=== PATIENT | female | born 1995 | race Caucasian/White ===

== ENCOUNTER 2022-10-28 13:43 | Emergency (ER) | payer BC, SELFPAY ==
[2022-10-28 14:01] VITALS: BP 122/81; PULSE 94; RESP 16; TEMP 37; O2SAT 98; BMI 20.1
--- NOTE | 2022-10-28 14:14 | ED.GENADUL1 ---
HPI - General Adult General Chief complaint: Skin/Abscess/Foreign Body Stated complaint: ALLERGIC REACTION Time Seen by Provider: 10/28/22 14:04 Source: patient Mode of arrival: walk-in Limitations: no limitations History of Present Illness HPI narrative: The patient presented to us with a few days history of rash that started after she was in [facility] patient denies having her hand touched anything but she did had the rash on the dorsum of her both hands as well as her feet and at her back as well The rash was itchy initially but not as much right now there was no other complaint and no history of any insect bites or any exposure to any new medication or new foods Related Data Previous Rx's Medication Instructions Recorded prednisone 20 mg tablet 40 mg PO DAILY 5 days #10 tabs 10/28/22 Allergies Allergy/AdvReac Type Severity Reaction Status Date / Time No Known Drug Allergies Allergy Verified 10/28/22 14:01 Review of Systems ROS Status of ROS 10 or more systems reviewed and unremarkable except as noted in history and below PFSH PFS Social History Smoking status: Never smoker Exam Narrative Exam Narrative: Nurses notes and vital signs reviewed and patient is not hypoxic. General: Well-appearing and in no apparent distress. Skin: Warm, dry, no pallor noted. No rash. Head: Normocephalic, atraumatic. Neck: Supple, non-tender. Eye: Pupils are equal, round and EOMI. No scleral icterus. Ears, Nose, Mouth, and Throat: TM are clear, no nasal mucosal hypertrophy. Oral mucosa is moist, no posterior oropharynx erythema, uvula is mid-line Cardiovascular: Regular Rate and Rhythm without murmur, gallop or rub. Respiratory: No accessory muscle use or respiratory distress. Lungs are clear to auscultation, no wheezing, rales or rhonchi Chest Wall: no tenderness Back: No midline thoracic or lumbar vertebral tenderness. No CVA tenderness Musculoskeletal: normal ROM, no calf or popliteal tenderness, no lower extremity edema/swelling GI: Abdomen is soft, non-distended. Normal bowel sounds. No masses appreciated. No tenderness to palpation. No rebound, guarding, or rigidity noted. Neurological: A&O x4. No cranial nerve dysfunction observed. No truncal ataxia. Moves all extremities. Sensation intact. Psychiatric: Cooperative and interactive. Normal mood and affect. Skin examination shows a scattered maculopapular rash on the dorsum of both hands, the patient also had a papular rash on her feet as well as the right side of her thigh there is 2-3 spots of papular rash Constitutional Vital Signs, click to edit/add: Last Vital Signs Temp 98.6 F 10/28/22 14:01 Pulse 94 H 10/28/22 14:01 Resp 16 10/28/22 14:01 BP 122/81 H 10/28/22 14:01 Pulse Ox 98 10/28/22 14:01 O2 Del Method Room Air 10/28/22 14:01 Course Vital Signs Vital signs: Vital Signs Temperature 98.6 F 10/28/22 14:01 Pulse Rate 94 H 10/28/22 14:01 Respiratory Rate 16 10/28/22 14:01 Blood Pressure 122/81 H 10/28/22 14:01 Pulse Oximetry 98 10/28/22 14:01 Oxygen Delivery Method Room Air 10/28/22 14:01 Temperature 98.6 F 10/28/22 14:01 Pulse Rate 94 H 10/28/22 14:01 Respiratory Rate 16 10/28/22 14:01 Blood Pressure 122/81 H 10/28/22 14:01 Pulse Oximetry 98 10/28/22 14:01 Oxygen Delivery Method Room Air 10/28/22 14:[address] [facility] Narrative Medical decision making narrative: The patient rash will be treated with prednisone right now at the possibility of poison joelle or allergy but the patient was instructed about the importance of monitoring in case of the rash increasing or fever she is to come back to the ER The patient is to follow up with primary care physician in next 2-3 days or to return to the emergency department should any of the signs or symptoms worsen or new symptoms develop. The patient agrees with the following Diagnosis and Treatment plan and the patient will be discharged home. Discharge Plan Discharge Chief Complaint: Skin/Abscess/Foreign Body Clinical Impression: Contact dermatitis Patient Disposition: Home, Self-Care Time of Disposition Decision: 14:16 Condition: Good Mode of Transportation: Private Vehicle Prescriptions / Home Meds: New prednisone 20 mg tablet 40 mg PO DAILY 5 Days Qty: 10 0RF Instructions: Acute Rash (ED) Stand Alone Forms: Portal Instructions Referrals: Physician,Non-Staff, MD [Primary Care Provider] - 1 week Discharge Date/Time: 10/28/22 14:40
[2022-10-28] MEDS: PREDNISONE 20 MG TABLET 40 MG PO (14:31)
--- NOTE | 2022-10-28 14:36 | PC.NURSE ---
Pt has rash on bilateral hands, arms and groin area. She was recently hiking and thinks she has poison joelle.
== END 2022-10-28 14:40 | disposition home or self-care (01) ==
PROVIDERS: Emergency Provider Emergency Medicine
DX: L25.9 Unspecified contact dermatitis, unspecified cause (principal)
CPT/HCPCS: 99283

== ENCOUNTER 2023-12-17 17:27 | Emergency (ER) | payer BC, SELFPAY ==
[2023-12-17 17:32] VITALS: BP 118/80; PULSE 115; TEMP 36.8; O2SAT 97
--- NOTE | 2023-12-17 17:49 | US_ITS ---
The [address] [address] Patient Name: SEJAL NOWAK MRN: [id number] date: 1995 Sex: F Assigned Patient Location: ER Current Patient Location: ED.MAIN Accession/Order Number: [id number] Exam Date: 12/17/2023 18:00 Report Date: 12/17/2023 18:58 At the request of: REINA POPE Procedure: US OB transvaginal EXAM: Transvaginal OB pelvic ultrasound was performed CLINICAL INDICATION: intermittent abdominal pain. COMPARISON: None FINDINGS: Uterus: Uterus measures cm. Intrauterine with gestational sac, yolk sac and fetus present. cardiac activity is present at 136-137 bpm. [place]-rump length measures 0.3 cm with an estimated gestational age of 6 weeks 5 days. No subchorionic hematoma evident. Right ovary: Measures 3.1 x 1.9 x 2.0 cm. Normal color flow and Doppler arterial and venous waveforms. No ovarian masses. Left ovary: Measures 4.0 x 2.1 x 2.5 cm. Normal color flow and Doppler arterial and venous waveforms. No ovarian masses. Probable left ovarian corpus luteum. No free fluid in the pelvis. US/US OB transvaginal IMPRESSION: 1. No acute sonographic abnormalities in the pelvis. 2. Single intrauterine with cardiac activity present. Electronically authenticated by: VIOLETA HOPKINS Date: 12/17/2023 18:58
[2023-12-17 17:57] LABS: Basophils Absolute Auto 0.1 10^3/uL (0.0-0.1); Basophils Percent Auto 0.4 % (0.2-2.0); Eosinophils Absolute Auto 0.1 10^3/uL (0.0-0.7); Eosinophils Percent Auto 0.4 % (0.9-7.0); Hematocrit 41.8 % (36.0-48.0); Hemoglobin 14.4 g/dL (12.0-16.0); Immature Granulocytes Abs Auto 0.05 10^3/uL (0.00-0.03); Immature Granulocytes Pct Auto 0.4 % (0.0-0.5); Lymphocytes Absolute Auto 1.8 10^3/uL (1.2-3.8); Lymphocytes Percent Auto 15.1 % (20.5-60.0); Mean Corpuscular HGB Conc 34.4 g/dL (29.9-35.2); Mean Corpuscular Hemoglobin 29.4 pg (26.7-34.0); Mean Corpuscular Volume 85.3 fL (81.0-99.0); Monocytes Absolute Auto 1.1 10^3/uL (0.3-0.8); Monocytes Percent Auto 9.2 % (1.7-12.0); Neutrophils Absolute Auto 8.9 10^3/uL (1.4-6.5); Neutrophils Percent Auto 74.5 % (43.0-75.0); Platelet Count 300 10^3/uL (150-450); Red Cell Distribution Width 11.9 % (11.0-15.0)
--- NOTE | 2023-12-17 18:00 | ED.GENADUL1 ---
HPI HPI - General Adult General Chief complaint: Nausea/Vomiting/Diarrhea Stated complaint: nausea Time Seen by Provider: 12/17/23 17:43 Source: patient Mode of arrival: walk-in Limitations: no limitations History of Present Illness HPI narrative: 28-year-old female G1, P0 who presents to the ER with concerns of nausea and vomiting for the past 3 days. Last menstrual cycle 10/26, patient is 7 weeks and 2 days gestation with confirmed in her PCPs office a few weeks ago. Patient has not yet followed up with [facility]. She denies any vaginal bleeding but has had some intermittent cramping. Patient concerned as she had a call off work and feels that she is getting dehydrated. She denies any chest pain or shortness of breath. She denies any dysuria. Onset (ago): day(s) (3) Treatments prior to arrival: Reports none Related Data Previous Rx's ?Medication ?Instructions ?Recorded ondansetron 4 mg disintegrating 4 mg PO TID PRN nausea and 12/17/23 tablet vomiting 4 days #12 tabs Allergies Allergy/AdvReac Type Severity Reaction Status Date / Time No Known Drug Allergies Allergy Verified 12/17/23 17:32 Opioid HPI Opioid Management Most Recent Opioid Data: No Data to Display Review of Systems ROS Constitutional Denies: fever or chills Ears, nose, mouth, and throat Denies: throat pain or neck pain Cardiovascular Denies: chest pain or palpitations Respiratory Denies: shortness of breath or cough Gastrointestinal Reports: nausea; Denies: abdominal pain or vomiting Genitourinary Reports: pelvic pain (intermittent cramping); Denies: painful urination or urinary frequency Musculoskeletal Denies: back pain or neck pain Integumentary/Breast Denies: rash, itching or redness Neurological Denies: headache Psychiatric Denies: anxiety Endocrine Denies: excessive urination PFSH PFSH Social History Smoking status: Never smoker Little interest or pleasure in doing things: not at all Feeling down, depressed, or hopeless: not at all Exam Narrative Exam Narrative: Nurses notes and vital signs reviewed and patient is not hypoxic. General: The patient appears well and in no apparent distress. Patient is resting comfortably on cart. Skin: Warm, dry, no pallor noted. Head: Normocephalic, atraumatic Neck: Supple, trachea mid-line, no tenderness, no lymphadenopathy Eye: Pupils are equal, round and reactive to light, EOMI Ears, Nose, Mouth, and Throat: TM are clear, normal light reflex, oral mucosa is moist, no posterior oropharynx erythema or hypertrophy, uvula is mid-line Cardiovascular: Regular Rate and Rhythm Respiratory: Patient is in no distress, no accessory muscle use, lungs are clear to auscultation, no wheezing, rales or rhonchi. Chest Wall: no tenderness Back: non-tender, no CVA tenderness Musculoskeletal: normal ROM, no tenderness, no swelling GI: Normal bowel sounds, no tenderness to palpation, no masses appreciated. No rebound, guarding, or rigidity noted. Abdomen and suprapubic region appear nonsurgical. Neurological: A&O x4 Psychiatric: Cooperative Constitutional Vital Signs, click to edit/add: Last Vital Signs Temp 98.2 F 12/17/23 17:32 Pulse 115 H 12/17/23 17:32 Resp 22 H 12/17/23 17:32 BP 118/80 12/17/23 17:32 Pulse Ox 97 12/17/23 17:32 O2 Del Method Room Air 12/17/23 17:32 Course Vital Signs Vital signs: Vital Signs Temperature 98.2 F 12/17/23 17:32 Pulse Rate 115 H 12/17/23 17:32 Respiratory Rate 22 H 12/17/23 17:32 Blood Pressure 118/80 12/17/23 17:32 Pulse Oximetry 97 12/17/23 17:32 Oxygen Delivery Method Room Air 12/17/23 17:32 Temperature 98.2 F 12/17/23 17:32 Pulse Rate 115 H 12/17/23 17:32 Respiratory Rate 22 H 12/17/23 17:32 Blood Pressure 118/80 12/17/23 17:32 Pulse Oximetry 97 12/17/23 17:32 Oxygen Delivery Method Room Air 12/17/23 17:32 Medical Decision Making MDM Narrative Medical decision making narrative: Discussed first trimester nausea. Patient agreeable to IV Zofran with risks and benefits discussed, should be given IV fluids with labs pending. Given her intermittent pelvic cramping and recent and ultrasound will be obtained to hopefully confirm intrauterine . Patient reevaluated, notes nausea improved, no vomiting. Patient feels well enough for discharge home. She will be given a short prescription of Zofran pending further follow-up to her [facility] to discuss ongoing medication. She is aware that I will be contacting him to discuss her presence in the ER and her follow-up needs for first trimester nausea and vomiting. Patient may work as tolerated. We discussed potassium rich foods, p.o. fluids. The patient is to followup with OBGYN in next 2-3 days or to return to the emergency department should any of the signs or symptoms worsen or new symptoms develop. Patient had questions answered. The patient agrees with the following Diagnosis and Treatment plan and the patient will be discharged home. Lab Data Lab results reviewed: Yes I reviewed the patient's lab results Labs: Lab Results 12/17/23 Range/Units 17:35 WBC 12.0 H (4.0-11.0) 10^3/uL RBC 4.90 (4.20-5.40) 10^6/uL Hgb 14.4 (12.0-16.0) g/dL Hct 41.8 (36.0-48.0) % MCV 85.3 (81.0-99.0) fL MCH 29.4 (26.7-34.0) pg MCHC 34.4 (29.9-35.2) g/dL RDW 11.9 (11.0-15.0) % Plt Count 300 (150-450) 10^3/uL MPV 10.0 (9.5-13.5) fL Neut % (Auto) 74.5 (43.0-75.0) % Lymph % (Auto) 15.1 L (20.5-60.0) % [place] % (Auto) 9.2 (1.7-12.0) % Eos % (Auto) 0.4 L (0.9-7.0) % Baso % (Auto) 0.4 (0.2-2.0) % Neut # (Auto) 8.9 H (1.4-6.5) 10^3/uL Lymph # (Auto) 1.8 (1.2-3.8) 10^3/uL Gentry # (Auto) 1.1 H (0.3-0.8) 10^3/uL Eos # (Auto) 0.1 (0.0-0.7) 10^3/uL Baso # (Auto) 0.1 (0.0-0.1) 10^3/uL Abs Immat Gran (auto) 0.05 H (0.00-0.03) 10^3/uL Imm/Tot Granulo (auto) 0.4 (0.0-0.5) % Sodium 138 (136-145) mmol/L Potassium 3.5 (3.5-5.1) mmol/L Chloride 101 (98-107) mmol/L Carbon Dioxide 27.7 (21.0-32.0) mmol/L Anion Gap 12.8 BUN 17.0 (7.0-18.0) mg/dL Creatinine 0.73 (0.55-1.02) mg/dL Est GFR ( Amer) >60 (>=60) Est GFR (Non-Af Amer) >60 (>=60) BUN/Creatinine Ratio 23.3 Glucose 86 (74-106) mg/dL Calcium 9.2 (8.5-10.1) mg/dL HCG, Quant [id number] mIU/mL Imaging Data US - abdomen: Radiologist's impression: ITS Impressions Transvaginal US 12/17/23 17:49 IMPRESSION: 1. No acute sonographic abnormalities in the pelvis. 2. Single intrauterine with cardiac activity present. Electronically authenticated by: VIOLETA HOPKINS Date: 12/17/2023 18:58 Discharge Plan Discharge Chief Complaint: Nausea/Vomiting/Diarrhea Clinical Impression: Nausea and vomiting in Patient Disposition: Home, Self-Care Time of Disposition Decision: 19:12 Condition: Good Prescriptions / Home Meds: New ondansetron 4 mg tablet,disintegrating 4 mg PO TID PRN (Reason: nausea and vomiting) 4 Days Qty: 12 0RF Print Language: Korean Instructions: Nausea and Vomiting in (ED) Referrals: Corby Costello DO [Physician] - As soon as possible MUNIRA VACA [Primary Care Provider] - 1 week
[2023-12-17] MEDS: 0.9 % SODIUM CHLORIDE 1,000 ML 999 ML IV (18:33)
[2023-12-17] MEDS: ONDANSETRON PF 4 MG/2 ML VIAL IV (18:34)
[2023-12-17 18:37] LABS: Anion Gap 12.8; BUN Creatinine Ratio 23.3; Calcium 9.2 mg/dL (8.5-10.1); Carbon Dioxide 27.7 mmol/L (21.0-32.0); Chloride 101 mmol/L (98-107); Estimated GFR (African America >60 (>=60); Estimated GFR (Non-African Ame >60 (>=60); Glucose 86 mg/dL (74-106); Potassium 3.5 mmol/L (3.5-5.1); Sodium 138 mmol/L (136-145)
[2023-12-17 18:38] LABS: HCG Quantitative 130338 mIU/mL
[2023-12-17 19:15] VITALS: BP 111/69; PULSE 78; O2SAT 100
== END 2023-12-17 19:23 | disposition home or self-care (01) ==
PROVIDERS: Personal Emergency Response Attendant; Emergency Provider Emergency Medicine; PCP Nurse Practitioner Family
DX: O26.891 Other specified pregnancy related conditions, first trimester (principal); R11.2 Nausea with vomiting, unspecified; Z3A.01 Less than 8 weeks gestation of pregnancy
CPT/HCPCS: 36415; 76817; 80048; 84702; 85025; 96361; 96374; 99285; J2405

== ENCOUNTER 2024-01-14 09:01 | Outpatient (OUT) | payer BC, SELFPAY ==
--- OUTSIDE RECORDS SUMMARY | 2024-01-14 09:06 | XMS_ITS | CCD ---
Author Organization [facility] [employer] [facility] Vital Signs Date Time Vital Sign Value Performing Clinician Faci lity 12-02-2023 08:47-0400 Body height 157.48 cm [facility] 12-02-2023 08:47-0400 Body mass index (BMI) [Ratio] 19.5 kg/m2 [facility] 12-02-2023 08:47-0400 Body weight 48.53 kg [facility] 12-02-2023 08:47-0400 Diastolic blood pressure 80 mm[Hg] [facility] 12-02-2023 08:47-0400 Systolic blood pressure 122 mm[Hg] [facility] Encounters Encounter Date Encounter Type Care Provider Facility Start: 12-31-2023 End: 12-31-2023 ambulatory Not Available Start: 12-02-2023 Patient encounter status [facility] Start: 12-02-2023 End: 12-02-2023 ambulatory [facility] Work Phone: Start: 12-02-2023 End: 12-02-2023 Encounter for general adult medical examination without abnormal findings [facility] Start: 12-02-2023 End: 12-02-2023 Patient encounter procedure [facility] Work Phone: Payers Date Payer Category Payer Unknown [id number] 1995 Unknown [id number] Social History Date Type Detail Facility Tobacco smoking stat [facility] Unknown if ever smoked [facility] Work Phone: Start: 1995 Sex Assigned At Female F [facility] Evaluation note Note Date & Type Note Facility Evaluation note Diagnosis Onset Date Wellness examination [facility] Work Phone: Chief Complaint and Reason for Visit Chief Complaint Wellness/Est Patient Reason for Visit Wellness examination Advance Directives No Advanced Directives Records Found Advance Directive Response Recorded Date/ Time Advance Directives No November 29, 2023 3:55pm Summary Purpose Family History No Family History Records Found Additional Source Comments Care Teams (unrecognized sec tion and content) Team Status: Active Member Role Status Dates Tran Rice APRN BEADING INSTALLER-C Primary Care Provider Active Team Status: Inactive Member Role Status Dates Tran Rice APRN BEADING INSTALLER-C Primary Care Provider, Attending Provider Active Start: December 02, 2023 End: December 02, 2023 Goals (unrecognized section and content) Goals may be documented in a n alternate section INFORMATION SOURCE (unrecogn ized section and content) DATE CREATED AUTHOR 01/01/2024 [facility] EPIC FOR RECORDS PERTAINING TO PATIENTS WHO ARE OR HAVE BEEN ENROLLED IN A CHEMICAL DEPENDENCY/SUBSTANCEABUSE PROGRAM, SOME INFORMATION MAY BE OMITTED. This clinical summary was aggregated from multiple sources. Caution should be exercised in using it in the provision of clinical care. This summary normalizes information from multiple sources, and as a consequence, information in this document may materially change the coding, format and clinical context of patient data. In addition, data may be omitted in some cases. CLINICAL DECISIONS SHOULD BE BASED ON THE PRIMARY CLINICAL RECORDS. [facility] [employer] provides no warranty or guarantee of the accuracy or completeness of information in this document.
[2024-01-14 09:46] LABS: Basophils Percent Auto 0.4 % (0.2-2.0); Eosinophils Absolute Auto 0.2 10^3/uL (0.0-0.7); Eosinophils Percent Auto 2.2 % (0.9-7.0); Hematocrit 38.7 % (36.0-48.0); Hemoglobin 13.4 g/dL (12.0-16.0); Immature Granulocytes Abs Auto 0.04 10^3/uL (0.00-0.03); Immature Granulocytes Pct Auto 0.4 % (0.0-0.5); Lymphocytes Absolute Auto 1.3 10^3/uL (1.2-3.8); Lymphocytes Percent Auto 13.3 % (20.5-60.0); Mean Corpuscular HGB Conc 34.6 g/dL (29.9-35.2); Mean Corpuscular Hemoglobin 29.6 pg (26.7-34.0); Mean Corpuscular Volume 85.4 fL (81.0-99.0); Mean Platelet Volume 9.6 fL (9.5-13.5); Monocytes Absolute Auto 0.5 10^3/uL (0.3-0.8); Monocytes Percent Auto 5.2 % (1.7-12.0); Neutrophils Absolute Auto 7.5 10^3/uL (1.4-6.5); Neutrophils Percent Auto 78.5 % (43.0-75.0); Platelet Count 277 10^3/uL (150-450); Red Blood Count 4.53 10^6/uL (4.20-5.40); Red Cell Distribution Width 12.6 % (11.0-15.0); White Blood Count 9.5 10^3/uL (4.0-11.0)
[2024-01-14 09:48] LABS: Estimated Average Glucose 91 mg/dL; Glycohemoglobin A1C 4.8 % (4.5-6.2)
[2024-01-14 09:50] LABS: Amphetamine Screen Urine NEGATIVE (NEGATIVE); Barbiturates Screen Urine NEGATIVE (NEGATIVE); Benzodiazepines Screen Urine NEGATIVE (NEGATIVE); Buprenorphine Screen Urine NEGATIVE (NEGATIVE); Cannabinoid Screen Urine NEGATIVE (NEGATIVE); Cocaine Screen Urine NEGATIVE (NEGATIVE); Methadone Screen Urine NEGATIVE (NEGATIVE); Methamphetamines Screen Urine NEGATIVE (NEGATIVE); Opiate Screen Urine NEGATIVE (NEGATIVE); Oxycodone Screen Urine NEGATIVE (NEGATIVE); Phencyclidine Screen Urine NEGATIVE (NEGATIVE); Tricyclic Antidepressant Urine NEGATIVE (NEGATIVE)
[2024-01-14 13:33] LABS: BOX Test Reference Lab UNITY; BOX Test Sent Out Y
[2024-01-15 06:13] LABS: HBsAg Screen Negative (Negative); HCV Ab Non Reactive (Non Reactive); HIV Ab/p24 Ag Screen Non Reactive (Non Reactive)
[2024-01-15 08:19] LABS: Rubella Antibodies, IgG <0.90 index (Immune >0.99)
[2024-01-15 10:15] LABS: Rapid Plasma Reagin, Quant Non Reactive titer (NonRea<1:1)
== END 2024-01-14 09:02 | disposition home or self-care (01) ==
LOC: LAB 09:02
PROVIDERS: PCP Nurse Practitioner Family; Visit Provider Obstetrics & Gynecology
DX: Z34.01 Encounter for supervision of normal first pregnancy, first trimester (principal); Z36.0 Encounter for antenatal screening for chromosomal anomalies; N92.6 Irregular menstruation, unspecified
CPT/HCPCS: 36415; 80307; 83036; 85025; 86592; 86762; 86803; 86850; 86900; 86901; 87086; 87340; 87389

== ENCOUNTER 2024-02-23 20:04 | Outpatient (REF) | payer BC, SELFPAY ==
--- OUTSIDE RECORDS SUMMARY | 2024-02-23 20:08 | XMS_ITS | CCD ---
Author Organization [facility] Care Team Providers Care Spanish Moss Picker Name Role Phone Tran Rice NP Primary Care Provider SANDY COSTELLO Attending Unavailable Allergies Allergy Classification Reported Allergen(s) Allergy Type Date of Onset Reaction(s) Facility (4 sources) Other Propensity to adverse reactions [facility] Work Phone: Medications Current Medications Medication Drug Class(es) Dates Sig (Normalized) Sig (Original) magnesium oxide 400 mg oral tablet (2 sources) Start: 01-25-2024 End: 02-24-2024 take 1 tablet by mouth once daily magnesium oxide (Mag-Ox) 400 MG tablet Indications: Nonintractable headache, unspecified chronicity pattern, unspecified headache type Take 1 tablet (400 mg) by mouth Daily 30 tablet 6 01/25/2024 02/24/2024 Active ondansetron 4 mg oral tablet (4 sources) Serotonin-3 Receptor Antagonist Start: 12-31-2023 End: 03-30-2024 take 1 tablet by mouth every six hours for nausea ondansetron (Zofran) 4 MG tablet Indications: Nausea and vomiting in Take 1 tablet (4 mg) by mouth every 6 (six) hours if needed for nausea or vomiting 30 tablet 2 12/31/2023 03/30/2024 Active MV & Min w/FA-DHA ( Gummies) 0.18-25 MG chewable tablet (4 sources) Start: 12-31-2023 End: 12-30-2024 MV & Min w/FA-DHA ( Gummies) 0.18-25 MG chewable tablet Indications: 9 weeks gestation of Chew 0.18 mg Daily 30 tablet 11 12/31/2023 12/30/2024 Active Problems Problem Classification Problem Date Documented Da te Episodic/Chronic Headache; including migraine (2 sources) Headache; Translations: [Nonintractable headache, unspecified chronicity pattern, unspecified headache type] 01-25-2024 Episodic Other and delivery including normal (2 sources) First trimester ; Translations: [Encounter for supervision of normal , unspecified, first trimester] 01-25-2024 Episodic Residual codes; unclassified (2 sources) Gestation period, 12 weeks; Translations: [12 weeks gestation of ] 01-25-2024 Episodic Results Test Name Value Interpretation Reference Range Facility Urinalysis macro (dipstick) panel (U)on 01-25-2024 Bilirubin, UA Positive Negative - 4(70) +++ mg/dL [facility] Comment on above: small Blood, UA Negative Negative - 50 Kvng/mcL [facility] Clarity, UA Clear [facility] re Color, UA Yellow [facility] e Glucose, UA Negative Negative - 1999(110) ++++ mg/dL [facility] Interpretation and review of laboratory results Abnormal [facility] Ketones, UA Positive Negative - 160(16) ++++ mg/dL [facility] Comment on above: moderate Leukocytes, UA Negative Negative - 500+++ Sandra/mcL [facility] Nitrite, UA Negative Negative - Positive [facility] pH, UA 6.5 5 - 9 [facility] Protein, UA Trace Negative - 1999(20) ++++ mg/dL [facility] Spec Grav, UA 1.025 1 - 1.03 [facility] Urobilinogen, UA 0.2 0.2 - 12 mg/dL [facility] e MLR HEMOGLOBIN A1Con 024 Glucose [Mass/Vol] 91 mg/dL [facility] HbA1c (Bld) [Mass fraction] 4.8 % 4.5 - 6.2 % [facility] Comment on above: ADA RECOMMENDED LIMI T 4.0 - 6.0 ADA THERAPEUTIC TARGET < 7.0 ACTION SUGGESTED > 7.0 [facility] e [facility] DRUG SCREEN RAPID (URINE )on 01-14-2024 AMPHETAMINE SCREEN URINE Negative NEGATIVE [facility] BARBITURATES SCREEN URINE Negative NEGATIVE [facility] BENZODIAZEPINES SCREEN URINE Negative NEGATIVE [facility] BUPRENORPHINE SCREEN URINE Negative NEGATIVE [facility] Comment on above: DRUG CLASS TEST SYST EM CUT-OFF CONCENTRATIONS ARE FOLLOWS: AMP (Amphetamine): 500 ng/mL BAR (Barbiturates): 200 ng/mL BZO (Benzodiazepines): 150 ng/mL BUP (Buprenorphine): 10 ng/mL ABDOULAYE (Cocaine): 150 ng/mL mAMP (Methamphetamine): 500 ng/mL MTD (Methadone): 200 ng/mL OPI (Opiates): 100 ng/mL OXY (Oxycodone): 100 ng/mL PCP (Phencyclidine): 25 ng/mL THC (Cannabinoids): 50 ng/mL TCA (Trycyclic Antidepressants): 300 ng/mL CANNABINOID SCREEN URINE Negative NEGATIVE [facility] COCAINE SCREEN URINE Negative NEGATIVE [facility] METHADONE SCREEN URINE Negative NEGATIVE [facility] METHAMPHETAMINES SCREEN URINE Negative NEGATIVE [facility] OPIATE SCREEN URINE Negative NEGATIVE [facility] OXYCODONE SCREEN URINE Negative NEGATIVE [facility] PHENCYCLIDINE SCREEN URINE Negative NEGATIVE [facility] TRICYCLIC ANTIDEPRESSANT URINE Negative NEGATIVE [facility] Vital Signs Date Time Vital Sign Value Performing Clinician Faci lity 01-25-2024 10:45-0400 Body weight 47.68 kg Fresvii DO Work Phone: [facility] 01-25-2024 10:45-0400 Diastolic blood pressure 64 mm[Hg] Sandy Pravin DO Work Phone: [facility] 01-25-2024 10:45-0400 Systolic blood pressure 100 mm[Hg] Sandy Pravin DO Work Phone: [facility] 12-02-2023 08:47-0400 Body height 157.48 cm [facility] 12-02-2023 08:47-0400 Body mass index (BMI) [Ratio] 19.5 kg/m2 [facility] 12-02-2023 08:47-0400 Body weight 48.53 kg [facility] 12-02-2023 08:47-0400 Diastolic blood pressure 80 mm[Hg] [facility] 12-02-2023 08:47-0400 Systolic blood pressure 122 mm[Hg] [facility] Encounters Encounter Date Encounter Type Care Provider Facility Start: 01-25-2024 End: 01-25-2024 Bamboo flowsheet Sandy Pravin DO Work Phone: [facility] Start: 01-25-2024 End: 01-25-2024 Bamboo flowsheet Sandy Pravin DO Work Phone: [facility] Start: 01-25-2024 End: 01-25-2024 flow sheet Sandy Pravin DO Work Phone: [facility] Comment on above: 12 weeks gestation o f ; First trimester ; Nonintractable headache, unspecified chronicity pattern, unspecified headache type Start: 01-25-2024 End: 01-25-2024 ambulatory SANDY PRAVIN Not Available Start: 01-14-2024 End: 01-14-2024 [facility] Result Encounter Sandy Pravin DO Work Phone: [facility] Unsolicited Start: 01-14-2024 End: 01-14-2024 [facility] Result Encounter Sandy Pravin DO Work Phone: [facility] Unsolic[facility] Start: 12-31-2023 End: 12-31-2023 ambulatory SANDY PRAVIN Not Available Start: 12-02-2023 Patient encounter status [facility] Start: 12-02-2023 End: 12-02-2023 ambulatory [facility] Work Phone: Start: 12-02-2023 End: 12-02-2023 Encounter for general adult medical examination without abnormal findings [facility] Start: 12-02-2023 End: 12-02-2023 Patient encounter procedure [facility] Work Phone: Procedures Date Procedure Procedure Detail Performing Clinician Start: 01-25-2024 Urnls dip stick/tabl et rgnt non-auto w/o micrscp Sandy Pravin DO Work Phone: Start: 01-14-2024 MLR HEMOGLOBIN A1C Core y Pravin DO Work Phone: Start: 01-14-2024 [facility] DRUG SCREEN RAPI D (URINE) Sandy Pravin DO Work Phone: Plan of Treatment Date Care Activity Detail Author Start: 02-23-2024 End: 02-23-2024 Patient encounter procedure 02/23/2024 10:30 AM EST Routine [facility] [address] [place] [id number] Alma Wild PA [address] [place] [address] [facility] Start: 01-25-2024 End: 01-25-2024 Patient encounter procedure [facility] Comment on above: Arrived Payers Date Payer Category Payer [employer] BCBS [id number] 2022 Unknown BCBS BCBS [id number] 2022-Present [phone] [address] [place] [address] [id number] 2022 Unknown [id number] 1995 Unknown [id number] 1995 Unknown [id number] Social History Date Type Detail Facility Tobacco smoking status MEIS Unknown if ever smoked [facility] Work Phone: Start: 1995 Sex Assigned At Female F [facility] Tobacco smoking status NHIS Tobacco smoking consumption unknown [facility] Start: 11-10-2023 [facility] Start: 1995 Sex assigned at Not on file [facility] Gender identity Not on file [facility] History of Present illness Narrative 01-25-2024 Anita VazquezALEXIS villasenor - 01/25/2024 10:40 AM EDT Note Date & Type Note Facility 01-25-2024 History of Presen t illness Narrative Reason for Appointment: Patient ID: Yesy Livingston is a 28 y.o. female who presents for Routine Visit Patient presents today for Return OB appointment. MEDICATIONS Current Outpatient Medications Medication Instructions magnesium oxide (MAG-OX) 400 mg, Oral, Daily ondansetron (ZOFRAN) 4 mg, Oral, Every 6 hours PRN MV & Min w/FA-DHA ( Gummies) 0.18-25 MG chewable tablet 0.18 mg, Oral, Daily ALLERGIES Allergies Allergen Reactions Other CATS PROBLEMS Active Ambulatory Problems Diagnosis Date Noted No Active Ambulatory Problems Resolved Ambulatory Problems Diagnosis Date Noted No Resolved Ambulatory Problems No Additional Past Medical History HISTORY PAST MEDICAL HISTORY SOCIAL HISTORY History reviewed. No pertinent past medical history. Social History Tobacco Use Smoking status: Not on file Smokeless tobacco: Not on file Substance Use Topics Alcohol use: Not on file Drug use: Not on file FAMILY HISTORY No family history on file. SURGICAL HISTORY History reviewed. No pertinent surgical history. REVIEW OF SYSTEMS Review of Systems: Review of Systems Constitutional: Negative. HENT: Negative. Eyes: Negative. Respiratory: Negative. Cardiovascular: Negative. Gastrointestinal: Negative. Genitourinary: Negative. Musculoskeletal: Negative. Skin: Negative. Neurological: Negative. All other systems reviewed and are negative. Hematological: Negative. Endocrine: Negative. Allergic/Immunologic: Negative. OBJECTIVE Objective: Physical Exam Constitutional: Appearance: Normal appearance. She is well-developed. Cardiovascular: Rate and Rhythm: Normal rate and regular rhythm. Pulmonary: Effort: Pulmonary effort is normal. Breath sounds: Normal breath sounds. Abdominal: General: Bowel sounds are normal. There is no distension. Palpations: Abdomen is soft. Tenderness: There is no abdominal tenderness. There is no guarding or rebound. Musculoskeletal: General: No swelling. Normal range of motion. Right lower leg: No edema. Left lower leg: No edema. Neurological: Mental Status: She is alert and oriented to person, place, and time. Skin: General: Skin is warm and dry. Psychiatric: Mood and Affect: Mood normal. Behavior: Behavior normal. Vitals and nursing note reviewed. Exam conducted with a picture frame maker present. Vitals: There is no height or weight on file to calculate BMI. BP: 100/64 Patient's last menstrual period was 10/27/2023. ASSESSMENT & PLAN ICD-10-CM 1. 12 weeks gestation of Z3A.12 POCT urinalysis dipstick manually resulted 2. First trimester Z34.91 POCT urinalysis dipstick manually resulted 3. Nonintractable headache, unspecified chronicity pattern, unspecified headache type R51.9 magnesium oxide (Mag-Ox) 400 MG tablet New OB: Patient presents today for 1st time obstetrics appointment with provider. Patient is currently 12w6d . Patients history has been reviewed in great detail including any potential risks. Patient stated she currently has no complaints. Expectations throughout regarding labs, ultrasounds, and appointments have been discussed with the patient in detail. It was reiterated that the patient is to drink 6-8 glasses of water a day, eat 6 small meals a day, do not consume raw or undercooked meat, and stay away from [facility]. Patient has been consulted regarding any further do's and don'ts of . Patient voiced understanding and all questions and concerns were answered. Orders Placed This Encounter Procedures POCT urinalysis dipstick manually resulted Follow Up: Patient is to return in 4 weeks for routine OB appointment. Documented by Anita Oswald LPN on behalf of: Sandy Costello DO documented in this encounter [facility] Evaluation note Note Date & Type Note Facility Evaluation note Diagnosis Onset Date Wellness examination [facility] Work Phone: Evaluation note Note Date & Type Note Facility Evaluation note Diagnosis 12 weeks gestation of First trimester state, incidental Nonintractable headache, unspecified chronicity pattern, unspecified headache type documented in this encounter [facility] Chief Complaint and Reason for Visit Chief [...] Member Role Status Dates Tran Rice APRN [employer] Primary Care Provider Active Team Status: Inactive Member Role Status Dates Tran Rice APRN [employer] Primary Care Provider, Attending Provider Active Start: December 02, 2023 End: December 02, 2023 Spanish [employer] Picker Relationship Specialty Start Date End Date Tran Rice NP [address] [place] [id number] PCP - General Family Medicine 12/31/23 Spanish [employer] Picker Relationship Specialty Start Date End Date Tran Rice NP [address] [place] [id number] PCP - General Family Medicine 12/31/23 Spanish [employer] Picker Relationship Specialty Start Date End Date Tran Rice NP [address] [place] [address] [id number] PCP - General Family Medicine 12/31/23 Goals (unrecognized section and content) Goals may be documented in a n alternate section Reason for Visit (unrecogniz ed section and content) Reason Comments Routine Visit INFORMATION SOURCE (unrecogn ized section and content) DATE CREATED AUTHOR 01/27/2024 [facility] EPIC FOR RECORDS PERTAINING TO [...] BE BASED ON THE PRIMARY CLINICAL RECORDS. [facility]. provides no warranty or guarantee of the accuracy or completeness of information in this document.
== END 2024-02-23 20:05 | disposition home or self-care (01) ==
LOC: LAB 20:04
PROVIDERS: PCP Nurse Practitioner Family; Visit Provider Physician Assistant
DX: Z01.419 Encounter for gynecological examination (general) (routine) without abnormal findings (principal)
CPT/HCPCS: 88175

== ENCOUNTER 2024-03-23 10:29 | Outpatient (OUT) | payer BC, SELFPAY ==
--- NOTE | 2024-03-23 10:38 | US_ITS ---
[address] [address] Patient Name: SEJAL NOWAK MRN: [id number] date: 1995 Sex: F Assigned Patient Location: [facility] Current Patient Location: [facility] Accession/Order Number: [id number] Exam Date: 03/23/2024 10:39 Report Date: 03/23/2024 13:16 At the request of: RAFY VARGAS Procedure: US OB anatomy EXAMINATION: US OB anatomy, US OB cervical length HISTORY: ANATOMY COMPARISON: No relevant comparison available. TECHNIQUE: Transabdominal sonographic examination was performed for obstetrical and evaluation. FINDINGS: Number: 1 Heart Rate: 135 bpm H.B. /min Amniotic Fluid Volume: Subjectively normal Placental Location: ANTERIOR, the placental edge is 4.5 cm from the internal os Cervix Length: 4.48 cm , closed Normal anatomy: Ventricles, Cerebellum, posterior fossa, nose, lips, orbits, four-chamber heart, RVOT, LVOT, diaphragm, stomach, kidneys, abdominal cord insertion, bladder, umbilical arteries, three-vessel cord, spine, extremities BIOMETRY: BPD: 4.89 cm; 20 weeks 6 days; 34.20 % HC: 18.23 cm; 20 weeks 4 days; 19.40 % AC: 15.61 cm; 20 weeks 5 days; 30.90 % FL: 3.36 cm; 20 weeks 4 days; 21.40 % EFW:381.44 g; 21.70 %, 13 ounces FL/AC: 21.52 FL/BPD: 68.71 HC/AC: 1.17 GESTATIONAL AGE: Age by EDC: 21 weeks 1 day SHIRA by EDC: 2024-08-02 Age by current US: 20 weeks 5 days SHIRA by current US: 2024-08-05 US/US OB anatomy IMPRESSION: Normal anatomy scan Closed cervix measuring 4.5 cm in length *Reference: [employer] Practice Guideline for the performance of Obstetric Ultrasound Examinations, January 03, 2007. Electronically authenticated by: ARTHUR BARDALES Date: 03/23/2024 13:16
--- NOTE | 2024-03-23 10:38 | US_ITS ---
[address] [address] Patient Name: SEJAL NOWAK MRN: [id number] date: 1995 Sex: F Assigned Patient Location: [facility] Current Patient Location: [facility] Accession/Order Number: [id number] Exam Date: 03/23/2024 10:39 Report Date: 03/23/2024 13:16 At the request of: RAFY VARGAS Procedure: US OB cervical length EXAMINATION: US OB anatomy, US OB cervical length HISTORY: ANATOMY COMPARISON: No relevant comparison available. TECHNIQUE: Transabdominal sonographic examination was performed for obstetrical and evaluation. FINDINGS: Number: 1 Heart Rate: 135 bpm H.B. /min Amniotic Fluid Volume: Subjectively normal Placental Location: ANTERIOR, the placental edge is 4.5 cm from the internal os Cervix Length: 4.48 cm , closed Normal anatomy: Ventricles, Cerebellum, posterior fossa, nose, lips, orbits, four-chamber heart, RVOT, LVOT, diaphragm, stomach, kidneys, abdominal cord insertion, bladder, umbilical arteries, three-vessel cord, spine, extremities BIOMETRY: BPD: 4.89 cm; 20 weeks 6 days; 34.20 % HC: 18.23 cm; 20 weeks 4 days; 19.40 % AC: 15.61 cm; 20 weeks 5 days; 30.90 % FL: 3.36 cm; 20 weeks 4 days; 21.40 % EFW:381.44 g; 21.70 %, 13 ounces FL/AC: 21.52 FL/BPD: 68.71 HC/AC: 1.17 GESTATIONAL AGE: Age by EDC: 21 weeks 1 day SHIRA by EDC: 2024-08-02 Age by current US: 20 weeks 5 days SHIRA by current US: 2024-08-05 US/US OB cervical length IMPRESSION: Normal anatomy scan Closed cervix measuring 4.5 cm in length *Reference: [employer] Practice Guideline for the performance of Obstetric Ultrasound Examinations, January 03, 2007. Electronically authenticated by: ATRHUR BARDALES Date: 03/23/2024 13:16
--- OUTSIDE RECORDS SUMMARY | 2024-03-23 10:39 | XMS_ITS | CCD ---
Author Organization [facility] Care Team Providers Care Clothing 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 Name Role Phone Dwayne WRAPPER STEMMER HAND, Tran Carbone Primary Care Provider SANDY COSTELLO Attending Unavailable ALMA VARGAS Attending Unavailable Loreta OSORIO, Trent Thompson Primary Care Provider [phone] Allergies Allergy Classification Reported Allergen(s) Allergy Type Date of Onset Reaction(s) Facility (9 sources) Other Propensity to adverse reactions 4 [facility] Work Phone: (1 source) Cat Dander Propensity to adverse reactions to drug 4 [facility] Medications Current Medications Medication Drug Class(es) Dates Sig (Normalized) Sig (Original) loratadine 10 mg oral tablet (1 source) Start: 01-05-2017 take 1 tablet by mouth once daily as needed loratadine (CLARITIN) 10 mg tablet TAKE ONE TABLET BY MOUTH ONCE DAILY NEEDED 30 tablet 5 01/05/2017 Active magnesium oxide 400 mg oral tablet (6 sources) Start: 01-25-2024 End: 02-24-2024 take 1 tablet by mouth once daily magnesium oxide (Mag-Ox) 400 MG tablet Indications: Nonintractable headache, unspecified chronicity pattern, unspecified headache type Take 1 tablet (400 mg) by mouth Daily 30 tablet 6 01/25/2024 02/24/2024 Active ondansetron 4 mg oral tablet (10 sources) Serotonin-3 Receptor Antagonist Start: 12-31-2023 End: 03-30-2024 take 1 tablet by mouth every six hours for nausea ondansetron (Zofran) 4 MG tablet Indications: Nausea and vomiting in Take 1 tablet (4 mg) by mouth every 6 (six) hours if needed for nausea or vomiting 30 tablet 2 12/31/2023 03/30/2024 Active Start: 10-05-2016 take 1 tablet by zina th every eight hours as needed for nausea ondansetron ODT (ZOFRAN-ODT) 4 mg disintegrating tablet Dissolve 1 tablet (4 mg total) on tongue every 8 (eight) hours as needed for nausea for up to 10 doses. 10 tablet 0 10/05/2016 Active PNV 19/iron ps,heme/folic/dha ( MV & MIN ORAL) (1 source) take 1 tablet by mouth once daily PNV 19/iron ps,heme/folic/dha ( MV & MIN ORAL) Take 1 tablet by mouth once daily. Active MV & Min w/FA-DHA ( Gummies) 0.18-25 MG chewable tablet (9 sources) Start: 12-31-2023 End: 12-30-2024 MV & Min w/FA-DHA ( Gummies) 0.18-25 MG chewable tablet Indications: 9 weeks gestation of Chew 0.18 mg Daily 30 tablet 11 12/31/2023 12/30/2024 Active Problems Active Problems Problem Classification Problem Date Documented Da te Episodic/Chronic Headache; including migraine (2 sources) Headache; Translations: [Nonintractable headache, unspecified chronicity pattern, unspecified headache type] 01-25-2024 Episodic Immunizations and screening for infectious disease (4 sources) Patient encounter status; Translations: [Encounter for screening for infections with a predominantly sexual mode of transmission] 02-23-2024 Episodic Other and delivery including normal (4 sources) First trimester ; Translations: [Encounter for supervision of normal , unspecified, first trimester] 01-25-2024 Episodic Other screening for suspected conditions (not mental disorders or infectious disease) (2 sources) Alpha-fetoprotein blood test status; Translations: [Encounter for screening for raised alphafetoprotein level] 02-23-2024 Episodic Residual codes; unclassified (2 sources) Gestation period, 12 weeks; Translations: [12 weeks gestation of ] 01-25-2024 Episodic Residual codes; unclassified (2 sources) Gestation period, 17 weeks; Translations: [17 weeks gestation of ] 02-23-2024 Episodic Past or Other Problems Problem Classification Problem Date Documented Da te Episodic/Chronic Other connective tissue disease (1 source) Rotator cuff impingement syndrome; Translations: [Impingement syndrome of unspecified shoulder] Onset: 05-08-2016 05-08-2016 Episodic Sprains and strains (1 source) Rupture of tendon of biceps; Translations: [Strain of muscle, fascia and tendon of other parts of biceps, unspecified arm, initial encounter] Onset: 06-03-2016 06-03-2016 Episodic Results Test Name Value Interpretation Reference Range Facility IGP,APTIMA HPV,AGE GDLNon AGE GDLN ACOG TESTING Note . [facility] Comment on above: TESTS RESULT FLAG UN ITS REF RANGE LAB Clinician Provided Cytology Information Source.............Cervix Other.............. No. of containers..01 ThinPrep Vial Age Algo ACOG Letha... - 01 FLAG LEGEND: L-Low Normal,H-High Normal,LL-Alert Low,HH-Alert High <-Panic Low,>-Panic High,A-Abnormal,AA-Critical Abnormal Performed at: 01 =G [facility] [address] [place] [address] Autumn Mckoy MD, IGP, RFX APTIMA HPV ASCU Note . [facility] Comment on above: TESTS RESULT FLAG U NITS REF RANGE LAB DIAGNOSIS: 02 NEGATIVE FOR INTRAEPITHELIAL LESION OR MALIGNANCY. Specimen adequacy: 02 Satisfactory for evaluation. No endocervical component is identified. Performed by: 02 Alma Curry, Case Investigator ([facility]) . 02 Note: Note 03 The Pap smear is a screening test designed to aid in the detection of premalignant and malignant conditions of the uterine cervix. It is not a diagnostic procedure and should not be used as the sole means of detecting cervical cancer. Both false-positive and false-negative reports do occur. Test Methodology: Note 03 This liquid based ThinPrep(R) pap test was screened with the use of an image guided system. . 02 The HPV DNA reflex criteria were not met with this specimen result therefore, no HPV testing was performed. FLAG LEGEND: L-Low Normal,H-High Normal,LL-Alert Low,HH-Alert High <-Panic Low,>-Panic High,A-Abnormal,AA-Critical Abnormal Performed at: 02 [facility] [address] [place] [address] Hao Blackman MD, 03 WB [facility] [address] [address] Autumn Mckoy MD, Performed at: =G - [facility] [address] [id number] Restaurant Crew: Autumn Mckoy MD, Phone: [phone] Performed at: [facility] - [facility] [address] [place], [place] [id number] Restaurant Crew: Hao Blackman MD, Phone: [phone] SPATULA-ALONE CERVIX [facility] RECURRENT VAGINITIS (HTRX)on 02-24-2024 ATOPOBIUM VAGINAE 0 [facility] ATOPOBIUM VAGINAE Not detected [facility] BVAB 2,3 (BACTERIAL VAGINOSIS ASSOCIATED BACTERIA 2, 3); MOBILUNCUS SPP 0 [facility] BVAB 2,3 (BACTERIAL VAGINOSIS ASSOCIATED BACTERIA 2, 3); MOBILUNCUS SPP Not detected [facility] NICKY ALBICANS, PARAPSILOSIS, TROPICALIS 0 [facility] NICKY ALBICANS, PARAPSILOSIS, TROPICALIS Not detected [facility] NICKY GLABRATA 0 [facility] NICKY GLABRATA Not detected [facility] NICKY KRUSEI 0 [facility] NICKY KRUSEI Not detected [facility] CHLAMYDIA TRACHOMATIS 0 [facility] CHLAMYDIA TRACHOMATIS Not detected N [facility] GARDNERELLA VAGINALIS 0 [facility] GARDNERELLA VAGINALIS Not detected N [facility] MEGASPHAERA (TYPES 1, 2) 0 [facility] MEGASPHAERA (TYPES 1, 2) Not detected [facility] MYCOPLASMA GENITALIUM 0 [facility] MYCOPLASMA GENITALIUM Not detected N [facility] NEISSERIA GONORRHOEAE 0 [facility] NEISSERIA GONORRHOEAE Not detected N [facility] TRICHOMONAS VAGINALIS 0 [facility] TRICHOMONAS VAGINALIS Not detected N [facility] Urinalysis macro (dipstick) panel (U)on 02-23-2024 Bilirubin, UA Negative Negative - 4(70) +++ mg/dL [facility] Blood, UA Negative Negative - 50 Kvng/mcL [facility] Clarity, UA Clear [facility] Color, UA Yellow [facility] Glucose, UA Negative Negative - 1999(110) ++++ mg/dL [facility] Interpretation and review of laboratory results Normal [facility] Ketones, UA Negative Negative - 160(16) ++++ mg/dL [facility] Leukocytes, UA Negative Negative - 500+++ Sandra/mcL [facility] Nitrite, UA Negative Negative - Positive [facility] pH, UA 7 5 - 9 [facility] Protein, UA Negative Negative - 1999(20) ++++ mg/dL [facility] Spec Grav, UA 1.025 1 - 1.03 [facility] Urobilinogen, UA 0.2 0.2 - 12 mg/dL [facility] Urinalysis macro (dipstick) panel (U)on 01-25-2024 Bilirubin, UA Positive Negative - 4(70) +++ mg/dL [facility] Comment on above: small Blood, UA Negative Negative - 50 Kvng/mcL [facility] Clarity, UA Clear [facility] Color, UA Yellow [facility] Glucose, UA Negative Negative - 1999(110) ++++ mg/dL [facility] Interpretation and review of laboratory results Abnormal [facility] Ketones, UA Positive Negative - 160(16) ++++ mg/dL [facility] Comment on above: moderate Leukocytes, UA Negative Negative - 500+++ Sandra/mcL [facility] Nitrite, UA Negative Negative - Positive [facility] pH, UA 6.5 5 - 9 [facility] Protein, UA Trace Negative - 2000(20) ++++ mg/dL [facility] Spec Grav, UA 1.025 1 - 1.03 [facility] Urobilinogen, UA 0.2 0.2 - 12 mg/dL [facility] MLR HEMOGLOBIN A1Con 024 Glucose [Mass/Vol] 91 mg/dL [facility] HbA1c (Bld) [Mass fraction] 4.8 % 4.5 - 6.2 % [facility] Comment on above: ADA RECOMMENDED LIMI T 4.0 - 6.0 ADA THERAPEUTIC TARGET < 7.0 ACTION SUGGESTED > 7.0 [facility] DRUG SCREEN RAPID (URINE )on 01-14-2024 AMPHETAMINE SCREEN URINE Negative NEGATIVE [facility] BARBITURATES SCREEN URINE Negative NEGATIVE [facility] BENZODIAZEPINES SCREEN URINE Negative NEGATIVE [facility] BUPRENORPHINE SCREEN URINE Negative NEGATIVE [facility] Comment on above: DRUG CLASS TEST SYST [...] 300 ng/mL CANNABINOID SCREEN URINE Negative NEGATIVE [facility] COCAINE SCREEN URINE Negative NEGATIVE [facility] METHADONE SCREEN URINE Negative NEGATIVE [facility] METHAMPHETAMINES SCREEN URINE Negative NEGATIVE [facility] OPIATE SCREEN URINE Negative NEGATIVE [facility] OXYCODONE SCREEN URINE Negative NEGATIVE [facility] PHENCYCLIDINE SCREEN URINE Negative NEGATIVE [facility] TRICYCLIC ANTIDEPRESSANT URINE Negative NEGATIVE [facility] Vital Signs Date Time Vital Sign Value Performing Clinician Faci lity 02-23-2024 10:48-0500 Body weight 49.9 kg Alma BRANHAM Work Phone: [facility] 02-23-2024 10:48-0500 Diastolic blood pressure 64 mm[Hg] Alma BRANHAM Work Phone: [facility] 02-23-2024 10:48-0500 Systolic blood pressure 102 mm[Hg] Alma BRANHAM Work Phone: [facility] 01-25-2024 10:45-0400 Body weight 47.68 kg Sandy Pravin DO Work Phone: [facility] 01-25-2024 10:45-0400 Diastolic blood pressure 64 mm[Hg] Sandy Pravin DO Work Phone: [facility] 01-25-2024 10:45-0400 Systolic blood pressure 100 mm[Hg] Sandy Pravin DO Work Phone: [facility] 12-02-2023 08:47-0400 Body height 157.48 cm [facility] 12-02-2023 08:47-0400 Body mass index (BMI) [Ratio] 19.5 kg/m2 [facility] 12-02-2023 08:47-0400 Body weight 48.53 kg [facility] 12-02-2023 08:47-0400 Diastolic blood pressure 80 mm[Hg] [facility] 12-02-2023 08:47-0400 Systolic blood pressure 122 mm[Hg] [facility] Encounters Encounter Date Encounter Type Care Provider Facility Start: 03-07-2024 End: 03-07-2024 Chart abstracting Omayra GALICIA Work Phone: [facility] Start: 02-23-2024 End: 02-23-2024 Bamboo flowsheet Alma BRANHAM Work Phone: [facility] Start: 02-23-2024 End: 03-06-2024 Bamboo flowsheet Alma BRANHAM Work Phone: [facility] Start: 02-23-2024 End: 03-06-2024 [facility] Result Encounter Alma BRANHAM Work Phone: [facility] External Department Unsolicited Start: 02-23-2024 End: 02-24-2024 External Result Encounter Alma BRANHAM Work Phone: [facility] Unsolicited Start: 02-23-2024 End: 02-23-2024 Patient encounter procedure Alma BRANHAM Work Phone: [facility] Start: 02-23-2024 End: 02-23-2024 flow sheet Alma BRANHAM Work Phone: [facility] Comment on above: Well woman exam with routine gynecological exam; Second trimester ; 17 weeks gestation of ; Need for maternal serum alpha-protein (MSAFP) screening; Screening, , for anatomic survey; Screen for STD (sexually transmitted disease) Start: 02-23-2024 End: 02-23-2024 ambulatory ALMA VARGAS Not Available Start: 01-25-2024 End: 01-25-2024 Bamboo flowsheet Sandy [...] 01-14-2024 End: 01-14-2024 [facility] Result Encounter Sandy Costello DO Work Phone: [facility] Unsolicited Start: 01-14-2024 End: 01-14-2024 [facility] Result Encounter Sandy Zaldivaro DO Work Phone: [facility] Unsolicited Start: 12-31-2023 End: 12-31-2023 ambulatory SANDY COSTELLO Not Available Start: 12-02-2023 Patient encounter status [facility] Start: 12-02-2023 End: 12-02-2023 ambulatory [facility] Work Phone: Start: 12-02-2023 End: 12-02-2023 Encounter for general adult medical examination without abnormal findings [facility] Start: 12-02-2023 End: 12-02-2023 [facility] encounter [facility] Work Phone: Procedures Date Procedure Procedure Detail Performing Clinician Start: 02-23-2024 RECURRENT VAGINITIS (HTRX) Alma BRANHAM Work Phone: Start: 02-23-2024 Urnls dip stick/tabl et rgnt non-auto w/o micrscp Alma BRANHAM Work Phone: Start: 02-23-2024 IGP,APTIMA HPV,AGE GDLN Alma BRANHAM Work Phone: Start: 01-25-2024 Urnls dip stick/tabl et rgnt non-auto w/o micrscp Sandy Pravin DO Work Phone: Start: 01-14-2024 MLR HEMOGLOBIN A1C Malvin y Pravin DO Work Phone: Start: 01-14-2024 [facility] DRUG SCREEN RAPI D (URINE) Sandy Pravin DO Work Phone: Plan of Treatment Date Care Activity Detail Author Start: 03-24-2024 End: 03-24-2024 Alpha fetoprotein, maternal Alpha fetoprotein, maternal Lab Routine Need for maternal serum alpha-protein (MSAFP) screening Expected: 03/24/2024 (Approximate), Expires: 03/24/2024 [facility] Comment on above: Expected: 03/24/2024 (Approximate), Expires: 03/24/2024 Start: 03-23-2024 End: 03-23-2024 Patient encounter procedure 03/23/2024 11:40 AM EST Routine [facility] [address] [place] [id number] Sandy Costello, [address] [place] [address] [facility] Start: 03-23-2024 End: 03-23-2024 Professional / ancillary services management 03/23/2024 10:30 AM EST Ancillary Procedure [facility] [address] [place] [id number] [facility] Start: 03-21-2024 End: 03-21-2024 Telemedicine consultation with patient 03/21/2024 9:00 AM EST Telemedicine [facility] [address] [place] [id number] Omayra Boyce, [facility] [address] [place] [facility] [place] [address] [facility] Start: 02-23-2024 End: 02-22-2025 US for US OB ANATOMY SINGLE W US OB CERVICAL LENGTH Imaging Routine Screening, , for anatomic survey Expected: 02/23/2024 (Approximate), Expires: 02/22/2025 [facility] Comment on above: Expected: 02/23/2024 (Approximate), Expires: 02/22/2025 Start: 02-23-2024 End: 02-23-2024 Patient encounter procedure [facility] Comment on above: Arrived Start: 01-25-2024 End: 01-25-2024 Patient encounter procedure [facility] Comment on above: Arrived Start: 12-05-2023 Influenza vaccination Influenza Vacc ine [facility] Start: 11-06-2019 DTaP,Tdap and Td Vaccines (7 - Td or Tdap) DTaP,Tdap and Td Vaccines (7 - Td or Tdap) [facility] Start: 2018 Screening for malign ant neoplasm of cervix Pap Smear [facility] Start: 09-29-2015 Adult BMI Screening Adult BMI Screen ing [facility] Start: 2009 Depression Screening Depression Scre ening [facility] Start: 2009 Tobacco Screening Tobacco Screening [facility] CHLAMYDIA TRACHOMATI S (GENITO/STI) CHLAMYDIA TRACHOMATIS (GENITO/STI) Lab Routine Screen for STD (sexually transmitted disease) Ordered: 02/23/2024 [facility] Comment on above: Ordered: 02/23/2024 Cytology Cervical or vaginal smear or scraping study Pap Smear Pathology and Cytology Routine Well woman exam with routine gynecological exam Ordered: 02/23/2024 [facility] Comment on above: Ordered: 02/23/2024 Neisseria gonorrhoea e DNA [Presence] in Unspecified specimen by RUBEN with probe detection Neisseria gonorrhea DNA probe, direct Lab Routine Screen for STD (sexually transmitted disease) Ordered: 02/23/2024 [facility] Comment on above: Ordered: 02/23/2024 SURESWAB(R) ADVANCED VAGINITIS PLUS, TMA SURESWAB(R) ADVANCED VAGINITIS PLUS, TMA Pathology and Cytology Routine Screen for STD (sexually transmitted disease) Ordered: 02/23/2024 [facility] Work Phone: Comment on above: Ordered: 02/23/2024 Immunizations Immunization Date Immunization Notes Care Provider Kedar chahal 11-13-2015 hepatitis A vaccine, pediatric/adolescent dosage, 2 dose schedule Omayra Boyce [facility] Work Phone: [facility] 11-13-2015 meningococcal polysaccharide (groups A, C, Y and W-135) diphtheria toxoid conjugate vaccine (MCV4P) Omayra Boyce [facility] Work Phone: [facility] 04-24-2015 influenza, injectabl e, quadrivalent, [facility]ative [facility] 04-24-2015 influenza virus vaccine, unspecified formulation Omayra Boyce [facility] Work Phone: [facility] 11-05-2009 tetanus toxoid, redu dilip diphtheria toxoid, and acellular pertussis vaccine, adsorbed Omayra Austen [facility] Work Phone: [facility] 11-05-2009 varicella virus vaccine Made larry Boyce [facility] Work Phone: [facility] 03-14-2009 influenza, seasonal, injectable, preservative free Omayra Austen [facility] Work Phone: [facility] 01-24-2003 hepatitis B vaccine, adult dosage Omayra Austen [facility] Work Phone: [facility] 11-28-2002 diphtheria, tetanus toxoids and acellular pertussis vaccine, 5 pertussis antigens Omayra Austen [facility] Work Phone: [facility] 11-28-2002 measles, mumps and rubella virus vaccine Omayra Austen [facility] Work Phone: [facility] 11-28-2002 [facility], [facility] 07-18-2001 varicella virus vaccine Made larry Boyce [facility] Work Phone: [facility] 04-09-1999 diphtheria, tetanus toxoids and acellular pertussis vaccine, 5 pertussis antigens Omayra Austen [facility] Work Phone: [facility] 04-09-1999 measles, mumps and rubella virus vaccine [facility] Work Phone: [facility] 03-25-1998 diphtheria, tetanus toxoids and acellular pertussis vaccine, [address] [facility] Work Phone: [facility] 03-25-1998 hepatitis B vaccine, adult dosage Omayra Austen [facility] Work Phone: [facility] 03-25-1998 poliovirus vaccine, inactivated [facility] Work Phone: [facility] 02-13-1998 diphtheria, tetanus toxoids and acellular pertussis vaccine, [address] [facility] Work Phone: [facility] 02-13-1998 poliovirus vaccine, inactivated [facility] Work Phone: [facility] 1997 diphtheria, tetanus toxoids and acellular pertussis vaccine, [address] [facility] Work Phone: [facility] 1997 haemophilus influenz ae type b vaccine, PRP-OMP conjugate [facility] Work Phone: [facility] [address], [address] [facility] Work Phone: [facility] 1997 hepatitis B vaccine, adult dosage [facility] Work Phone: [facility] 1997 hepatitis B vaccine, adult dosage [facility] Work Phone: [facility] NEGATED: Highlighted row has not occurred!11-13-2015 human papilloma virus vaccine, quadrivalent [facility] Work Phone: [facility] Comment on above: Deferred: Other - parent declined Payers Date Payer Category Payer [facility] er [id number] 2022 [facility] Managed Care - Other ANTHEM Member Subscriber Plan / Payer (Effective 2022-Present) Name: Yesy Livingston Relation to Subscriber: Self Name: Yesy Livingston Payer ID: [id number] (NAIC) Type: Not on file Address: [address] [place] [id number] 2022 Unknown BCBS BCBS xxxxxx [id number] 2022-Present [phone] [id number] [id number] 2022 Unknown [id number] 2020 [employer] Managed Care - O ANTHEM Member Subscriber Plan / Payer (Effective 2020-Present) Name: Yesy Livingston Relation to Subscriber: Self Name: Yesy Livingston Payer ID: [id number] (NAIC) Type: Not on file Address: [address] [place] [id number] 1997 Unknown [id number] 1997 Unknown [id number] 1997 Unknown [id number] Social History Date Type Detail Facility Tobacco smoking stat [facility] Unknown if ever smoked [facility] Work Phone: Start: 1997 Sex Assigned At Female F [facility] Start: 11-10-2023 [facility] Start: 1995 Sex assigned at Not on file [facility] Start: 05-16-2020 End: 03-07-2024 Gender identity Not on file [facility] Start: 02-13-2021 Tobacco smoking stat [facility] Never smoked tobacco [facility] Start: 02-13-2021 Tobacco use and exposure Smokeless tobacco non-user [facility] Start: 03-07-2024 Alcoholic beverage intake Current non-drinker of alcohol (finding) [facility] Start: 05-16-2020 End: 03-07-2024 Alcoholic beverage intake [facility] Childcare Unknown [facility] Start: 11-06-2014 Sex Female (finding) [facility] History of Present illness Narrative 02-23-2024 CARROL Harmon - 02/23/2024 10:30 AM EST Note Date & Type Note Facility 02-23-2024 History of Presen t illness Narrative Reason [...] History HISTORY PAST MEDICAL HISTORY SOCIAL HISTORY No past medical history on file. Social History Tobacco Use Smoking status: Not on file Smokeless tobacco: Not on file Substance Use Topics Alcohol use: Not on file Drug use: Not on file FAMILY HISTORY No family history on file. SURGICAL HISTORY No past surgical history on file. REVIEW OF SYSTEMS Review of Systems: Review of Systems Constitutional: Negative. HENT: Negative. Eyes: Negative. Respiratory: Negative. Cardiovascular: Negative. Gastrointestinal: Negative. Genitourinary: Negative. Musculoskeletal: Negative. Skin: Negative. Neurological: Negative. All other systems reviewed and are negative. Hematological: Negative. Endocrine: Negative. Allergic/Immunologic: Negative. OBJECTIVE Objective: Physical Exam Constitutional: Appearance: Normal appearance. She is normal weight. HENT: Head: Normocephalic. Cardiovascular: Rate and Rhythm: Normal rate. Pulses: Normal pulses. Pulmonary: Effort: Pulmonary effort is normal. Breath sounds: Normal breath sounds. Abdominal: Palpations: Abdomen is soft. Musculoskeletal: General: Normal range of motion. Neurological: General: No focal deficit present. Mental Status: She is alert and oriented to person, place, and time. Psychiatric: Mood and Affect: Mood normal. Behavior: Behavior normal. Thought Content: Thought content normal. Judgment: Judgment normal. Vitals and nursing note reviewed. Vitals: There is no height or weight on file to calculate BMI. BP: 102/64 Patient's last menstrual period was 10/27/2023. ASSESSMENT & PLAN ICD-10-CM 1. Well woman exam with routine gynecological exam Z01.419 Pap Smear 2. Second trimester Z34.92 POCT urinalysis dipstick manually resulted 3. 17 weeks gestation of Z3A.17 4. Need for maternal serum alpha-protein (MSAFP) screening Z36.1 Alpha fetoprotein, maternal Alpha fetoprotein, maternal 5. Screening, , for anatomic survey Z36.89 US OB ANATOMY SINGLE W US OB CERVICAL LENGTH 6. Screen for STD (sexually transmitted disease) Z11.3 SURESWAB(R) ADVANCED VAGINITIS PLUS, TMA CHLAMYDIA TRACHOMATIS (GENITO/STI) Neisseria gonorrhea DNA probe, direct Return OB: Patient presents today for a routine obstetrics appointment. Patient is currently 17w0d . Patient states she is doing well but has complaints of being tired due to current . Patient has verbalizes frequent movement. Orders Placed This Encounter Procedures US OB ANATOMY SINGLE W US OB CERVICAL LENGTH CHLAMYDIA TRACHOMATIS (GENITO/STI) Neisseria gonorrhea DNA probe, direct Alpha fetoprotein, maternal POCT urinalysis dipstick manually resulted Follow Up: Patient is to return to office in 4week for routine OB appointment. Documented by CARROL Harmon on behalf of: CARROL Harmon documented in this encounter [facility] History of Present illness Narrative 01-25-2024 Anita Oswald, [employer] - 01/25/2024 10:40 AM EDT Note Date [...] nursing note reviewed. Exam conducted with a grain origination specialist present. Vitals: There is no height or [...] or undercooked meat, and stay away from [facility]. Patient has been consulted regarding any [...] Evaluation note Diagnosis Onset Date Wellness examination [facility] Work Phone: Evaluation note Note Date & Type Note Facility Evaluation note Diagnosis 12 weeks gestation of First trimester state, incidental Nonintractable headache, unspecified chronicity pattern, unspecified headache type documented in this encounter [facility] Evaluation note Note Date & Type Note Facility Evaluation note Diagnosis Well woman exam with routine gynecological exam Routine gynecological examination Second trimester state, incidental 17 weeks gestation of Need for maternal serum alpha-protein (MSAFP) screening Screening, , for anatomic survey Encounter for anatomic survey Screen for STD (sexually transmitted disease) Screening examination for venereal disease documented in this encounter [facility] Healthcare Instructions Note Date & Type Note Facility Instructions Not on filedocumented in this en counter [facility] Chief Complaint and Reason for Visit Chief Complaint Wellness/Est Patient Reason for Visit Wellness examination Advance Directives Advance Directive Response Recorded Date/ Time Advance Directives No November 29, 2023 3:55pm Summary Purpose Family History No Family History Records Found Additional Source Comments Care Teams (unrecognized sec tion and content) Team Status: Active Member Role Status Dates Tran Rice APRN [employer] Primary Care Provider Active Team Status: Inactive Member Role Status Dates Tran Rice APRN [employer] Primary Care Provider, Attending Provider Active Start: December 02, 2023 End: December 02, 2023 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 Relationship Specialty Start Date End Date Tran Rice NP [address] [place] [address] PCP - General Family Medicine 12/31/23 Clothing 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 Relationship Specialty Start Date End Date Tran Rice NP [address] [place] [address] PCP - General Family Medicine 12/31/23 Clothing 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 Relationship Specialty Start Date End Date Tran Rice NP [address] [place] [address] PCP - General Family Medicine 12/31/23 Clothing 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 Relationship Specialty Start Date End Date Tran Rice NP [address] [place] [address] [place] [address] PCP - General Family Medicine 12/31/23 Clothing 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 Relationship Specialty Start Date End Date Tran Rice NP [address] [place] [address] [place] [address] PCP - General Family Medicine 12/31/23 Clothing 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 Relationship Specialty Start Date End Date Tran Rice NP [address] [place] [address] PCP - General Family Medicine 12/31/23 Clothing 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 Relationship Specialty Start Date End Date Tran Rice NP [address] [place] [address] PCP - General Family Medicine 12/31/23 Clothing 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 Relationship Specialty Start Date End Date Trent Kan MD PCP - General 08/09/14 Goals (unrecognized section and content) Goals may be documented in a n alternate sectionNot on filedocumented as of this encounter Reason for Visit (unrecogniz ed section and content) Reason Comments Routine Visit INFORMATION SOURCE (unrecogn ized section and content) DATE CREATED AUTHOR 02/26/2024 [facility] Special[facility] FOR RECORDS PERTAINING TO PATIENTS WHO ARE [...] BE BASED ON THE PRIMARY CLINICAL RECORDS. [email or web address] provides no warranty or guarantee of the accuracy or completeness of information in this document.
== END 2024-03-23 10:30 | disposition home or self-care (01) ==
LOC: NOMS 10:29
PROVIDERS: PCP Nurse Practitioner Family; Visit Provider Physician Assistant
DX: Z36.89 Encounter for other specified antenatal screening (principal); Z34.92 Encounter for supervision of normal pregnancy, unspecified, second trimester; Z3A.20 20 weeks gestation of pregnancy
CPT/HCPCS: 76805; 76817

== ENCOUNTER 2024-05-05 09:11 | Outpatient (OUT) | payer BC, SELFPAY ==
--- OUTSIDE RECORDS SUMMARY | 2024-05-05 09:18 | XMS_ITS | CCD ---
Author Organization [facility] Care Team Providers Care Wall Taper Helper Name Role Phone Dwayne ACTIVITY THERAPY TEACHER, Tran Carbone Primary Care Provider Arthur Parker MD Primary Care Provider SANDY COSTELLO Referring Unavailable ARTHUR PARKER Primary Care Unavailable SANDY COSTELLO Attending Unavailable ALMA VARGAS Attending Unavailable SANDY COSTELLO Attending Unavailable SANDY COSTELLO Attending Unavailable Allergies Allergy Classification Reported Allergen(s) Allergy Type Date of Onset Reaction(s) Facility (16 sources) Other Propensity to adverse reactions 4 [facility] Work Phone: (5 sources) Cat Dander; Translations: [CAT DANDER] Propensity to adverse reactions to drug 4 [facility] (2 sources) Cat Hair Extract Propensity to adverse reactions 4 [facility] Medications Current Medications Medication Drug Class(es) Dates [...] 02/24/2024 Active ondansetron 4 mg oral tablet (15 sources) Serotonin-3 Receptor Antagonist Start: 12-31-2023 End: 03-30-2024 take 1 tablet by mouth every six hours for nausea ondansetron (Zofran) 4 MG tablet Indications: Nausea and vomiting in Take 1 tablet (4 mg) by mouth every 6 (six) hours if needed for nausea or vomiting 30 tablet 2 12/31/2023 03/30/2024 Active Start: 12-17-2023 End: 12-31-2023 take 1 tablet by mouth every six hours as needed ondansetron ODT (Zofran-ODT) 4 MG disintegrating tablet Take 4 mg by mouth every 6 (six) hours if needed 12/17/2023 12/31/2023 Discontinued (Reorder) Start: 10-05-2016 take 1 tablet by zina [...] w/FA-DHA ( Gummies) 0.18-25 MG chewable tablet (16 sources) Start: 12-31-2023 End: 12-30-2024 MV & Min w/FA-DHA ( Gummies) 0.18-25 MG chewable tablet Indications: 9 weeks gestation of Chew 0.18 mg Daily 30 tablet 11 12/31/2023 12/30/2024 Active Problems Active Problems Problem Classification Problem Date Documented Date Episodic/Chronic Headache; including migraine (2 sources) Headache; Translations: [Nonintractable headache, unspecified chronicity pattern, unspecified headache type] 01-25-2024 Episodic Immunizations and screening for infectious disease (6 sources) Patient encounter status; Translations: [Encounter for screening for infections with a predominantly sexual mode of transmission] 02-23-2024 Episodic Menstrual disorders (1 source) Missed period; Translations: [Irregular menstruation, unspecified] 12-31-2023 Chronic Other complications of (1 source) Abnormal chromosomal and genetic finding on screening of mother; Translations: [Abnormal chromosomal and genetic finding on screening of mother] Onset: 03-21-2024 Episodic Other complications of (1 source) Vomiting of , unspecified; Translations: [Unspecified vomiting of , unspecified as to episode of care or not applicable] 12-31-2023 Episodic Other and delivery including normal (10 sources) First trimester ; Translations: [Encounter for [...] [17 weeks gestation of ] 02-23-2024 Episodic Residual codes; unclassified (1 source) Gestation period, 9 weeks; Translations: [9 weeks gestation of ] 12-31-2023 Episodic Residual codes; unclassified (2 sources) Gestation period, 21 weeks; Translations: [21 weeks gestation of ] 03-23-2024 Episodic Residual codes; unclassified (2 sources) Gestation period, 25 weeks; Translations: [25 weeks gestation of ] 04-20-2024 Episodic Past or Other Problems Problem Classification [...] Range Facility Urinalysis macro (dipstick) panel (U)on 05-03-2024 Bilirubin, UA Negative Negative - 4(70) +++ mg/dL [facility] Blood, UA Negative Negative - 50 Kvng/mcL [facility] Clarity, UA Clear [facility] Color, UA Yellow [facility] Glucose, UA Negative Negative - 2000(110) ++++ mg/dL [facility] Interpretation and review of laboratory results Normal [facility] Ketones, UA Negative Negative - 160(16) ++++ mg/dL [facility] Leukocytes, UA Negative Negative - 500+++ Sandra/mcL [facility] Nitrite, UA Negative Negative - Positive [facility] pH, UA 6.5 5 - 9 [facility] Protein, UA Negative Negative - 1999(20) ++++ mg/dL [facility] Spec Grav, UA 1.025 1 - 1.03 [facility] Urobilinogen, UA 1.0 0.2 - 12 mg/dL [facility], [facility] Urinalysis macro (dipstick) panel (U)on 03-23-2024 Bilirubin, UA Negative Negative - 4(70) +++ mg/dL [facility] Blood, UA Negative Negative - 50 Kvng/mcL [facility] Clarity, UA Clear [facility] Color, UA Yellow [facility] Glucose, UA Negative Negative - 1999(110) ++++ mg/dL [facility] Interpretation and review of laboratory results Normal [facility] Ketones, UA Negative Negative - 160(16) ++++ mg/dL [facility] Leukocytes, UA Negative Negative - 500+++ Sandra/mcL [facility] Nitrite, UA Negative Negative - Positive [facility] pH, UA 6.5 5 - 9 [facility] Protein, UA Negative Negative - 1999(20) ++++ mg/dL [facility] Spec Grav, UA 1.025 1 - 1.03 [facility] Urobilinogen, UA 0.2 0.2 - 12 mg/dL [facility], [facility] IGP,APTIMA HPV,AGE GDLNon AGE GDLN ACOG TESTING Note . [facility] Comment on above: TESTS RESULT FLAG UN ITS REF RANGE LAB Clinician Provided Cytology Information Source.............Cervix Other.............. No. of containers..01 ThinPrep Vial Age Algo ACOG Letha... FLAG LEGEND: L-Low Normal,H-High Normal,LL-Alert Low,HH-Alert High <-Panic Low,>-Panic High,A-Abnormal,AA-Critical Abnormal Performed at: 01 =G [address] [address] Autumn Mckoy MD, IGP, RFX APTIMA HPV ASCU Note . [facility] Comment on above: TESTS RESULT FLAG UN ITS REF RANGE LAB DIAGNOSIS: 02 NEGATIVE FOR INTRAEPITHELIAL LESION OR MALIGNANCY. Specimen adequacy: 02 Satisfactory for evaluation. No endocervical component is identified. Performed by: 02 Alma Curry, Setter Helper ([facility]) . 02 Note: Note 03 The Pap [...] <-Panic Low,>-Panic High,A-Abnormal,AA-Critical Abnormal Performed at: 02 [facility] [address] [address] [place] [address] Hao Blackman MD, [address] [address] Autumn Mckoy MD, Performed at: = - [facility] [id number] Religious Education Teacher: Autumn Mckoy MD, Phone: [phone] Performed at: [facility] - [facility] [address] [place], [place] [id number] Religious Education Teacher: Hao Blackman MD, Phone: [phone] SP[facility]-ALONE CERVIX [facility] RECURRENT VAGINITIS (HTRX)on 02-24-2024 ATOPOBIUM VAGINAE 0 [facility] ATOPOBIUM VAGINAE Not detected [facility] BVAB 2,3 (BACTERIAL VAGINOSIS ASSOCIATED BACTERIA 2, 3); MOBILUNCUS SPP 0 [facility] BVAB 2,3 (BACTERIAL VAGINOSIS ASSOCIATED BACTERIA 2, 3); MOBILUNCUS SPP Not detected [facility] NICKY ALBICANS, PARAPSILOSIS, TROPICALIS 0 [facility] NICKY ALBICANS, PARAPSILOSIS, TROPICALIS Not detected [facility] NICKY GLABRATA 0 [facility] NICKY GLABRATA Not detected [facility] NICKY KRUSEI 0 [facility] NICKY KRUSEI Not detected [facility] CHLAMYDIA TRACHOMATIS 0 [facility] CHLAMYDIA TRACHOMATIS Not detected [facility] GARDNERELLA VAGINALIS 0 [facility] GARDNERELLA VAGINALIS Not detected [facility] MEGASPHAERA (TYPES 1, 2) 0 [facility] MEGASPHAERA (TYPES 1, 2) Not detected [facility] MYCOPLASMA GENITALIUM 0 [facility] MYCOPLASMA GENITALIUM Not detected N [facility] NEISSERIA GONORRHOEAE 0 [facility] NEISSERIA GONORRHOEAE Not detected N [facility] TRICHOMONAS VAGINALIS 0 [facility] TRICHOMONAS VAGINALIS Not detected N [facility] Urinalysis macro (dipstick) panel (U)on 02-23-2024 Bilirubin, UA Negative Negative - 4(70) +++ mg/dL [facility] Blood, UA Negative Negative - 50 Kvng/mcL [facility] Clarity, UA Clear [facility] Color, UA Yellow [facility] Glucose, UA Negative Negative - 1999(110) ++++ mg/dL [facility] Interpretation and review of laboratory results Normal [facility] Ketones, UA Negative Negative - 160(16) ++++ mg/dL [facility] Leukocytes, UA Negative Negative - 500+++ Sandra/mcL [facility] Nitrite, UA Negative Negative - Positive [facility] pH, UA 7 5 - 9 [facility] Protein, UA Negative Negative - 1999(20) ++++ mg/dL [facility] Spec Grav, UA 1.025 1 - 1.03 [facility] Urobilinogen, UA 0.2 0.2 - 12 mg/dL [facility], [facility] Urinalysis macro (dipstick) panel (U)on 01-25-2024 Bilirubin, UA Positive Negative - 4(70) +++ mg/dL [facility] Comment on above: small Blood, UA Negative Negative - 50 Kvng/mcL [facility] Clarity, UA Clear [facility] Color, UA Yellow [facility] Glucose, UA Negative Negative - 1999(110) ++++ mg/dL [facility] Interpretation and review of laboratory results Abnormal [facility] Ketones, UA Positive Negative - 160(16) ++++ mg/dL [facility] Comment on above: moderate Leukocytes, UA Negative Negative - 500+++ Sandra/mcL [facility] Nitrite, UA Negative Negative - Positive [facility] pH, UA 6.5 5 - 9 [facility] Protein, UA Trace Negative - 1999(20) ++++ mg/dL [facility] Spec Grav, UA 1.025 1 - 1.03 [facility] Urobilinogen, UA 0.2 0.2 - 12 mg/dL [facility], [facility] MLR HEMOGLOBIN A1Con 024 Glucose [Mass/Vol] 91 mg/dL [facility] HbA1c (Bld) [Mass fraction] 4.8 % 4.5 - 6.2 % [facility] Comment on above: ADA RECOMMENDED LIMI T 4.0 - 6.0 ADA THERAPEUTIC TARGET < 7.0 ACTION SUGGESTED > [facility] S[facility]APID (URINE )on 01-14-2024 AMPHETAMINE SCREEN URINE Negative NEGATIVE [facility] BARBITURATES SCREEN URINE Negative NEGATIVE [facility] BENZODIAZEPINES SCREEN URINE Negative NEGATIVE [facility] BUPRENORPHINE SCREEN URINE Negative NEGATIVE [facility] Comment on above: DRUG CLASS TEST SYST [...] 300 ng/mL CANNABINOID SCREEN URINE Negative NEGATIVE [facility] COCAINE SCREEN URINE Negative NEGATIVE [facility] METHADONE SCREEN URINE Negative NEGATIVE [facility] METHAMPHETAMINES SCREEN URINE Negative NEGATIVE [facility] OPIATE SCREEN URINE Negative NEGATIVE [facility] OXYCODONE SCREEN URINE Negative NEGATIVE [facility] PHENCYCLIDINE SCREEN URINE Negative NEGATIVE [facility] TRICYCLIC ANTIDEPRESSANT URINE Negative NEGATIVE [facility] HCG ( test) Ql (U)o n 12-31-2023 Interpretation and review of laboratory results Abnormal [facility] Preg Test, Ur Positive [facility], [facility] Urinalysis macro (dipstick) panel (U)on 12-31-2023 Bilirubin, UA Negative Negative - 4(70) +++ mg/dL [facility] Blood, UA Negative Negative - 50 Kvng/mcL [facility] Clarity, UA Clear [facility] Color, UA Yellow [facility] Glucose, UA Negative Negative - 2000(110) ++++ mg/dL [facility] Interpretation and review of laboratory results Normal [facility] Ketones, UA Negative Negative - 160(16) ++++ mg/dL [facility] Leukocytes, UA Negative Negative - 500+++ Sandra/mcL [facility] Nitrite, UA Negative Negative - Positive [facility] pH, UA 7.0 5 - 9 [facility] Protein, UA Positive Negative - 1999(20) ++++ mg/dL [facility] Spec Grav, UA 1.020 1 - 1.03 [facility] Urobilinogen, UA 1.0 0.2 - 12 mg/dL [facility], [facility] Vital Signs Date Time Vital Sign Value Performing Clinician Faci lity 04-20-2024 10:01-0500 Body weight 53.25 kg Sandy Pravin DO Work Phone: [facility] 04-20-2024 10:01-0500 Diastolic blood pressure 60 mm[Hg] Sandy Pravin DO Work Phone: [facility] 04-20-2024 10:01-0500 Systolic blood pressure 100 mm[Hg] Sandy Pravin DO Work Phone: [facility] 03-23-2024 12:42-0500 Body weight 51.26 kg Sandy Pravin DO Work Phone: [facility] 03-23-2024 12:42-0500 Diastolic blood pressure 62 mm[Hg] Sandy Pravin DO Work Phone: [facility] 03-23-2024 12:42-0500 Systolic blood pressure 102 mm[Hg] Sandy Pravin DO Work Phone: [facility] 02-23-2024 10:48-0500 Body weight 49.9 kg Alma BRANHAM Work Phone: [facility] 02-23-2024 10:48-0500 Diastolic blood pressure 64 mm[Hg] Alma BRANHAM Work Phone: [facility] 02-23-2024 10:48-0500 Systolic blood pressure 102 mm[Hg] Alma BRANHAM Work Phone: [facility] 01-25-2024 10:45-0400 Body weight 47.68 kg Sandy Pravin DO Work Phone: [facility] 01-25-2024 10:45-0400 Diastolic blood pressure 64 mm[Hg] Sandy Pravin DO Work Phone: [facility] 01-25-2024 10:45-0400 Systolic blood pressure 100 mm[Hg] Sandy Pravin DO Work Phone: [facility] 12-02-2023 08:47-0400 Body height 157.48 cm [facility] 12-02-2023 08:47-0400 Body mass index (BMI) [Ratio] 19.5 kg/m2 [facility] 12-02-2023 08:47-0400 Body weight 48.53 kg [facility] 12-02-2023 08:47-0400 Diastolic blood pressure 80 mm[Hg] [facility] 12-02-2023 08:47-0400 Systolic blood pressure 122 mm[Hg] [facility] Encounters Encounter Date Encounter Type Care Provider Facility Start: 04-20-2024 End: 04-20-2024 Bamboo flowsheet Sandy Pravin DO Work Phone: [facility] Start: 04-20-2024 End: 04-20-2024 Bamboo flowsheet Sandy Pravin DO Work Phone: [facility] Start: 04-20-2024 End: 04-20-2024 flow sheet Sandy Pravin DO Work Phone: [facility] Comment on above: Second trimester pre gnancy; 25 weeks gestation of ; Diabetes mellitus screening Start: 04-20-2024 End: 04-20-2024 ambulatory SANDY PRAVIN Not Available Start: 03-23-2024 End: 03-23-2024 Bamboo flowsheet Sandy Pravin DO Work Phone: [facility] Start: 03-23-2024 End: 03-23-2024 Bamboo flowsheet Sandy Pravin DO Work Phone: [facility] Start: 03-23-2024 End: 03-23-2024 ambulatory SANDY PRAVIN Not Available Start: 03-23-2024 End: 03-23-2024 flow sheet Sandy Zaldivaro DO Work Phone: [facility] Comment on above: Second trimester pre gnancy; 21 weeks gestation of Start: 03-21-2024 End: 03-21-2024 ambulatory [facility] Start: 03-07-2024 End: 03-07-2024 Chart abstracting Omayra Boyce [facility] Work Phone: [facility] Start: 02-23-2024 End: 02-23-2024 Bamboo flowsheet Alma BRANHAM Work Phone: [facility] Start: 02-23-2024 End: 03-06-2024 Bamboo flowsheet Alma BRANHAM Work Phone: [facility] Start: 02-23-2024 End: 03-06-2024 [facility] Result Encounter Alma BRANHAM Work Phone: [facility] External Department Unsolicited Start: 02-23-2024 End: 02-24-2024 External Result Encounter Alma BRANHAM Work Phone: [facility] External Department Unsolicited Start: 02-23-2024 End: 02-23-2024 Patient encounter procedure Alma BRANHAM Work Phone: [facility] Start: 02-23-2024 End: 02-23-2024 flow sheet Alma BRANHAM Work Phone: [facility] Comment on above: Well woman exam with routine gynecological exam; Second trimester ; 17 weeks gestation of ; Need for maternal serum alpha-protein (MSAFP) screening; Screening, , for anatomic survey; Screen for STD (sexually transmitted disease) Start: 02-23-2024 End: 02-23-2024 ambulatory ALMA VARGAS Not Available Start: 01-25-2024 End: 01-25-2024 Bamboo flowsheet Sandy Zaldivaro DO Work Phone: [facility] Start: [...] External Department Unsolicited Start: 12-31-2023 End: 12-31-2023 Office outpatient visit 5 minutes [facility] Pravin Nurse [facility] Comment on above: GA: 9w2d Start: 12-31-2023 End: 12-31-2023 ambulatory SANDY PRAVIN Not Available Start: 12-02-2023 Patient encounter status [facility] Start: 12-02-2023 End: 12-02-2023 ambulatory [facility] Work Phone: Start: 12-02-2023 End: 12-02-2023 Encounter for general adult medical examination without abnormal findings [facility] Start: 12-02-2023 End: 12-02-2023 Patient encounter procedure [facility] Work Phone: Procedures Date Procedure Procedure Detail Performing Clinician Start: 05-03-2024 Urnls dip stick/tabl et rgnt non-auto w/o micrscp Sandy Pravin DO Work Phone: Start: 03-23-2024 Urnls dip stick/tabl et rgnt non-auto w/o micrscp Sandy Pravin DO Work Phone: Start: 02-23-2024 RECURRENT VAGINITIS (HTRX) Alma Bethel PA Work Phone: Start: 02-23-2024 Urnls dip stick/tabl [...] D (URINE) Sandy Pravin DO Work Phone: Start: 12-31-2023 End: 12-31-2023 Urnls dip stick/tablet rgnt non-auto w/o micrscp Sandy Pravin DO Work Phone: Plan of Treatment Date Care Activity Detail Author Start: 05-10-2024 End: 05-10-2024 Patient encounter procedure 05/10/2024 9:40 AM EST Routine [facility] [address] [place] [address] Alma Vargas PA [address] [place] [address] [facility] Start: 04-20-2024 End: 04-20-2025 CBC panel - Blood by Automated count CBC Lab Routine Diabetes mellitus screening Expected: 04/20/2024 (Approximate), Expires: 04/20/2025 [facility] Work Phone: Comment on above: Expected: 04/20/2024 (Approximate), Expires: 04/20/2025 Start: 04-20-2024 End: 04-20-2025 Measurement of glucose 1 hour after glucose challenge for glucose tolerance test Glucose tolerance, 1 hour Lab Routine Diabetes mellitus screening Expected: 04/20/2024 (Approximate), Expires: 04/20/2025 [facility] Comment on above: Expected: 04/20/2024 (Approximate), Expires: 04/20/2025 Start: 04-20-2024 End: 04-20-2024 Patient encounter procedure [facility] Comment on above: Arrived Start: 03-24-2024 End: 03-24-2024 Alpha fetoprotein, maternal Alpha fetoprotein, maternal Lab Routine Need for maternal serum alpha-protein (MSAFP) screening Expected: 03/24/2024 (Approximate), Expires: 03/24/2024 [facility] Comment on above: Expected: 03/24/2024 (Approximate), Expires: 03/24/2024 Start: 03-23-2024 End: 03-23-2024 Patient encounter procedure 03/23/2024 11:40 AM EST Routine [facility] [address] [place] [id number] Sandy Costello, [address] [place] [address] [facility] Start: 03-23-2024 End: 03-23-2024 Professional / ancillary services management 03/23/2024 10:30 AM EST Ancillary Procedure [facility] [address] [place] [id number] [facility] Start: 03-21-2024 End: 03-21-2024 Telemedicine consultation with patient 03/21/2024 9:00 AM EST Telemedicine [facility] [address] [place] [address] Omayra Boyce, [facility] [address] [place] [address] [facility] Start: 02-23-2024 End: 02-22-2025 US for US OB ANATOMY SINGLE W US OB CERVICAL LENGTH Imaging Routine Screening, , for anatomic survey Expected: 02/23/2024 (Approximate), Expires: 02/22/2025 [facility] Comment on above: Expected: 02/23/2024 (Approximate), Expires: 02/22/2025 Start: 02-23-2024 End: 02-23-2024 Patient encounter procedure [facility] Comment on above: Arrived Start: 01-25-2024 End: 01-25-2024 Patient encounter procedure [facility] Comment on above: Arrived Start: 12-31-2023 End: 12-30-2024 ABO/Rh ABO/Rh Lab Routine Missed menses , unspecified gestational age Expected: 12/31/2023 (Approximate), Expires: 12/30/2024 [facility] Comment on above: Expected: 12/31/2023 (Approximate), Expires: 12/30/2024 Start: 12-31-2023 End: 12-30-2024 Blood type and Indirect antibody screen panel - Blood Type and screen Lab Routine Missed menses , unspecified gestational age Expected: 12/31/2023 (Approximate), Expires: 12/30/2024 [facility] Work Phone: Comment on above: Expected: 12/31/2023 (Approximate), Expires: 12/30/2024 Start: 12-31-2023 End: 12-30-2024 Drugs of abuse panel - Urine by Screen method Rapid drug screen, urine Lab Routine , unspecified gestational age Encounter for supervision of normal first in first trimester Expected: 12/31/2023 (Approximate), Expires: 12/30/2024 [facility] Comment on above: Expected: 12/31/2023 (Approximate), Expires: 12/30/2024 Start: 12-31-2023 End: 12-30-2024 US Pelvis transvaginal US OB transvaginal Imaging Routine Missed menses Expected: 12/31/2023 (Approximate), Expires: 12/30/2024 [facility] Comment on above: Expected: 12/31/2023 (Approximate), Expires: 12/30/2024 Start: 12-05-2023 Influenza vaccination Influenza Vacc ine [facility] Start: 11-06-2019 DTaP,Tdap and Td Vaccines (7 - Td or Tdap) DTaP,Tdap and Td Vaccines (7 - Td or Tdap) [facility] Start: 2018 Screening for malign ant neoplasm of cervix Pap Smear [facility] Start: 09-29-2015 Adult BMI Screening Adult BMI Screen ing [facility] Start: 2009 Depression Screening Depression Scre ening [facility] Start: 2009 Tobacco Screening Tobacco Screening [facility] Bacteria identified in Urine by Culture Urine culture Microbiology Routine Missed menses Ordered: 12/31/2023 [facility] Comment on above: Ordered: 12/31/2023 CBC W Auto Different ial panel - Blood CBC and differential Lab Routine Missed menses , unspecified gestational age Ordered: 12/31/2023 [facility] Comment on above: Ordered: 12/31/2023 CHLAMYDIA TRACHOMATI S (GENITO/STI) CHLAMYDIA TRACHOMATIS (GENITO/STI) Lab Routine Screen for STD (sexually transmitted disease) Ordered: 02/23/2024 [facility] Comment on above: Ordered: 02/23/2024 Cytology Cervical or vaginal smear or scraping study Pap Smear Pathology and Cytology Routine Well woman exam with routine gynecological exam Ordered: 02/23/2024 [facility] Comment on above: Ordered: 02/23/2024 Hemoglobin A1c/Hemoglobin.total in Blood Hemoglobin A1c Lab Routine Missed menses , unspecified gestational age Ordered: 12/31/2023 [facility] Comment on above: Ordered: 12/31/2023 Hepatitis B virus surface Ag [Presence] in Serum or Plasma by Immunoassay Hepatitis B surface antigen Lab Routine Missed menses , unspecified gestational age Ordered: 12/31/2023 [facility] Comment on above: Ordered: 12/31/2023 Hepatitis C virus Ab [Presence] in Serum or Plasma by Immunoassay Hepatitis C antibody Lab Routine Missed menses , unspecified gestational age Ordered: 12/31/2023 [facility] Comment on above: Ordered: 12/31/2023 HIV-1/HIV-2 antigen/antibody combination immunoassay HIV-1 and HIV-2 antibodies Lab Routine Missed menses , unspecified gestational age Ordered: 12/31/2023 [facility] Comment on above: Ordered: 12/31/2023 Neisseria gonorrhoea e DNA [Presence] in Unspecified specimen by RUBEN with probe detection Neisseria gonorrhea DNA probe, direct Lab Routine Screen for STD (sexually transmitted disease) Ordered: 02/23/2024 [facility] Comment on above: Ordered: 02/23/2024 Reagin Ab [Presence] in Serum by RPR RPR Lab Routine Missed menses , unspecified gestational age Ordered: 12/31/2023 [facility] Comment on above: Ordered: 12/31/2023 Rubella antibody, IgG Rubella an tibody, IgG Lab Routine Missed menses , unspecified gestational age Ordered: 12/31/2023 [facility] Comment on above: Ordered: 12/31/2023 SURESWAB(R) ADVANCED VAGINITIS PLUS, TMA SURESWAB(R) ADVANCED VAGINITIS PLUS, TMA Pathology and Cytology Routine Screen for STD (sexually transmitted disease) Ordered: 02/23/2024 [facility] Work Phone: Comment on above: Ordered: 02/23/2024 Immunizations Immunization Date Immunization Notes Care Provider [facility] 11-13-2015 hepatitis A vaccine, pediatric/adolescent dosage, 2 dose schedule Omayra [employer] Work Phone: [facility] 11-13-2015 meningococcal polysaccharide (groups A, C, Y and W-135) diphtheria toxoid conjugate vaccine (MCV4P) Omayra [employer] Work Phone: [facility] 04-24-2015 influenza, injectabl e, quadrivalent, preservative free Omayra [employer] Work Phone: [facility] 04-24-2015 influenza virus vaccine, unspecified formulation Omayra [employer] Work Phone: [facility] 11-05-2009 tetanus toxoid, redu dilip diphtheria toxoid, and acellular pertussis vaccine, adsorbed Omayra [employer] Work Phone: [facility] 11-05-2009 varicella virus vaccine [employer] [facility] [employer] Work Phone: [facility] 03-14-2009 influenza, seasonal, injectable, preservative free [employer]mayra [employer] Work Phone: [facility] 01-24-2003 hepatitis B vaccine, adult dosage Omayra [employer] Work Phone: [facility] 11-28-2002 diphtheria, tetanus toxoids and acellular pertussis vaccine, 5 pertussis antigens Omayra Austen [facility] Work Phone: [facility] 11-28-2002 measles, mumps and rubella virus vaccine Omayra Austen [facility] Work Phone: [facility] 11-28-2002 [facility]iovirus [facility], [facility] 07-18-2001 varicella virus vaccine Made [facility] Work Phone: [facility] 04-09-1999 diphtheria, tetanus toxoids and acellular pertussis vaccine, 5 pertussis antigens [facility] Work Phone: [facility] 04-09-1999 measles, mumps and rubella virus vaccine [facility] Work Phone: [facility] 03-25-1998 diphtheria, tetanus toxoids and acellular pertussis vaccine, 5 pertussis antigens [facility] Work Phone: [facility] 03-25-1998 hepatitis B vaccine, adult dosage [facility] Work Phone: [facility] 03-25-1998 poliovirus vaccine, inactivated [facility] Work Phone: [facility] 02-13-1998 diphtheria, tetanus toxoids and acellular pertussis vaccine, 5 pertussis antigens [facility] Work Phone: [facility] 02-13-1998 poliovirus vaccine, inactivated [facility] Work Phone: [facility] 1997 diphtheria, tetanus toxoids and acellular pertussis vaccine, 5 pertussis antigens [facility] Work Phone: [facility] 1997 haemophilus influenz ae type b vaccine, PRP-OMP conjugate [facility] Work Phone: [facility] 1997 poliovirus vaccine, inactivated [facility] Work Phone: [facility] 1997 hepatitis B vaccine, adult dosage Omayra Boyce [facility] Work Phone: [employer] 1997 hepatitis B vaccine, adult dosage Omayra Boyce [facility] Work Phone: [employer] NEGATED: Highlighted row has not occurred!11-13-2015 human papilloma virus vaccine, quadrivalent Omayra Boyce [facility] Work Phone: [employer] Comment on above: Deferred: Other - parent declined Payers Date Payer Category Payer Blue Cross Blue Shield [id number] 2022 [employer] Managed Care - Other ANTHEM Member Subscriber Plan / Payer (Effective 2022-Present) Name: Yesy Livingston Relation to Subscriber: Self Name: Yesy Livingston Payer ID: [id number] (NAIC) Type: Not on file Address: [place] [id number] 2022 Unknown BCBS BCBS [id number] 2022-Present [phone] [place], [place] [id number] [id number] 2022 Unknown [id number] 2020 Blue Cross Blue Shie ld Managed Care - PPO ANTHEM [id number] 1997 Unknown [id number] 1997 Unknown [id number] [id number] 1997 Unknown [id number] [id number] 1997 Unknown [id number] 1997 Unknown [id number] [id number] 1997 Unknown [id number] [id number] Social History Date Type Detail Facility Tobacco smoking stat [facility] Unknown if ever smoked [facility] Work Phone: Start: 1995 Sex Assigned At Female F [facility] Tobacco smoking stat [facility] Tobacco smoking consumption unknown [facility] Start: 11-10-2023 [facility] Start: 1995 Sex assigned at Not on file [facility] Start: 05-16-2020 End: 03-07-2024 Gender identity Not on file [facility] Start: 02-13-2021 Tobacco smoking stat [facility] Never smoked tobacco [facility] Start: 02-13-2021 Tobacco use and exposure Smokeless tobacco non-user [facility] Start: 03-07-2024 Alcoholic beverage intake Current non-drinker of alcohol (finding) [facility] Start: 05-16-2020 End: 03-07-2024 Alcoholic beverage intake [facility] Childcare Unknown [facility] Start: 11-06-2014 Sex Female (finding) [facility] Clinical Notes 12-31-2023 to 04-20-2024 Vanna Shetty, ALEXIS - 04/20/2024 9:40 AM CARROL Gonzalez - 03/23/2024 11:40 AM CARROL Gonzalez - 02/23/2024 10:30 AM Michelle Oswald, ALEXIS - 01/25/2024 10:40 AM EDT Note Date & Type Note Facility 04-20-2024 History of Presen t illness Narrative Reason for Appointment: Patient ID: Yesy Livingston is a 28 y.o. female who presents for Routine Visit Patient presents today for Return OB appointment. MEDICATIONS Current Outpatient Medications Medication Instructions MV & Min w/FA-DHA ( Gummies) 0.18-25 MG chewable tablet 0.18 mg, Oral, Daily ALLERGIES Allergies Allergen Reactions Cat Dander Other CATS PROBLEMS Active Ambulatory Problems Diagnosis [...] SYSTEMS Review of Systems: Review of Systems All other systems reviewed and are negative. OBJECTIVE Objective: Physical Exam Constitutional: Appearance: Normal [...] nursing note reviewed. Exam conducted with a resolution specialist present. Vitals: There is no height or weight on file to calculate BMI. BP: 100/60 Patient's last menstrual period was 10/27/2023. ASSESSMENT & PLAN ICD-10-CM 1. Second trimester Z34.92 POCT urinalysis dipstick manually resulted 2. 25 weeks gestation of Z3A.25 POCT urinalysis dipstick manually resulted 3. Diabetes mellitus screening Z13.1 CBC Glucose tolerance, 1 hour CBC Glucose tolerance, 1 hour Patient presents today for a routine obstetrics appointment. Patient is currently 25w1d with a Estimated Date of Delivery: 08/02/24. Patient given order for 1hr gtt and CBC to have drawn prior to next appointment. Patient to RTC in 4 weeks. Documented by Vanna Shetty LPN on behalf of: Sandy Costello DO documented in this encounter [facility] 03-23-2024 History of Presen t illness Narrative Reason for Appointment: Patient ID: Yesy Livingston is a 28 y.o. female who presents for Routine Visit Patient presents today for Return OB appointment. MEDICATIONS Current Outpatient Medications Medication Instructions ondansetron (ZOFRAN) 4 mg, Oral, Every 6 hours PRN MV & Min w/FA-DHA ( Gummies) 0.18-25 MG chewable tablet 0.18 mg, Oral, Daily ALLERGIES Allergies Allergen Reactions Cat Hair Extract Other CATS PROBLEMS Active Ambulatory Problems Diagnosis [...] weight on file to calculate BMI. BP: Patient's last menstrual period was 10/27/2023. ASSESSMENT & PLAN ICD-10-CM 1. Second trimester Z34.92 POCT urinalysis dipstick manually resulted 2. 21 weeks gestation of Z3A.21 Return OB: Patient presents today for a routine obstetrics appointment. Patient is currently 21w1d . Patient states she is doing well but has complaints of being tired due to current . Patient has verbalizes frequent movement. labor precautions was discussed/given Orders Placed This Encounter Procedures POCT urinalysis dipstick manually resulted .crf Follow Up: Patient is to return to office in 4 week for routine OB appointment. Documented by CARROL Harmon on behalf of: Sandy Costello DO documented in this encounter [facility] 02-23-2024 History of Presen t illness Narrative [...] of: CARROL Harmon documented in this encounter [facility] 01-25-2024 History of Presen t illness Narrative [...] nursing note reviewed. Exam conducted with a resolution specialist present. Vitals: There is no height [...] or undercooked meat, and stay away from [facility]. Patient has been consulted regarding any further do's and don'ts of . Patient voiced understanding and all questions and concerns were answered. Orders Placed This Encounter Procedures POCT urinalysis dipstick manually resulted Follow Up: Patient is to return in 4 weeks for routine OB appointment. Documented by Anita Oswald LPN on behalf of: Sandy Costello DO documented in this encounter [facility] 12-31-2023 History of Presen t illness Narrative Reason for Appointment: Patient ID: Yesy Livingston is a 28 y.o. female who presents for Amenorrhea Patient presents today for a Nurse OB Intake appointment. Patient is 9w2d with a Estimated Date of Delivery: 08/02/24 OB History Para Term AB Living 1 SAB IAB Ectopic Multiple Live Births # Outcome Date GA Lbr Yvan/2nd Weight Sex Type Anes PTL Lv 1 Current Current Medications: has a current medication list which includes the following prescription(s): ondansetron and gummies. Medical History: Active Ambulatory Problems Diagnosis Date Noted No Active Ambulatory Problems Resolved Ambulatory Problems Diagnosis Date Noted No Resolved Ambulatory Problems No Additional Past Medical History No family history on file. Social History Tobacco Use Smoking status: Not on file Smokeless tobacco: Not on file Substance Use Topics Alcohol use: Not on file Drug use: Not on file No past surgical history on file. Allergies Allergen Reactions Other CATS Vitals: There is no height or weight on file to calculate BMI. BP: Patient's last menstrual period was 10/27/2023. Assessment/Plan Diagnoses and all orders for this visit: Missed menses - Type and screen; Future - ABO/Rh; Future - CBC and differential - Hemoglobin A1c - RPR - Rubella antibody, IgG - Hepatitis B surface antigen - Hepatitis C antibody - HIV-1 and HIV-2 antibodies - Urine culture - US OB transvaginal; Future - POCT , urine manually resulted - POCT urinalysis dipstick manually resulted 9 weeks gestation of - MV & Min w/FA-DHA ( Gummies) 0.18-25 MG chewable tablet; Chew 0.18 mg Daily , unspecified gestational age - Type and screen; Future - ABO/Rh; Future - CBC and differential - Hemoglobin A1c - RPR - Rubella antibody, IgG - Hepatitis B surface antigen - Hepatitis C antibody - HIV-1 and HIV-2 antibodies - Rapid drug screen, urine; Future Encounter for supervision of normal first in first trimester - Rapid drug screen, urine; Future Nausea and vomiting in - ondansetron (Zofran) 4 MG tablet; Take 1 tablet (4 mg) by mouth every 6 (six) hours if needed for nausea or vomiting Nurse Note: OB Intake: Patient presents today for first OB visit. Patients history has been reviewed in great detail including any potential risks. Patient signed consent forms and patient desires testing in both trimesters. Patient currently has no complaints and has been advised to drink 6-8 glasses of water a day, eat no raw or undercooked meat, and stay away from [facility]. Patient has also been advised to not change litter boxes and eat 6 small meals a day. Patient has been consulted regarding the do's and don'ts of . Patient was given labs and all questions and concerns were answered. Follow Up: Patient is to return in 4 weeks for routine OB appointment. Follow Up: Patient is to have labs drawn at directed and return to office for initial OB appointment with provider. Patient may call office as needed with any concerns or questions. Nurse Visit Completed by: Regina Birch LPN documented in this encounter [facility] Evaluation note Diagnosis Onset Date Wellness examination [facility] Work Phone: Evaluation note* Diagnosis 12 weeks gestation of First trimester state, incidental Nonintractable headache, unspecified chronicity pattern, unspecified headache type [facility] Diagnosis Well woman exam with routine gynecological exam Routine gynecological examination Second trimester state, incidental 17 weeks gestation of Need for maternal serum alpha-protein (MSAFP) screening Screening, , for anatomic survey Encounter for anatomic survey Screen for STD (sexually transmitted disease) Screening examination for venereal disease [facility] Diagnosis Missed menses 9 weeks gestation of , unspecified gestational age Encounter for supervision of normal first in first trimester Nausea and vomiting in Unspecified vomiting of , unspecified as to episode of care [facility]* Diagnosis Second trimester state, incidental 21 weeks gestation of [facility]* Diagnosis Second trimester state, incidental 25 weeks gestation of Diabetes mellitus screening Screening for diabetes mellitus documented in this encounter [facility] HealthcareInstructionsNot on [facility]ocumented [facility] Chief Complaint and Reason for Visit Chief Complaint Wellness/Est Patient Reason for Visit Wellness examination Advance Directives Advance Directive Response Recorded Date/ Time Advance Directives No November 29, 2023 3:55pm Summary Purpose Family History No Family History Records FoundNo Family History Records Found Additional Source Comments Care Teams (unrecognized sec tion and content) Team Status: Active Member Role Status Dates Tran Rice APRN ACTIVITY THERAPY TEACHER-C Primary Care Provider Active Team Status: Inactive Member Role Status Dates Tran Rice APRN ACTIVITY THERAPY TEACHER-C Primary Care Provider, Attending Provider Active Start: December 02, 2023 End: December 02, 2023 Wall Taper Helper Relationship Specialty Start Date End Date Tran Rice NP [address] [facility] [place] [address] PCP - General Family Medicine 12/31/23 Wall Taper Helper Relationship Specialty Start Date End Date Tran Rice NP [address] [facility] [place] [address] PCP - General Family Medicine 12/31/23 Wall Taper Helper Relationship Specialty Start Date End Date Tran Rice NP [address] [facility] [place] [address] PCP - General Family Medicine 12/31/23 Wall Taper Helper Relationship Specialty Start Date End Date Tran Rice NP [address] [facility] [place] [address] PCP - General Family Medicine 12/31/23 Wall Taper Helper Relationship Specialty Start Date End Date Tran Rice NP [address] [facility] [place] [address] PCP - General Family Medicine 12/31/23 Wall Taper Helper Relationship Specialty Start Date End Date Tran Rice NP [address] [facility] [place] [address] PCP - General Family Medicine 12/31/23 Wall Taper Helper Relationship Specialty Start Date End Date Tran Rice NP [address] [facility] [place] [address] PCP - General Family Medicine 12/31/23 Wall Taper Helper Relationship Specialty Start Date End Date Arthur Parker MD PCP - General 08/09/14 Wall Taper Helper Relationship Specialty Start Date End Date Tran Rice NP [address] [place] [address] PCP - General Family Medicine 12/31/23 Wall Taper Helper Relationship Specialty Start Date End Date Tran Rice NP [address] [place] [address] PCP - General Family Medicine 12/31/23 Wall Taper Helper Relationship Specialty Start Date End Date Tran Rice NP [address] [place] [address] PCP - General Family Medicine 12/31/23 Goals (unrecognized section and content) Goals may be documented in a n alternate sectionNot on filedocumented as of this encounter Reason for Visit (unrecogniz ed section and content) Reason Comments Routine Visit Reason Comments Amenorrhea INFORMATION SOURCE (unrecogn ized section and content) DATE CREATED AUTHOR 03/23/2024 [facility] DATE CREATED AUTHOR AUTHOR'S ORGANIZ ATION 04/23/2024 [facility] FOR RECORDS PERTAINING TO PATIENTS WHO ARE [...] BE BASED ON THE PRIMARY CLINICAL RECORDS. [employer] [facility]. provides no warranty or guarantee of the accuracy or completeness of information in this document.
[2024-05-05 10:27] LABS: Basophils Percent Auto 0.4 % (0.2-2.0); Eosinophils Absolute Auto 0.1 10^3/uL (0.0-0.7); Eosinophils Percent Auto 1.1 % (0.9-7.0); Hematocrit 34.4 % (36.0-48.0); Hemoglobin 11.7 g/dL (12.0-16.0); Immature Granulocytes Abs Auto 0.04 10^3/uL (0.00-0.03); Immature Granulocytes Pct Auto 0.4 % (0.0-0.5); Lymphocytes Absolute Auto 1.2 10^3/uL (1.2-3.8); Lymphocytes Percent Auto 11.3 % (20.5-60.0); Mean Corpuscular Hemoglobin 30.5 pg (26.7-34.0); Mean Corpuscular Volume 89.6 fL (81.0-99.0); Mean Platelet Volume 9.7 fL (9.5-13.5); Monocytes Absolute Auto 0.7 10^3/uL (0.3-0.8); Monocytes Percent Auto 6.4 % (1.7-12.0); Neutrophils Absolute Auto 8.3 10^3/uL (1.4-6.5); Neutrophils Percent Auto 80.4 % (43.0-75.0); Platelet Count 243 10^3/uL (150-450); Red Blood Count 3.84 10^6/uL (4.20-5.40); Red Cell Distribution Width 13.1 % (11.0-15.0); White Blood Count 10.3 10^3/uL (4.0-11.0)
[2024-05-05 10:39] LABS: Glucose 1 Hour 83 mg/dL (<130)
== END 2024-05-05 09:12 | disposition home or self-care (01) ==
LOC: LAB 09:13
PROVIDERS: PCP Nurse Practitioner Family; Visit Provider Obstetrics & Gynecology
DX: Z13.1 Encounter for screening for diabetes mellitus (principal)
CPT/HCPCS: 36415; 82950; 85025

== ENCOUNTER 2024-06-01 10:08 | Observation (INO) | payer BC, SELFPAY ==
[2024-06-01 10:25] VITALS: BP 132/71; PULSE 89
[2024-06-01] MEDS: 0.9 % SODIUM CHLORIDE 500 ML 1000 ML IV (10:35)
--- NOTE | 2024-06-01 10:37 | US_ITS ---
[address] [address] Patient Name: SEJAL NOWAK MRN: [id number] date: 1995 Sex: F Assigned Patient Location: [facility] Current Patient Location: [facility] Accession/Order Number: [id number] Exam Date: 06/01/2024 11:20 Report Date: 06/01/2024 11:22 At the request of: SANDY PRATT DO Procedure: US OB BPP w non-stress BIOPHYSICAL PROFILE: CLINICAL INFORMATION: iugr, low monique COMPARISON: 03/23/2024 anatomy survey There is a single live intrauterine gestation in cephalic presentation. The reported gestational age is 31 weeks 1 day. The heart rate [id number] beats per minute. FINDINGS: TONE: 1 or more episodes of activity extension and flexion of extremity or opening and closing of the hand [Y] 2/2 GROSS BODY MOVEMENTS: 3 or more discrete body or limb movements [Y] 2/2 BREATHING MOVEMENTS: 1 or more episodes of breathing lasting at least 30 seconds [Y] 2/2 MONIQUE: A single deepest vertical pocket of amniotic fluid greater than 2 cm [Y] 2/2 MONIQUE: 8.7 cm . The 5th percentile is 7.9 cm Total score: 8/8 US/US OB BPP w non-stress IMPRESSION: NORMAL BIOPHYSICAL PROFILE. BORDERLINE OLIGOHYDRAMNIOS . Impression dictated by: Anita Jaimes M.D.06/01/2024 11:22 AM Dictation Location[facility] Electronically authenticated by: [id number] Y Date: 06/01/2024 11:22
[2024-06-01] MEDS: 0.9 % SODIUM CHLORIDE 1,000 ML 125 ML IV (11:37)
--- NOTE | 2024-06-01 12:54 | PC.NURSE ---
dr zhong calls for consult with [facility]
== END 2024-06-01 13:15 | disposition home or self-care (01) ==
PROVIDERS: Admitting Provider Obstetrics & Gynecology; PCP Nurse Practitioner Family; Visit Provider Obstetrics & Gynecology
DX: O41.03X0 Oligohydramnios, third trimester, not applicable or unspecified (principal); Z3A.31 31 weeks gestation of pregnancy
CPT/HCPCS: 76818; G0378; G0379

== ENCOUNTER 2024-06-08 01:52 | Outpatient (OUT) | payer BC, SELFPAY ==
--- NOTE | 2024-06-08 | US_ITS ---
[address] [address] Patient Name: SEJAL NOWAK MRN: [id number] date: 1995 Sex: F Assigned Patient Location: [facility] Current Patient Location: Accession/Order Number: [id number] Exam Date: 06/08/2024 17:02 Report Date: 06/08/2024 17:04 At the request of: SANDY PRATT DO Procedure: US OB BPP w non-stress Biophysical profile. Reason for exam: Intrauterine growth restriction and oligohydramnios. COMPARISON: BPP 06/01/2024. TECHNIQUE: Transabdominal imaging of the gravid uterus was obtained. FINDINGS: Unit Assembler reports a BPP of 6 out of 8 with 0 out of 2 for breathing. MONIQUE 6.1 cm. heart rate 151 bpm. US/US OB BPP w non-stress IMPRESSION: BPP 6 out of 8. Unit Assembler reports 0 out of 2 for breathing. Correlation with NST is recommended. Low MONIQUE 6.1 cm. Impression dictated by: Eric Andersen Jr., D.O.06/08/2024 5:04 PM Dictation Location: [place] [address] Electronically authenticated by: [id number] Y Date: 06/08/2024 17:04
--- OUTSIDE RECORDS SUMMARY | 2024-06-08 01:55 | XMS_ITS | CCD ---
Author Organization [facility] Care Team Providers Care Farm Management Agent Name Role Phone Dwayne HUNTLEY, Tran Carbone Primary Care Provider SANDY COSTELLO Referring Unavailable ARTHUR PARKER Primary Care Unavailable Arthur Parker MD Primary Care Provider [phone] ALMA VARGAS Referring Unavailable SANDY COSTELLO Attending Unavailable ALMA VARGAS Attending Unavailable SANDY COSTELLO Attending Unavailable SANDY COSTELLO Attending Unavailable ALMA VARGAS Attending Unavailable SANDY COSTELLO Attending Unavailable Allergies Allergy Classification Reported Allergen(s) Allergy Type Date of Onset Reaction(s) Facility (20 sources) Other Propensity to adverse reactions 4 [facility] Work Phone: (19 sources) CAT DANDER; Translations: [CAT DANDER] Propensity to adverse reactions to drug (disorder) 4 [facility] (2 sources) Cat Hair Extract Propensity to adverse reactions 4 [facility] Medications Current Medications Medication Drug Class(es) Dates Sig (Normalized) Sig (Original) loratadine 10 mg oral tablet (7 sources) Start: 01-05-2017 take 1 tablet by mouth once daily as needed loratadine (CLARITIN) 10 mg tablet TAKE ONE TABLET BY MOUTH ONCE DAILY NEEDED 30 tablet 5 01/05/2017 Active magnesium oxide 400 mg oral tablet (18 sources) Start: 05-10-2024 End: 06-09-2024 take 1 tablet by mouth once daily magnesium oxide (Mag-Ox) 400 MG tablet Indications: Nonintractable headache, unspecified chronicity pattern, unspecified headache type Take 1 tablet (400 mg) by mouth Daily 30 tablet 6 05/10/2024 06/09/2024 Active Start: 01-25-2024 End: 02-24-2024 take 1 tablet by mouth once daily magnesium oxide (Mag-Ox) 400 MG tablet Indications: Nonintractable headache, unspecified chronicity pattern, unspecified headache type Take 1 tablet (400 mg) by mouth Daily 30 tablet 6 01/25/2024 02/24/2024 Active ondansetron 4 mg oral tablet (19 sources) Serotonin-3 Receptor Antagonist Start: 12-31-2023 End: [...] 19/iron ps,heme/folic/dha ( MV & MIN ORAL) (7 sources) take 1 tablet by mouth once daily PNV 19/iron ps,heme/folic/dha ( MV & MIN ORAL) Take 1 tablet by mouth once daily. Active MV & Min w/FA-DHA ( Gummies) 0.18-25 MG chewable tablet (20 sources) Start: 12-31-2023 End: 12-30-2024 MV & Min w/FA-DHA ( Gummies) 0.18-25 MG chewable tablet Indications: 9 weeks gestation of Chew 0.18 mg Daily 30 tablet 11 12/31/2023 12/30/2024 Active Problems Active Problems Problem Classification Problem Date Documented Date Episodic/Chronic Headache; including migraine (4 sources) Headache; Translations: [Nonintractable headache, unspecified chronicity [...] care or not applicable] 12-31-2023 Episodic Other complications of (2 sources) size does not accord with dates; Translations: [Uterine size-date discrepancy, unspecified trimester] 05-10-2024 Episodic Other complications of (9 sources) growth restriction; Translations: [Maternal care for other known or suspected poor growth, unspecified trimester, not applicable or unspecified] 06-07-2024 Episodic Other complications of (4 sources) High risk ; Translations: [Supervision of other high risk pregnancies, second trimester] 06-07-2024 Episodic Other and delivery including normal (14 sources) First trimester ; Translations: [Encounter for [...] [25 weeks gestation of ] 04-20-2024 Episodic Residual codes; unclassified (2 sources) Gestation period, 28 weeks; Translations: [28 weeks gestation of ] 05-10-2024 Episodic Residual codes; unclassified (2 sources) Gestation period, 30 weeks; Translations: [30 weeks gestation of ] 05-25-2024 Episodic Residual codes; unclassified (1 source) Gestation period, 32 weeks; Translations: [32 weeks gestation of ] 06-07-2024 Episodic Past or Other Problems Problem Classification Problem Date Documented Da te Episodic/Chronic Other connective tissue disease (7 sources) Rotator cuff impingement syndrome; Translations: [Impingement syndrome of unspecified shoulder] Onset: 05-08-2016 05-08-2016 Episodic Sprains and strains (7 sources) Rupture of tendon of biceps; Translations: [Strain of muscle, fascia and tendon of other parts of biceps, unspecified arm, initial encounter] Onset: 06-03-2016 06-03-2016 Episodic Results Test Name Value Interpretation Reference Range Facility nonstress test - [facility] Medicine[facility] 06-07-2024 Patient Name: Sejal Livingston Patient : 1995 NST Objective Findings: Variability: Moderate Decelerations: Variable Accelerations: Yes Acoustic Stimulator: No Baseline: 120 BPM Uterine Irritability: Yes Contractions: Irregular Comments: Variables and contractions/irritabi lity noted on EFM. Tracing reviewed with Dr Day.[facility] instructions given, labor precautions reviewed. To JAGDISH for extended monitoring and evaluation. NST Interpretation: Nonstress Test Interpretation: Reactive (Tori Day MD) Comments: Recurrent variable decelerations. Pt reporting abdominal tightening correlating with tocometer contractions. To OB ED for prolonged evaluation, at least 2 hours. Sign-out given to OB ED team. (Tori Day MD) NST performed by: Thania Noyola RN 06/07/2024 12:11 PM RYAN [facility] Ultrasound - OfficeOrdered B y: Aida Sauceda on 06-05-2024 Radiology Study observation (narrative) [facility] Ultrasound - Officeon 2024 Radiology Study observation (narrative) [facility] Radiology Study observation (narrative) [facility] US OB BPP W NON-STRESS on 06-01-2024 [place] [address] Ultrasound Report Signed Patient: SEJAL LIVINGSTON MR#: [id number] : 1995 Acct:[id number] Age/Sex: 28 / F ADM Date: Loc: [facility] 252-[address]: Sanyd Costello D.O. Ordering Physician: Sandy Costello D.O. Date of Service: 06/01/24 Procedure(s): US OB BPP w non-stress Accession Number(s): [id number] cc: Sandy Costello D.O.; TRAN RICE [place] [address] Patient Name: SEJAL LIVINGSTON MRN: [id number] date: 1995 Sex: F Assigned Patient Location: [facility] Current Patient Location: [facility] Accession/Order Number: [id number] Exam Date: 06/01/2024 11:20 Report Date: 06/01/2024 11:22 At the request of: SANDY COSTELLO DO Procedure: US OB BPP w non-stress BIOPHYSICAL PROFILE: CLINICAL INFORMATION: iugr, low monique COMPARISON: 03/23/2024 anatomy survey There is a single live intrauterine gestation in cephalic presentation. The reported gestational age is 31 weeks 1 day. The heart rate [id number] beats per minute. FINDINGS: TONE: 1 or more episodes of activity extension and flexion of extremity or opening and closing of the hand [Y] 2/2 GROSS BODY MOVEMENTS: 3 or more discrete body or limb movements [Y] 2/2 BREATHING MOVEMENTS: 1 or more episodes of breathing lasting at least 30 seconds [Y] 2/2 MONIQUE: A single deepest vertical pocket of amniotic fluid greater than 2 cm [Y] 2/2 MONIQUE: 8.7 cm . The 5th percentile is 7.9 cm Total score: 8/8 US/US OB BPP w non-stress IMPRESSION: NORMAL BIOPHYSICAL PROFILE. BORDERLINE OLIGOHYDRAMNIOS . Impression dictated by: Anita Jaimes M.D.06/01/2024 11:22 AM Dictation Location: [place] [address] Electronically authenticated by: [id number] Y Date: 06/01/2024 11:22 Dictated By: Anita Jaimes M.D. Signed By: 06/01/24 1125 DD/ 1122 TD/TT: Electrical Wirer: [facility] Radiology, Radiologist, - 06/01/2024 [place] [address] Ultrasound Report Signed Patient: SEJAL LIVINGSTON MR#: [id number] : 1995 Acct:[id number] Age/Sex: 28 / F ADM Date: Loc: [facility] [address]: Sandy Costello D.O. Ordering Physician: Sandy Costello D.O. Date of Service: 06/01/24 Procedure(s): US OB BPP w non-stress Accession Number(s): [id number] cc: Sandy Costello D.O.; TRAN RICE [place] [address] Patient Name: SEJAL LIVINGSOTN MRN: [facility]:[id number] date: 1995 Sex: F Assigned Patient Location: [facility] Current Patient Location: [facility] Accession/Order Number: [id number] Exam Date: 06/01/2024 11:20 Report Date: 06/01/2024 11:22 At the request of: SANDY COSTELLO DO Procedure: US OB BPP w non-stress BIOPHYSICAL PROFILE: CLINICAL INFORMATION: iugr, low monique COMPARISON: 03/23/2024 anatomy survey There is a single live intrauterine gestation in cephalic presentation. The reported gestational age is 31 weeks 1 day. The heart rate [id number] beats per minute. FINDINGS: TONE: 1 or more episodes of activity extension and flexion of extremity or opening and closing of the hand [Y] 2/2 GROSS BODY MOVEMENTS: 3 or more discrete body or limb movements [Y] 2/2 BREATHING MOVEMENTS: 1 or more episodes of breathing lasting at least 30 seconds [Y] 2/2 MONIQUE: A single deepest vertical pocket of amniotic fluid greater than 2 cm [Y] 2 MONIQUE: 8.7 cm . The 5th percentile is 7.9 cm Total score: 8/8 US/US OB BPP w non-stress IMPRESSION: NORMAL BIOPHYSICAL PROFILE. BORDERLINE OLIGOHYDRAMNIOS . Impression dictated by: Anita Jaimes M.D.06/01/2024 11:22 AM Dictation [facility] Electronically authenticated by: [id number] Y Date: 06/01/2024 11:22 Dictated By: Anita Jaimes M.D. Signed By: 06/01/24 1125 DD/ 112 TD/TT: Electrical Wirer: [facility] Radiology Study observation (narrative) [facility] OB BPP W NON-STRESS Ordered By: Radiologist Radiology on 06-01-2024 [facility] Work Phone: OB FOLLOW UP TRANSABDOMIN AL APPROACHon 06-01-2024 US OB FOLLOW UP TRANSABDOMINAL APPROACH TITLE OF EXAM: OB Ultrasound: REASON FOR EXAM: : Inconsistent size. COMPARISON: 12/17/2023 TECHNIQUE: Grayscale and M-mode Doppler imaging is performed. FINDINGS: heart rate: 139 bpm MONIQUE: 5.8 cm (8.8-23.9) BPD: 7.3 cm HC: 27.1 cm AC: 24.6 cm FL: 5.6 cm GA for sonogram: 29.0 wk (27.2-30.8) SHIRA: 08/02/2024 Weight Estimate: Weight: 1344 gm / 2 lbs, 15 oz (0073-8492 gm) [place] Normal: 1780 gm (4014-0839 gm) [place] Wt%: <3% for 31.1 wks FINDINGS: There is a single living intrauterine gestation. Cephalic presentation. MONIQUE 5.9 cm. Largest pocket 2.5 cm. cardiac activity 139 bpm. Somatic motion present. Growth: Less than 3rd percentile. Dr. Costello/Alma Vargas PA-C notified at the time of the scan of abnormal results per worksheet. IMPRESSION: 1. Single living intrauterine gestation. 2. Symmetric IUGR based on measurements. 3. Oligohydramnios. *This report is generated using voice recognition reporting (PiPsportse). On occasion MedPass[employer] erroneously drops words from the report or replaces the spoken word with similar sounding words. Please call with any questions/concerns regarding this report.* Dictated and transcribed 06/01/24/dpd This report has been electronically signed and approved by the interpreting radiologist. Normal Not Available Comment on above: Order Comment: US OB SCAN FOR GROWTH Estimated Date of Delivery: 08/02/24 Gestational Age as of 05/10/2024: 28w0d Ultrasound - Officeon 2024 [facility] Urinalysis macro (dipstick) panel (U)on 05-25-2024 Bilirubin, UA Negative Negative - 4(70) +++ mg/dL [facility] Blood, UA Negative Negative - 50 Kvng/mcL [facility] Healthcare Clarity, UA Clear [facility] Color, UA Yellow [facility] Glucose, UA Negative Negative - 2000(110) ++++ mg/dL [facility] Interpretation and review of laboratory results Normal [facility] Ketones, UA Negative Negative - 160(16) ++++ mg/dL [facility] Leukocytes, UA Negative Negative - 500+++ Sandra/mcL [facility] Nitrite, UA Negative Negative - Positive [facility] pH, UA 7 5 - 9 [facility] Protein, UA Negative Negative - 2000(20) ++++ mg/dL [facility] Spec Grav, UA 1.02 1 - 1.03 [facility] Urobilinogen, UA 0.2 0.2 - 12 mg/dL [facility] Healthcare [facility] Urinalysis macro (dipstick) panel (U)on 05-10-2024 Bilirubin, UA Negative Negative - 4(70) +++ mg/dL [facility] Blood, UA Negative Negative - 50 Kvng/mcL [facility] Clarity, UA Clear [facility] Color, UA Yellow [facility] Healthcare Glucose, UA Negative Negative - 2000(110) ++++ mg/dL [facility] Interpretation and review of laboratory results Normal [facility] Healthcare Ketones, UA Negative Negative - 160(16) ++++ mg/dL [facility] Leukocytes, UA Negative Negative - 500+++ Sandra/mcL [facility] Nitrite, UA Negative Negative - Positive [facility] pH, UA 7 5 - 9 [facility] Protein, UA Negative Negative - 1999(20) ++++ mg/dL [facility] Spec Grav, UA 1.02 1 - 1.03 [facility] Urobilinogen, UA 0.2 0.2 - 12 mg/dL [facility] ALL CBC WITH AUTO DIFFon BASOPHILS ABSOLUTE AUTO 0 [facility] Basophils/100 WBC (Bld) 0.4 % 0.2 - 2.0 % [facility] Eosinophils/100 WBC (Bld) 1.1 % 0.9 - 7.0 % [facility] Erythrocyte distribution width (RBC) [Ratio] 13.1 % 11.0 - 15.0 % [facility] Hematocrit (Bld) [Volume fraction] 34.4 % Low 36.0 - 48.0 % [facility] Hemoglobin (Bld) [Mass/Vol] 11.7 g/dL Low 12.0 - 16.0 g/dL [facility] IMMATURE GRANULOCYTES ABS AUTO 0.04 High [facility] Immature granulocytes/100 WBC (Bld) 0.4 % 0.0 - 0.5 % [facility] Interpretation and review of laboratory results Abnormal [facility] LYMPHOCYTES ABSOLUTE AUTO 1.2 [facility] Lymphocytes/100 WBC (Bld) 11.3 % Low 20.5 - 60.0 % [facility] MCH (RBC) [Entitic mass] 30.5 pg 26.7 - 34.0 pg [facility] MCHC (RBC) [Mass/Vol] 34 g/dL 29.9 - 35.2 g/dL [facility] MCV (RBC) [Entitic vol] 89.6 fL 81.0 - 99.0 fL [facility] MONOCYTES ABSOLUTE AUTO 0.7 [facility] Monocytes/100 WBC (Bld) 6.4 % 1.7 - 12.0 % [facility] NEUTROPHILS ABSOLUTE AUTO 8.3 High [facility] Neutrophils/100 WBC (Bld) 80.4 % High 43.0 - 75.0 % [facility] Platelet mean volume (Bld) [Entitic vol] 9.7 fL 9.5 - 13.5 fL [facility] TBH EO # 0.1 [facility] TB PLT 243 [facility] TB RBC 3.84 Low [facility] TB WBC 10.3 [facility] Urinalysis macro (dipstick) panel (U)on 05-03-2024 Bilirubin, UA Negative Negative - 4(70) +++ mg/dL [facility] Blood, UA Negative Negative - 50 Kvng/mcL [facility] Clarity, UA Clear [facility] Color, UA Yellow [facility] Glucose, UA Negative Negative - 1999(110) ++++ mg/dL [facility] Interpretation and review of laboratory results Normal [facility] Ketones, UA Negative Negative - 160(16) ++++ mg/dL [facility] Leukocytes, UA Negative Negative - 500+++ Sandra/mcL [facility] Nitrite, UA Negative Negative - Positive [facility] pH, UA 6.5 5 - 9 [facility] Protein, UA Negative Negative - 1999(20) ++++ mg/dL [facility] Spec Grav, UA 1.025 1 - 1.03 [facility] Urobilinogen, UA 1.0 0.2 - 12 mg/dL [facility] Ultrasound - Officeon 2023 [facility] Ultrasound - OfficeOrdered B y: Aida Sauceda on 03-23-2024 [facility] Urinalysis macro (dipstick) panel (U)on 03-23-2024 Bilirubin, UA Negative Negative - 4(70) +++ mg/dL [facility] Blood, UA Negative Negative - 50 Kvng/mcL [facility] Clarity, UA Clear [facility] Color, UA Yellow [facility] Glucose, UA Negative Negative - 1999(110) ++++ mg/dL [facility] Interpretation and review of laboratory results Normal [facility] Ketones, UA Negative Negative - 160(16) ++++ mg/dL [facility] Leukocytes, UA Negative Negative - 500+++ Sandra/mcL [facility] Nitrite, UA Negative Negative - Positive [facility] pH, UA 6.5 5 - 9 [facility] Protein, UA Negative Negative - 1999(20) ++++ mg/dL [facility] Spec Grav, UA 1.025 1 - 1.03 [facility] Urobilinogen, UA 0.2 0.2 - 12 mg/dL [facility] IGP,APTIMA HPV,AGE GDLNon AGE GDLN ACOG TESTING Note . [facility] Comment on above: TESTS RESULT FLAG UN ITS REF RANGE LAB Clinician Provided Cytology Information Source.............Cervix Other.............. No. of containers..01 ThinPrep Vial Age Prakasho ACOG Letha... FLAG LEGEND: L-Low Normal,H-High Normal,LL-Alert Low,HH-Alert High <-Panic Low,>-Panic High,A-Abnormal,AA-Critical Abnormal Performed at: 01 =G [address] [address] Autumn Mckoy MD, IGP, RFX APTIMA HPV ASCU Note . [facility] Comment on above: TESTS RESULT FLAG ITS REF RANGE LAB DIAGNOSIS: 02 NEGATIVE FOR INTRAEPITHELIAL LESION OR MALIGNANCY. Specimen adequacy: 02 Satisfactory for evaluation. No endocervical component is identified. Performed by: Meaghan Curry, Liquefaction Supervisor ([facility]) . 02 Note: Note 03 [...] <-Panic Low,>-Panic High,A-Abnormal,AA-Critical Abnormal Performed at: 02 [facility] [address] [place] [address] Hao Blackman MD, 03 WB [facility] [address] [address] Autumn Mckoy MD, Performed at: =G - [facility] [address] [id number] Data Miner: Autumn Mckoy MD, Phone: [phone] Performed at: [facility] - [facility] [address] [address] [place], [place] [id number] Data Miner: Hao Blackman MD, Phone: [phone] SPATULA-ALONE CERVIX [facility] RECURRENT VAGINITIS (HTRX)on 02-24-2024 ATOPOBIUM VAGINAE 0 [facility] ATOPOBIUM VAGINAE Not detected [facility] BVAB 2,3 (BACTERIAL VAGINOSIS ASSOCIATED BACTERIA 2, 3); MOBILUNCUS SPP 0 [facility] BVAB 2,3 (BACTERIAL VAGINOSIS ASSOCIATED BACTERIA 2, 3); MOBILUNCUS SPP Not detected [facility] NICKY ALBICANS, PARAPSILOSIS, TROPICALIS 0 [facility] NICKY ALBICANS, PARAPSILOSIS, TROPICALIS Not detected [facility] NICKY GLABRATA 0 [facility] NICKY GLABRATA Not detected [facility] NICKY KRUSEI 0 [facility] NICKY KRUSEI Not detected [facility] CHLAMYDIA TRACHOMATIS 0 [facility] CHLAMYDIA TRACHOMATIS Not detected N [facility] GARDNERELLA VAGINALIS 0 [facility] GARDNERELLA VAGINALIS Not detected N [facility] MEGASPHAERA (TYPES 1, 2) 0 [facility] MEGASPHAERA (TYPES 1, 2) Not detected [facility] MYCOPLASMA GENITALIUM 0 [facility] MYCOPLASMA GENITALIUM Not detected N [facility] NEISSERIA GONORRHOEAE 0 [facility] NEISSERIA GONORRHOEAE Not detected N [facility] TRICHOMONAS VAGINALIS 0 [facility] TRICHOMONAS VAGINALIS Not detected N [facility] Urinalysis macro (dipstick) panel (U)on 02-23-2024 Bilirubin, UA Negative Negative - 4(70) +++ mg/dL [facility] Blood, UA Negative Negative - 50 Kvng/mcL [facility] Clarity, UA Clear [facility] Color, UA Yellow [facility] Glucose, UA Negative Negative - 1999(110) ++++ mg/dL [facility] Interpretation and review of laboratory results Normal [facility] Ketones, UA Negative Negative - 160(16) ++++ mg/dL [facility] Leukocytes, UA Negative Negative - 500+++ Sandra/mcL [facility] Nitrite, UA Negative Negative - Positive [facility] pH, UA 7 5 - 9 [facility] Protein, UA Negative Negative - 2000(20) ++++ mg/dL [facility] Spec Grav, UA 1.025 1 - 1.03 [facility] Urobilinogen, UA 0.2 0.2 - 12 mg/dL [facility] Urinalysis macro (dipstick) panel (U)on 01-25-2024 Bilirubin, UA Positive Negative - 4(70) +++ mg/dL [facility] Comment on above: small Blood, UA Negative Negative - 50 Kvng/mcL [facility] Clarity, UA Clear [facility] Color, UA Yellow [facility] Glucose, UA Negative Negative - 2000(110) ++++ mg/dL [facility] Interpretation and review of laboratory results Abnormal [facility] Ketones, UA Positive Negative - 160(16) ++++ mg/dL [facility] Comment on above: moderate Leukocytes, UA Negative Negative - 500+++ Sandra/mcL [facility] Nitrite, UA Negative Negative - Positive [facility] pH, UA 6.5 5 - 9 [facility] Protein, UA Trace Negative - 2000(20) ++++ mg/dL [facility] Spec Grav, UA 1.025 1 - 1.03 [facility] Urobilinogen, UA 0.2 0.2 - 12 mg/dL [facility] MLR HEMOGLOBIN A1Con 024 Glucose [Mass/Vol] 91 mg/dL [facility] HbA1c (Bld) [Mass fraction] 4.8 % 4.5 - 6.2 % [facility] Comment on above: ADA RECOMMENDED LIMI T 4.0 - 6.0 ADA THERAPEUTIC TARGET < 7.0 ACTION SUGGESTED > 7.0 [facility] No Panel Informationon 01-13 [facility] Rubella IGG immune statuson 01-14-2024 Rubella immune IgG immune [facility] Syphilis Total(Unknown Syphi lis Status)Ordered By: Aida Sauceda on 01-14-2024 Syphilis Non-Reactive [facility] DRUG SCREEN RAPID (URINE )on 01-14-2024 AMPHETAMINE SCREEN URINE Negative NEGATIVE [facility] BARBITURATES SCREEN URINE Negative NEGATIVE [facility] BENZODIAZEPINES SCREEN URINE Negative NEGATIVE [facility] BUPRENORPHINE SCREEN URINE Negative NEGATIVE [facility] Comment on above: DRUG CLASS TEST [...] 300 ng/mL CANNABINOID SCREEN URINE Negative NEGATIVE [facility] COCAINE SCREEN URINE Negative NEGATIVE [facility] METHADONE SCREEN URINE Negative NEGATIVE [facility] METHAMPHETAMINES SCREEN URINE Negative NEGATIVE [facility] OPIATE SCREEN URINE Negative NEGATIVE [facility] OXYCODONE SCREEN URINE Negative NEGATIVE [facility] PHENCYCLIDINE SCREEN URINE Negative NEGATIVE [facility] TRICYCLIC ANTIDEPRESSANT URINE Negative NEGATIVE [facility] HCG ( test) Ql (U)o n 12-31-2023 Interpretation and review of laboratory results Abnormal [facility] Preg Test, Ur Positive [facility] Urinalysis macro (dipstick) panel (U)on 12-31-2023 Bilirubin, UA Negative Negative - 4(70) +++ mg/dL [facility] Blood, UA Negative Negative - 50 Kvng/mcL [facility] Clarity, UA Clear [facility] Color, UA Yellow [facility] Glucose, UA Negative Negative - 1999(110) ++++ mg/dL [facility] Interpretation and review of laboratory results Normal [facility] Ketones, UA Negative Negative - 160(16) ++++ mg/dL [facility] Leukocytes, UA Negative Negative - 500+++ Sandra/mcL [facility] Nitrite, UA Negative Negative - Positive [facility] pH, UA 7.0 5 - 9 [facility] Protein, UA Positive Negative - 1999(20) ++++ mg/dL [facility] Spec Grav, UA 1.020 1 - 1.03 [facility] Urobilinogen, UA 1.0 0.2 - 12 mg/dL [facility] Vital Signs Date Time Vital Sign Value Performing Clinician Jc ware 06-07-2024 11:32-0500 Diastolic blood pressure 71 mm[Hg] [address] 06-07-2024 11:32-0500 Heart rate 81 /min [address] 06-07-2024 11:32-0500 Systolic blood pressure 115 mm[Hg] [address] 06-07-2024 09:32-0500 Body height 157.5 cm Tori Day MD Work Phone: [facility] 05-25-2024 11:54-0500 Body weight 56.43 kg Sandy Costello DO Work Phone: [facility] 05-25-2024 11:54-0500 Diastolic blood pressure 72 mm[Hg] Sandy Costello DO Work Phone: [facility] 05-25-2024 11:54-0500 Systolic blood pressure 116 mm[Hg] Sandy Pravin DO Work Phone: [facility] 05-10-2024 09:39-0500 Body weight 54.8 kg Alma BRANHAM Work Phone: [facility] 05-10-2024 09:39-0500 Diastolic blood pressure 70 mm[Hg] Alma Vargas PA Work Phone: [facility] 05-10-2024 09:39-0500 Systolic blood pressure 100 mm[Hg] Alma Vargas PA Work Phone: [facility] 04-20-2024 10:01-0500 Body weight 53.25 kg Sandy Pravin DO Work Phone: [facility] 04-20-2024 10:01-0500 Diastolic blood pressure 60 mm[Hg] Sandy Pravin DO Work Phone: [facility] 04-20-2024 10:01-0500 Systolic blood pressure 100 mm[Hg] Sandy Pravin DO Work Phone: [facility] 03-23-2024 12:42-0500 Body weight 51.26 kg Sandy Pravin DO Work Phone: [facility] 03-23-2024 12:42-0500 Diastolic blood pressure 62 mm[Hg] Sandy Pravin DO Work Phone: [facility] 03-23-2024 12:42-0500 Systolic blood pressure 102 mm[Hg] Sandy Pravin DO Work Phone: [facility] 02-23-2024 10:48-0500 Body weight 49.9 kg Alma BRANHAM Work Phone: [facility] 02-23-2024 10:48-0500 Diastolic blood pressure 64 mm[Hg] Alma BRANHAM Work Phone: [facility] 02-23-2024 10:48-0500 Systolic blood pressure 102 mm[Hg] Alma BRANHAM Work Phone: [facility] 01-25-2024 10:45-0400 Body weight 47.68 kg Sandy Pravin DO Work Phone: [facility] 01-25-2024 10:45-0400 Diastolic blood pressure 64 mm[Hg] Sandy Costello DO Work Phone: [facility] 01-25-2024 10:45-0400 Systolic blood pressure 100 mm[Hg] Sandy Costello DO Work Phone: [facility] 12-02-2023 08:47-0400 Body height 157.48 cm [facility] 12-02-2023 08:47-0400 Body mass index (BMI) [Ratio] 19.5 kg/m2 [facility] 12-02-2023 08:47-0400 Body weight 48.53 kg [facility] 12-02-2023 08:47-0400 Diastolic blood pressure 80 mm[Hg] [facility] 12-02-2023 08:47-0400 Systolic blood pressure 122 mm[Hg] [facility] Encounters Encounter Date Encounter Type Care Provider Facility Start: 06-07-2024 End: 06-07-2024 ambulatory Tth Mfm Nst1 [facility]- [facility] at [facility] Comment on above: growth restric tion antepartum (Primary Dx) growth restric tion antepartum (Primary Dx); 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, antepartum Start: 06-07-2024 End: 06-07-2024 Office consultation new/estab patient 60 min Tori Day MD Work Phone: [facility]- Medicine at [facility] Comment on above: growth restric tion antepartum (Primary Dx); 32 weeks gestation of Start: 06-05-2024 End: 06-05-2024 Orders Only Not In System Ref Prov [facility]- [facility] at [facility] Start: 06-01-2024 End: 06-01-2024 Clinisync Result Encounter Sandy Costello DO Work Phone: [facility] Unsolicited Start: 06-01-2024 End: 06-01-2024 Clinisync Result Encounter Sandy Costello Elecar Work Phone: [facility] Unsolicited Start: 06-01-2024 End: 06-01-2024 ambulatory ALMA VARGAS Not Available Start: 05-25-2024 End: 05-25-2024 Bamboo flowsheet Sandy Pravin DO Work Phone: [facility] Start: 05-25-2024 End: 05-25-2024 Bamboo flowsheet Sandy Pravin DO Work Phone: [facility] Start: 05-25-2024 End: 05-25-2024 flow sheet Sandy Pravin DO Work Phone: [facility] Comment on above: 30 weeks gestation o f ; Third trimester Start: 05-25-2024 End: 05-25-2024 ambulatory SANDY PRAVIN Not Available Start: 05-10-2024 End: 05-10-2024 Bamboo flowsheet Alma BRANHAM Work Phone: [facility] Start: 05-10-2024 End: 05-10-2024 Bamboo flowsheet Alma BRANHAM Work Phone: [facility] Start: 05-10-2024 End: 05-10-2024 flow sheet Alma BRANHAM Work Phone: [facility] Comment on above: Third trimester preg danielle; 28 weeks gestation of ; size inconsistent with dates; Nonintractable headache, unspecified chronicity pattern, unspecified headache type Start: 05-10-2024 End: 05-10-2024 ambulatory ALMA VARGAS Not Available Start: 05-05-2024 End: 05-05-2024 Clinisync Result Encounter Sandy Pravin DO Work Phone: [facility] Unsolicited Start: 05-05-2024 End: 05-05-2024 Clinisync Result Encounter Sandy Pravin DO Work Phone: [facility] Unsolicited Start: 04-20-2024 End: 04-20-2024 Bamboo flowsheet Sandy Pravin DO Work Phone: [facility] Start: 04-20-2024 End: 04-20-2024 Bamboo flowsheet Sandy Pravin DO Work Phone: [facility] Start: 04-20-2024 End: 04-20-2024 flow sheet Sandy Pravin DO Work Phone: [facility] Comment on above: Second trimester pre gnancy; 25 weeks gestation of ; Diabetes mellitus screening Start: 04-20-2024 End: 04-20-2024 ambulatory SANDY PRAVIN Not Available Start: 03-23-2024 End: 03-23-2024 Bamboo flowsheet Sandy Pravin DO Work Phone: [facility] Start: 03-23-2024 End: 03-23-2024 Bamboo flowsheet Sandy Pravin DO Work Phone: [facility] Start: 03-23-2024 End: 03-23-2024 ambulatory SANDY PRAVIN Not Available Start: 03-23-2024 End: 03-23-2024 flow sheet Sandy Pravin DO Work Phone: [facility] Comment on above: Second trimester pre gnancy; 21 weeks gestation of Start: 03-21-2024 End: 03-21-2024 ambulatory SANDY R PRAVIN [facility] Start: 03-07-2024 End: 03-07-2024 Chart abstracting Omayra Boyce [facility] Work Phone: [facility]- Medicine at [facility] Start: 02-23-2024 End: 02-23-2024 Bamboo flowsheet Alma BRANHAM Work Phone: [facility] Start: 02-23-2024 End: 03-06-2024 Bamboo flowsheet Alma BRANHAM Work Phone: [facility] Start: 02-23-2024 End: 03-06-2024 Clinisync Result Encounter Alma BRANHAM Work Phone: [facility] External Department Unsolicited Start: 02-23-2024 End: 02-24-2024 External Result Encounter Alma BRANHAM Work Phone: [facility] Unsolicited Start: 02-23-2024 End: 02-23-2024 Patient encounter procedure Alma BRANHAM Work Phone: [facility] Start: 02-23-2024 End: 02-23-2024 flow sheet [...] GA: 9w2d Start: 12-31-2023 End: 12-31-2023 ambulatory AMLA VARGAS Not Available Start: 12-02-2023 [address] encounter [address] [facility] Start: 12-02-2023 End: 12-02-2023 ambulatory [facility] Work Phone: Start: 12-02-2023 End: 12-02-2023 Encounter for general adult medical examination without abnormal findings [facility] Start: 12-02-2023 End: 12-02-2023 Patient encounter procedure On License Of [facility] Physician [facility] Work Phone: Procedures Date Procedure Procedure Detail Performing Clinician Start: 06-07-2024 nonstress test Rakel Day MD Work Phone: Start: 06-01-2024 US OB BPP W NON-STRESS Sandy Pravin DO Work Phone: Start: 06-01-2024 ULTRASOUND OFFICE Not I n System Ref Prov Start: 05-25-2024 Urnls dip stick/tabl et rgnt non-auto w/o micrscp Sandy Pravin DO Work Phone: Start: 05-10-2024 Urnls dip stick/tabl et rgnt non-auto w/o micrscp Alma BRANHAM Work Phone: Start: 05-05-2024 ALL CBC WITH AUTO DIFF Sandy Pravin DO Work Phone: Start: 05-03-2024 Urnls dip stick/tabl et rgnt non-auto w/o micrscp Sandy Pravin DO Work Phone: Start: 03-23-2024 Urnls dip stick/tabl et rgnt non-auto w/o micrscp Sandy Pravin DO Work Phone: Start: 03-23-2024 End: 03-23-2024 ULTRASOUND OFFICE Not In System Ref Pr ov Start: 02-23-2024 RECURRENT VAGINITIS (HTRX) Alma BRANHAM Work Phone: Start: 02-23-2024 Urnls dip stick/tabl et rgnt non-auto w/o micrscp Alma BRANHAM Work Phone: Start: 02-23-2024 IGP,APTIMA HPV,AGE GDLN Alma BRANHAM Work Phone: Start: 02-23-2024 Microscopic observat ion [Identifier] in Cervix by Cyto stain Tori Day MD Work Phone: Start: 01-25-2024 Urnls dip stick/tabl et rgnt non-auto w/o micrscp Sandy Pravin DO Work Phone: Start: 01-14-2024 Syphilis test non-treponemal antibody qual Not In System Ref Prov Start: 01-14-2024 MLR HEMOGLOBIN A1C Core y Pravin DO Work Phone: Start: 01-14-2024 [facility] DRUG SCREEN RAPI D (URINE) Sandy Pravin DO Work Phone: Start: 12-31-2023 End: 12-31-2023 Urnls dip stick/tablet rgnt non-auto w/o micrscp Sandy Pravin DO Work Phone: Plan of Treatment Date Care Activity Detail Author Start: 02-22-2027 Screening for malign ant neoplasm of cervix Pap Smear [facility] Start: 06-07-2025 Adult BMI Screening Adult BMI Screen ing [facility] Start: 06-07-2025 Tobacco Screening Tobacco Screening [facility] Start: 06-07-2025 End: 06-07-2025 US MFM with or without consult US MFM with or without consult Imaging Routine growth restriction antepartum 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, antepartum Expected: 06/07/2025 (Approximate), Expires: 06/07/2025 [facility] Work Phone: Comment on above: Expected: 06/07/2025 (Approximate), Expires: 06/07/2025 Start: 06-28-2024 End: 06-28-2024 Patient encounter procedure 06/28/2024 8:45 AM EDT Appointment [facility] [address] [place] [address] [facility] Imaging Start: 06-21-2024 End: 06-21-2024 Patient encounter procedure 06/21/2024 9:00 AM EDT Appointment [facility] [address] [place] [address] [facility] Start: 06-14-2024 End: 06-14-2024 Patient encounter procedure 06/14/2024 8:00 AM EDT Appointment [facility] Imaging [address] [place] [address] [facility] Start: 06-08-2024 End: 06-08-2024 Patient encounter procedure 06/08/2024 11:30 AM EST Routine [facility] [address] [place] [address] Alma Vargas PA [address] [facility] [place] [address] [facility] Start: 06-07-2024 End: 06-07-2025 nonstress test - Maternal Medicine nonstress test - Maternal Medicine OB Routine growth restriction antepartum Expected: 06/07/2024 (Approximate), Expires: 06/07/2025 [facility] Work Phone: Comment on above: Expected: 06/07/2024 (Approximate), Expires: 06/07/2025 Start: 06-07-2024 End: 06-07-2024 Patient encounter procedure [facility] Start: 06-01-2024 End: 06-01-2024 Professional / ancillary services management 06/01/2024 9:30 AM EST Ancillary Procedure [facility] [address] [place] [id number] [facility] Start: 05-25-2024 End: 05-25-2024 Patient encounter procedure [facility] Comment on above: Arrived Start: 05-10-2024 End: 05-10-2025 US for US OB follow up transabdominal approach Imaging Routine Third trimester 28 weeks gestation of size inconsistent with dates Expected: 05/10/2024, Expires: 05/10/2025 [facility] Work Phone: Comment on above: Expected: 05/10/2024 , Expires: 05/10/2025 Start: 05-10-2024 End: 05-10-2024 Patient encounter procedure [facility] Comment on above: Arrived Start: 04-20-2024 End: 04-20-2025 CBC panel - Blood by Automated count CBC Lab Routine Diabetes mellitus screening Expected: 04/20/2024 (Approximate), Expires: 04/20/2025 [facility] Work Phone: Comment on above: Expected: 04/20/2024 (Approximate), Expires: 04/20/2025 Start: 04-20-2024 End: 04-20-2025 Measurement of glucose 1 hour after glucose challenge for glucose tolerance test Glucose tolerance, 1 hour Lab Routine Diabetes mellitus screening Expected: 04/20/2024 (Approximate), Expires: 04/20/2025 [facility] Comment on above: Expected: 04/20/2024 (Approximate), Expires: 04/20/2025 Start: 04-20-2024 End: 04-20-2024 Patient encounter procedure [facility] Comment on above: Arrived Start: 03-24-2024 End: 03-24-2024 Alpha fetoprotein, maternal Alpha fetoprotein, maternal Lab Routine Need for maternal serum alpha-protein (MSAFP) screening Expected: 03/24/2024 (Approximate), Expires: 03/24/2024 [facility] Comment on above: Expected: 03/24/2024 (Approximate), Expires: 03/24/2024 Start: 03-23-2024 End: 03-23-2024 Patient encounter procedure 03/23/2024 11:40 AM EST Routine [facility] [address] [place] [id number] Sandy Costello DO [address] [place] [address] [facility] Start: 03-23-2024 End: 03-23-2024 Professional / ancillary services management 03/23/2024 10:30 AM EST Ancillary Procedure [facility] [address] [place] [address] [facility] Start: 03-21-2024 End: 03-21-2024 Telemedicine consultation with patient 03/21/2024 9:00 AM EST Telemedicine Maternal- Medicine at [facility] [address] [place] [phone] Omayra Boyce, [facility] [address] [facility] [place] [address] [facility]- Medicine at [facility] Start: 02-23-2024 End: 02-22-2025 US for US [...] gestational age Expected: 12/31/2023 (Approximate), Expires: 12/30/2024 [facility] Comment on above: Expected: 12/31/2023 (Approximate), Expires: 12/30/2024 Start: 12-31-2023 End: 12-30-2024 Blood type and Indirect antibody screen panel - Blood Type and screen Lab Routine Missed menses , unspecified gestational age Expected: 12/31/2023 (Approximate), Expires: 12/30/2024 [facility] Work Phone: Comment on above: Expected: 12/31/2023 (Approximate), Expires: 12/30/2024 Start: 12-31-2023 End: 12-30-2024 Drugs of abuse panel - Urine by Screen method Rapid drug screen, urine Lab Routine , unspecified gestational age Encounter for supervision of normal first in first trimester Expected: 12/31/2023 (Approximate), Expires: 12/30/2024 [facility] Comment on above: Expected: 12/31/2023 (Approximate), Expires: 12/30/2024 Start: 12-31-2023 End: 12-30-2024 US Pelvis transvaginal US OB transvaginal Imaging Routine Missed menses Expected: 12/31/2023 (Approximate), Expires: 12/30/2024 [facility] Comment on above: Expected: 12/31/2023 (Approximate), Expires: 12/30/2024 Start: 12-05-2023 Influenza vaccination Influenza Vacc ine [facility] Start: 11-06-2019 DTaP,Tdap and Td Vaccines (7 - Td or Tdap) DTaP,Tdap and Td Vaccines (7 - Td or Tdap) [facility] Start: 2018 Screening for malign ant neoplasm of cervix Pap Smear [facility] Start: 09-29-2015 Adult BMI Screening Adult BMI Screen ing [facility] Start: 2009 Depression Screening Depression Scre ening [facility] Start: 2009 Tobacco Screening Tobacco Screening [facility] Bacteria identified in Urine by Culture Urine culture Microbiology Routine Missed menses Ordered: 12/31/2023 [facility] Comment on above: Ordered: 12/31/2023 CBC W Auto Different ial panel - Blood CBC and differential Lab Routine Missed menses , unspecified gestational age Ordered: 12/31/2023 [facility] Comment on above: Ordered: 12/31/2023 CHLAMYDIA TRACHOMATI S (GENITO/STI) CHLAMYDIA TRACHOMATIS (GENITO/STI) Lab Routine Screen for STD (sexually transmitted disease) Ordered: 02/23/2024 [facility] Comment on above: Ordered: 02/23/2024 Cytology Cervical or vaginal smear or scraping study Pap Smear Pathology and Cytology Routine Well woman exam with routine gynecological exam Ordered: 02/23/2024 [facility] Comment on above: Ordered: 02/23/2024 Hemoglobin A1c/Hemoglobin.total in Blood Hemoglobin A1c Lab Routine Missed menses , unspecified gestational age Ordered: 12/31/2023 [facility] Comment on above: Ordered: 12/31/2023 Hepatitis B virus surface Ag [Presence] in Serum or Plasma by Immunoassay Hepatitis B surface antigen Lab Routine Missed menses , unspecified gestational age Ordered: 12/31/2023 [facility] Comment on above: Ordered: 12/31/2023 Hepatitis C virus Ab [Presence] in Serum or Plasma by Immunoassay Hepatitis C antibody Lab Routine Missed menses , unspecified gestational age Ordered: 12/31/2023 [facility] Comment on above: Ordered: 12/31/2023 HIV-1/HIV-2 antigen/antibody combination immunoassay HIV-1 and HIV-2 antibodies Lab Routine Missed menses , unspecified gestational age Ordered: 12/31/2023 [facility] Comment on above: Ordered: 12/31/2023 Neisseria gonorrhoea e DNA [Presence] in Unspecified specimen by RUBEN with probe detection Neisseria gonorrhea DNA probe, direct Lab Routine Screen for STD (sexually transmitted disease) Ordered: 02/23/2024 [facility] Comment on above: Ordered: 02/23/2024 Reagin Ab [Presence] in Serum by RPR RPR Lab Routine Missed menses , unspecified gestational age Ordered: 12/31/2023 [facility] Comment on above: Ordered: 12/31/2023 Rubella antibody, IgG Rubella an tibody, IgG Lab Routine Missed menses , unspecified gestational age Ordered: 12/31/2023 [facility] Comment on above: Ordered: 12/31/2023 SURESWAB(R) ADVANCED VAGINITIS PLUS, TMA SURESWAB(R) ADVANCED VAGINITIS PLUS, TMA Pathology and Cytology Routine Screen for STD (sexually transmitted disease) Ordered: 02/23/2024 [facility] Work Phone: Comment on above: Ordered: 02/23/2024 Immunizations Immunization Date Immunization Notes Care Provider Kedar chahal 11-13-2015 hepatitis A vaccine, pediatric/adolescent dosage, 2 dose schedule Omayra Boyce [facility] Work Phone: [facility] 11-13-2015 meningococcal polysaccharide (groups A, C, Y and W-135) diphtheria toxoid conjugate vaccine (MCV4P) [facility] Work Phone: [facility] 04-24-2015 influenza, injectabl e, quadrivalent, preservative free [facility] Work Phone: [facility] 04-24-2015 influenza virus vaccine, unspecified formulation [facility] Work Phone: [facility] 11-05-2009 tetanus toxoid, redu dilip diphtheria toxoid, and acellular pertussis vaccine, adsorbed [facility] Work Phone: [facility] 11-05-2009 varicella virus vaccine Made [facility] Work Phone: [facility] 03-14-2009 influenza, seasonal, injectable, preservative free [facility] Work Phone: [facility] 01-24-2003 hepatitis B vaccine, adult dosage [facility] Work Phone: [facility] 11-28-2002 diphtheria, tetanus toxoids and acellular pertussis vaccine, 5 pertussis antigens [facility] Work Phone: [facility] 11-28-2002 measles, mumps and rubella virus vaccine [facility] Work Phone: [facility] 11-28-2002 poliovirus vaccine, inactivated [facility] Work Phone: [facility] 07-18-2001 varicella virus vaccine Made [facility] Work Phone: [facility] 04-09-1999 diphtheria, tetanus toxoids and acellular pertussis vaccine, 5 pertussis antigens [facility] Work Phone: [facility] 04-09-1999 measles, mumps and rubella virus vaccine [facility] Work Phone: [facility] 03-25-1998 diphtheria, tetanus toxoids and acellular pertussis vaccine, 5 pertussis antigens Omayra Boyce [facility] Work Phone: [facility] 03-25-1998 hepatitis B vaccine, adult dosage Omayra Austen LC Work Phone: [facility] 03-25-1998 poliovirus vaccine, inactivated Omayra Austen [facility] Work Phone: [facility] 02-13-1998 diphtheria, tetanus toxoids and acellular pertussis vaccine, 5 pertussis antigens Omayra Austen [facility] Work Phone: [facility] 02-13-1998 poliovirus vaccine, inactivated Omayra Austen [facility] Work Phone: [facility] 1997 diphtheria, tetanus toxoids and acellular pertussis vaccine, 5 pertussis antigens Omayra Austen [facility] Work Phone: [facility] 1997 haemophilus influenz ae type b vaccine, PRP-OMP conjugate Omayra Austen [facility] Work Phone: [facility] 1997 poliovirus vaccine, inactivated Omayra Austen [facility] Work Phone: [facility] 1997 hepatitis B vaccine, adult dosage Omayra Austen [facility] Work Phone: [facility] 1997 hepatitis B vaccine, adult dosage Omayra Austen [facility] Work Phone: [facility] NEGATED: Highlighted row has not occurred!11-13-2015 human papilloma virus vaccine, quadrivalent Omayra Austen [facility] Work Phone: [facility] Comment on above: Deferred: Other - parent declined Payers Date Payer Category Payer Blue Cross Blue Shield [id number] 2022 Blue Cross Blue Shie ld Managed Care - Other [id number] 2022 Unknown BCBS BCBS xxxxxx [id number] 2022-Present [phone] [address] [place] [address] [id number] 2022 Unknown [id number] 2020 Blue Cross Blue Shie ld Managed Care - O ANTHEM Member Subscriber Plan / Payer (Effective 2020-Present) Name: Sejal Livingston Relation to Subscriber: Self Name: Sejal Livingston Payer ID: [id number] (NAIC) Type: Not on file Address: [address] [place] [id number] 1997 Unknown [id number] 1997 Unknown [id number] [id number] 1997 Unknown [id number] [id number] 1997 Unknown [id number] [id number] 1997 Unknown [id number] [id number] 1997 Unknown [id number] [id number] 1997 Unknown [id number] [id number] 1997 Unknown [id number] [id number] 1997 Unknown [id number] [id number] Social History Date Type Detail Facility [facility] Work Phone: Start: 1995 Sex Assigned At Female F [facility] Tobacco smoking stat [facility] Tobacco smoking consumption unknown [facility] Start: 11-10-2023 [facility] Start: 1997 Sex assigned at Not on file [facility] Start: 05-16-2020 End: 03-07-2024 Gender identity Not on file [facility] Start: 02-13-2021 End: 06-07-2024 Tobacco smoking status [facility] Never smoked tobacco [facility] Start: 02-13-2021 End: 06-07-2024 Tobacco use and exposure Smokeless tobacco non-user [facility] Start: 03-07-2024 Alcoholic beverage intake Current non-drinker of alcohol (finding) [facility] Start: 05-16-2020 End: 03-07-2024 Alcoholic beverage intake [facility] Unknown [facility] Start: 11-06-2014 Sex Female (finding) [facility] Start: 06-05-2024 End: 06-07-2024 Alcoholic beverage intake Ex-drinker (finding) [facility] Clinical Notes 12-31-2023 to 06-07-2024 Thania Noyola RN - 06/07/2024 11:15 AM Johann Day MD - 06/07/2024 11:00 AM Jackson Sauceda CMA - 06/07/2024 11:00 AM Valentino Shetty LPN - 05/25/2024 11:40 AM EST Note Date & Type Note Facility 06-07-2024 History of Present illness Narrative Denies current cramping or contractions. Denies LOF, abnormal vaginal discharge or vaginal bleeding. +FM per patient. Denies headache, epigastric pain, visual disturbance or swelling. Variables, contractions/irritability noted on EFM. Reports as a tightening feeling. Denies abnormal vaginal discharge, recent intercourse or urinary urgency/frequency. Tracing reviewed with Dr Day. To JAGDISH for extended monitoring and evaluation. Instructed to notify physician if experiencing any of the following: intermittent low back pain abdominal or menstrual like cramping that is comes and goes or is constant vaginal pressure uterine contractions that are regular and timeable water breaks or feels a gush of fluid any vaginal bleeding that is heavier than a menstrual period decrease or absence of baby movement Advised to drink plenty of fluids, take all prescribed medications, and to keep all scheduled appointments documented in this encounter [facility] [employer] 06-07-2024 History of Present illness Narrative REASON FOR CONSULTATION: FGR HISTORY OF PRESENT ILLNESS: Sejal Livingston is a pleasant 28 y.o. at 32w0d due on Estimated Date of Delivery: 08/02/24. 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 FOB not tested. Today, the patient is doing well. She denies headaches, vision changes, nausea, vomiting, right upper quadrant or epigastric pain, SOB or chest pain. She denies contractions, vaginal bleeding, leaking of fluid. She reports good movement. Aneuploidy screening: Low risk cell free DNA Carrier screening: Baby Boy: Dwight I have reviewed the pertinent available patient records including but not limited to notes, labs and images. PAST OBSTETRICAL HISTORY: OB History Para Term AB Living 1 SAB IAB Ectopic Multiple Live Births # Outcome Date GA Lbr Yvan/2nd Weight Sex Type Anes PTL Lv 1 Current MEDICAL HISTORY: No past medical history on file. SURGICAL HISTORY: No past surgical history on file. FAMILY/GENETIC HISTORY: No family history on file. SOCIAL HISTORY: Social History Tobacco Use Smoking status: Never Smokeless tobacco: Never Substance Use Topics Alcohol use: Not Currently Drug use: No ALLERGIES: Allergies Allergen Reactions Cat Dander CURRENT MEDICATIONS: Current Outpatient Medications: loratadine (CLARITIN) 10 mg tablet, TAKE ONE TABLET BY MOUTH ONCE DAILY NEEDED (Patient not taking: Reported on 02/13/2021), Disp: 30 tablet, Rfl: 5 magnesium oxide (MAGOX) 400 mg tablet, Take 1 tablet (400 mg total) by mouth in the morning., Disp: , Rfl: ondansetron ODT (ZOFRAN-ODT) 4 mg disintegrating tablet, Dissolve 1 tablet (4 mg total) on tongue every 8 (eight) hours as needed for nausea for up to 10 doses. (Patient not taking: Reported on 02/13/2021 ), Disp: 10 tablet, Rfl: 0 PNV 19/iron ps,heme/folic/dha ( MV & MIN ORAL), Take 1 tablet by mouth once daily., Disp: , Rfl: RECENT HOSPITALIZATION: none HABITS: Patient activity no restrictions, diet no restrictions REVIEW OF SYSTEMS: Head and Neck: Negative for any dizziness and headaches. Cardiovascular and Respiratory System: Denies any chest pain, shortness of breath, and coughing. Abdominal and System: Denies any abdominal pain, nausea, vomiting, vaginal bleeding, and vaginal discharge REVIEW OF TESTS AND ULTRASOUND REPORTS: Referral records and epic chart were reviewed Pertinent Ultrasound findings are see formal ultrasound report. PHYSICAL EXAMINATION: Ht 157.5 cm (5' 2 ) LMP 10/27/2023 BMI 18.47 kg/m Well-appearing in no distress. Respirations not labored, speaking comfortably in full sentences Gravid abdomen OVERALL ASSESSMENT -Sejal Livingston is a pleasant 28 y.o. at 32w0d - growth restriction, severe COUNSELING growth restriction The overall EFW is at the 1th percentile and the AC is at the 1th percentile which is consistent with the diagnosis of growth restriction (FGR). The DVP is 2.6 cm, and the UA Doppler is normal. This is reassuring. Today I discussed the possible etiologies of FGR including aneuploidy, infectious, uteroplacental insufficiency, and constitutional small fetus. The patient has had prior aneuploidy screening (cell free DNA) that was low risk. diagnostic testing is recommended when unexplained isolated FGR is diagnosed at <32 weeks of gestation. If diagnotic testing is performed than CMV testing should also be performed. If diagnostic testing is not desired, serologic testing for CMV in the third trimester is not warranted in the absence of risk factors or ultrasound markers of infection. Limitations of serologies were reviewed. The patient is not a smoker which is a known powerful known cause of FGR. Going forward I recommend close surveillance for wellbeing as their is an increased risk for still in the setting of FGR. I also briefly reviewed increased risk for preeclampsia in this setting. Timing of delivery: Based on ultrasound findings today recommend delivery [facility] recommendations summary FGR is defined as EFW <10% and/or AC <10%ile. - Uncomplicated, no concurrent findings, EFW 3-10%ile or AC <10%: 38w0d - 39w0d - Uncomplicated, no concurrent findings, EFW <3%ile: 37w0d or at time of diagnosis if diagnosed later - elevated S/D ratio, or resistance index >95th %ile with present end-diastolic flow in umbilical artery: 37w0d or at time of diagnosis if diagnosed later - absent end-diastolic flow umbilical artery: [id number] or at time of diagnosis if diagnosed later. - reversed end-diastolic flow umbilical artery: [id number] or at time of diagnosis if diagnosed later - concurrent conditions (oligohydramnios, maternal comorbidity such as preeclampsia, chronic hypertension) : 34w0d- 37w6d - concurrent conditions (ie, abnormal umbilical artery doppler): 34w0d - 37w6d. Consider delivery at 32w0d with reversed end diastolic flow Summary of Recommendations: Aneuploidy screening low risk No indication for TORCH serologies in the absence other findings Repeat weekly umbilical artery at Maternal- Medicine. Repeat growth ultrasound in 3 weeks, then every 4 weeks at Maternal- Medicine. Courtesy add on NST performed Recommend twice weekly ANFS (twice weekly NST/ weekly MONIQUE) through primary OB. As patient will be getting weekly umbilical artery Dopplers through [facility] along with fluid assessment, twice weekly NSTs can be performed through primary OB. Recommend delivery at 37 weeks gestation. If absent or reversed end-diastolic flow, re-engage MFM prior to 34 weeks gestation. Delivery method preferred vaginal. Kimberly C/S for usual obstetrical indications Recommend steroids if delivery before 34 weeks. Consider steroids if delivery after 34 weeks and before 37 weeks. DISPOSITION: At this point the patient is in complete care of her infrastructure security architect. Patient does have ultrasound scheduled with us. Thank you for allowing me to participate in the care of Sejal Livingston. If there any questions please do not hesitate to contact us. Tori Day MD Maternal- Medicine [facility] [address] [place] [address] [facility], the CDC, and other organizations representing maternal and public health professionals recommend that , , and lactating people and those considering receive the COVID-19 vaccination. Vaccination is the best method to reduce maternal and complications of SARS-CoV-2 infection. This document was created with [employer] technology. Though I make every effort to review the dictation as it is transcribed, on occasion the spoken word can be misinterpreted by the technology leading to inappropriate words, phrases, or sentences. This note is addressed to the requesting provider as a consultation for clinical guidance. Specific medical abbreviations are occasionally used and those are generally approved by the [place]?Board of?Obstetrics and?Gynecology?as well as?Jocelyn villasenor abbreviations. The above plan of care was based solely on the diagnoses for which a consultation was requested. ?More frequent testing may be indicated based on her other medical/obstetrical conditions. The management of other or medical conditions is beyond the scope of requested consultation and will continue to be followed by the primary infrastructure security architect or primary care provider. Note to patient: The Century Cures Act makes medical notes like these available to patients in the interest of transparency. However, be advised this is a medical document. It is intended as peer to peer communication. It is written in medical language and may contain abbreviations or verbiage that are unfamiliar. It may appear blunt or direct. Medical documents are intended to carry relevant information, facts as evident, and the clinical opinion of the practitioner. Headache/epigastric pain/blurry vision/swelling? Cramping/contractions? Abnormal vaginal discharge? Spotting/vaginal bleeding? Loss or gush of fluid like your water may have broken? Do you have cats at home? Do you change the litter box (reason: risk of toxoplasmosis)? Genetic testing done this here or other office? Have you been seen here at [facility] in a previous ? Recent ER visits or hospitalizations? Bring blood sugar log or meter with you today? (Please bring them with you for every visit at [facility]) Flu vaccine (Feb-June)? Any concerns that you would like me to mention to the provider today? documented in this encounter [facility] 05-25-2024 History of Present illness Narrative Reason for Appointment: Patient ID: Sejal Livingston is a 28 y.o. female who presents for No chief complaint on file. Patient presents today for Return OB appointment. MEDICATIONS Current Outpatient Medications Medication Instructions magnesium oxide (MAG-OX) 400 mg, Oral, Daily MV & Min w/FA-DHA ( Gummies) 0.18-25 [...] nursing note reviewed. Exam conducted with a preschool program director present. Vitals: There is no height or weight on file to calculate BMI. BP: 116/72 Patient's last menstrual period was 10/27/2023. ASSESSMENT & PLAN ICD-10-CM 1. 30 weeks gestation of Z3A.30 POCT urinalysis dipstick manually resulted 2. Third trimester Z34.93 POCT urinalysis dipstick manually resulted Patient presents today for a routine obstetrics appointment. Patient is currently 30w1d with a Estimated Date of Delivery: 08/02/24. Patient charles has complaints of stomach getting tighter, but nothing bothersome. Patient to return to clinic in 2 weeks for routine OB appointment. Documented by Vanna Shetty LPN on behalf of: Sandy Costello DO documented in this encounter [facility] 05-10-2024 History of Present illness Narrative Reason for Appointment: Patient ID: Sejal Livingston is a 28 y.o. female who presents for Routine Visit Patient presents today for Return OB appointment. MEDICATIONS Current Outpatient Medications Medication Instructions magnesium oxide (MAG-OX) 400 mg, Oral, Daily MV & Min w/FA-DHA ( Gummies) 0.18-25 [...] weight on file to calculate BMI. BP: 100/70 Patient's last menstrual period was 10/27/2023. ASSESSMENT & PLAN ICD-10-CM 1. Third trimester Z34.93 POCT urinalysis dipstick manually resulted US OB follow up transabdominal approach 2. 28 weeks gestation of Z3A.28 US OB follow up transabdominal approach 3. size inconsistent with dates O26.849 US OB follow up transabdominal approach 4. Nonintractable headache, unspecified chronicity pattern, unspecified headache type R51.9 magnesium oxide (Mag-Ox) 400 MG tablet Return OB: Patient presents today for a routine obstetrics appointment. Patient is currently 28w0d . Patient states she is doing well but has complaints of being tired due to current . Patient has verbalizes frequent movement. labor precautions was discussed/given and patient was instructed to perform kick counts three times a day. Patient tearful and states has not been sleeping. Celexa offered but pt denies at this time, we will send in magnesium and also suggested trying unisom for sleep Orders Placed This Encounter Procedures US OB follow up transabdominal approach POCT urinalysis dipstick manually resulted Follow Up: Patient is to return to office in 2 week for routine OB appointment. Documented by CARROL Harmon on behalf of: CARROL Harmon documented in this encounter [facility] 04-20-2024 History of Present illness Narrative Reason for Appointment: Patient ID: Sejal Livingston is a 28 y.o. female who [...] nursing note reviewed. Exam conducted with a preschool program director present. Vitals: There is no height or [...] Sandy Costello DO documented in this encounter [facility] 03-23-2024 History of Present illness Narrative Reason for Appointment: Patient ID: Sejal Livingston is a 28 y.o. female who [...] Sandy Costello DO documented in this encounter [facility] 02-23-2024 History of Present illness Narrative Reason for Appointment: Patient ID: Sejal Livingston is a 28 y.o. female who [...] of: CARROL Harmon documented in this encounter [facility] 01-25-2024 History of Present illness Narrative Reason for Appointment: Patient ID: Sejal Livingston is a 28 y.o. female who [...] nursing note reviewed. Exam conducted with a preschool program director present. Vitals: There is no height or [...] or undercooked meat, and stay away from [facility]. Patient has been consulted regarding any further do's and don'ts of . Patient voiced understanding and all questions and concerns were answered. Orders Placed This Encounter Procedures POCT urinalysis dipstick manually resulted Follow Up: Patient is to return in 4 weeks for routine OB appointment. Documented by Anita Oswald LPN on behalf of: Sandy Costello DO documented in this encounter [facility] 12-31-2023 History of Present illness Narrative Reason for Appointment: Patient ID: Sejal Livingston is a 28 y.o. female who [...] or undercooked meat, and stay away from [facility]. Patient has also been advised to not [...] Regina Birch LPN documented in this encounter [facility] Healthcare Evaluation note Diagnosis Onset Date Wellness examination [facility] Work Phone: Evaluation note* Diagnosis 12 weeks [...] for diabetes mellitus [facility] Diagnosis Third trimester state, incidental 28 weeks gestation of size inconsistent with dates Nonintractable headache, unspecified chronicity pattern, unspecified headache type [facility]* Diagnosis 30 weeks gestation of Third trimester state, incidental [facility]* Diagnosis growth restriction antepartum- Primary 32 weeks gestation of [facility] Diagnosis growth restriction antepartum- Primary [facility] Diagnosis growth restriction antepartum- Primary 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, antepartum [facility] Diagnosis growth restriction antepartum- Primary [facility] filedocumented in this encounter [facility] filedocumented in this encounter [facility] on filedocumented in this encounter [facility] on filedocumented [facility] Chief Complaint and Reason for Visit [...] Member Role Status Dates Tran Rice APRN NP-C Primary Care Provider Active Team Status: Inactive Member Role Status Dates Tran Rohrbacher , FILM REPRODUCER [employer] ASSEMBLER-C Primary Care Provider, Attending Provider Active Start: December 02, 2023 End: December 02, 2023 Farm Management Agent Relationship Specialty [place] [address] [place] [address] [place] [address] PCP - General Family Medicine 12/31/23 Farm Management Agent Relationship Specialty Start Date End Date Tran Rice NP [address] [place] [address] [place] [address] PCP - General Family Medicine 12/31/23 Farm Management Agent Relationship Specialty Start Date End Date Tran Rice NP [address] [place] [address] [place] [address] PCP - General Family Medicine 12/31/23 Farm Management Agent Relationship Specialty Start Date End Date Tran Rice NP [address] [place] [address] [place] [address] PCP - General Family Medicine 12/31/23 Farm Management Agent Relationship Specialty Start Date End Date Tran Rice NP [address] [place] [address] [place] [address] PCP - General Family Medicine 12/31/23 Farm Management Agent Relationship Specialty [place] [address] [place] [address] [place] [address] PCP - General Family Medicine 12/31/23 Farm Management Agent Relationship Specialty [place] [address] [place] [address] [place] [address] PCP - General Family Medicine 12/31/23 Farm Management Agent Relationship Specialty Start Date End Date Tran Rice NP [address] [place] [id number] PCP - General Family Medicine 12/31/23 Farm Management Agent Relationship Specialty Start Date End Date Tran Rice NP [address] [place], [place] [address] [address] PCP - General Family Medicine 12/31/23 Farm Management Agent Relationship Specialty Start Date End Date Tran Rice NP [address] [place] [id number] PCP - General Family Medicine 12/31/23 Farm Management Agent Relationship Specialty Start Date End Date Tran Rice NP [address] [place] [id number] PCP - General Family Medicine 12/31/23 Farm Management Agent Relationship Specialty Start Date End Date Arthur Parker MD PCP - General 08/09/14 Farm Management Agent Relationship Specialty Start Date End Date Tran Rice NP [address] [place] [id number] PCP - General Family Medicine 12/31/23 Farm Management Agent Relationship Specialty Start Date End Date Arthur Parker MD PCP - General 08/09/14 Farm Management Agent Relationship Specialty Start Date End Date Arthur Parker MD PCP - General 08/09/14 Farm Management Agent Relationship Specialty Start Date End Date Arthur Parker MD PCP - General 08/09/14 Farm Management Agent Relationship Specialty Start Date End Date Arthur Parker MD PCP - General 08/09/14 Farm Management Agent Relationship Specialty Start Date End Date Arthur Parker MD PCP - General 08/09/14 Farm Management Agent Relationship Specialty Start Date End Date Arthur Parker MD PCP General 08/09/14 Goals (unrecognized section and content) Goals may be documented in a n alternate sectionNot on filedocumented as of this encounterNot on filedocumented as of this encounterNot on filedocumented as of this encounterNot on filedocumented as of this encounterNot on filedocumented as of this encounterNot on filedocumented as of this encounterNot on filedocumented as of this encounter Reason for Visit (unrecogniz ed section and content) Reason Comments Routine Visit Reason Comments Amenorrhea Reason Comments borderline FGR CF carrier Reason Comments add on NST for FGR INFORMATION SOURCE (unrecogn ized section and content) DATE CREATED AUTHOR 03/23/2024 [facility] DATE CREATED AUTHOR AUTHOR'S ORGANIZ ATION 06/03/2024 [facility] FOR RECORDS PERTAINING TO [...] BE BASED ON THE PRIMARY CLINICAL RECORDS. [employer] provides no warranty or guarantee of the accuracy or completeness of information in this document.
[2024-06-08 09:47] VITALS: BP 117/70; PULSE 92
== END 2024-06-08 10:50 | disposition home or self-care (01) ==
LOC: US 01:52 → FBC 09:01
PROVIDERS: PCP Nurse Practitioner Family; Visit Provider Obstetrics & Gynecology
DX: O41.00X0 Oligohydramnios, unspecified trimester, not applicable or unspecified (principal)
CPT/HCPCS: 76818

== ENCOUNTER 2024-06-09 01:47 | Outpatient (OUT) | payer BC, SELFPAY ==
--- OUTSIDE RECORDS SUMMARY | 2024-06-09 01:50 | XMS_ITS | CCD ---
Author Organization [facility] Care Team Providers Care Scruff Worker Name Role Phone Dwayne TENNIS PROFESSIONAL, Tran Carbone Primary Care Provider SANDY COSTELLO Referring Unavailable ARTHUR PARKER Primary Care Unavailable Arthur Parker MD Primary Care Provider [phone] ALMA VARGAS Referring Unavailable SANDY COSTELLO Attending Unavailable ALMA VARGAS Attending Unavailable SANDY COSTELLO Attending Unavailable SANDY COSTELLO Attending Unavailable ALMA VARGAS Attending Unavailable SANDY COSTELLO Attending Unavailable Allergies Allergy Classification Reported Allergen(s) Allergy Type Date of Onset Reaction(s) Facility (20 sources) Other Propensity to adverse reactions 4 [facility] Healthcare Work Phone: (20 sources) CAT DANDER; Translations: [CAT DANDER] Propensity to adverse reactions to drug (disorder) 4 [facility] (2 sources) Cat Hair Extract Propensity to adverse reactions 4 [facility] Medications Current Medications Medication Drug Class(es) Dates Sig (Normalized) Sig (Original) loratadine 10 mg oral tablet (7 sources) Start: 01-05-2017 take 1 tablet by mouth once daily as needed loratadine (CLARITIN) 10 mg tablet TAKE ONE TABLET BY MOUTH ONCE DAILY NEEDED 30 tablet 5 01/05/2017 Active magnesium oxide 400 mg oral tablet (20 sources) Start: 05-10-2024 End: 06-09-2024 take 1 [...] 06-07-2024 Episodic Other and delivery including normal (15 sources) First trimester ; Translations: [Encounter for [...] of ] 05-25-2024 Episodic Residual codes; unclassified (2 sources) Gestation period, 32 weeks; Translations: [32 weeks [...] Range Facility Urinalysis macro (dipstick) panel (U)on 06-08-2024 Bilirubin, UA Negative Negative - 4(70) +++ mg/dL [facility] Blood, UA Positive Negative - 50 Kvng/mcL [facility] Comment on above: trace-intact Clarity, UA Clear [facility] Color, UA Yellow [facility] Glucose, UA Negative Negative - 2000(110) ++++ mg/dL [facility] Interpretation and review of laboratory results Abnormal [facility] Ketones, UA Negative Negative - 160(16) ++++ mg/dL [facility] Leukocytes, UA Positive Negative - 500+++ Sandra/mcL [facility] Comment on above: small Nitrite, UA Negative Negative - Positive [facility] pH, UA 7 5 - 9 [facility] Protein, UA Negative Negative - 2000(20) ++++ mg/dL [facility] Spec Grav, UA 1.01 1 - 1.03 [facility] Urobilinogen, UA 0.2 0.2 - 12 mg/dL [facility] nonstress test - Mater nal Medicineon 06-07-2024 Patient Name: Sejal Nowak Patient : 1995 NST Objective Findings: Variability: Moderate Decelerations: Variable Accelerations: Yes Acoustic Stimulator: No Baseline: 120 BPM Uterine Irritability: Yes Contractions: Irregular Comments: Variables and contractions/irritabi lity noted on EFM. Tracing reviewed with Dr Day.[facility] instructions given, labor precautions reviewed. To JAGDISH for extended monitoring and evaluation. NST Interpretation: Nonstress Test Interpretation: Reactive (Tori Day MD) Comments: Recurrent variable decelerations. Pt reporting abdominal tightening correlating with tocometer contractions. To OB ED for prolonged evaluation, at least 2 hours. Sign-out given to OB ED team. (Tori Day MD) NST performed by: Thania Noyola RN 06/07/2024 12:11 PM ASOBGYN [facility] Ultrasound - OfficeOrdered B y: Aida Komal on 06-05-2024 Radiology Study observation (narrative) [facility] Ultrasound - Officeon 2024 Radiology Study observation (narrative) [facility] Radiology Study observation (narrative) [facility] US OB BPP W NON-STRESS on 06-01-2024 [place] [address] Ultrasound Report Signed Patient: SEJAL NOWAK MR#: [id number] : 1995 Acct:[id number] Age/Sex: 28 / F ADM Date: Loc: [facility] 252-[address]: Sandy Costello D.O. Ordering Physician: Sandy Costello D.O. Date of Service: 06/01/24 Procedure(s): US OB BPP w non-stress Accession Number(s): [id number] cc: Sandy Costello D.O.; TRAN RICE [place] [address] Patient Name: SEJAL NOWAK MRN: [id number] date: 1995 Sex: F Assigned Patient Location: [facility] Current Patient Location: [facility] Accession/Order Number: [id number] Exam Date: 06/01/2024 11:20 Report Date: 06/01/2024 11:22 At the request of: SANDY COSTELLO DO Procedure: US OB BPP w non-stress BIOPHYSICAL PROFILE: CLINICAL INFORMATION: iugr, low monique COMPARISON: 03/23/2024 anatomy survey There is a single live intrauterine gestation in cephalic presentation. The reported gestational age is 31 weeks 1 day. The heart rate fitanvwe548 beats per minute. FINDINGS: TONE: 1 or [...] Anita Jaimes M.D.06/01/2024 11:22 AM Dictation Location: [place] [address] Electronically authenticated by: [id number] Y Date: 06/01/2024 11:22 Dictated By: Anita Jaimes M.D. Signed By: 06/01/24 1125 DD/ 1122 TD/TT: Property Custodian: [facility] Radiology, Radiologist, - 06/01/2024 [place] [address] Ultrasound Report Signed Patient: SEJAL NOWAK MR#: [id number] : 1995 Acct:[id number] Age/Sex: 28 / F ADM Date: Loc: [facility] [address]: Sandy Costello D.O. Ordering Physician: Sandy Costello D.O. Date of Service: 06/01/24 Procedure(s): US OB BPP w non-stress Accession Number(s): [id number] cc: Sandy Costello D.O.; TRAN RICE [place] [id number] Patient Name: SEJAL NOWAK MRN: [id number] date: 1995 Sex: F Assigned Patient Location: [facility] Current Patient Location: [facility] Accession/Order Number: [id number] Exam Date: 06/01/2024 11:20 Report Date: 06/01/2024 11:22 At the request of: SANDY COSTELLO DO Procedure: US OB BPP w non-stress BIOPHYSICAL PROFILE: CLINICAL INFORMATION: iugr, low monique COMPARISON: 03/23/2024 anatomy survey There is a single live intrauterine gestation in cephalic presentation. The reported gestational age is 31 weeks 1 day. The heart rate qucepjst902 beats per minute. FINDINGS: TONE: 1 or [...] Anita Jaimes M.D.06/01/2024 11:22 AM Dictation Location: [place] [address] Electronically authenticated by: [id number] Y Date: 06/01/2024 11:22 Dictated By: Anita Jaimes M.D. Signed By: 06/01/24 1125 DD/ 1122 TD/TT: Property Custodian: [facility] [employer] Radiology Study observation (narrative) [facility] US OB BPP W NON-STRESS Ordered By: Radiologist Radiology on 06-01-2024 [facility] [employer] Work Phone: US OB FOLLOW UP TRANSABDOMIN AL APPROACHon 06-01-2024 [...] 1344 gm / 2 lbs, 15 oz (1691-3719 gm) [place] Normal: 1780 gm (2222-3845 gm) [place] Wt%: <3% for 31.1 wks [...] report is generated using voice recognition reporting (Aligo). On occasion [employer] Product[employer] erroneously drops words from the report or [...] of 05/10/2024: 28w0d Ultrasound - Officeon 2024 [facility] Urinalysis macro (dipstick) panel (U)on 05-25-2024 Bilirubin, UA Negative Negative - 4(70) +++ mg/dL [facility] Blood, UA Negative Negative - 50 Kvng/mcL [facility] Clarity, UA Clear [facility] Color, UA Yellow [facility] Glucose, UA Negative Negative - 2000(110) ++++ mg/dL [facility] Interpretation and review of laboratory results Normal [facility] Ketones, UA Negative Negative - 160(16) ++++ mg/dL [facility] Leukocytes, UA Negative Negative - 500+++ Sandra/mcL [facility] Nitrite, UA Negative Negative - Positive [facility] pH, UA 7 5 - 9 [facility] Protein, UA Negative Negative - 1999(20) ++++ mg/dL [facility] Spec Grav, UA 1.02 1 - 1.03 [facility] Urobilinogen, UA 0.2 0.2 - 12 mg/dL [facility] Urinalysis macro (dipstick) panel (U)on 05-10-2024 Bilirubin, UA Negative Negative - 4(70) +++ mg/dL [facility] Blood, UA Negative Negative - 50 Kvng/mcL [facility] Clarity, UA Clear [facility] Color, UA Yellow [facility] Glucose, UA Negative Negative - 1999(110) ++++ mg/dL [facility] Interpretation and review of laboratory results Normal [facility] Ketones, UA Negative Negative - 160(16) ++++ mg/dL [facility] Leukocytes, UA Negative Negative - 500+++ Sandra/mcL [facility] Nitrite, UA Negative Negative - Positive [facility] pH, UA 7 5 - 9 [facility] Protein, UA Negative Negative - 1999(20) ++++ mg/dL [facility] Spec Grav, UA 1.02 1 - 1.03 [facility] Urobilinogen, UA 0.2 0.2 - 12 mg/dL [facility] ALL CBC WITH AUTO DIFFon BASOPHILS ABSOLUTE AUTO 0 [facility] Basophils/100 WBC (Bld) 0.4 % 0.2 - 2.0 % [facility] Eosinophils/100 WBC (Bld) 1.1 % 0.9 - 7.0 % [facility] Erythrocyte distribution width (RBC) [Ratio] 13.1 % 11.0 - 15.0 % [facility] Hematocrit (Bld) [Volume fraction] 34.4 % Low 36.0 - 48.0 % [facility] Hemoglobin (Bld) [Mass/Vol] 11.7 g/dL Low 12.0 - 16.0 g/dL [facility] IMMATURE GRANULOCYTES ABS AUTO 0.04 High [facility] Immature granulocytes/100 WBC (Bld) 0.4 % 0.0 - 0.5 % [facility] Interpretation and review of laboratory results Abnormal [facility] LYMPHOCYTES ABSOLUTE AUTO 1.2 [facility] Lymphocytes/100 WBC (Bld) 11.3 % Low 20.5 - 60.0 % [facility] MCH (RBC) [Entitic mass] 30.5 pg 26.7 - 34.0 pg [facility] MCHC (RBC) [Mass/Vol] 34 g/dL 29.9 - 35.2 g/dL [facility] MCV (RBC) [Entitic vol] 89.6 fL 81.0 - 99.0 fL [facility] MONOCYTES ABSOLUTE AUTO 0.7 [facility] Monocytes/100 WBC (Bld) 6.4 % 1.7 - 12.0 % [facility] NEUTROPHILS ABSOLUTE AUTO 8.3 High [facility] Neutrophils/100 WBC (Bld) 80.4 % High 43.0 - 75.0 % [facility] Platelet mean volume (Bld) [Entitic vol] 9.7 fL 9.5 - 13.5 fL [facility]H EO # 0.1 [facility] PLT 243 [facility] TB RBC 3.84 Low [facility] WBC 10.3 [facility] Urinalysis macro (dipstick) panel (U)on 05-03-2024 Bilirubin, UA Negative Negative - 4(70) +++ mg/dL [facility] Blood, UA Negative Negative - 50 Kvng/mcL [facility] Clarity, UA Clear [facility] Color, UA Yellow [facility] Glucose, UA Negative Negative - 1999(110) ++++ mg/dL [facility] Interpretation and review of laboratory results Normal [facility] Ketones, UA Negative Negative - 160(16) ++++ mg/dL [facility] Leukocytes, UA Negative Negative - 500+++ Sandra/mcL [facility] Nitrite, UA Negative Negative - Positive [facility] pH, UA 6.5 5 - 9 [facility] Protein, UA Negative Negative - 2000(20) ++++ mg/dL [facility] Spec Grav, UA 1.025 1 - 1.03 [facility] Urobilinogen, UA 1.0 0.2 - 12 mg/dL [facility] Ultrasound - Officeon 2023 [facility] Ultrasound - OfficeOrdered B y: Aida Sauceda on 03-23-2024 [facility] Urinalysis macro (dipstick) panel (U)on 03-23-2024 Bilirubin, UA Negative Negative - 4(70) +++ mg/dL [facility] Blood, UA Negative Negative - 50 Kvng/mcL [facility] Clarity, UA Clear [facility] Color, UA Yellow [facility] Glucose, UA Negative Negative - 1999(110) ++++ mg/dL [facility] Interpretation and review of laboratory results Normal [facility] Ketones, UA Negative Negative - 160(16) ++++ mg/dL [facility] Leukocytes, UA Negative Negative - 500+++ Sandra/mcL [facility] Nitrite, UA Negative Negative - Positive [facility] pH, UA 6.5 5 - 9 [facility] Protein, UA Negative Negative - 1999(20) ++++ mg/dL [facility] Spec Grav, UA 1.025 1 - 1.03 [facility] Urobilinogen, UA 0.2 0.2 - 12 mg/dL [facility] IGP,APTIMA HPV,AGE GDLNon AGE GDLN ACOG TESTING Note . [facility] Comment on above: TESTS RESULT FLAG UN ITS REF RANGE LAB Clinician Provided Cytology Information Source.............Cervix Other.............. No. of containers..01 ThinPrep Vial Age Algo ACOG Letha... FLAG LEGEND: L-Low Normal,H-High Normal,LL-Alert Low,HH-Alert High <-Panic Low,>-Panic High,A-Abnormal,AA-Critical Abnormal Performed at: 01 =G [facility] [address] [place] [address] Autumn Mckoy MD, IGP, RFX APTIMA HPV ASCU Note . [facility] Comment on above: TESTS RESULT FLAG UN ITS REF RANGE LAB DIAGNOSIS: 02 NEGATIVE FOR INTRAEPITHELIAL LESION OR MALIGNANCY. Specimen adequacy: 02 Satisfactory for evaluation. No endocervical component is identified. Performed by: 02 Alma Curry, Bartender Manager ([facility]) . 02 Note: Note 03 The Pap [...] Low,>-Panic High,A-Abnormal,AA-Critical Abnormal Performed at: 02 KWCYT [facility] [address] [place] [id number] Hao Blackman MD, [address] [facility] [address] Autumn Mckoy MD, Performed at: =G - [facility] [id number] Foundry Patternmaker: Autumn Mckoy MD, Phone: [phone] Performed at: [facility] [address] [place], [place] [id number] Foundry Patternmaker: Hao Blackman MD, Phone: [phone] SPATULA-ALONE CERVIX [facility] RECURRENT VAGINITIS (HTRX)on 02-24-2024 ATOPOBIUM VAGINAE 0 [facility] ATOPOBIUM VAGINAE Not detected [facility] BVAB 2,3 (BACTERIAL VAGINOSIS ASSOCIATED BACTERIA 2, 3); MOBILUNCUS SPP 0 [facility] BVAB 2,3 (BACTERIAL VAGINOSIS ASSOCIATED BACTERIA 2, 3); MOBILUNCUS SPP Not detected [facility] NICKY ALBICANS, PARAPSILOSIS, TROPICALIS 0 [facility] NICKY ALBICANS, PARAPSILOSIS, TROPICALIS Not detected [facility] NICKY GLABRATA 0 [facility] NICKY GLABRATA Not detected [facility] KRUSEI 0 [facility] NICKY KRUSEI Not [facility] CHLAMYDIA TRACHOMATIS 0 [facility] CHLAMYDIA TRACHOMATIS Not detected N S [facility] GARDNERELLA VAGINALIS 0 [facility] GARDNERELLA VAGINALIS Not detected N [facility] MEGASPHAERA (TYPES 1, 2) 0 [facility] MEGASPHAERA (TYPES 1, 2) Not detected [facility] MYCOPLASMA GENITALIUM 0 [facility] MYCOPLASMA GENITALIUM Not detected N S [facility] NEISSERIA GONORRHOEAE 0 [facility] NEISSERIA GONORRHOEAE Not detected N [facility] TRICHOMONAS VAGINALIS 0 [facility] TRICHOMONAS VAGINALIS Not detected [facility] Urinalysis macro (dipstick) panel (U)on 02-23-2024 Bilirubin, UA Negative Negative - 4(70) +++ mg/dL [facility] Blood, UA Negative Negative - 50 Kvng/mcL [facility] Clarity, UA Clear [facility] Color, UA Yellow [facility] Glucose, UA Negative Negative - 2000(110) ++++ mg/dL [facility] Interpretation and review of laboratory results Normal [facility] Ketones, UA Negative Negative - 160(16) ++++ mg/dL [facility] Leukocytes, UA Negative Negative - 500+++ Sandra/mcL [facility] Nitrite, UA Negative Negative - Positive [facility] pH, UA 7 5 - 9 [facility] Protein, UA Negative Negative - 1999(20) ++++ mg/dL [facility] Spec Grav, UA 1.025 1 - 1.03 [facility] Urobilinogen, UA 0.2 0.2 - 12 mg/dL [facility] Urinalysis macro (dipstick) panel (U)on 01-25-2024 Bilirubin, UA Positive Negative - 4(70) +++ mg/dL [facility] Comment on above: small Blood, UA Negative Negative - 50 Kvng/mcL [facility] Clarity, UA Clear [facility] Color, UA Yellow [facility] Glucose, UA Negative Negative - 1999(110) ++++ mg/dL [facility] Interpretation and review of laboratory results Abnormal [facility] Ketones, UA Positive Negative - 160(16) ++++ mg/dL [facility] Comment on above: moderate Leukocytes, UA Negative Negative - 500+++ Sandra/mcL [facility] Nitrite, UA Negative Negative - Positive [facility] pH, UA 6.5 5 - 9 [facility] Protein, UA Trace Negative - 1999(20) ++++ mg/dL [facility] Spec Grav, UA 1.025 1 - 1.03 [facility] Urobilinogen, UA 0.2 0.2 - 12 mg/dL [facility] MLR HEMOGLOBIN A1Con 024 Glucose [Mass/Vol] 91 mg/dL [facility] HbA1c (Bld) [Mass fraction] 4.8 % 4.5 - 6.2 % [facility] Comment on above: ADA RECOMMENDED LIMI T 4.0 - 6.0 ADA THERAPEUTIC TARGET < 7.0 ACTION SUGGESTED > 7.0 [facility] No Panel Informationon 01-13 [facility] Rubella IGG immune statuson 01-14-2024 Rubella immune IgG immune [facility] Syphilis Total(Unknown Syphi lis Status)Ordered By: Aida Sauceda on 01-14-2024 Syphilis Non-Reactive [facility] DRUG SCREEN RAPID (URINE )on 01-14-2024 AMPHETAMINE SCREEN URINE Negative NEGATIVE [facility] BARBITURATES SCREEN URINE Negative NEGATIVE [facility] BENZODIAZEPINES SCREEN URINE Negative NEGATIVE [facility] BUPRENORPHINE SCREEN URINE Negative NEGATIVE [facility] Comment on above: DRUG CLASS TEST [...] 300 ng/mL CANNABINOID SCREEN URINE Negative NEGATIVE [facility] COCAINE SCREEN URINE Negative NEGATIVE [facility] METHADONE SCREEN URINE Negative NEGATIVE [facility] METHAMPHETAMINES SCREEN URINE Negative NEGATIVE [facility] OPIATE SCREEN URINE Negative NEGATIVE [facility] OXYCODONE SCREEN URINE Negative NEGATIVE [facility] PHENCYCLIDINE SCREEN URINE Negative NEGATIVE [facility] TRICYCLIC ANTIDEPRESSANT URINE Negative NEGATIVE [facility] HCG ( test) Ql (U)o n 12-31-2023 Interpretation and review of laboratory results Abnormal [facility] Preg Test, Ur Positive [facility] Urinalysis macro (dipstick) panel (U)on 12-31-2023 Bilirubin, UA Negative Negative - 4(70) +++ mg/dL [facility] Blood, UA Negative Negative - 50 Kvng/mcL [facility] Clarity, UA Clear [facility] Color, UA Yellow [facility] Glucose, UA Negative Negative - 1999(110) ++++ mg/dL [facility] Interpretation and review of laboratory results Normal [facility] Ketones, UA Negative Negative - 160(16) ++++ mg/dL [facility] Leukocytes, UA Negative Negative - 500+++ Sandra/mcL [facility] Nitrite, UA Negative Negative - Positive [facility] pH, UA 7.0 5 - 9 [facility] Protein, UA Positive Negative - 1999(20) ++++ mg/dL [facility] Spec Grav, UA 1.020 1 - 1.03 [facility] Urobilinogen, UA 1.0 0.2 - 12 mg/dL [facility] Vital Signs Date Time Vital Sign Value Performing Clinician Jc quiroz 06-08-2024 11:44-0500 Body weight 58.06 kg Alma BRANHAM Work Phone: [facility] 06-08-2024 11:44-0500 Diastolic blood pressure 82 mm[Hg] Alma BRANHAM Work Phone: [facility] 06-08-2024 11:44-0500 Systolic blood pressure 128 mm[Hg] Alma BRANHAM Work Phone: [facility] 06-07-2024 11:32-0500 Diastolic blood pressure 71 mm[Hg] [address] 06-07-2024 11:32-0500 Heart rate 81 /min [address] 06-07-2024 11:32-0500 Systolic blood pressure 115 mm[Hg] [address] 06-07-2024 09:32-0500 Body height 157.5 cm Tori Day MD Work Phone: [facility] 05-25-2024 11:54-0500 Body weight 56.43 kg Sandy Pravin DO Work Phone: [facility] 05-25-2024 11:54-0500 Diastolic blood pressure 72 mm[Hg] Sandy Pravin DO Work Phone: [facility] 05-25-2024 11:54-0500 Systolic blood pressure 116 mm[Hg] Sandy Pravin DO Work Phone: [facility] 05-10-2024 09:39-0500 Body weight 54.8 kg Alma BRANHAM Work Phone: [facility] 05-10-2024 09:39-0500 Diastolic blood pressure 70 mm[Hg] Alma BRANHAM Work Phone: [facility] 05-10-2024 09:39-0500 Systolic blood pressure 100 mm[Hg] lAma BRANHAM Work Phone: [facility] 04-20-2024 10:01-0500 Body weight 53.25 kg Sandy Pravin DO Work Phone: [facility] 04-20-2024 10:01-0500 Diastolic blood pressure 60 mm[Hg] Sandy Pravin DO Work Phone: [facility] 04-20-2024 10:01-0500 Systolic blood pressure 100 mm[Hg] Sandy Pravin DO Work Phone: [facility] 03-23-2024 12:42-0500 Body weight 51.26 kg Sandy Pravin DO Work Phone: [facility] 03-23-2024 12:42-0500 Diastolic blood pressure 62 mm[Hg] Sandy Pravin DO Work Phone: [facility] 03-23-2024 12:42-0500 Systolic blood pressure 102 mm[Hg] Sandy Pravin DO Work Phone: [facility] 02-23-2024 10:48-0500 Body weight 49.9 kg Alma BRANHAM Work Phone: [facility] 02-23-2024 10:48-0500 Diastolic blood pressure 64 mm[Hg] Alma BRANHAM Work Phone: [facility] 02-23-2024 10:48-0500 Systolic blood pressure 102 mm[Hg] Alma BRANHAM Work Phone: [facility] 01-25-2024 10:45-0400 Body weight 47.68 kg Sandy Pravin DO Work Phone: [facility] 01-25-2024 10:45-0400 Diastolic blood pressure 64 mm[Hg] Sandy Pravin DO Work Phone: [facility] 01-25-2024 10:45-0400 Systolic blood pressure 100 mm[Hg] Sandy Pravin DO Work Phone: [facility] 12-02-2023 08:47-0400 Body height 157.48 cm [facility] 12-02-2023 08:47-0400 Body mass index (BMI) [Ratio] 19.5 kg/m2 [facility] 12-02-2023 08:47-0400 Body weight 48.53 kg [facility] 12-02-2023 08:47-0400 Diastolic blood pressure 80 mm[Hg] [facility] 12-02-2023 08:47-0400 Systolic blood pressure 122 mm[Hg] [facility] Encounters Encounter Date Encounter Type Care Provider Facility Start: 06-08-2024 End: 06-08-2024 Bamboo flowsheet Alma BRANHAM Work Phone: [facility] Start: 06-08-2024 End: 06-08-2024 Bamboo flowsheet Alma BRANHAM Work Phone: [facility] Start: 06-08-2024 End: 06-08-2024 flow sheet Alma BRANHAM Work Phone: [facility] Comment on above: Third trimester preg danielle; 32 weeks gestation of Start: 06-07-2024 End: 06-07-2024 ambulatory Tt Mfm Nst1 [facility] Comment on above: growth restric tion antepartum (Primary Dx) growth restric tion antepartum (Primary Dx); 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, antepartum Start: 06-07-2024 End: 06-07-2024 Office consultation new/estab patient 60 min Tori Day MD Work Phone: [facility] Comment on above: growth restric tion antepartum (Primary Dx); 32 weeks gestation of Start: 06-05-2024 End: 06-05-2024 Orders Only Not In System Ref Prov [facility] Start: 06-01-2024 End: 06-01-2024 Clinisync Result Encounter Sandy Pravin DO Work Phone: [facility] External Department Unsolicited Start: 06-01-2024 End: 06-01-2024 Clinisync Result Encounter Sandy Pravin DO Work [...] Start: 03-21-2024 End: 03-21-2024 ambulatory SANDY R [facility] Start: 03-07-2024 End: 03-07-2024 Chart abstracting Omayra Boyce [facility] Work Phone: [facility] Start: 02-23-2024 End: 02-23-2024 Bamboo flowsheet Alma BRANHAM Work Phone: [facility] Start: 02-23-2024 End: 03-06-2024 Bamboo flowsheet Alma BRANHAM Work Phone: [facility] Start: 02-23-2024 End: 03-06-2024 Clinisync Result Encounter Alma BRANHAM Work Phone: [facility] External Department Unsolicited Start: 02-23-2024 End: 02-24-2024 External Result Encounter Alma BRANHAM Work Phone: [facility] External Department Unsolicited Start: 02-23-2024 End: 02-23-2024 Patient encounter procedure Alma BRANHAM Work Phone: [facility] Start: 02-23-2024 End: 02-23-2024 flow sheet Alma BRANHAM Work Phone: [facility] Comment on above: Well woman exam with routine gynecological exam; Second trimester ; 17 weeks gestation of ; Need for maternal serum alpha-protein (MSAFP) screening; Screening, , for anatomic survey; Screen for STD (sexually transmitted disease) Start: 02-23-2024 End: 02-23-2024 ambulatory ALMA VARGAS Not Available Start: 01-25-2024 End: 01-25-2024 Bamboo flowsheet Sandy Pravin DO Work Phone: [facility] Start: 01-25-2024 End: 01-25-2024 Bamboo flowsheet Sandy Pravin DO Work Phone: [facility] Start: 01-25-2024 End: 01-25-2024 flow sheet Sandy Pravin DO Work Phone: [facility] Comment on above: 12 weeks gestation o f ; First trimester ; Nonintractable headache, unspecified chronicity pattern, unspecified headache type Start: 01-25-2024 End: 01-25-2024 ambulatory SANDY PRAVIN Not Available Start: 01-14-2024 End: 01-14-2024 Clinisync Result Encounter Sandy Pravin DO Work Phone: [facility] External Department Unsolicited Start: 01-14-2024 End: 01-14-2024 Clinisync Result Encounter Sandy Pravin DO Work Phone: [facility] External Department Unsolicited Start: 12-31-2023 End: 12-31-2023 Office outpatient visit 5 minutes [facility] Pravin Nurse [facility] Comment on above: GA: 9w2d Start: 12-31-2023 End: 12-31-2023 ambulatory ALMA VARGAS Not Available Start: 12-02-2023 Patient encounter status [facility] Start: 12-02-2023 End: 12-02-[address] [facility] Work Phone: Start: 12-02-2023 End: 12-02-2023 Encounter for general adult medical examination without abnormal findings [facility] Start: 12-02-2023 End: 12-02-2023 Patient encounter procedure [facility] Physician [facility] Work Phone: Procedures Date Procedure Procedure Detail Performing Clinician Start: 06-08-2024 Urnls dip stick/tabl et rgnt non-auto w/o micrscp Alma BRANHAM Work Phone: Start: 06-07-2024 nonstress test Rakel Day MD [...] Start: 01-14-2024 MLR HEMOGLOBIN A1C Core y Prvain DO Work Phone: Start: 01-14-2024 [facility] DRUG SCREEN RAPI D (URINE) Sandy Pravin DO Work Phone: Start: 12-31-2023 End: 12-31-2023 Urnls dip stick/tablet rgnt non-auto w/o micrscp Sandy Pravin DO Work Phone: Plan of Treatment Date Care Activity Detail Author Start: 02-22-2027 Screening for malign ant neoplasm of cervix Pap Smear [facility] Start: 06-07-2025 Adult BMI Screening Adult BMI Screen ing [facility] Start: 06-07-2025 Tobacco Screening Tobacco Screening [facility] Start: 06-07-2025 End: 06-07-2025 US MFM with or without consult US MFM with or without consult Imaging Routine growth restriction antepartum 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, antepartum Expected: 06/07/2025 (Approximate), Expires: 06/07/2025 [facility] Work Phone: Comment on above: Expected: 06/07/2025 (Approximate), Expires: 06/07/2025 Start: 06-28-2024 End: 06-28-2024 Patient encounter procedure 06/28/2024 8:45 AM EDT Appointment [facility] [address] [place] [address] [facility] Start: 06-22-2024 End: 06-22-2024 Patient encounter procedure 06/22/2024 9:10 AM EDT Routine [facility] [address] [place] [id number] Sandy Costello DO [address] [place] [address] [facility] Start: 06-21-2024 End: 06-21-2024 Patient encounter procedure 06/21/2024 9:00 AM EDT Appointment [facility] [address] [place] [address] [facility] Start: 06-14-2024 End: 06-14-2024 Patient encounter procedure 06/14/2024 8:00 AM EDT Appointment [facility] [address] [place] [address] [facility] Start: 06-08-2024 End: 06-08-2024 Patient encounter procedure [facility] Comment on above: Arrived Start: 06-07-2024 End: 06-07-2025 nonstress test - Maternal Medicine nonstress test - Maternal Medicine OB Routine growth restriction antepartum Expected: 06/07/2024 (Approximate), Expires: 06/07/2025 [facility] Work Phone: Comment on above: Expected: 06/07/2024 (Approximate), Expires: 06/07/2025 Start: 06-07-2024 End: 06-07-2024 Patient encounter procedure [facility] Start: 06-01-2024 End: 06-01-2024 Professional / ancillary services management 06/01/2024 9:30 AM EST Ancillary Procedure [facility] [address] [place] [id number] [facility] Start: 05-25-2024 End: 05-25-2024 [...] mellitus screening Expected: 04/20/2024 (Approximate), Expires: 04/20/2025 [facility] Work Phone: Comment on above: Expected: 04/20/2024 (Approximate), Expires: 04/20/2025 Start: 04-20-2024 End: 04-20-2025 Measurement of glucose 1 hour after glucose challenge for glucose tolerance test Glucose tolerance, 1 hour Lab Routine Diabetes mellitus screening Expected: 04/20/2024 (Approximate), Expires: 04/20/2025 [facility] Comment on above: Expected: 04/20/2024 (Approximate), Expires: 04/20/2025 Start: 04-20-2024 End: 04-20-2024 Patient encounter procedure [facility] Comment on above: Arrived Start: 03-24-2024 End: 03-24-2024 Alpha fetoprotein, maternal Alpha fetoprotein, maternal Lab Routine Need for maternal serum alpha-protein (MSAFP) screening Expected: 03/24/2024 (Approximate), Expires: 03/24/2024 [facility] Comment on above: Expected: 03/24/2024 (Approximate), Expires: 03/24/2024 Start: 03-23-2024 End: 03-23-2024 Patient encounter procedure 03/23/2024 11:40 AM EST Routine [facility] [address] [place] [id number] Sandy Costello DO [address] [place] [address] [facility] Start: 03-23-2024 End: 03-23-2024 Professional / ancillary services management 03/23/2024 10:30 AM EST Ancillary Procedure [facility] [address] [place] [id number] [facility] Start: 03-21-2024 End: 03-21-2024 Telemedicine consultation with patient 03/21/2024 9:00 AM EST Telemedicine [facility] [address] [place] [address] [facility] [address] [place] [address] [facility] Start: 02-23-2024 End: 02-22-2025 US for [...] first trimester Expected: 12/31/2023 (Approximate), Expires: 12/30/2024 [facility] Comment on above: Expected: 12/31/2023 (Approximate), Expires: 12/30/2024 Start: 12-31-2023 End: 12-30-2024 US Pelvis transvaginal US OB transvaginal Imaging Routine Missed menses Expected: 12/31/2023 (Approximate), Expires: 12/30/2024 [facility] Comment on above: Expected: 12/31/2023 (Approximate), Expires: 12/30/2024 Start: 12-05-2023 Influenza vaccination Influenza Vacc ine [facility] Start: 11-06-2019 DTaP,Tdap and Td Vaccines (7 - Td or Tdap) DTaP,Tdap and Td Vaccines (7 - Td or Tdap) [facility] Start: 2018 Screening for malign ant neoplasm of cervix Pap Smear [facility] Start: 09-29-2015 Adult BMI Screening Adult BMI Screen ing [facility] Start: 2009 Depression Screening Depression Scre ening [facility] Start: 2009 Tobacco Screening Tobacco Screening [facility] Bacteria identified in Urine by Culture Urine culture Microbiology Routine Missed menses Ordered: 12/31/2023 [facility] Comment on above: Ordered: 12/31/2023 CBC W Auto Different ial panel - Blood CBC and differential Lab Routine Missed menses , unspecified gestational age Ordered: 12/31/2023 [facility] Comment on above: Ordered: 12/31/2023 CHLAMYDIA TRACHOMATI S (GENITO/STI) CHLAMYDIA TRACHOMATIS (GENITO/STI) Lab Routine Screen for STD (sexually transmitted disease) Ordered: 02/23/2024 [facility] Comment on above: Ordered: 02/23/2024 Cytology Cervical or vaginal smear or scraping study Pap Smear Pathology and Cytology Routine Well woman exam with routine gynecological exam Ordered: 02/23/2024 [facility] Comment on above: Ordered: 02/23/2024 Hemoglobin A1c/Hemoglobin.total in Blood Hemoglobin A1c Lab Routine Missed menses , unspecified gestational age Ordered: 12/31/2023 [facility] Comment on above: Ordered: 12/31/2023 Hepatitis B virus surface Ag [Presence] in Serum or Plasma by Immunoassay Hepatitis B surface antigen Lab Routine Missed menses , unspecified gestational age Ordered: 12/31/2023 [facility] Comment on above: Ordered: 12/31/2023 Hepatitis C virus Ab [Presence] in Serum or Plasma by Immunoassay Hepatitis C antibody Lab Routine Missed menses , unspecified gestational age Ordered: 12/31/2023 [facility] Comment on above: Ordered: 12/31/2023 HIV-1/HIV-2 antigen/antibody combination immunoassay HIV-1 and HIV-2 antibodies Lab Routine Missed menses , unspecified gestational age Ordered: 12/31/2023 [facility] Comment on above: Ordered: 12/31/2023 Neisseria gonorrhoea e DNA [Presence] in Unspecified specimen by RUBEN with probe detection Neisseria gonorrhea DNA probe, direct Lab Routine Screen for STD (sexually transmitted disease) Ordered: 02/23/2024 [facility] Comment on above: Ordered: 02/23/2024 Reagin Ab [Presence] in Serum by RPR RPR Lab Routine Missed menses , unspecified gestational age Ordered: 12/31/2023 [facility] Comment on above: Ordered: 12/31/2023 Rubella antibody, IgG Rubella an tibody, IgG Lab Routine Missed menses , unspecified gestational age Ordered: 12/31/2023 [facility] Comment on above: Ordered: 12/31/2023 SURESWAB(R) ADVANCED VAGINITIS PLUS, TMA SURESWAB(R) ADVANCED VAGINITIS PLUS, TMA Pathology and Cytology Routine Screen for STD (sexually transmitted disease) Ordered: 02/23/2024 [facility] Work Phone: Comment on above: Ordered: 02/23/2024 Immunizations Immunization Date Immunization Notes Care Provider Kedar chahal 11-13-2015 hepatitis A vaccine, pediatric/adolescent dosage, 2 dose schedule [employer] Work Phone: [facility] 11-13-2015 meningococcal polysaccharide (groups A, C, Y and W-135) diphtheria toxoid conjugate vaccine (MCV4P) [employer] Work Phone: [facility] 04-24-2015 influenza, injectabl e, quadrivalent, preservative free [employer] Work Phone: [facility] 04-24-2015 influenza virus vaccine, unspecified formulation [employer] Work Phone: [facility] 11-05-2009 tetanus toxoid, redu dilip diphtheria toxoid, and acellular pertussis vaccine, adsorbed [employer] Work Phone: [facility] 11-05-2009 varicella virus vaccine Made [employer] Work Phone: [facility] 03-14-2009 influenza, seasonal, injectable, preservative free [employer] Work Phone: [facility] 01-24-2003 hepatitis B vaccine, adult dosage [employer] Work Phone: [facility] 11-28-2002 diphtheria, tetanus toxoids and acellular pertussis vaccine, 5 pertussis antigens [employer] Work Phone: [facility] 11-28-2002 measles, mumps and rubella virus vaccine [employer] Work Phone: [facility] 11-28-2002 poliovirus vaccine, inactivated [employer] Work Phone: [facility] 07-18-2001 varicella virus vaccine Made [employer] Work Phone: [facility] 04-09-1999 diphtheria, tetanus toxoids and acellular pertussis vaccine, 5 pertussis antigens [employer] Work Phone: [facility] 04-09-1999 measles, mumps and rubella virus vaccine Omayra Boyce [facility] Work Phone: [facility] 03-25-1998 diphtheria, tetanus toxoids and acellular pertussis vaccine, 5 pertussis antigens Omayra Boyce [facility] Work Phone: [facility] 03-25-1998 hepatitis B vaccine, adult dosage Omayra Boyce [facility] Work Phone: [facility] 03-25-1998 poliovirus vaccine, inactivated Omayra Austen [facility] Work Phone: [facility] 02-13-1998 diphtheria, tetanus toxoids and acellular pertussis vaccine, 5 pertussis antigens Omayra Austen [facility] Work Phone: [facility] 02-13-1998 poliovirus vaccine, inactivated Omayra Boyce [facility] Work Phone: [facility] 1997 diphtheria, tetanus toxoids and acellular pertussis vaccine, 5 pertussis antigens Moayra Austen [facility] Work Phone: [facility] 1997 haemophilus influenz ae type b vaccine, PRP-OMP conjugate Omayra Austen [facility] Work Phone: [facility] 1997 poliovirus vaccine, inactivated Omayra Austen [facility] Work Phone: [facility] 1997 hepatitis B vaccine, adult dosage Omayra Austen [facility] Work Phone: [facility] 1997 hepatitis B vaccine, adult dosage Omayra Austen [facility] Work Phone: [facility] NEGATED: Highlighted row has not occurred!11-13-2015 human papilloma virus vaccine, quadrivalent Omayra Austen [facility] Work Phone: [facility] Comment on above: Deferred: Other - parent declined Payers Date Payer Category Payer [facility] [id number] 2022 [employer] - Other [id number] 2022 Unknown BCBS BCBS xxxxxx [id number] 2022-Present [phone] [address] [place] [address] [id number] 2022 Unknown [id number] 2020 [employer] - PPO ANTHEM [id number] 1997 Unknown [id number] 1997 Unknown [id number] [id number] 1997 Unknown [id number] [id number] 1997 Unknown [id number] [id number] 1997 Unknown [id number] [id number] 1997 Unknown [id number] [id number] 1997 Unknown [id number] [id number] 1997 Unknown [id number] [id number] 1997 Unknown [id number] [id number] Social History Date Type Detail Facility Tobacco smoking stat [facility] Unknown if ever smoked [facility] Work Phone: Start: 1997 Sex Assigned At Female F [facility] Tobacco smoking stat [facility] Tobacco smoking consumption unknown [facility] Start: 11-10-2023 [facility] Start: 1997 Sex assigned at Not on file [facility] Start: 05-16-2020 End: 03-07-2024 Gender identity Not on file [facility] Start: 02-13-2021 End: 06-07-2024 Tobacco smoking status NHIS Never smoked tobacco [facility] Start: 02-13-2021 End: 06-07-2024 Tobacco use and exposure Smokeless tobacco non-user [facility] Start: 03-07-2024 Alcoholic beverage intake Current non-drinker of alcohol (finding) [facility] Start: 05-16-2020 End: 03-07-2024 Alcoholic beverage intake [facility] Childcare Unknown [facility] Start: 11-06-2014 Sex Female (finding) [facility] Start: 06-05-2024 End: 06-07-2024 Alcoholic beverage intake Ex-drinker (finding) [facility] Clinical Notes 12-31-2023 to 06-08-2024 CARROL Harmon - 06/08/2024 11:30 AM Ayaka Noyola RN - 06/07/2024 11:15 AM Johann Day MD - 06/07/2024 11:00 AM Jackson Sauceda CMA - 06/07/2024 11:00 AM EST Note Date & Type Note Facility 06-08-2024 History of Present illness Narrative Reason for Appointment: Patient ID: Sejal Nowak is a 28 y.o. female who presents [...] weight on file to calculate BMI. BP: 128/82 Patient's last menstrual period was 10/27/2023. ASSESSMENT & PLAN ICD-10-CM 1. Third trimester Z34.93 POCT urinalysis dipstick manually resulted 2. 32 weeks gestation of Z3A.32 Return OB: Patient presents today for a routine obstetrics appointment. Patient is currently 32w1d . Patient states she is doing well but has complaints of being tired due to current . Patient has verbalizes frequent movement. labor precautions was discussed/given and patient was instructed to perform kick counts three times a day. Orders Placed This Encounter Procedures POCT urinalysis dipstick manually resulted Follow Up: Patient is to return to office in 2 week for routine OB appointment. Documented by CARROL Harmon on behalf of: CARROL Harmon documented in this encounter [facility] 06-07-2024 History of Present illness Narrative Denies [...] all scheduled appointments documented in this encounter [facility] 06-07-2024 History of Present illness Narrative REASON FOR CONSULTATION: FGR HISTORY OF PRESENT ILLNESS: Sejal Nowak is a pleasant 28 y.o. at 32w0d [...] free DNA Carrier screening: Baby Boy: Dwight Lundberg have reviewed the pertinent available patient records [...] full sentences Gravid abdomen OVERALL ASSESSMENT -Sejal Nowak is a pleasant 28 y.o. at 32w0d [...] Based on ultrasound findings today recommend delivery [facility] recommendations summary FGR is defined as [...] later - absent end-diastolic flow umbilical artery: [id number] or at time of diagnosis if diagnosed later. - reversed end-diastolic flow umbilical artery: [id number] or at time of diagnosis if diagnosed [...] be getting weekly umbilical artery Dopplers through MFM along with fluid assessment, twice weekly NSTs can be performed through primary OB. Recommend delivery at 37 weeks gestation. If absent or reversed end-diastolic flow, re-engage MFM prior to 34 weeks gestation. Delivery method preferred vaginal. [place] C/S for usual obstetrical indications Recommend steroids if delivery before 34 weeks. Consider steroids if delivery after 34 weeks and before 37 weeks. DISPOSITION: At this point the patient is in complete care of her cutting torch operator. Patient does have ultrasound scheduled with us. Thank you for allowing me to participate in the care of Sejal Nowak. If there any questions please do not hesitate to contact us. Tori Day MD Maternal- Medicine [facility] [address] [place] [id number] [facility], the CDC, and other organizations representing maternal and public health professionals recommend that , , and lactating people and those considering receive the COVID-19 vaccination. Vaccination is the best method to reduce maternal and complications of SARS-CoV-2 infection. This document was created with [employer] technology. Though I make every effort to review the dictation as it is transcribed, on occasion the spoken word can be misinterpreted by the technology leading to inappropriate words, phrases, or sentences. This note is addressed to the requesting provider as a consultation for clinical guidance. Specific medical abbreviations are occasionally used and those are generally approved by the [place]?Board of?Obstetrics and?Gynecology?as well as?Jocelyn s abbreviations. The above plan of care was based solely on the diagnoses for which a consultation was requested. ?More frequent testing may be indicated based on her other medical/obstetrical conditions. The management of other or medical conditions is beyond the scope of requested consultation and will continue to be followed by the primary cutting torch operator or primary care provider. Note to patient: [...] office? Have you been seen here at [facility] in a previous ? Recent ER visits or hospitalizations? Bring blood sugar log or meter with you today? (Please bring them with you for every visit at [facility]) Flu vaccine (Feb-June)? Any concerns that you would like me to mention to the provider today? documented in this encounter [facility] 05-25-2024 History of Present illness Narrative Reason for Appointment: Patient ID: Sejal Nowak is a 28 y.o. female who presents [...] nursing note reviewed. Exam conducted with a imagery intelligence present. Vitals: There is no height or [...] Sandy Costello DO documented in this encounter [facility] 05-10-2024 History of Present illness Narrative Reason for Appointment: Patient ID: Sejal Nowak is a 28 y.o. female who presents [...] of: CARROL Harmon documented in this encounter [facility] 04-20-2024 History of Present illness Narrative Reason for Appointment: Patient ID: Sejal Nowak is a 28 y.o. female who presents [...] nursing note reviewed. Exam conducted with a imagery intelligence present. Vitals: There is no height or [...] Sandy Costello DO documented in this encounter [facility] 03-23-2024 History of Present illness Narrative Reason for Appointment: Patient ID: Sejal Nowak is a 28 y.o. female who presents [...] Sandy Costello DO documented in this encounter [facility] 02-23-2024 History of Present illness Narrative Reason for Appointment: Patient ID: Sjeal Nowak is a 28 y.o. female who presents [...] of: CARROL Harmon documented in this encounter [facility] 01-25-2024 History of Present illness Narrative Reason for Appointment: Patient ID: Sejal Nowak is a 28 y.o. female who presents [...] nursing note reviewed. Exam conducted with a imagery intelligence present. Vitals: There is no height or [...] or undercooked meat, and stay away from [facility]. Patient has been consulted regarding any further do's and don'ts of . Patient voiced understanding and all questions and concerns were answered. Orders Placed This Encounter Procedures POCT urinalysis dipstick manually resulted Follow Up: Patient is to return in 4 weeks for routine OB appointment. Documented by Anita Oswald LPN on behalf of: Sandy Costello DO documented in this encounter [facility] 12-31-2023 History of Present illness Narrative Reason for Appointment: Patient ID: Sejal Nowak is a 28 y.o. female who presents [...] or undercooked meat, and stay away from [facility]. 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, antepartum [facility] Diagnosis growth restriction antepartum- Primary [facility] Diagnosis Third trimester state, incidental 32 weeks gestation of documented in this encounter [facility]ructionsNot on filedocumented in this encounterProMedica Health SystemInstructionsNot on filedocumented in this encounterProEn[facility] SystemInstructionsNot on filedocumented in this encounterProEncompass [facility] Health SystemInstructionsNot on filedocumented in this encounterProMedior Health System InstructionsNot on filedocumented in this encounterProOhio[facility] Chief Complaint and Reason for [...] Member Role Status Dates Tran Rice APRN [employer]-C Primary Care Provider Active Team Status: Inactive Member Role Status Dates Tran Rice APRN [employer]-Hung Primary Care Provider, Attending Provider Active Start: December 02, 2023 End: December 02, 2023 Scruff Worker Relationship Specialty Start Date End Date Tran Rice NP [facility] [place] [address] PCP - General Family Medicine 12/31/23 Scruff Worker Relationship Specialty Start Date End Date Tran Rice NP [address] [place] [address] PCP - General Family Medicine 12/31/23 Scruff Worker Relationship Specialty Start Date End Date Tran Rice NP [address] [place] [address] PCP - General Family Medicine 12/31/23 Scruff Worker Relationship Specialty Start Date End Date Tran Rice NP [address] [place] [address] PCP - General Family Medicine 12/31/23 Scruff Worker Relationship Specialty [place] [address] [place] [address] [place] [address] PCP - General Family Medicine 12/31/23 Scruff Worker Relationship Specialty Start Date End Date Tran Rice NP [address] [place] [address] [place] [address] PCP - General Family Medicine 12/31/23 Scruff Worker Relationship Specialty Start Date End Date Tran Rice NP [address] [place] [address] [place] [address] PCP - General Family Medicine 12/31/23 Scruff Worker Relationship Specialty Start Date End Date Tran Rice NP [address] [place] [address] [place] [address] PCP - General Family Medicine 12/31/23 Scruff Worker Relationship Specialty Start Date End Date Tran Rice NP [address] [place] [address] [place] [address] PCP - General Family Medicine 12/31/23 Scruff Worker Relationship Specialty Start Date End Date Tran Rice NP [address] [place] [address] [place] [address] PCP - General Family Medicine 12/31/23 Scruff Worker Relationship Specialty [place] [address] [place] [address] [place] [address] PCP - General Family Medicine 12/31/23 Scruff Worker Relationship Specialty Start Date End Date Arthur Parker MD PCP - General 08/09/14 Scruff Worker Relationship Specialty Start Date End Date Tran Rice NP [address] [facility] [address] PCP - General Family Medicine 12/31/23 Scruff Worker Relationship Specialty Start Date End Date Arthur Parker MD PCP - General 08/09/14 Scruff Worker Relationship Specialty Start Date End Date Arthur Parker MD PCP - General 08/09/14 Scruff Worker Relationship Specialty Start Date End Date Arthur Parker MD PCP - General 08/09/14 Scruff Worker Relationship Specialty Start Date End Date Arthur Parker MD PCP - General 08/09/14 Scruff Worker Relationship Specialty Start Date End Date Arthur Parker MD PCP - General 08/09/14 Scruff Worker Relationship Specialty Start Date End Date Arthur Parker MD PCP - General 08/09/14 Goals (unrecognized [...] section and content) DATE CREATED AUTHOR 03/23/2024 [facility] DATE CREATED AUTHOR AUTHOR'S HERIBERTO ATION 06/03/2024 [facility] FOR RECORDS PERTAINING TO PATIENTS WHO [...] BE BASED ON THE PRIMARY CLINICAL RECORDS. [facility] [employer] [facility]. provides no warranty or guarantee of the accuracy or completeness of information in this document.
--- NOTE | 2024-06-09 16:31 | US_ITS ---
[place] [id number] Patient Name: SEJAL NOWAK MRN: [id number] date: 1995 Sex: F Assigned Patient Location: [facility] Current Patient Location: Accession/Order Number: [id number] Exam Date: 06/10/2024 00:25 Report Date: 06/10/2024 00:28 At the request of: SANDY PRATT DO Procedure: US OB BPP w non-stress BIOPHYSICAL PROFILE: CLINICAL INFORMATION: Follow-up failed biophysical profile COMPARISON: 06/08/2024 There is a single live intrauterine gestation in cephalic presentation. The reported gestational age is 32 weeks 2 days. The heart rate [id number] beats per minute. FINDINGS: TONE: 1 or more episodes of activity extension and flexion of extremity or opening and closing of the hand [Y] 2/2 GROSS BODY MOVEMENTS: 3 or more discrete body or limb movements [Y] 2/2 BREATHING MOVEMENTS: 1 or more episodes of breathing lasting at least 30 seconds [Y] 2/2 MONIQUE: A single deepest vertical pocket of amniotic fluid greater than 2 cm [Y] 2/2 MONIQUE: 5.8cm . The 5th percentile is 7.6 cm. This is oligohydramnios Total score: 8/8 US/US OB BPP w non-stress IMPRESSION: NORMAL BIOPHYSICAL PROFILE. OLIGOHYDRAMNIOS. Impression dictated by: Anita Jaimes M.D.06/10/2024 12:28 AM Dictation Location: [place] [address] Electronically authenticated by: [id number] Date: 06/10/2024 00:28
[2024-06-09 17:01] VITALS: BP 113/71; PULSE 83; TEMP 36.4
== END 2024-06-09 17:59 | disposition home or self-care (01) ==
LOC: FBCO 01:48 → FBC 16:27
PROVIDERS: PCP Nurse Practitioner Family; Visit Provider Obstetrics & Gynecology
DX: O41.03X0 Oligohydramnios, third trimester, not applicable or unspecified (principal); O26.893 Other specified pregnancy related conditions, third trimester; Z3A.32 32 weeks gestation of pregnancy
CPT/HCPCS: 76818

== ENCOUNTER 2024-06-12 08:56 | Outpatient (OUT) | payer BC, SELFPAY ==
[2024-06-12 09:02] VITALS: BP 116/67; PULSE 94
== END 2024-06-12 09:50 | disposition home or self-care (01) ==
LOC: FBCO 08:56 → FBC 08:58
PROVIDERS: PCP Nurse Practitioner Family; Visit Provider Obstetrics & Gynecology
DX: O41.03X0 Oligohydramnios, third trimester, not applicable or unspecified (principal); Z3A.32 32 weeks gestation of pregnancy
CPT/HCPCS: 59025

== ENCOUNTER 2024-06-15 07:00 | Outpatient (OUT) | payer BC, SELFPAY ==
--- NOTE | 2024-06-15 07:03 | US_ITS ---
The [address] [address] Patient Name: SEJAL NOWAK MRN: [id number] date: 1995 Sex: F Assigned Patient Location: [facility] Current Patient Location: [facility] Accession/Order Number: [id number] Exam Date: 06/15/2024 07:54 Report Date: 06/15/2024 07:56 At the request of: SANDY PRATT DO Procedure: US OB BPP w non-stress BIOPHYSICAL PROFILE: CLINICAL INFORMATION: IUGR, oligohydramnios COMPARISON: 06/09/2024 There is a single live intrauterine gestation in cephalic presentation. The reported gestational age is 33 weeks 1 day. The heart rate [id number] beats per minute. FINDINGS: TONE: 1 or more episodes of activity extension and flexion of extremity or opening and closing of the hand [Y] 2/2 GROSS BODY MOVEMENTS: 3 or more discrete body or limb movements [Y] 2/2 BREATHING MOVEMENTS: 1 or more episodes of breathing lasting at least 30 seconds [Y] 2/2 MONIQUE: A single deepest vertical pocket of amniotic fluid greater than 2 cm [Y] 2/2 MONIQUE: 7.1 cm . The 5th percentile is 7.4. Total score: 8/8 US/US OB BPP w non-stress IMPRESSION: NORMAL BIOPHYSICAL PROFILE. CONTINUED OLIGOHYDRAMNIOS. Impression dictated by: Anita Jaimes M.D.06/15/2024 7:56 AM Dictation Location: [place] [address] Electronically authenticated by: [id number] Y Date: 06/15/2024 07:56
--- OUTSIDE RECORDS SUMMARY | 2024-06-15 07:03 | XMS_ITS | CCD ---
Author Organization [facility] Care Team Providers Care Auto Striper Name Role Phone Dwayne TRANSPORT ANALYST, Tran Carbone Primary Care Provider Keith OSORIO, Arthur Thompson Primary Care Provider SANDY COSTELLO Referring Unavailable KEITHARTHUR Primary Care Unavailable SANDY COSTELLO Referring Unavailable KEITH, ARTHUR Thompson Primary Care Unavailable REJI DAY Attending Unavailable SANDY COSTELLO Referring Unavailable KEITHARTHUR PACK Primary Care Unavailable SANDY COSTELLO Referring Unavailable KEITH, ARTHUR Thompson Primary Care Unavailable RIKY STEARNS Admitting Unavailable RIKY STEARNS Attending Unavailable KEITH, ARTHUR Thompson Primary Care Unavailable ALMA VARGAS Attending Unavailable PRAVIN, SANDY Attending Unavailable ALMA VARGAS Referring Unavailable ALMA VARGAS Attending Unavailable PRAVIN, SANDY Attending Unavailable ALICIA, ALMA Attending Unavailable PRAVIN, SANDY Attending Unavailable PRAVIN, SANDY Attending Unavailable Allergies Allergy Classification Reported Allergen(s) Allergy Type Date of Onset Reaction(s) Facility (20 sources) Other Propensity to adverse reactions 4 [facility] Work Phone: (15 sources) Cat Hair Extract Propensity to adverse reactions 4 [facility] (8 sources) Cat Dander; Translations: [CAT DANDER] Propensity to adverse reactions to drug 4 [facility] Medications Current Medications Medication Drug Class(es) [...] of Chew 0.18 mg Daily 30 tablet 12/31/2023 12/30/2024 Active Problems Active Problems Problem [...] 12-31-2023 Chronic Other complications of (1 source) Vomiting of [...] risk pregnancies, second trimester] 06-07-2024 Episodic Other complications of (1 source) Maternal care for abnormalities of the heart rate or rhythm, unspecified trimester, not applicable or unspecified; Translations: [Maternal care for abnormalities of the heart rate or rhythm, unspecified trimester, not applicable or unspecified] Onset: 06-07-2024 Episodic Other complications of (1 source) Maternal care for other known or suspected poor growth, unspecified trimester, not applicable or unspecified; Translations: [Maternal care for other known or suspected poor growth, unspecified trimester, not applicable or unspecified] Onset: 06-07-2024 Episodic Other complications of (1 source) Abnormal chromosomal and genetic finding on screening of mother; Translations: [Abnormal chromosomal and genetic finding on screening of mother] Onset: 03-21-2024 Episodic Other and delivery including normal (15 sources) First trimester ; Translations: [Encounter for supervision of normal , unspecified, first trimester] 01-25-2024 Episodic Other screening for suspected conditions (not mental disorders or infectious disease) (3 sources) Alpha-fetoprotein blood test status; Translations: [Encounter for screening for raised alphafetoprotein level] Onset: 06-07-2024 02-23-2024 Episodic Residual codes; unclassified (2 sources) [...] [32 weeks gestation of ] 06-07-2024 Episodic Residual codes; unclassified (1 source) 32 weeks gestation of ; Translations: [32 weeks gestation of ] Onset: 06-07-2024 Episodic Unclassified (1 source) Contractions Onset: 06-07-2024 Unclassified (1 source) borderline FGR Onset: 06-07-2024 Past or Other Problems Problem Classification Problem [...] UA Negative Negative - 4(70) +++ mg/dL [facility] Blood, UA Positive Negative - 50 Kvng/mcL [facility] Comment on above: trace-intact Clarity, UA Clear [facility] Color, UA Yellow [facility] Glucose, UA Negative Negative - 2000(110) ++++ mg/dL [facility] Interpretation and review of laboratory results Abnormal [facility] Ketones, UA Negative Negative - 160(16) ++++ mg/dL [facility] Leukocytes, UA Positive Negative - 500+++ Sandra/mcL [facility] Comment on above: small Nitrite, UA Negative Negative - Positive [facility] pH, UA 7 5 - 9 [facility] Protein, UA Negative Negative - 2000(20) ++++ mg/dL [facility] Spec Grav, UA 1.01 1 - 1.03 [facility] Urobilinogen, UA 0.2 0.2 - 12 mg/dL [facility] nonstress test - Mater nal Medicineon 06-07-2024 Patient Name: Sejal Nowak Patient : 1995 NST Objective Findings: Variability: Moderate Decelerations: Variable Accelerations: Yes Acoustic Stimulator: No Baseline: 120 BPM Uterine Irritability: Yes Contractions: Irregular Comments: Variables and contractions/irritabi lity noted on EFM. Tracing reviewed with Dr Day.[facility] instructions given, labor precautions reviewed. To JAGDISH for extended monitoring and evaluation. NST Interpretation: Nonstress Test Interpretation: Reactive (Reji Day MD) Comments: Recurrent variable decelerations. Pt reporting abdominal tightening correlating with tocometer contractions. To OB ED for prolonged evaluation, at least 2 hours. Sign-out given to OB ED team. (Reji Day MD) NST performed by: Thania Noyola RN 06/07/2024 12:11 PM [facility] Ultrasound - OfficeOrdered B y: Aida Sauceda on 06-05-2024 Radiology Study observation (narrative) [facility] Ultrasound - Officeon 2024 Radiology Study observation (narrative) [facility] Radiology Study observation (narrative) [facility] OB BPP W NON-STRESS on 06-01-2024 [place] [address] Ultrasound Report Signed Patient: SEJAL NOWAK MR#: [id number] : 1995 Acct:[id number] Age/Sex: 28 / F ADM Date: [facility]: Sandy Costello D.O. Ordering Physician: Sandy Costello D.O. Date of Service: 06/01/24 Procedure(s): US OB BPP w non-stress Accession Number(s): [id number] cc: Sandy Costello D.O.; TRAN RICE [place] [address] Patient Name: SEJAL NOWAK MRN: [facility]:[id number] date: 1995 Sex: F [facility] Accession/Order Number: [id number] Exam Date: 06/01/2024 11:20 Report Date: 06/01/2024 11:22 At the request of: SANDY COSTELLO DO Procedure: US OB BPP w non-stress BIOPHYSICAL PROFILE: CLINICAL INFORMATION: iugr, low monique COMPARISON: 03/23/2024 anatomy survey There is a single live intrauterine gestation in cephalic presentation. The reported gestational age is 31 weeks 1 day. The heart rate beats per minute. FINDINGS: TONE: 1 or [...] Anita Jaimes M.D.06/01/2024 11:22 AM Dictation Location: [place] [address] Electronically authenticated by: [id number] Y Date: 06/01/2024 11:22 Dictated By: Anita Jaimes M.D. Signed By: 06/01/24 1125 DD/ 1122 TD/TT: Staff Writer: [facility] Radiology, Radiologist, MD - 06/01/2024 [place] [address] Ultrasound Report Signed Patient: SEJAL NOWAK MR#: [id number] : 1995 Acct:[id number] Age/Sex: 28 / F ADM Date: [facility]: Sandy Costello D.O. Ordering Physician: Sandy Costello D.O. Date of Service: 06/01/24 Procedure(s): US OB BPP w non-stress Accession Number(s): [id number] cc: Sandy Costello D.O.; TRAN RICE [place] [id number] Patient Name: SEJAL NOWAK MRN: [facility]:[id number] date: 1995 Sex: F [facility] Accession/Order Number: [id number] Exam Date: 06/01/2024 11:20 Report Date: 06/01/2024 11:22 At the request of: SANDY COSTELLO DO Procedure: US OB BPP w non-stress BIOPHYSICAL PROFILE: CLINICAL INFORMATION: iugr, low monique COMPARISON: 03/23/2024 anatomy survey There is a single live intrauterine gestation in cephalic presentation. The reported gestational age is 31 weeks 1 day. The heart rate [id number] beats per minute. FINDINGS: TONE: 1 or [...] Anita Jaimes M.D.06/01/2024 11:22 AM Dictation Location: [employer] Electronically authenticated by: [id number] Y Date: 06/01/2024 11:22 Dictated By: Anita Jaimes M.D. Signed By: 06/01/241124 DD/ 21 TD/TT: Staff Writer: [facility] Radiology Study observation (narrative) [facility] US OB BPP W NON-STRESS Ordered By: Radiologist Radiology on 06-01-2024 [facility] Work Phone: OB FOLLOW UP TRANSABDOMIN AL [...] 1344 gm / 2 lbs, 15 oz (6481-8614 gm) [place] Normal: 1780 gm (4574-2007 gm) [place] Wt%: <3% for 31.1 wks [...] report is generated using voice recognition reporting ([employer]). On occasion [employer] erroneously drops words from the report or [...] of 05/10/2024: 28w0d Ultrasound - Officeon 2024 [facility] Urinalysis macro (dipstick) panel (U)on 05-25-2024 Bilirubin, UA Negative Negative - 4(70) +++ mg/dL [facility] Blood, UA Negative Negative - 50 Kvng/mcL [facility] Clarity, UA Clear [facility] Color, UA Yellow [facility] Glucose, UA Negative Negative - 1999(110) ++++ mg/dL [facility] Interpretation and review of laboratory results Normal [facility] Ketones, UA Negative Negative - 160(16) ++++ mg/dL [facility] Leukocytes, UA Negative Negative - 500+++ Sandra/mcL [facility] Nitrite, UA Negative Negative - Positive [facility] pH, UA 7 5 - 9 [facility] Protein, UA Negative Negative - 2000(20) ++++ mg/dL [facility] Spec Grav, UA 1.02 1 - 1.03 [facility] Urobilinogen, UA 0.2 0.2 - 12 mg/dL [facility] Urinalysis macro (dipstick) panel (U)on 05-10-2024 Bilirubin, UA Negative Negative - 4(70) +++ mg/dL [facility] Blood, UA Negative Negative - 50 Kvng/mcL [facility] Clarity, UA Clear [facility] Color, UA Yellow [facility] Glucose, UA Negative Negative - 2000(110) ++++ mg/dL [facility] Interpretation and review of laboratory results Normal [facility] Ketones, UA Negative Negative - 160(16) ++++ mg/dL [facility] Leukocytes, UA Negative Negative - 500+++ Sandra/mcL [facility] Nitrite, UA Negative Negative - Positive [facility] pH, UA 7 5 - 9 [facility] Protein, UA Negative Negative - 2000(20) ++++ mg/dL [facility] Spec Grav, UA 1.02 1 - 1.03 [facility] Urobilinogen, UA 0.2 0.2 - 12 mg/dL [facility] ALL CBC WITH AUTO DIFFon BASOPHILS ABSOLUTE AUTO 0 [facility] Basophils/100 WBC (Bld) 0.4 % 0.2 - 2.0 % [facility] Eosinophils/100 WBC (Bld) 1.1 % 0.9 - 7.0 % [facility] Erythrocyte distribution width (RBC) [Ratio] 13.1 % 11.0 - 15.0 % [facility] Hematocrit (Bld) [Volume fraction] 34.4 % Low 36.0 - 48.0 % [facility] Hemoglobin (Bld) [Mass/Vol] 11.7 g/dL Low 12.0 - 16.0 g/dL [facility] IMMATURE GRANULOCYTES ABS AUTO 0.04 High [facility] Immature granulocytes/100 WBC (Bld) 0.4 % 0.0 - 0.5 % [facility] Interpretation and review of laboratory results Abnormal [facility] LYMPHOCYTES ABSOLUTE AUTO 1.2 [facility] Lymphocytes/100 WBC (Bld) 11.3 % Low 20.5 - 60.0 % [facility] MCH (RBC) [Entitic mass] 30.5 pg 26.7 - 34.0 pg [facility] MCHC (RBC) [Mass/Vol] 34 g/dL 29.9 - 35.2 g/dL [facility] MCV (RBC) [Entitic vol] 89.6 fL 81.0 - 99.0 fL [facility] MONOCYTES ABSOLUTE AUTO 0.7 [facility] Monocytes/100 WBC (Bld) 6.4 % 1.7 - 12.0 % [facility] NEUTROPHILS ABSOLUTE AUTO 8.3 High [facility] Neutrophils/100 WBC (Bld) 80.4 % High 43.0 - 75.0 % [facility] Platelet mean volume (Bld) [Entitic vol] 9.7 fL 9.5 - 13.5 fL [facility] TBH EO # 0.1 [facility] TB PLT [address] [facility] RBC 3.84 Low [facility] WBC 10.3 [facility] Urinalysis macro (dipstick) panel (U)on 05-03-2024 Bilirubin, UA Negative Negative - 4(70) +++ mg/dL [facility] Blood, UA Negative Negative - 50 Kvng/mcL [facility] Clarity, UA Clear [facility] Color, UA Yellow [facility] Glucose, UA Negative Negative - 1999(110) ++++ mg/dL [facility] Interpretation and review of laboratory results Normal [facility] Ketones, UA Negative Negative - 160(16) ++++ mg/dL [facility] Leukocytes, UA Negative Negative - 500+++ Sandra/mcL [facility] Nitrite, UA Negative Negative - Positive [facility] pH, UA 6.5 5 - 9 [facility] Protein, UA Negative Negative - 1999(20) ++++ mg/dL [facility] Spec Grav, UA 1.025 1 - 1.03 [facility] Urobilinogen, UA 1.0 0.2 - 12 mg/dL [facility] Ultrasound - Officeon 2023 [facility] Ultrasound - OfficeOrdered B y: Aida Sauceda on 03-23-2024 [facility] Urinalysis macro (dipstick) panel (U)on 03-23-2024 Bilirubin, UA Negative Negative - 4(70) +++ mg/dL [facility] Blood, UA Negative Negative - 50 Kvng/mcL [facility] Clarity, UA Clear [facility] Color, UA Yellow [facility] Glucose, UA Negative Negative - 1999(110) ++++ mg/dL [facility] Interpretation and review of laboratory results Normal [facility] Ketones, UA Negative Negative - 160(16) ++++ mg/dL [facility] Leukocytes, UA Negative Negative - 500+++ Sandra/mcL [facility] Nitrite, UA Negative Negative - Positive [facility] pH, UA 6.5 5 - 9 [facility] Protein, UA Negative Negative - 1999(20) ++++ mg/dL [facility] Spec Grav, UA 1.025 1 - 1.03 [facility] Urobilinogen, UA 0.2 0.2 - 12 mg/dL [facility] IGP,APTIMA HPV,AGE GDLNon AGE GDLN ACOG TESTING Note . [facility] Comment on above: TESTS RESULT FLAG UN ITS REF RANGE LAB Clinician Provided Cytology Information Source.............Cervix Other.............. No. of containers..01 ThinPrep Vial Age Algo ACOG Letha... FLAG LEGEND: L-Low Normal,H-High Normal,LL-Alert Low,HH-Alert High <-Panic Low,>-Panic High,A-Abnormal,AA-Critical Abnormal Performed at: 01 =G [facility] [address] Autumn Mckoy MD, IGP, RFX APTIMA HPV ASCU Note . [facility] Comment on above: TESTS RESULT FLAG U NITS REF RANGE LAB DIAGNOSIS: 02 NEGATIVE FOR INTRAEPITHELIAL LESION OR MALIGNANCY. Specimen adequacy: 02 Satisfactory for evaluation. No endocervical component is identified. Performed by: 02 Alma Curry, Director Of Collections And Archives ([facility]) . 02 Note: Note 03 [...] High,A-Abnormal,AA-Critical Abnormal Performed at: 02 [facility] [address] [place] [address] Hao Blackman MD, [address] [facility] [address] [address] Autumn Mckoy MD, Performed at: =G - [facility] [address] [id number] Financial Sales Consultant: Autumn Mckoy MD, Phone: [phone] Performed at: [facility] [address] [place], [place] [id number] Financial Sales Consultant: Hao Blackman MD, Phone: [phone] [facility] RECURRENT VAGINITIS (HTRX)on 02-24-2024 ATOPOBIUM VAGINAE 0 [facility] ATOPOBIUM VAGINAE Not detected [facility] BVAB 2,3 (BACTERIAL VAGINOSIS ASSOCIATED BACTERIA 2, 3); MOBILUNCUS SPP 0 [facility] BVAB 2,3 (BACTERIAL VAGINOSIS ASSOCIATED BACTERIA 2, 3); MOBILUNCUS SPP Not detected [facility] NICKY ALBICANS, PARAPSILOSIS, TROPICALIS 0 [facility] NICKY ALBICANS, PARAPSILOSIS, TROPICALIS Not detected [facility] NICKY GLABRATA 0 [facility] NICKY GLABRATA Not detected [facility] NICKY KRUSEI 0 [facility] NICKY KRUSEI Not detected [facility] CHLAMYDIA TRACHOMATIS 0 NOM S [facility] CHLAMYDIA TRACHOMATIS Not detected N [facility] GARDNERELLA VAGINALIS 0 NOM S [facility] GARDNERELLA VAGINALIS Not detected N [facility] MEGASPHAERA (TYPES 1, 2) 0 [facility] MEGASPHAERA (TYPES 1, 2) Not detected [facility] MYCOPLASMA GENITALIUM 0 NOM S [facility] MYCOPLASMA GENITALIUM Not detected N [facility] NEISSERIA GONORRHOEAE 0 [facility] NEISSERIA GONORRHOEAE Not detected N [facility] TRICHOMONAS VAGINALIS 0 [facility] TRICHOMONAS VAGINALIS Not detected N [facility] Urinalysis macro (dipstick) panel (U)on 02-23-2024 Bilirubin, UA Negative Negative - 4(70) +++ mg/dL [facility] Blood, UA Negative Negative - 50 Kvng/mcL [facility] Clarity, UA Clear [facility] Color, UA Yellow [facility] Glucose, UA Negative Negative - 1999(110) ++++ mg/dL [facility] Interpretation and review of laboratory results Normal [facility] Ketones, UA Negative Negative - 160(16) ++++ mg/dL [facility] Leukocytes, UA Negative Negative - 500+++ Sandra/mcL [facility] Nitrite, UA Negative Negative - Positive [facility] pH, UA 7 5 - 9 [facility] Protein, UA Negative Negative - 1999(20) ++++ mg/dL [facility] Spec Grav, UA 1.025 1 - 1.03 [facility] Urobilinogen, UA 0.2 0.2 - 12 mg/dL [facility] Urinalysis macro (dipstick) panel (U)on 01-25-2024 Bilirubin, UA Positive Negative - 4(70) +++ mg/dL [facility] Comment on above: small Blood, UA Negative Negative - 50 Kvng/mcL [facility] Clarity, UA Clear [facility] Color, UA Yellow [facility] Glucose, UA Negative Negative - 1999(110) ++++ mg/dL [facility] Interpretation and review of laboratory results Abnormal [facility] Ketones, UA Positive Negative - 160(16) ++++ mg/dL [facility] Comment on above: moderate Leukocytes, UA Negative Negative - 500+++ Sandra/mcL [facility] Nitrite, UA Negative Negative - Positive [facility] pH, UA 6.5 5 - 9 [facility] Protein, UA Trace Negative - 2000(20) ++++ mg/dL [facility] Spec Grav, UA 1.025 1 - 1.03 [facility] Urobilinogen, UA 0.2 0.2 - 12 mg/dL [facility] MLR HEMOGLOBIN A1Con 024 Glucose [Mass/Vol] 91 mg/dL [facility] HbA1c (Bld) [Mass fraction] 4.8 % 4.5 - 6.2 % [facility] Comment on above: ADA RECOMMENDED LIMI T 4.0 - 6.0 ADA THERAPEUTIC TARGET < 7.0 ACTION SUGGESTED > 7.0 [facility] No Panel Informationon 01-13 [facility] Rubella IGG immune statuson 01-14-2024 Rubella immune IgG immune [facility] Syphilis Total(Unknown Syphi lis Status)Ordered By: Aida Sauceda on 01-14-2024 Syphilis Non-Reactive [facility] DRUG SCREEN RAPID (URINE )on 01-14-2024 AMPHETAMINE SCREEN URINE Negative NEGATIVE [facility] BARBITURATES SCREEN URINE Negative NEGATIVE [facility] BENZODIAZEPINES SCREEN URINE Negative NEGATIVE [facility] BUPRENORPHINE SCREEN URINE Negative NEGATIVE [facility] Comment on above: DRUG CLASS TEST SYST [...] 300 ng/mL CANNABINOID SCREEN URINE Negative NEGATIVE [facility] COCAINE SCREEN URINE Negative NEGATIVE [facility] METHADONE SCREEN URINE Negative NEGATIVE [facility] METHAMPHETAMINES SCREEN URINE Negative NEGATIVE [facility] OPIATE SCREEN URINE Negative NEGATIVE [facility] OXYCODONE SCREEN URINE Negative NEGATIVE [facility] PHENCYCLIDINE SCREEN URINE Negative NEGATIVE [facility] TRICYCLIC ANTIDEPRESSANT URINE Negative NEGATIVE [facility] HCG ( test) Ql (U)o n 12-31-2023 Interpretation and review of laboratory results Abnormal [facility] Preg Test, Ur Positive [facility] Urinalysis macro (dipstick) panel (U)on 12-31-2023 Bilirubin, UA Negative Negative - 4(70) +++ mg/dL [facility] Blood, UA Negative Negative - 50 Kvng/mcL [facility] Clarity, UA Clear [facility] Color, UA Yellow [facility] Glucose, UA Negative Negative - 1999(110) ++++ mg/dL [facility] Interpretation and review of laboratory results Normal [facility] Ketones, UA Negative Negative - 160(16) ++++ mg/dL [facility] Leukocytes, UA Negative Negative - 500+++ Sandra/mcL [facility] Nitrite, UA Negative Negative - Positive [facility] pH, UA 7.0 5 - 9 [facility] Protein, UA Positive Negative - 1999(20) ++++ mg/dL [facility] Spec Grav, UA 1.020 1 - 1.03 [facility] Urobilinogen, UA 1.0 0.2 - 12 mg/dL [facility] Vital Signs Date Time Vital Sign Value Performing Clinician Jc ware 06-08-2024 11:44-0500 Body weight 58.06 kg Alma BRANHAM Work Phone: [facility] 06-08-2024 11:44-0500 Diastolic blood pressure 82 mm[Hg] Alma BRANHAM Work Phone: [facility] 06-08-2024 11:44-0500 Systolic blood pressure 128 mm[Hg] Alma BRANHAM Work Phone: [facility] 06-07-2024 11:32-0500 Diastolic blood pressure 71 mm[Hg] [address] 06-07-2024 11:32-0500 Heart rate 81 /min [address] 06-07-2024 11:32-0500 Systolic blood pressure 115 mm[Hg] [address] 06-07-2024 09:32-0500 Body height 157.5 cm Reji Day MD Work Phone: [facility] 05-25-2024 11:54-0500 Body weight 56.43 kg Sandy Pravin DO Work Phone: [facility] 05-25-2024 11:54-0500 Diastolic blood pressure 72 mm[Hg] Sandy Pravin DO Work Phone: [facility] 05-25-2024 11:54-0500 Systolic blood pressure 116 mm[Hg] Sandy Pravin DO Work Phone: [facility] 05-10-2024 09:39-0500 Body weight 54.8 kg Alma BRANHAM Work Phone: [facility] 05-10-2024 09:39-0500 Diastolic blood pressure 70 mm[Hg] Alma BRANHAM Work Phone: [facility] 05-10-2024 09:39-0500 Systolic blood pressure 100 mm[Hg] Alma BRANHAM Work Phone: [facility] 04-20-2024 10:01-0500 Body weight 53.25 kg Sandy Pravin DO Work Phone: [facility] 04-20-2024 10:01-0500 Diastolic blood pressure 60 mm[Hg] Sandy Pravin DO Work Phone: [facility] 04-20-2024 10:01-0500 Systolic blood pressure 100 mm[Hg] Sandy Pravin DO Work Phone: [facility] 03-23-2024 12:42-0500 Body weight 51.26 kg Sandy Pravin DO Work Phone: [facility] 03-23-2024 12:42-0500 Diastolic blood pressure 62 mm[Hg] Sandy Pravin DO Work Phone: [facility] 03-23-2024 12:42-0500 Systolic blood pressure 102 mm[Hg] Sandy Pravin DO Work Phone: [facility] 02-23-2024 10:48-0500 Body weight 49.9 kg Alma BRANHAM Work Phone: [facility] 02-23-2024 10:48-0500 Diastolic blood pressure 64 mm[Hg] Alma BRANHAM Work Phone: [facility] 02-23-2024 10:48-0500 Systolic blood pressure 102 mm[Hg] Alma BRANHAM Work Phone: [facility] 01-25-2024 10:45-0400 Body weight 47.68 kg Sandy Pravin DO Work Phone: [facility] 01-25-2024 10:45-0400 Diastolic blood pressure 64 mm[Hg] Sandy Pravin DO Work Phone: [facility] 01-25-2024 10:45-0400 Systolic blood pressure 100 mm[Hg] Sandy Pravin DO Work Phone: [facility] 12-02-2023 08:47-0400 Body height 157.48 cm [facility] 12-02-2023 08:47-0400 Body mass index (BMI) [Ratio] 19.5 kg/m2 [facility] 12-02-2023 08:47-0400 Body weight 48.53 kg [facility] 12-02-2023 08:47-0400 Diastolic blood pressure 80 mm[Hg] [facility] 12-02-2023 08:47-0400 Systolic blood pressure 122 mm[Hg] [facility] Encounters Encounter Date Encounter Type Care Provider Facility Start: 06-08-2024 End: 06-08-2024 Bamboo flowsheet Alma BRANHAM Work Phone: [facility] Start: 06-08-2024 End: 06-08-2024 Bamboo flowsheet Alma BRANHAM Work Phone: [facility] Start: 06-08-2024 End: 06-08-2024 flow sheet Alma BRANHAM Work Phone: [facility] Comment on above: Third trimester preg danielle; 32 weeks gestation of Start: 06-08-2024 End: 06-08-2024 ambulatory ALMA VARGAS Not Available Start: 06-07-2024 End: 06-07-2024 Emergency department patient visit RIKY STEARNS [facility] Start: 06-07-2024 End: 06-07-2024 ambulatory [facility] Nst1 [facility] Comment on above: growth restric tion antepartum (Primary Dx) growth restric tion antepartum (Primary Dx); 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, antepartum Start: 06-07-2024 End: 06-07-2024 Office consultation new/estab patient 60 min Reji Day MD Work Phone: [facility] Comment on above: growth restric tion antepartum (Primary Dx); 32 weeks gestation of Start: 06-07-2024 End: 06-07-2024 [facility] Start: 06-05-2024 End: 06-05-2024 Orders Only Not In System Ref Prov [facility] Start: 06-01-2024 End: 06-01-2024 Clinisync Result [...] 05-10-2024 flow sheet Alma BRANHAM Work Phone: [facility] Comment on above: Third trimester preg danielle; 28 weeks gestation of ; size inconsistent with dates; Nonintractable headache, unspecified chronicity pattern, unspecified headache type Start: 05-10-2024 End: 05-10-2024 ambulatory ALMA VARGAS Not Available Start: 05-05-2024 End: 05-05-2024 Clinisync Result Encounter Sandy Pravin DO Work Phone: [facility] External Department Unsolicited Start: 05-05-2024 End: 05-05-2024 Clinisync Result Encounter Sandy Pravin DO Work Phone: [facility] External Department Unsolicited Start: 04-20-2024 End: 04-20-2024 Bamboo flowsheet Sandy Pravin DO Work Phone: [facility] Start: 04-20-2024 End: [...] Start: 03-23-2024 End: 03-23-2024 Bamboo flowsheet Sandy Zaldivaro DO Work Phone: [facility] Start: 03-23-2024 End: 03-23-2024 ambulatory SANDY COSTELLO Not Available Start: 03-23-2024 End: 03-23-2024 flow sheet Sandy Costello DO Work Phone: [facility] Comment on above: Second trimester pre gnancy; 21 weeks gestation of Start: 03-21-2024 End: 03-21-2024 ambulatory SANDY COSTELLO [facility] Start: 03-07-2024 End: 03-07-2024 Chart abstracting Omayra Boyce [facility] Work Phone: [facility] Start: 02-23-2024 End: 02-23-2024 Bamboo flowsheet Alma BRANHAM Work Phone: [facility] Start: 02-23-2024 End: 03-06-2024 Bamboo flowsheet Alma BRANHAM Work Phone: [facility] Start: 02-23-2024 End: 03-06-2024 Clinisync Result Encounter Alma BRANHAM Work Phone: [facility] External Department Unsolicited Start: 02-23-2024 End: 02-24-2024 External Result Encounter Alma BRANHAM Work Phone: [facility] External Department Unsolicited Start: 02-23-2024 End: 02-23-2024 Patient encounter procedure Alma BRANHAM Work Phone: [facility] Start: 02-23-2024 End: 02-23-2024 flow sheet [...] Not Available Start: 12-02-2023 Patient encounter status [facility] Start: 12-02-2023 End: 12-02-2023 ambulatory [facility] Work Phone: Start: 12-02-2023 End: 12-02-2023 Encounter for general adult medical examination without abnormal findings [facility] Start: 12-02-2023 End: 12-02-2023 Patient encounter procedure [facility] Work Phone: Procedures Date Procedure Procedure [...] ion [Identifier] in Cervix by Cyto stain Reji Day MD Work Phone: Start: 01-25-2024 Urnls [...] malign ant neoplasm of cervix Pap Smear [facility] Start: 06-07-2025 Adult BMI Screening Adult BMI Screen ing [facility] Start: 06-07-2025 Tobacco Screening Tobacco Screening [facility] Start: 06-07-2025 End: 06-07-2025 US MFM with or without consult US MFM with or without consult Imaging Routine growth restriction antepartum 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, antepartum Expected: 06/07/2025 (Approximate), Expires: 06/07/2025 [facility] Work Phone: Comment on above: Expected: 06/07/2025 (Approximate), Expires: 06/07/2025 Start: 06-28-2024 End: 06-28-2024 Patient encounter procedure 06/28/2024 8:45 AM EDT Appointment [facility] [address] [place] [address] [facility] Start: 06-22-2024 End: 06-22-2024 Patient encounter procedure 06/22/2024 9:10 AM EDT Routine [facility] [address] [place] [address] Sandy Costello, DO [address] [place] [address] [facility] Start: 06-21-2024 End: 06-21-2024 Patient encounter procedure 06/21/2024 9:00 AM EDT Appointment [facility] [address] [place] [phone] [facility] Start: 06-14-2024 End: 06-14-2024 Patient encounter procedure 06/14/2024 8:00 AM EDT Appointment [facility] [address] [place] [phone] [facility] Start: 06-08-2024 End: 06-08-2024 Patient encounter procedure [facility] Comment on above: Arrived Start: 06-07-2024 End: 06-07-2025 nonstress test - Maternal Medicine nonstress test - Maternal Medicine OB Routine growth restriction antepartum Expected: 06/07/2024 (Approximate), Expires: 06/07/2025 [facility] Work Phone: Comment on above: Expected: 06/07/2024 (Approximate), Expires: 06/07/2025 Start: 06-07-2024 End: 06-07-2024 Patient encounter procedure [facility] Start: 06-01-2024 End: 06-01-2024 Professional / ancillary services management 06/01/2024 9:30 AM EST Ancillary Procedure [facility] [address] [place] [address] [place] [address] [facility] Start: 05-25-2024 End: 05-25-2024 [...] Expected: 04/20/2024 (Approximate), Expires: 04/20/2025 [facility] Work Phone: Comment on above: Expected: 04/20/2024 (Approximate), Expires: 04/20/2025 Start: 04-20-2024 End: 04-20-2025 Measurement of glucose 1 hour after glucose challenge for glucose tolerance test Glucose tolerance, 1 hour Lab Routine Diabetes mellitus screening Expected: 04/20/2024 (Approximate), Expires: 04/20/2025 [facility] Comment on above: Expected: 04/20/2024 (Approximate), Expires: 04/20/2025 Start: 04-20-2024 End: 04-20-2024 Patient encounter procedure [facility] Comment on above: Arrived Start: 03-24-2024 End: 03-24-2024 Alpha fetoprotein, maternal Alpha fetoprotein, maternal Lab Routine Need for maternal serum alpha-protein (MSAFP) screening Expected: 03/24/2024 (Approximate), Expires: 03/24/2024 [facility] Comment on above: Expected: 03/24/2024 (Approximate), Expires: 03/24/2024 Start: 03-23-2024 End: 03-23-2024 Patient encounter procedure 03/23/2024 11:40 AM EST Routine [facility] [address] [place] [address] Sandy Costello DO [address] [place] [address] [facility] Start: 03-23-2024 End: 03-23-2024 Professional / ancillary services management 03/23/2024 10:30 AM EST Ancillary Procedure [facility] [address] [place] [address] [facility] Start: 03-21-2024 End: 03-21-2024 Telemedicine consultation with patient 03/21/2024 9:00 AM EST Telemedicine [facility] [address] [place] [phone] Omayra Boyce, [facility] [address] [place], [place] [id number] [facility] Start: 02-23-2024 End: 02-22-2025 US for [...] first trimester Expected: 12/31/2023 (Approximate), Expires: 12/30/2024 [facility] Comment on above: Expected: 12/31/2023 (Approximate), Expires: 12/30/2024 Start: 12-31-2023 End: 12-30-2024 US Pelvis transvaginal US OB transvaginal Imaging Routine Missed menses Expected: 12/31/2023 (Approximate), Expires: 12/30/2024 [facility] Comment on above: Expected: 12/31/2023 (Approximate), Expires: 12/30/2024 Start: 12-05-2023 Influenza vaccination Influenza Vacc ine [facility] Start: 11-06-2019 DTaP,Tdap and Td Vaccines (7 - Td or Tdap) DTaP,Tdap and Td Vaccines (7 - Td or Tdap) [facility] Start: 2018 Screening for malign ant neoplasm of cervix Pap Smear [facility] Start: 09-29-2015 Adult BMI Screening Adult BMI Screen ing [facility] Start: 2009 Depression Screening Depression Scre ening [facility] Start: 2009 Tobacco Screening Tobacco Screening [facility] Bacteria identified in Urine by Culture Urine culture Microbiology Routine Missed menses Ordered: 12/31/2023 [facility] Comment on above: Ordered: 12/31/2023 CBC W Auto Different ial panel - Blood CBC and differential Lab Routine Missed menses , unspecified gestational age Ordered: 12/31/2023 [facility] Comment on above: Ordered: 12/31/2023 CHLAMYDIA TRACHOMATI S (GENITO/STI) CHLAMYDIA TRACHOMATIS (GENITO/STI) Lab Routine Screen for STD (sexually transmitted disease) Ordered: 02/23/2024 [facility] Comment on above: Ordered: 02/23/2024 Cytology Cervical or vaginal smear or scraping study Pap Smear Pathology and Cytology Routine Well woman exam with routine gynecological exam Ordered: 02/23/2024 [facility] Comment on above: Ordered: 02/23/2024 Hemoglobin A1c/Hemoglobin.total in Blood Hemoglobin A1c Lab Routine Missed menses , unspecified gestational age Ordered: 12/31/2023 [facility] Comment on above: Ordered: 12/31/2023 Hepatitis B virus surface Ag [Presence] in Serum or Plasma by Immunoassay Hepatitis B surface antigen Lab Routine Missed menses , unspecified gestational age Ordered: 12/31/2023 [facility] Comment on above: Ordered: 12/31/2023 Hepatitis C virus Ab [Presence] in Serum or Plasma by Immunoassay Hepatitis C antibody Lab Routine Missed menses , unspecified gestational age Ordered: 12/31/2023 [facility] Comment on above: Ordered: 12/31/2023 HIV-1/HIV-2 antigen/antibody combination immunoassay HIV-1 and HIV-2 antibodies Lab Routine Missed menses , unspecified gestational age Ordered: 12/31/2023 [facility] Comment on above: Ordered: 12/31/2023 Neisseria gonorrhoea e DNA [Presence] in Unspecified specimen by RUBEN with probe detection Neisseria gonorrhea DNA probe, direct Lab Routine Screen for STD (sexually transmitted disease) Ordered: 02/23/2024 [facility] Comment on above: Ordered: 02/23/2024 Reagin Ab [Presence] in Serum by RPR RPR Lab Routine Missed menses , unspecified gestational age Ordered: 12/31/2023 [facility] Comment on above: Ordered: 12/31/2023 Rubella antibody, IgG Rubella an tibody, IgG Lab Routine Missed menses , unspecified gestational age Ordered: 12/31/2023 [facility] Comment on above: Ordered: 12/31/2023 SURESWAB(R) ADVANCED VAGINITIS PLUS, TMA SURESWAB(R) ADVANCED VAGINITIS PLUS, TMA Pathology and Cytology Routine Screen for STD (sexually transmitted disease) Ordered: 02/23/2024 [facility] Work Phone: Comment on above: Ordered: 02/23/2024 Immunizations Immunization Date Immunization Notes Care Provider Kedar chahal 11-13-2015 hepatitis A vaccine, pediatric/adolescent dosage, 2 dose schedule Omayra Boyce [facility] Work Phone: [facility] 11-13-2015 meningococcal polysaccharide (groups A, C, Y and W-135) diphtheria toxoid conjugate vaccine (MCV4P) Omayra Boyce [facility] Work Phone: [facility] 04-24-2015 influenza, injectabl e, quadrivalent, preservative free Omayra Austen [facility] Work Phone: [facility] 04-24-2015 influenza virus vaccine, unspecified formulation Omayra Boyce [facility] Work Phone: [facility] 11-05-2009 tetanus toxoid, redu dilip diphtheria toxoid, and acellular pertussis vaccine, adsorbed Omayra Austen [facility] Work Phone: [facility] 11-05-2009 varicella virus vaccine Made line Austen [facility] Work Phone: [facility] 03-14-2009 influenza, seasonal, injectable, preservative free Omayra Austen [facility] Work Phone: [facility] 01-24-2003 hepatitis B vaccine, adult dosage Omayra Austen [facility] Work Phone: [facility] 11-28-2002 diphtheria, tetanus toxoids and acellular pertussis vaccine, 5 pertussis antigens [facility] Work Phone: [facility] 11-28-2002 measles, mumps and rubella virus vaccine Omayra Austen [facility] Work Phone: [facility] 11-28-2002 poliovirus vaccine, inactivated Omayra Austen [facility] Work Phone: [facility] 07-18-2001 varicella virus vaccine Made larry Boyce [facility] Work Phone: [facility] 04-09-1999 diphtheria, tetanus toxoids and acellular pertussis vaccine, 5 pertussis antigens [facility] Work Phone: [facility] 04-09-1999 measles, mumps and rubella [facility] 03-25-1998 diphtheria, tetanus toxoids and acellular pertussis vaccine, 5 pertussis antigens [facility] Work Phone: [facility] 03-25-1998 hepatitis B vaccine, adult dosage [facility] Work Phone: [facility] 03-25-1998 poliovirus vaccine, inactivated [facility] Work Phone: [facility] 02-13-1998 diphtheria, tetanus toxoids and acellular pertussis vaccine, 5 pertussis antigens Omayra Austen [facility] Work Phone: [facility] 02-13-1998 poliovirus vaccine, inactivated [facility] Work Phone: [facility] 1997 diphtheria, tetanus toxoids and acellular pertussis vaccine, 5 pertussis antigens [facility] Work Phone: [facility] 1997 haemophilus influenz ae type b vaccine, PRP-OMP conjugate [facility] Work Phone: [facility] 1997 poliovirus vaccine, inactivated [facility] Work Phone: [facility] 1997 hepatitis B vaccine, adult dosage [facility] Work Phone: [facility] 1997 hepatitis B vaccine, adult dosage [facility] Work Phone: [facility] NEGATED: Highlighted row has not occurred!11-13-2015 human papilloma virus vaccine, quadrivalent [facility] Work Phone: [facility] Comment on above: Deferred: Other - parent declined Payers Date Payer Category Payer Blue Cross Blue Shield [id number] 2022 Blue [employer] - Other [id number] 2022 Unknown BCBS BCBS [id number] [id number] 2022-Present [phone] [id number] [place] [address] [id number] 2022 Unknown [id number] 2020 Blue Cross Blue Shie ld Managed Care - O ANTHEM [id number] 1997 Unknown [id number] [id number]. 2.1285 1997 Unknown [id number] [id number]. 2.1285 1997 Unknown [id number] [id number]. 2.1285 1997 Unknown [id number] [id number]. 2.1285 1997 Unknown [id number] [id number]. 2.1285 1997 Unknown [id number] [id number]. 2.1258 1997 Unknown [id number] [id number]. 2.1258 1997 Unknown [id number] 2.16.840.1.362493.3.579. 2.1258 1997 Unknown [id number] [id number]. 2.1258 1997 Unknown [id number] 2.16.840.1.198711.3.579. 2.1259 1997 Unknown [id number] [id number]. 2.1259 1997 Unknown [id number] 2.16.840.1.769144.3.579. 2.1259 1997 Unknown [id number] [id number]. 2.1259 1997 Unknown [id number]. 2.1259 Social History Date Type Detail Facility [facility] Work Phone: Start: 1995 Sex Assigned At Female F [facility] Tobacco smoking stat [facility] Tobacco smoking consumption unknown [facility] Start: 11-10-2023 [facility] Start: 1997 Sex assigned at Not on file [facility] Start: 05-16-2020 End: 03-07-2024 Gender identity Not on file [facility] Start: 02-13-2021 End: 06-07-2024 Tobacco smoking status NHIS Never smoked tobacco [facility] Start: 02-13-2021 End: 06-07-2024 Tobacco use and exposure Smokeless tobacco non-user [facility] Start: 03-07-2024 Alcoholic beverage intake Current non-drinker of alcohol (finding) [facility] Start: 05-16-2020 End: 03-07-2024 Alcoholic beverage intake [facility] Childcare Unknown [facility] Start: 11-06-2014 Sex Female (finding) [facility] Start: 06-05-2024 End: 06-07-2024 Alcoholic beverage intake Ex-drinker (finding) [facility] Clinical Notes 12-31-2023 to 06-08-2024 CARROL [...] of: CARROL Harmon documented in this encounter [facility] 06-07-2024 History of Present illness Narrative Denies [...] all scheduled appointments documented in this encounter [facility] 06-07-2024 History of Present illness Narrative [...] Based on ultrasound findings today recommend delivery [facility] recommendations summary FGR is defined as [...] later - absent end-diastolic flow umbilical artery: [id number] or at time of diagnosis if diagnosed later. - reversed end-diastolic flow umbilical artery: [id number] or at time of diagnosis if diagnosed [...] be getting weekly umbilical artery Dopplers through MF along with fluid assessment, twice weekly NSTs can be performed through primary OB. Recommend delivery at 37 weeks gestation. If absent or reversed end-diastolic flow, re-engage MFM prior to 34 weeks gestation. Delivery method preferred vaginal. [place] C/S for usual obstetrical indications Recommend steroids if delivery before 34 weeks. Consider steroids if delivery after 34 weeks and before 37 weeks. DISPOSITION: At this point the patient is in complete care of her smt technician. Patient does have ultrasound scheduled with us. Thank you for allowing me to participate in the care of Sejal Nowak. If there any questions please do not hesitate to contact us. Reji Day MD Maternal- Medicine [place] [id number] [facility] [address] [place] [address] [facility], the CDC, and other organizations representing maternal and public health professionals recommend that , , and lactating people and those considering receive the COVID-19 vaccination. Vaccination is the best method to reduce maternal and complications of SARS-CoV-2 infection. This document was created with [employer] technology. Though I make every effort to review the dictation as it is transcribed, on occasion the spoken word can be misinterpreted by the technology leading to inappropriate words, phrases, or sentences. This note is addressed to the requesting provider as a consultation for clinical guidance. Specific medical abbreviations are occasionally used and those are generally approved by the [place]?Board of?Obstetrics and?Gynecology?as well as?Jocelyn villasenor abbreviations. The above plan of care was based solely on the diagnoses for which a consultation was requested. ?More frequent testing may be indicated based on her other medical/obstetrical conditions. The management of other or medical conditions is beyond the scope of requested consultation and will continue to be followed by the primary smt technician or primary care provider. Note to patient: [...] office? Have you been seen here at [facility] in a previous ? Recent ER visits or hospitalizations? Bring blood sugar log or meter with you today? (Please bring them with you for every visit at [facility]) Flu vaccine (Feb-June)? Any concerns that you would like me to mention to the provider today? documented in this encounter [facility] 05-25-2024 History of Present illness Narrative Reason [...] nursing note reviewed. Exam conducted with a security technician present. Vitals: There is no height or [...] a Estimated Date of Delivery: 08/02/24. Patient nly has complaints of stomach getting tighter, but nothing bothersome. Patient to return to clinic in 2 weeks for routine OB appointment. Documented by Vanna Shetty LPN on behalf of: Sandy Costello DO documented in this encounter [facility] 05-10-2024 History of Present illness Narrative Reason [...] of: CARROL Harmon documented in this encounter [facility] 04-20-2024 History of Present illness Narrative Reason [...] nursing note reviewed. Exam conducted with a security technician present. Vitals: There is no height or [...] Sandy Costello DO documented in this encounter [facility] 03-23-2024 History of Present illness Narrative Reason [...] Sandy Costello DO documented in this encounter [facility] 02-23-2024 History of Present illness Narrative Reason [...] of: CARROL Harmon documented in this encounter [facility] 01-25-2024 History of Present illness Narrative Reason [...] nursing note reviewed. Exam conducted with a security technician present. Vitals: There is no height or [...] or undercooked meat, and stay away from [facility]. Patient has been consulted regarding any further do's and don'ts of . Patient voiced understanding and all questions and concerns were answered. Orders Placed This Encounter Procedures POCT urinalysis dipstick manually resulted Follow Up: Patient is to return in 4 weeks for routine OB appointment. Documented by Anita Oswald LPN on behalf of: Sandy Costello DO documented in this encounter [facility] 12-31-2023 History of Present illness Narrative Reason [...] or undercooked meat, and stay away from [facility]. 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, antepartum [facility] Diagnosis growth restriction antepartum- Primary [facility] Diagnosis Third trimester state, incidental 32 weeks gestation of documented in this encounter [facility]ructionsNot on filedocumented in this encounterPro[facility] SystemInstructionsNot on filedocumented in this encounterProMediKind[facility] SystemInstructionsNot on filedocumented in this encounterPro[facility] SystemInstructionsNot on filedocumented in this encounterProN[facility] InstructionsNot on filedocumented in this encounterProN[facility] Chief Complaint and Reason for [...] Member Role Status Dates Tran Rice APRN TRANSPORT ANALYSTSammie Primary Care Provider Active Team Status: Inactive Member Role Status Dates Tran Rice APRN TRANSPORT ANALYST-Hung Primary Care Provider, Attending Provider Active Start: December 02, 2023 End: December 02, 2023 Auto Striper Relationship Specialty Start Date End Date Tran Rice NP [address] [place] [address] PCP - General Family Medicine 12/31/23 Auto Striper Relationship Specialty Start Date End Date Tran Rice NP [address] [place], [place] [id number] PCP - General Family Medicine 12/31/23 Auto Striper Relationship Specialty Start Date End Date Tran Rice NP [address] [place], [place] [id number] PCP - General Family Medicine 12/31/23 Auto Striper Relationship Specialty Start Date End Date Tran Rice NP [address] [place] [address] PCP - General Family Medicine 12/31/23 Auto Striper Relationship Specialty Start Date End Date Tran Rice NP [address] [place] [address] PCP - General Family Medicine 12/31/23 Auto Striper Relationship Specialty Start Date End Date Tran Rice NP [address] [place] [address] [place] [address] PCP - General Family Medicine 12/31/23 Auto Striper Relationship Specialty Start Date End Date Tran Rice NP [address] [place] [address] [address] [place] [address] PCP - General Family Medicine 12/31/23 Auto Striper Relationship Specialty Start Date End Date Tran Rice NP [address] [place] [address] PCP - General Family Medicine 12/31/23 Auto Striper Relationship Specialty Start Date End Date Tran Rice NP [address] [place] [address] PCP - General Family Medicine 12/31/23 Auto Striper Relationship Specialty Start Date End Date Tran Rice NP [address] [place] [address] PCP - General Family Medicine 12/31/23 Auto Striper Relationship Specialty Start Date End Date Tran Rice NP [address] [place] [address] PCP - General Family Medicine 12/31/23 Auto Striper Relationship Specialty Start Date End Date Arthur Kan MD PCP - General 08/09/14 Auto Striper Relationship Specialty Start Date End Date Tran Rice NP [address] [place] [id number] PCP - General Family Medicine 12/31/23 Auto Striper Relationship Specialty Start Date End Date Arthur Kan MD PCP - General 08/09/14 Auto Striper Relationship Specialty Start Date End Date Arthur Kan MD PCP - General 08/09/14 Auto Striper Relationship Specialty Start Date End Date Arthur Kan MD PCP - General 08/09/14 Auto Striper Relationship Specialty Start Date End Date Arthur Kan MD PCP - General 08/09/14 Auto Striper Relationship Specialty Start Date End Date Arthur Kan MD PCP - General 08/09/14 Auto Striper Relationship Specialty Start Date End Date Arthur Kan MD PCP - General 08/09/14 Goals [...] ized section and content) DATE CREATED AUTHOR 06/09/2024 [facility] DATE CREATED AUTHOR AUTHOR'S ORGANIZ ATION 06/10/2024 [facility] FOR RECORDS PERTAINING TO PATIENTS WHO ARE [...] BE BASED ON THE PRIMARY CLINICAL RECORDS. [facility] [employer] provides no warranty or guarantee of the accuracy or completeness of information in this document.
[2024-06-15 07:38] VITALS: BP 120/76; PULSE 90
== END 2024-06-15 08:11 | disposition home or self-care (01) ==
LOC: US 07:01 → FBC 07:03
PROVIDERS: PCP Nurse Practitioner Family; Visit Provider Obstetrics & Gynecology
DX: O41.03X0 Oligohydramnios, third trimester, not applicable or unspecified (principal); Z3A.33 33 weeks gestation of pregnancy
CPT/HCPCS: 76818

== ENCOUNTER 2024-06-19 12:00 | Outpatient (OUT) | payer BC, SELFPAY ==
[2024-06-19 12:06] VITALS: BP 119/67; PULSE 89
== END 2024-06-19 12:30 | disposition home or self-care (01) ==
LOC: FBCO 12:00 → FBC 12:01
PROVIDERS: PCP Nurse Practitioner Family; Visit Provider Obstetrics & Gynecology
DX: O41.00X0 Oligohydramnios, unspecified trimester, not applicable or unspecified (principal)
CPT/HCPCS: 59025

== ENCOUNTER 2024-06-22 06:55 | Outpatient (OUT) | payer BC, SELFPAY ==
--- OUTSIDE RECORDS SUMMARY | 2024-06-22 06:58 | XMS_ITS | CCD ---
Author Organization [facility] Care Team Providers Care Director Recreation Name Role Phone Dwayne HUNTLEY, Tran Carbone Primary Care Provider Arthur Kan MD Primary Care Provider ALICIA, ALMA Attending Unavailable PRAVIN, SANDY Attending Unavailable ALICIA, ALMA Referring Unavailable ALICIA, ALMA Attending Unavailable PRAVIN, SANDY Attending Unavailable ALICIA, ALMA Attending Unavailable PRAVIN, SANDY Attending Unavailable PRAVIN, SANDY Attending Unavailable PRAVIN, SANDY R Referring Unavailable KEITHARTHUR Primary Care Unavailable PRAVIN, SANDY R Referring Unavailable KEITHARTHUR Primary Care Unavailable REJI TEJEDA Attending Unavailable PRAVIN, SANDY R Referring Unavailable KEITH, ARTHUR Thompson Primary Care Unavailable PRAVIN, SANDY R Referring Unavailable KEITH, ARTHUR Thompson Primary Care Unavailable RIKY STEARNS Admitting Unavailable RIKY STEARNS Attending Unavailable KEITH, ARTHUR Thompson Primary Care Unavailable PRAVIN, SANDY R Referring Unavailable KEITH, ARTHUR Thompson Primary Care Unavailable Allergies Allergy Classification Reported Allergen(s) Allergy Type Date of Onset Reaction(s) Facility (20 sources) Other Propensity to adverse reactions 4 [facility] Work Phone: (15 sources) Cat Hair Extract Propensity to adverse reactions 4 [facility] (9 sources) Cat Dander; Translations: [CAT DANDER] Propensity to adverse reactions to drug 4 [facility] Medications Current Medications Medication Drug Class(es) Dates Sig (Normalized) Sig (Original) loratadine 10 mg oral tablet (8 sources) Start: 01-05-2017 take 1 tablet by [...] 19/iron ps,heme/folic/dha ( MV & MIN ORAL) (8 sources) take 1 tablet by mouth once [...] unspecified trimester] 05-10-2024 Episodic Other complications of (11 sources) growth restriction; Translations: [Maternal care for other known or suspected poor growth, unspecified trimester, not applicable or unspecified] 06-07-2024 Episodic Other complications of (4 sources) High risk ; Translations: [Supervision of other high risk pregnancies, second trimester] 06-07-2024 Episodic Other complications of (1 source) Supervision of other high risk pregnancies, second trimester; Translations: [Supervision of other high risk pregnancies, second trimester] Onset: 06-14-2024 Episodic Other complications of (1 source) Maternal [...] 06-07-2024 Episodic Residual codes; unclassified (1 source) Cystic fibrosis carrier; 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 fibrosis carrier] Onset: 06-14-2024 Episodic Residual codes; unclassified (1 source) 32 weeks gestation of ; Translations: [32 weeks gestation of ] Onset: 06-07-2024 Episodic Unclassified (1 source) Contractions Onset: 06-07-2024 Unclassified (1 source) borderline FGR Onset: 06-07-2024 Past or Other Problems Problem Classification Problem Date Documented Da te Episodic/Chronic Other connective tissue disease (8 sources) Rotator cuff impingement syndrome; Translations: [Impingement syndrome of unspecified shoulder] Onset: 05-08-2016 05-08-2016 Episodic Sprains and strains (8 sources) Rupture of tendon of biceps; Translations: [...] Urobilinogen, UA 0.2 0.2 - 12 mg/dL [facility] nonstress test - Mater nal Medicineon 06-07-2024 Patient Name: Sejal Nowak Patient : 1995 NST Objective Findings: Variability: Moderate Decelerations: Variable Accelerations: Yes Acoustic Stimulator: No Baseline: 120 BPM Uterine Irritability: Yes Contractions: Irregular Comments: Variables and contractions/irritabi lity noted on EFM. Tracing reviewed with Dr Tejeda.[facility] instructions given, labor precautions reviewed. To JAGDISH for extended monitoring and evaluation. NST Interpretation: Nonstress Test Interpretation: Reactive (Reji Tejeda MD) Comments: Recurrent variable decelerations. Pt reporting abdominal tightening correlating with tocometer contractions. To OB ED for prolonged evaluation, at least 2 hours. Sign-out given to OB ED team. (Reji Tejeda MD) NST performed by: Thania Noyola RN 06/07/2024 12:11 PM ASOBGYN [facility] Ultrasound - OfficeOrdered B y: Aida Sauceda on 06-05-2024 Radiology Study observation (narrative) [facility] Ultrasound - Officeon 2024 Radiology Study observation (narrative) [facility] Radiology Study observation (narrative) [facility] US OB BPP W NON-STRESS on 06-01-2024 [place] [address] Ultrasound Report Signed Patient: SEJAL NOWAK MR#: [id number] : 1995 Acct:[id number] Age/Sex: 28 / F ADM Date: Loc: [facility] 252-[address]: Sandy Costello D.O. Ordering Physician: Sandy Costello D.O. Date of Service: 06/01/24 Procedure(s): US OB BPP w non-stress Accession Number(s): [id number] cc: Sandy Costello D.O.; TRAN RICE [place] [address] Patient Name: SEJAL NOWAK MRN: [id number] date: 1995 Sex: F Assigned Patient Location: [facility] Current Patient Location: [facility] Accession/Order Number: [id number] Exam Date: 06/01/2024 11:20 Report Date: 06/01/2024 11:22 At the request of: SANDY COSTELLO DO Procedure: US OB BPP w non-stress BIOPHYSICAL PROFILE: CLINICAL INFORMATION: iugr, low monique COMPARISON: 03/23/2024 anatomy survey There is a single live intrauterine gestation in cephalic presentation. The reported gestational age is 31 weeks 1 day. The heart rate [id number] beats per minute. FINDINGS: TONE: 1 or [...] Anita Jaimes M.D.06/01/2024 11:22 AM Dictation Location: [place] [address] Electronically authenticated by: [id number] Y Date: 06/01/2024 11:22 Dictated By: Anita Jaimes M.D. Signed By: 06/01/24 1125 DD/ 1122 TD/TT: Assembler Fitter: [facility] Radiology, Radiologist, MD - 06/01/2024 [place] [address] Ultrasound Report Signed Patient: SEJAL NOWAK MR#: [id number] : 1995 Acct:[id number] Age/Sex: 28 / F ADM Date: Loc: [facility] 252-[address]: Sandy Costello D.O. Ordering Physician: Sandy Costello D.O. Date of Service: 06/01/24 Procedure(s): US OB BPP w non-stress Accession Number(s): [id number] cc: Sandy Costello D.O.; TRAN RICE [place] [id number] Patient Name: SEJAL NOWAK MRN: [facility]:[id number] date: 1995 Sex: F Assigned Patient Location: [facility] Current Patient Location: [facility] Accession/Order Number: [id number] Exam Date: 06/01/2024 11:20 Report Date: 06/01/2024 11:22 At the request of: SANDY COSTELLO DO Procedure: US OB BPP w non-stress BIOPHYSICAL PROFILE: CLINICAL INFORMATION: iugr, low monique COMPARISON: 03/23/2024 anatomy survey There is a single live intrauterine gestation in cephalic presentation. The reported gestational age is 31 weeks 1 day. The heart rate [id number] beats per minute. FINDINGS: TONE: 1 or [...] Anita Jaimes M.D.06/01/2024 11:22 AM Dictation Location: [place] [address] Electronically authenticated by: [id number] Y Date: 06/01/2024 11:22 Dictated By: Anita Jaimes M.D. Signed By: 06/01/24 1125 DD/ 1122 TD/TT: Assembler Fitter: [facility] Radiology Study observation (narrative) [facility] OB BPP W NON-STRESS Ordered By: Radiologist Radiology on 06-01-2024 [facility] Work Phone: OB FOLLOW UP TRANSABDOMIN AL [...] 1344 gm / 2 lbs, 15 oz (7099-0146 gm) [place] Normal: 1780 gm (1761-1319 gm) [place] Wt%: <3% for 31.1 wks [...] report is generated using voice recognition reporting (Courseload). On occasion Courseload erroneously drops words from the report or [...] of 05/10/2024: 28w0d Ultrasound - Officeon 2024 [facility] Urinalysis macro (dipstick) panel (U)on 05-25-2024 [...] Urobilinogen, UA 0.2 0.2 - 12 mg/dL [facility] Urinalysis macro (dipstick) panel (U)on 05-10-2024 Bilirubin, UA Negative Negative - 4(70) +++ mg/dL [facility] Blood, UA Negative Negative - 50 Kvng/mcL [facility] Clarity, UA Clear [facility] Color, UA Yellow [facility] [...] Urobilinogen, UA 0.2 0.2 - 12 mg/dL [facility] ALL CBC WITH AUTO DIFFon BASOPHILS [...] [facility] EO # 0.1 [facility] PLT 243 [facility] RBC 3.84 Low [facility] WBC 10.3 [facility] CLINISYNC [...] Urobilinogen, UA 1.0 0.2 - 12 mg/dL [facility] Ultrasound - Officeon 2023 [facility] Ultrasound - OfficeOrdered B y: Aida Osbornes on 03-23-2024 [facility] Urinalysis macro (dipstick) panel (U)on 03-23-2024 [...] Urobilinogen, UA 0.2 0.2 - 12 mg/dL [facility] IGP,APTIMA HPV,AGE GDLNon AGE GDLN ACOG TESTING Note . [facility] Comment on above: TESTS RESULT FLAG [facility] REF RANGE LAB Clinician Provided Cytology Information Source.............Cervix Other.............. No. of containers..01 ThinPrep Vial Age Algo ACOG Letha... -03 05 FLAG LEGEND: L-Low Normal,H-High Normal,LL-Alert Low,HH-Alert High <-Panic Low,>-Panic High,A-Abnormal,AA-Critical Abnormal Performed at: 01 =G [facility] [address] [facility] [address] Autumn Mckoy MD, IGP, RFX APTIMA HPV ASCU Note . [facility] Comment on above: TESTS RESULT FLAG [facility] REF RANGE LAB DIAGNOSIS: 02 NEGATIVE FOR INTRAEPITHELIAL LESION OR MALIGNANCY. Specimen adequacy: 02 Satisfactory for evaluation. No endocervical component is identified. Performed by: 02 Alma Curry, Boy'S Adviser ([facility]) . 02 Note: Note 03 The Pap [...] High,A-Abnormal,AA-Critical Abnormal Performed at: 02 KWCYT [facility] [address] [place] [address] Hao Blackman MD, 03 WB [facility] [address] [address] Autumn Mckoy MD, Performed at: =G - [facility] [address] [id number] Um Nurse: Autumn Mckoy MD, Phone: [phone] Performed at: [facility] [address] [place], [place] [id number] Um Nurse: Hao Blackman MD, Phone: [phone] SPATULA-ALONE CERVIX CLIN[facility] [...] [facility] NICKY GLABRATA Not detected [facility] NICKY KRUSEI 0 [facility] NICKY KRUSEI Not detected [facility] CHLAMYDIA TRACHOMATIS 0 [facility] CHLAMYDIA TRACHOMATIS Not detected N [facility] GARDNERELLA VAGINALIS 0 [facility] GARDNERELLA VAGINALIS Not detected N [facility] MEGASPHAERA (TYPES 1, 2) 0 [facility] MEGASPHAERA (TYPES 1, 2) Not detected [facility] MYCOPLASMA GENITALIUM 0 [facility] MYCOPLASMA GENITALIUM Not detected N [facility] NEISSERIA GONORRHOEAE 0 [facility] NEISSERIA GONORRHOEAE Not detected N [facility] TRICHOMONAS VAGINALIS 0 [facility] TRICHOMONAS VAGINALIS Not detected N [facility] Urinalysis macro (dipstick) panel (U)on 02-23-2024 Bilirubin, [...] Urobilinogen, UA 0.2 0.2 - 12 mg/dL [facility] Urinalysis macro (dipstick) panel (U)on 01-25-2024 [...] Urobilinogen, UA 0.2 0.2 - 12 mg/dL [facility] MLR HEMOGLOBIN A1Con 024 Glucose [Mass/Vol] [...] immune statuson 01-14-2024 Rubella immune IgG immune [facility] Syphilis Total(Unknown Syphi lis Status)Ordered By: Aida Sauceda on 01-14-2024 Syphilis Non-Reactive [facility] TB DRUG SCREEN RAPID (URINE )on 01-14-2024 AMPHETAMINE [...] [facility] Preg Test, Ur Positive [facility] Urinalysis macro (dipstick) panel (U)on 12-31-2023 [...] Urobilinogen, UA 1.0 0.2 - 12 mg/dL [facility] Vital Signs Date Time Vital Sign Value Performing Clinician Faci jeanie 06-08-2024 11:44-0500 Body weight 58.06 kg Alma BRANHAM Work Phone: [facility] 06-08-2024 11:44-0500 Diastolic blood pressure 82 mm[Hg] Alma BRANHAM Work Phone: [facility] 06-08-2024 11:44-0500 Systolic blood pressure 128 mm[Hg] Alma BRANHAM Work Phone: [facility] 06-07-2024 11:32-0500 Diastolic blood pressure 71 mm[Hg] [address] 06-07-2024 11:32-0500 Heart rate 81 /min [address] 06-07-2024 11:32-0500 Systolic blood pressure 115 mm[Hg] [address] 06-07-2024 09:32-0500 Body height 157.5 cm Reji Tejeda MD Work Phone: [facility] 05-25-2024 11:54-0500 Body weight 56.43 kg [...] pressure 100 mm[Hg] Alma BRANHAM Work Phone: [facility] [...] 10:48-0500 Diastolic blood pressure 64 mm[Hg] Alma Alicia PA Work Phone: [facility] 02-23-2024 10:48-0500 Systolic blood pressure 102 mm[Hg] Alma Alicia PA Work Phone: [facility] 01-25-2024 10:45-0400 Body weight 47.68 kg Sandy Pravin DO Work Phone: [facility] 01-25-2024 10:45-0400 Diastolic blood pressure 64 mm[Hg] Sandy Pravin DO Work Phone: [facility] 01-25-2024 10:45-0400 Systolic blood pressure 100 mm[Hg] Sandy Pravin DO Work Phone: [facility] 12-02-2023 08:47-0400 Body height 157.48 cm [facility] 12-02-2023 08:47-0400 Body mass index (BMI) [Ratio] 19.5 kg/m2 [facility] 12-02-2023 08:47-0400 Body weight 48.53 kg [facility] 12-02-2023 08:47-0400 Diastolic blood pressure 80 mm[Hg] [facility] 12-02-2023 08:47-0400 Systolic blood pressure 122 mm[Hg] [facility] Encounters Encounter Date Encounter Type Care Provider Facility Start: 06-21-2024 End: 06-21-2024 Orders Only Anya Waters RN [facility] Comment on above: growth restric tion antepartum (Primary Dx) Start: 06-14-2024 End: 06-14-2024 ambulatory [facility] Start: 06-08-2024 End: 06-08-2024 Bamboo flowsheet Alma [...] End: 06-07-2024 Emergency department patient visit RIKY [facility] Start: 06-07-2024 End: 06-07-2024 ambulatory Tt Mfm Nst1 [facility] Comment on above: growth restric tion antepartum (Primary Dx) growth restric tion antepartum (Primary Dx); 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, antepartum Start: 06-07-2024 End: 06-07-2024 Office consultation new/estab patient 60 min Reji Tejeda MD Work Phone: [facility] Comment on above: growth restric tion antepartum (Primary Dx); 32 weeks gestation of Start: 06-07-2024 End: 06-07-2024 ambulatory [facility] Start: 06-05-2024 End: 06-05-2024 Orders Only Not In System Ref Prov [facility] Start: 06-01-2024 End: 06-01-2024 Clinisync Result Encounter [...] Start: 05-10-2024 End: 05-10-2024 Bamboo flowsheet Alma Vargas PA Work Phone: [facility] Start: 05-10-2024 End: 05-10-2024 Bamboo flowsheet Alma Vargas PA Work Phone: [facility] Start: 05-10-2024 End: 05-10-2024 flow sheet Alma Vargas PA Work Phone: [facility] Comment on [...] 03-21-2024 End: 03-21-2024 ambulatory SANDY R PRAVIN [facility] Start: 03-07-2024 End: 03-07-2024 Chart abstracting Omayra GALICIA Work Phone: [facility] Start: 02-23-2024 End: 02-23-2024 Bamboo flowsheet Alma BRANHAM Work Phone: [facility] Start: 02-23-2024 End: 03-06-2024 Bamboo flowsheet Alma BRANHAM Work Phone: [facility] Start: 02-23-2024 End: 03-06-2024 Clinisync Result Encounter Alma BRANHAM Work Phone: [facility] External Department Unsolicited Start: 02-23-2024 End: [...] Start: 12-02-2023 Patient encounter status [facility] Start: 12-02-2023 End: 12-02-2023 ambulatory [facility] Work Phone: Start: 12-02-2023 End: 12-02-2023 Encounter for general adult medical examination without abnormal findings [facility] Start: 12-02-2023 End: 12-02-2023 Patient encounter procedure Pending Sale To [facility] Work Phone: Procedures Date Procedure Procedure Detail Performing Clinician Start: 06-08-2024 Urnls dip stick/tabl et rgnt non-auto w/o micrscp Alma BRANHAM Work Phone: Start: 06-07-2024 nonstress test Rakel Tejeda MD Work Phone: Start: 06-01-2024 US OB [...] [Identifier] in Cervix by Cyto stain Reji Tejeda MD Work Phone: Start: 01-25-2024 Urnls dip [...] malign ant neoplasm of cervix Pap Smear [facility] Start: 06-21-2025 End: 06-21-2025 US MFM with or without consult US MFM with or without consult Imaging Routine growth restriction antepartum Expected: 06/21/2025 (Approximate), Expires: 06/21/2025 [employer] Work Phone: Comment on above: Expected: 06/21/2025 (Approximate), Expires: 06/21/2025 Start: 06-07-2025 Adult BMI Screening Adult BMI Screen ing [facility] Start: 06-07-2025 Tobacco Screening Tobacco Screening [facility] Start: 06-07-2025 End: 06-07-2025 US MFM with or without consult US MFM with or without consult Imaging Routine growth restriction antepartum 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, antepartum Expected: 06/07/2025 (Approximate), Expires: 06/07/2025 [employer] Work Phone: Comment on above: Expected: 06/07/2025 (Approximate), Expires: 06/07/2025 Start: 07-05-2024 End: 07-05-2024 Patient encounter procedure 07/05/2024 8:45 AM EDT Appointment [facility] [address] [place] [phone] [facility] Start: 06-28-2024 End: 06-28-2024 Patient encounter procedure 06/28/2024 8:45 AM EDT Appointment [facility] [address] [place] [phone] [facility] Start: 06-22-2024 End: 06-22-2024 Patient encounter procedure 06/22/2024 9:10 AM EDT Routine [facility] [address] [place] [phone] Sandy Costello DO [address] [place] [address] [facility] Start: 06-21-2024 End: 06-21-2024 Patient encounter procedure 06/21/2024 9:00 AM EDT Appointment [facility] [address] [place] [phone] [facility] Start: 06-14-2024 End: 06-14-2024 Patient encounter procedure 06/14/2024 8:00 AM EDT Appointment [facility] [address] [place] [phone] [facility] Start: 06-08-2024 End: 06-08-2024 Patient encounter procedure [facility] Comment on above: Arrived Start: 06-07-2024 End: 06-07-2025 nonstress test - Maternal Medicine nonstress test - Maternal Medicine OB Routine growth restriction antepartum Expected: 06/07/2024 (Approximate), Expires: 06/07/2025 [facility] Work Phone: Comment on above: Expected: 06/07/2024 (Approximate), Expires: 06/07/2025 Start: 06-07-2024 End: 06-07-2024 Patient encounter procedure [facility] Start: 06-01-2024 End: 06-01-2024 Professional / ancillary services management 06/01/2024 9:30 AM EST Ancillary Procedure [facility] [address] [place] [address] [place] [address] [facility] Start: 05-25-2024 End: 05-25-2024 Patient encounter procedure [facility] Comment on above: Arrived Start: 05-10-2024 End: 05-10-2025 US for US OB follow up transabdominal approach Imaging Routine Third trimester 28 weeks gestation of size inconsistent with dates Expected: 05/10/2024, Expires: 05/10/2025 [facility] Work Phone: Comment on above: Expected: 05/10/2024 [...] AM EST Routine [facility] [address] [place] [phone] Sandy Costello DO [address] [place] [address] [facility] Start: 03-23-2024 End: 03-23-2024 Professional / ancillary services management 03/23/2024 10:30 AM EST Ancillary Procedure [facility] [address] [facility] [place] [place] [phone] [facility] Start: 03-21-2024 End: 03-21-2024 Telemedicine consultation with patient 03/21/2024 9:00 AM EST Telemedicine [facility] [address] [place] [phone] Omayra Boyce, [facility] [address] [place] [address] [facility] Start: 02-23-2024 End: 02-22-2025 US for US [...] gestational age Expected: 12/31/2023 (Approximate), Expires: 12/30/2024 [facility] Comment on above: Expected: 12/31/2023 (Approximate), Expires: 12/30/2024 Start: 12-31-2023 End: 12-30-2024 Blood type and Indirect antibody screen panel - Blood Type and screen Lab Routine Missed menses , unspecified gestational age Expected: 12/31/2023 (Approximate), Expires: 12/30/2024 [facility] Work Phone: Comment on above: Expected: 12/31/2023 (Approximate), Expires: 12/30/2024 Start: 12-31-2023 End: 12-30-2024 Drugs of abuse panel - Urine by Screen method Rapid drug screen, urine Lab Routine , unspecified gestational age Encounter for supervision of normal first in first trimester Expected: 12/31/2023 (Approximate), Expires: 12/30/2024 [facility] Comment on above: Expected: 12/31/2023 (Approximate), Expires: 12/30/2024 Start: 12-31-2023 End: 12-30-2024 US Pelvis transvaginal US OB transvaginal Imaging Routine Missed menses Expected: 12/31/2023 (Approximate), Expires: 12/30/2024 [facility] Comment on above: Expected: 12/31/2023 (Approximate), Expires: 12/30/2024 Start: 12-05-2023 Influenza vaccination Influenza Vacc ine [facility] Start: 11-06-2019 DTaP,Tdap and Td Vaccines (7 - Td or Tdap) DTaP,Tdap and Td Vaccines (7 - Td or Tdap) [facility] Start: 2018 Screening for malign ant neoplasm of cervix Pap Smear [facility] Start: 09-29-2015 Adult BMI Screening Adult BMI Screen ing [facility] Start: 2009 Depression Screening Depression Scre ening [facility] Start: 2009 Tobacco Screening Tobacco Screening [facility] Bacteria identified in Urine by Culture Urine culture Microbiology Routine Missed menses Ordered: 12/31/2023 [facility] Comment on above: Ordered: 12/31/2023 CBC W Auto Different ial panel - Blood CBC and differential Lab Routine Missed menses , unspecified gestational age Ordered: 12/31/2023 [facility] Comment on above: Ordered: 12/31/2023 CHLAMYDIA TRACHOMATI S (GENITO/STI) CHLAMYDIA TRACHOMATIS (GENITO/STI) Lab Routine Screen for STD (sexually transmitted disease) Ordered: 02/23/2024 [facility] Comment on above: Ordered: 02/23/2024 Cytology Cervical or vaginal smear or scraping study Pap Smear Pathology and Cytology Routine Well woman exam with routine gynecological exam Ordered: 02/23/2024 [facility] Comment on above: Ordered: 02/23/2024 Hemoglobin A1c/Hemoglobin.total in Blood Hemoglobin A1c Lab Routine Missed menses , unspecified gestational age Ordered: 12/31/2023 [facility] Comment on above: Ordered: 12/31/2023 Hepatitis B virus surface Ag [Presence] in Serum or Plasma by Immunoassay Hepatitis B surface antigen Lab Routine Missed menses , unspecified gestational age Ordered: 12/31/2023 [facility] Comment on above: Ordered: 12/31/2023 Hepatitis C virus Ab [Presence] in Serum or Plasma by Immunoassay Hepatitis C antibody Lab Routine Missed menses , unspecified gestational age Ordered: 12/31/2023 [facility] Comment on above: Ordered: 12/31/2023 HIV-1/HIV-2 antigen/antibody [...] A vaccine, pediatric/adolescent dosage, 2 dose schedule [facility] Work Phone: [facility] 11-13-2015 meningococcal polysaccharide (groups A, C, Y and W-135) diphtheria toxoid conjugate vaccine (MCV4P) [facility] Work Phone: [facility] 04-24-2015 influenza, injectabl e, quadrivalent, preservative free [facility] [employer] Work Phone: [facility] 04-24-2015 influenza virus vaccine, unspecified formulation [facility] Work Phone: [facility] 11-05-2009 tetanus toxoid, redu dilip diphtheria toxoid, and acellular pertussis vaccine, adsorbed [facility] [employer] Work Phone: [facility] 11-05-2009 varicella virus vaccine [facility] [employer] Work Phone: [facility] 03-14-2009 influenza, seasonal, injectable, preservative free [facility] Work Phone: [facility] 01-24-2003 hepatitis B vaccine, adult dosage [facility] Work Phone: [facility] 11-28-2002 diphtheria, tetanus toxoids and acellular pertussis vaccine, 5 pertussis antigens [facility] Work Phone: [facility] 11-28-2002 measles, mumps and rubella virus vaccine [facility] Work Phone: [facility] 11-28-2002 poliovirus vaccine, inactivated [facility] Work Phone: [facility] 07-18-2001 varicella virus vaccine [facility] Work Phone: [facility] 04-09-1999 diphtheria, tetanus toxoids and acellular pertussis vaccine, 5 pertussis antigens [facility] Work Phone: [facility] 04-09-1999 measles, mumps and rubella virus vaccine [facility] Work Phone: [facility] 03-25-1998 diphtheria, tetanus toxoids and acellular pertussis vaccine, 5 pertussis antigens [facility] Work Phone: [facility] 03-25-1998 hepatitis B vaccine, adult dosage [facility] Work Phone: [facility] 03-25-1998 poliovirus vaccine, inactivated [facility] Work Phone: [facility] 02-13-1998 diphtheria, tetanus toxoids and acellular pertussis vaccine, 5 pertussis antigens [facility] Work Phone: [facility] 02-13-1998 poliovirus vaccine, inactivated [facility] Work Phone: [facility] 1997 diphtheria, tetanus toxoids and acellular pertussis vaccine, 5 pertussis antigens [facility] Work Phone: [facility] 1997 haemophilus influenz ae type b vaccine, PRP-OMP conjugate [facility] Work Phone: [facility] 1997 poliovirus vaccine, inactivated Omayra Boyce [facility]: [facility] 1997 hepatitis B vaccine, adult dosage Omayra GALICIA Work Phone: [facility] 1997 hepatitis B vaccine, adult dosage Omayra Boyce [facility] Work Phone: [facility] NEGATED: Highlighted row has not occurred!11-13-2015 human papilloma virus vaccine, quadrivalent Omayra Boyce [facility] Work Phone: [facility] Comment on above: Deferred: Other - parent declined Payers Date Payer Category Payer Blue Cross Blue Shield [id number] 2022 Blue Cross Blue Shie ld Managed Care - Other [id number] 2022 Unknown BCBS BCBS xxxxxx [id number] 2022-Present [phone] [address] [place] [address] [id number] 2022 Unknown [id number] 2020 Blue Cross Blue Shie ld Managed Care - PPO ANTHEM [id number] 1997 Unknown [id number] [id number]. 2.1258 1997 Unknown [id number] 2.16.840.1.017537.3.579. 2.1258 1997 Unknown [id number] 2.16840.1.606872.3.579. 2.1258 1997 Unknown [id number] 2.16840.1.550597.3.579. 2.1258 1997 Unknown [id number] 2.16840.1.958413.3.579. 2.1258 1997 Unknown [id number] 2.16840.1.499694.3.579. 2.1258 1997 Unknown [id number] 2.840.1.577083.3.579. 2.1258 1997 Unknown [id number] 2.840.1.025940.3.579. 2.1258 1997 Unknown [id number] 2.16840.1.827964.3.579. 2.1258 1997 Unknown [id number] 2.16840.1.383964.3.579. 2.1286 1997 Unknown [id number] 2.840.1.926930.3.579. 2.1285 1997 Unknown [id number] 2.16840.1.053198.3.579. 2.1285 1997 Unknown [id number] 2.16840.1.127543.3.579. 2.1285 1997 Unknown [id number] 2.16840.1.813038.3.579. 2.1285 1997 Unknown [id number] 2.16840.1.368389.3.579. 2.1286 Social History Date Type [facility]ail [facility] Work Phone: Start: 1995 Sex Assigned At Female F [facility] Start: 11-10-2023 [facility] Start: 1995 Sex assigned at Not on file [facility] Start: 05-16-2020 End: 03-07-2024 Gender identity Not on file [facility] Start: 02-13-2021 End: 06-07-2024 Tobacco smoking status NHIS Never smoked tobacco [facility] Start: 02-13-2021 End: 06-07-2024 Tobacco use and exposure Smokeless tobacco non-user [facility] Start: 03-07-2024 Alcoholic beverage intake Current non-drinker of alcohol (finding) [facility] Start: 05-16-2020 End: 03-07-2024 Alcoholic beverage intake [facility] Childcare Unknown [facility] Start: 11-06-2014 Sex Female (finding) [facility] Start: 06-05-2024 End: 06-07-2024 Alcoholic beverage intake Ex-drinker (finding) [facility] Clinical Notes 12-31-2023 to 06-08-2024 CARROL Harmon - 06/08/2024 11:30 AM Ayaka Noyola RN - 06/07/2024 11:15 AM Johann Tejeda MD - 06/07/2024 11:00 AM Jackson Sauceda [...] or urinary urgency/frequency. Tracing reviewed with Dr Tejeda. To JAGDISH for extended monitoring and evaluation. [...] all scheduled appointments documented in this encounter [facility] 06-07-2024 History of Present illness Narrative [...] in full sentences Gravid abdomen OVERALL ASSESSMENT -Sejalroldan Wanisatu is a pleasant 28 y.o. at 32w0d [...] Based on ultrasound findings today recommend delivery [facility] recommendations summary FGR is defined as [...] later - absent end-diastolic flow umbilical artery: [id number] or at time of diagnosis if diagnosed later. - reversed end-diastolic flow umbilical artery: [id number] or at time of diagnosis if diagnosed [...] be getting weekly umbilical artery Dopplers through M along with fluid assessment, twice weekly NSTs can be performed through primary OB. Recommend delivery at 37 weeks gestation. If absent or reversed end-diastolic flow, re-engage MFM prior to 34 weeks gestation. Delivery method preferred vaginal. [place] C/S for usual obstetrical indications Recommend steroids if delivery before 34 weeks. Consider steroids if delivery after 34 weeks and before 37 weeks. 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 Patient does have ultrasound scheduled with us. Thank you for allowing me to participate in the care of Sejal Nowak. If there any questions please do not hesitate to contact us. Reji Tejeda MD Maternal- Medicine [facility] [address] [facility] 1[address] [place] [address] [facility], the CDC, and other organizations representing maternal and public health professionals recommend that , , and lactating people and those considering receive the COVID-19 vaccination. Vaccination is the best method to reduce maternal and complications of SARS-CoV-2 infection. This document was created with [employer] technology. Though I make every effort to review the dictation as it is transcribed, on occasion the spoken word can be misinterpreted by the technology leading to inappropriate words, phrases, or sentences. This note is addressed to the requesting provider as a consultation for clinical guidance. Specific medical abbreviations are occasionally used and those are generally approved by the [place]?Board of?Obstetrics and?Gynecology?as well as?Jocelyn s abbreviations. The above plan of care was based solely on the diagnoses for which a consultation was requested. ?More frequent testing may be indicated based on her other medical/obstetrical conditions. The management of other or medical conditions is beyond the scope of requested consultation and will continue to be followed by the primary high school sports coach or primary care provider. Note to patient: [...] office? Have you been seen here at [facility] in a previous ? Recent ER visits or hospitalizations? Bring blood sugar log or meter with you today? (Please bring them with you for every visit at [facility]) Flu vaccine (Feb-June)? Any concerns that you would like me to mention to the provider today? documented in this encounter [facility] [employer] [facility] 05-25-2024 History of Present illness Narrative Reason [...] nursing note reviewed. Exam conducted with a contract negotiation manager present. Vitals: There is no height or [...] nursing note reviewed. Exam conducted with a contract negotiation manager present. Vitals: There is no height or [...] nursing note reviewed. Exam conducted with a contract negotiation manager present. Vitals: There is no height or [...] or undercooked meat, and stay away from [facility]. Patient has been consulted regarding any [...] or undercooked meat, and stay away from [facility]. Patient has also been advised to [...] note Diagnosis Onset Date Wellness examination [facility] Work Phone: Evaluation note* Diagnosis 12 [...] HealthcareEvaluation note* Diagnosis growth restriction antepartum- Primary documented [facility] filed[facility] this [facility] filedocumented in this encounter [facility] on filedocumented in this encounter [facility] on filedocumented in this encounter [facility] on filedocumented in this encounter [facility] Chief Complaint and Reason for [...] Member Role Status Dates Tran Rice APRN GEOGRAPHY DEPARTMENT CHAIRSammie Primary Care Provider Active Team Status: Inactive Member Role Status Dates Tran Rice APRN GEOGRAPHY DEPARTMENT CHAIR-Hung Primary Care Provider, Attending Provider Active Start: December 02, 2023 End: December 02, 2023 Director Recreation Relationship Specialty Start Date End Date Tran Rice NP [address] [place] [address] PCP - General Family Medicine 12/31/23 Director Recreation Relationship Specialty Start Date End Date Tran Rice NP [address] [place] [address] PCP - General Family Medicine 12/31/23 Director Recreation Relationship Specialty [place] [address] [place] [address] PCP - General Family Medicine 12/31/23 Director Recreation Relationship Specialty Start Date End Date Tran Rice NP [address] [place] [address] PCP - General Family Medicine 12/31/23 Director Recreation Relationship Specialty Start Date End Date Tran Rice NP [address] [place] [address] PCP - General Family Medicine 12/31/23 Director Recreation Relationship Specialty Start Date End Date Tran Rice NP [address] [place] [place] [address] PCP - General Family Medicine 12/31/23 Director Recreation Relationship Specialty Start Date End Date Tran Rice NP [address] [place] [address] PCP - General Family Medicine 12/31/23 Director Recreation Relationship Specialty [place] [address] [place] [address] [place] [address] PCP - General Family Medicine 12/31/23 Director Recreation Relationship Specialty [place] [address] [place] [address] [place], [facility] PCP - General Family Medicine 12/31/23 Director Recreation Relationship Specialty Start Date End Date Tran Rice NP [address] [place] [address] [place] [address] PCP - General Family Medicine 12/31/23 Director Recreation Relationship Specialty [place] [address] [place] [address] [place] [address] PCP - General Family Medicine 12/31/23 Director Recreation Relationship Specialty Start Date End Date Arthur Kan MD PCP - General 08/09/14 Director Recreation Relationship Specialty [place] [address] [place] [address] [place] [address] PCP - General Family Medicine 12/31/23 Director Recreation Relationship Specialty Start Date End Date Arthur Kan MD PCP - General 08/09/14 Director Recreation Relationship Specialty Start Date End Date Arthur Kan MD PCP - General 08/09/14 Director Recreation Relationship Specialty Start Date End Date Arthur Kan MD PCP - General 08/09/14 Director Recreation Relationship Specialty Start Date End Date KeithArthur lynn MD PCP - General 08/09/14 Director Recreation Relationship Specialty Start Date End Date Arthur Kan MD PCP - General 08/09/14 Director Recreation Relationship Specialty Start Date End Date Arthur Kan MD PCP - General 08/09/14 Director Recreation Relationship Specialty Start Date End Date Arthur [...] ized section and content) DATE CREATED AUTHOR 06/10/2024 [facility] dical Specialists [facility] DATE CREATED AUTHOR AUTHOR'S HERIBERTO DU 06/16/2024 [facility] FOR RECORDS PERTAINING TO PATIENTS WHO ARE [...] BE BASED ON THE PRIMARY CLINICAL RECORDS. [facility] [employer] provides no warranty or guarantee of the accuracy or completeness of information in this document.
--- NOTE | 2024-06-22 07:00 | US_ITS ---
[address] [address] Patient Name: SEJAL NOWAK MRN: [id number] date: 1995 Sex: F Assigned Patient Location: US Current Patient Location: Accession/Order Number: [id number] Exam Date: 06/22/2024 11:03 Report Date: 06/22/2024 11:04 At the request of: SANDY PRATT DO Procedure: US OB BPP w non-stress Biophysical profile. Reason for exam: Intrauterine growth restriction and oligohydramnios. COMPARISON: BPP 06/15/2024 TECHNIQUE: Transabdominal imaging of the gravid uterus was obtained. FINDINGS: Product Management Internship reports a BPP of 8 out of 8. MONIQUE 5.4 cm. heart rate 146bpm. US/US OB BPP w non-stress IMPRESSION: BPP 8 out of 8. Low MONIQUE 5.4 cm. Impression dictated by: Nicole Almendarez Jr.OLima06/22/2024 11:04 AM Dictation Location: [employer] Electronically authenticated by: [id number] Date: 06/22/2024 11:04
[2024-06-22 07:29] VITALS: BP 119/72; PULSE 88
== END 2024-06-22 08:05 | disposition home or self-care (01) ==
LOC: US 06:56 → FBC 06:58
PROVIDERS: PCP Nurse Practitioner Family; Visit Provider Obstetrics & Gynecology
DX: O41.03X0 Oligohydramnios, third trimester, not applicable or unspecified (principal); Z3A.34 34 weeks gestation of pregnancy
CPT/HCPCS: 36415; 76818

== ENCOUNTER 2024-06-22 12:14 | Outpatient (REF) | payer BC, SELFPAY ==
--- OUTSIDE RECORDS SUMMARY | 2024-06-22 12:21 | XMS_ITS | CCD ---
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 Role Phone Dwayne HUNTLEY, Tran Carbone Primary Care Provider Keith OSORIO, Arthur Thompson Primary Care Provider [phone] ALICIA, ALMA Attending Unavailable PRAVIN, SANDY Attending [...] Unavailable PRAVIN, SANDY R Referring Unavailable KEITHARTHUR PACK Primary Care Unavailable RIKY STEARNS Admitting Unavailable RIKY STEARNS Attending Unavailable KEITH, ARTHUR Thompson Primary Care Unavailable PRAVIN, SANDY R Referring Unavailable KEITH, ARTHUR Thompson Primary Care Unavailable Allergies Allergy Classification Reported Allergen(s) Allergy Type Date of Onset Reaction(s) Facility (20 sources) Other Propensity to adverse reactions 4 [facility] Healthcare Work Phone: (17 sources) Cat Hair Extract Propensity to adverse reactions 4 [facility] (9 sources) Cat Dander; Translations: [CAT [...] 03-21-2024 Episodic Other and delivery including normal (16 sources) First trimester ; Translations: [Encounter for [...] weeks gestation of ] Onset: 06-07-2024 Episodic Residual codes; unclassified (1 source) Gestation period, 34 weeks; Translations: [34 weeks gestation of ] 06-22-2024 Episodic Unclassified (1 source) Contractions Onset: 06-07-2024 [...] Range Facility Urinalysis macro (dipstick) panel (U)on 06-22-2024 Bilirubin, UA Negative Negative - 4(70) +++ mg/dL [facility] Blood, UA Negative Negative - 50 Kvng/mcL [facility] Clarity, UA Clear [facility] Color, UA Yellow [facility] Glucose, UA Positive Negative - 1999(110) ++++ mg/dL [facility] Comment on above: 100mg/dL Interpretation and review of laboratory results Abnormal [facility] Ketones, UA Negative Negative - 160(16) ++++ mg/dL [facility] Leukocytes, UA Negative Negative - 500+++ Sandra/mcL [facility] Nitrite, UA Negative Negative - Positive [facility] pH, UA 6.5 5 - 9 [facility] Protein, UA Negative Negative - 2000(20) ++++ mg/dL [facility] Spec Grav, UA 1.025 1 - 1.03 [facility] Urobilinogen, UA 0.2 0.2 - 12 mg/dL [facility] Urinalysis macro (dipstick) panel (U)on 06-08-2024 Bilirubin, UA Negative Negative - 4(70) +++ mg/dL [facility] Blood, UA Positive Negative - 50 Kvng/mcL [facility] Comment on above: trace-intact Clarity, UA Clear [facility] Color, UA Yellow [facility] Glucose, UA Negative Negative - 2000(110) ++++ mg/dL [facility] Interpretation and review of laboratory results Abnormal [facility] Ketones, UA Negative Negative - 160(16) ++++ mg/dL [facility] Leukocytes, UA Positive Negative - 500+++ Sandra/mcL [facility] Comment on above: small Nitrite, UA Negative Negative - Positive [facility] pH, UA 7 5 - 9 [facility] Protein, UA Negative Negative - 1999(20) ++++ mg/dL [facility] Spec Grav, UA 1.01 1 - 1.03 [facility] Urobilinogen, UA 0.2 0.2 - 12 mg/dL [facility] nonstress test - Mater nal Medicineon 06-07-2024 Patient Name: Sejal Nowak Patient : 1995 NST Objective Findings: Variability: Moderate Decelerations: Variable Accelerations: Yes Acoustic Stimulator: No Baseline: 120 BPM Uterine Irritability: Yes Contractions: Irregular Comments: Variables and contractions/irritabi lity noted on EFM. Tracing reviewed with Dr Tejeda.[facility] instructions given, labor precautions reviewed. To JAGDISH for extended monitoring and evaluation. NST Interpretation: Nonstress Test Interpretation: Reactive (Reji Tejeda MD) Comments: Recurrent variable decelerations. Pt reporting abdominal tightening correlating with tocometer contractions. To OB ED for prolonged evaluation, at least 2 hours. Sign-out given to OB ED team. (Reji Tejeda MD) NST performed by: Thania Noyola RN 06/07/2024 12:11 PM [facility] Ultrasound - OfficeOrdered B y: Aida Sauceda on 06-05-2024 Radiology Study observation (narrative) [facility] Ultrasound - Officeon 2024 Radiology Study observation (narrative) [facility] Radiology Study observation (narrative) [facility] US OB BPP W NON-STRESS on 06-01-2024 [place] [address] Ultrasound Report Signed Patient: SEJAL NOWAK MR#: [id number] : 1995 Acct:[id number] Age/Sex: 28 / F ADM Date: [facility]: Sandy Costello D.O. Ordering Physician: Sandy Costello D.O. Date of Service: 06/01/24 Procedure(s): US OB BPP w non-stress Accession Number(s): [id number] cc: Sandy Costello D.O.; TRAN RICE [place] [id number] Patient Name: SEJAL NOWAK MRN: [facility]:[id number] date: 1995 Sex: F Assigned [facility] Accession/Order Number: [id number] Exam Date: 06/01/2024 11:20 Report Date: 06/01/2024 11:22 At the request of: SANDY COSTELLO DO Procedure: US OB BPP w non-stress BIOPHYSICAL PROFILE: CLINICAL INFORMATION: iugr, low monique COMPARISON: 03/23/2024 anatomy survey There is a single live intrauterine gestation in cephalic presentation. The reported gestational age is 31 weeks 1 day. The heart rate [id number] beats per minute. FINDINGS: TONE: 1 or [...] Anita Jaimes M.D.06/01/2024 11:22 AM Dictation Location: [place] [address] Electronically authenticated by: [id number] Y Date: 06/01/2024 11:22 Dictated By: Anita Jaimes M.D. Signed By: 06/01/245 DD/ 21 TD/TT: Campus Dean: [facility] Radiology, Radiologist, - 06/01/[address] [address] Ultrasound Report Signed Patient: SEJAL NOWAK MR#: [id number] : 1995 Acct:[id number] Age/Sex: 28 / F ADM Date: [facility]: Sandy Costello D.O. Ordering Physician: Sandy Costello D.O. Date of Service: 06/01/24 Procedure(s): US OB BPP w non-stress Accession Number(s): [id number] cc: Sandy Costello D.O.; TRAN RICE [place] [address] Patient Name: SEJAL NOWAK MRN: [facility]:[id number] date: 1995 Sex: F Assigned [facility] Accession/Order Number: [id number] Exam Date: 06/01/2024 11:20 Report Date: 06/01/2024 [...] Anita Jaimes M.D.06/01/2024 11:22 AM Dictation Location: [place] [address] Electronically authenticated by: [id number] Y Date: 06/01/2024 11:22 Dictated By: Anita Jaimes M.D. Signed By: 06/01/24 1125 DD/ 112 TD/TT: Campus Dean: [facility] Radiology Study observation (narrative) [facility] US OB BPP W NON-STRESS Ordered By: Radiologist Radiology on 06-01-2024 [facility] Work Phone: US OB FOLLOW UP TRANSABDOMIN [...] 1344 gm / 2 lbs, 15 oz (9530-5755 gm) [place] Normal: 1780 gm (0257-7403 gm) [place] Wt%: <3% for 31.1 wks [...] report is generated using voice recognition reporting ([employer]). On occasion [employer] erroneously drops words from the report or [...] of 05/10/2024: 28w0d Ultrasound - Officeon 2024 [facility] Urinalysis macro (dipstick) panel (U)on 05-25-2024 Bilirubin, UA Negative Negative - 4(70) +++ mg/dL [facility] Blood, UA Negative Negative - 50 Kvng/mcL [facility] Clarity, UA Clear [facility] Color, UA Yellow [facility] Glucose, UA Negative Negative - 1999(110) ++++ mg/dL [facility] Interpretation and review of laboratory results Normal [facility] Ketones, UA Negative Negative - 160(16) ++++ mg/dL [facility] Leukocytes, UA Negative Negative - 500+++ Sandra/mcL [facility] Nitrite, UA Negative Negative - Positive [facility] pH, UA 7 5 - 9 [facility] Protein, UA Negative Negative - 1999(20) ++++ mg/dL [facility] Spec Grav, UA 1.02 1 - 1.03 [facility] Urobilinogen, UA 0.2 0.2 - 12 mg/dL [facility] Urinalysis macro (dipstick) panel (U)on 05-10-2024 Bilirubin, UA Negative Negative - 4(70) +++ mg/dL [facility] Blood, UA Negative Negative - 50 Kvng/mcL [facility] Clarity, UA Clear [facility] Color, UA Yellow [facility] Glucose, UA Negative Negative - 1999(110) ++++ mg/dL [facility] Interpretation and review of laboratory results Normal [facility] Ketones, UA Negative Negative - 160(16) ++++ mg/dL [facility] Leukocytes, UA Negative Negative - 500+++ Sandra/mcL [facility] Nitrite, UA Negative Negative - Positive [facility] pH, UA 7 5 - 9 [facility] Protein, UA Negative Negative - 1999(20) ++++ mg/dL [facility] Spec Grav, UA 1.02 1 - 1.03 [facility] Urobilinogen, UA 0.2 0.2 - 12 mg/dL [facility] ALL CBC WITH AUTO DIFFon BASOPHILS ABSOLUTE AUTO 0 [facility] Basophils/100 WBC (Bld) 0.4 % 0.2 - 2.0 % [facility] Eosinophils/100 WBC (Bld) 1.1 % 0.9 - 7.0 % [facility] Erythrocyte distribution width (RBC) [Ratio] 13.1 % 11.0 - 15.0 % [facility] Hematocrit (Bld) [Volume fraction] 34.4 % Low 36.0 - 48.0 % [facility] Hemoglobin (Bld) [Mass/Vol] 11.7 g/dL Low 12.0 - 16.0 g/dL [facility] IMMATURE GRANULOCYTES ABS AUTO 0.04 High [facility] Immature granulocytes/100 WBC (Bld) 0.4 % 0.0 - 0.5 % [facility] Interpretation and review of laboratory results Abnormal [facility] LYMPHOCYTES ABSOLUTE AUTO 1.2 [facility] Lymphocytes/100 WBC (Bld) 11.3 % Low 20.5 - 60.0 % [facility] MCH (RBC) [Entitic mass] 30.5 pg 26.7 - 34.0 pg [facility] MCHC (RBC) [Mass/Vol] 34 g/dL 29.9 - 35.2 g/dL [facility] MCV (RBC) [Entitic vol] 89.6 fL 81.0 - 99.0 fL [facility] MONOCYTES ABSOLUTE AUTO 0.7 [facility] Monocytes/100 WBC (Bld) 6.4 % 1.7 - 12.0 % [facility] NEUTROPHILS ABSOLUTE AUTO 8.3 High [facility] Neutrophils/100 WBC (Bld) 80.4 % High 43.0 - 75.0 % [facility] Platelet mean volume (Bld) [Entitic vol] 9.7 fL 9.5 - 13.5 fL [facility] TBH EO # 0.1 [facility] PLT 243 [facility] TB RBC 3.84 Low [facility] WBC 10.3 [facility] Urinalysis macro (dipstick) panel (U)on 05-03-2024 Bilirubin, UA Negative Negative - 4(70) +++ mg/dL [facility] Blood, UA Negative Negative - 50 Kvng/mcL [facility] Clarity, UA Clear [facility] Color, UA Yellow [facility] Glucose, UA Negative Negative - 2000(110) ++++ mg/dL [facility] Interpretation and review of laboratory results Normal [facility] Ketones, UA Negative Negative - 160(16) ++++ mg/dL [facility] Leukocytes, UA Negative Negative - 500+++ Sandra/mcL [facility] Nitrite, UA Negative Negative - Positive [facility] pH, UA 6.5 5 - 9 [facility] Protein, UA Negative Negative - 1999(20) ++++ mg/dL [facility] Spec Grav, UA 1.025 1 - 1.03 [facility] Urobilinogen, UA 1.0 0.2 - 12 mg/dL [facility] Ultrasound - Officeon 2023 [facility] Ultrasound - OfficeOrdered B y: Aida Sauceda on 03-23-2024 [facility] Urinalysis macro (dipstick) panel (U)on 03-23-2024 Bilirubin, UA Negative Negative - 4(70) +++ mg/dL [facility] Blood, UA Negative Negative - 50 Kvng/mcL [facility] Clarity, UA Clear [facility] Color, UA Yellow [facility] Glucose, UA Negative Negative - 1999(110) ++++ mg/dL [facility] Interpretation and review of laboratory results Normal [facility] Ketones, UA Negative Negative - 160(16) ++++ mg/dL [facility] Leukocytes, UA Negative Negative - 500+++ Sandra/mcL [facility] Nitrite, UA Negative Negative - Positive [facility] pH, UA 6.5 5 - 9 [facility] Protein, UA Negative Negative - 1999(20) ++++ mg/dL [facility] Spec Grav, UA 1.025 1 - 1.03 [facility] Urobilinogen, UA 0.2 0.2 - 12 mg/dL [facility] IGP,APTIMA HPV,AGE GDLNon AGE GDLN ACOG TESTING Note . [facility] Comment on above: TESTS RESULT FLAG UN ITS REF RANGE LAB Clinician Provided Cytology Information Source.............Cervix Other.............. No. of containers..01 ThinPrep Vial Age Algo ACOG Letha... -03 05 FLAG LEGEND: L-Low Normal,H-High Normal,LL-Alert Low,HH-Alert High <-Panic Low,>-Panic High,A-Abnormal,AA-Critical Abnormal Performed at: 01 =G [facility] [place] [address] Autumn Mckoy MD, IGP, RFX APTIMA HPV ASCU Note . [facility] Comment on above: TESTS RESULT FLAG UN ITS REF RANGE LAB DIAGNOSIS: 02 NEGATIVE FOR INTRAEPITHELIAL LESION OR MALIGNANCY. Specimen adequacy: 02 Satisfactory for evaluation. No endocervical component is identified. Performed by: Meaghan Curry, Spares Scheduler ([facility]) . 02 Note: Note 03 The Pap [...] High,A-Abnormal,AA-Critical Abnormal Performed at: 02 [facility] [address] [place] [address] Hao Blackman MD, [address] [facility] [address] Autumn Mckoy MD, Performed at: =G - [facility] [id number] Cryptologic Technician Technical: Autumn Mckoy MD, Phone: [phone] Performed at: [facility] [address] [place], [place] [id number] Cryptologic Technician Technical: Hao Blackman MD, Phone: [phone] SPATULA-ALONE CERVIX [facility] RECURRENT VAGINITIS (HTRX)on 02-24-2024 ATOPOBIUM VAGINAE 0 [facility] ATOPOBIUM VAGINAE Not detected [facility] BVAB 2,3 (BACTERIAL VAGINOSIS ASSOCIATED BACTERIA 2, 3); MOBILUNCUS SPP 0 [facility] BVAB 2,3 (BACTERIAL VAGINOSIS ASSOCIATED BACTERIA 2, 3); MOBILUNCUS SPP Not detected [facility] NICKY ALBICANS, PARAPSILOSIS, TROPICALIS 0 [facility] NICKY ALBICANS, PARAPSILOSIS, TROPICALIS Not detected [facility] NICKY GLABRATA 0 [facility] NICKY GLABRATA Not detected [facility] NICKY KRUSEI 0 [facility] NICKY KRUSEI Not detected [facility] CHLAMYDIA TRACHOMATIS 0 [facility] CHLAMYDIA TRACHOMATIS Not detected [facility] GARDNERELLA VAGINALIS 0 [facility] GARDNERELLA VAGINALIS Not detected [facility] MEGASPHAERA (TYPES 1, 2) 0 [facility] MEGASPHAERA (TYPES 1, 2) Not detected [facility] MYCOPLASMA GENITALIUM 0 [facility] MYCOPLASMA GENITALIUM Not detected [facility] NEISSERIA GONORRHOEAE 0 [facility] NEISSERIA GONORRHOEAE Not detected [facility] TRICHOMONAS VAGINALIS 0 [facility] TRICHOMONAS VAGINALIS Not detected N [facility] Urinalysis macro (dipstick) panel (U)on 02-23-2024 Bilirubin, UA Negative Negative - 4(70) +++ mg/dL [facility] Blood, UA Negative Negative - 50 Kvng/mcL [facility] Clarity, UA Clear [facility] Color, UA Yellow [facility] Glucose, UA Negative Negative - 1999(110) ++++ mg/dL [facility] Interpretation and review of laboratory results Normal [facility] Ketones, UA Negative Negative - 160(16) ++++ mg/dL [facility] Leukocytes, UA Negative Negative - 500+++ Sandra/mcL [facility] Nitrite, UA Negative Negative - Positive [facility] pH, UA 7 5 - 9 [facility] Protein, UA Negative Negative - 1999(20) ++++ mg/dL [facility] Spec Grav, UA 1.025 1 - 1.03 [facility] Urobilinogen, UA 0.2 0.2 - 12 mg/dL [facility] Urinalysis macro (dipstick) panel (U)on 01-25-2024 Bilirubin, UA Positive Negative - 4(70) +++ mg/dL [facility] Comment on above: small Blood, UA Negative Negative - 50 Kvng/mcL [facility] Clarity, UA Clear [facility] Color, UA Yellow [facility] Glucose, UA Negative Negative - 1999(110) ++++ mg/dL [facility] Interpretation and review of laboratory results Abnormal [facility] Ketones, UA Positive Negative - 160(16) ++++ mg/dL [facility] Comment on above: moderate Leukocytes, UA Negative Negative - 500+++ Sandra/mcL [facility] Nitrite, UA Negative Negative - Positive [facility] pH, UA 6.5 5 - 9 [facility] Protein, UA Trace Negative - 1999(20) ++++ mg/dL [facility] Spec Grav, UA 1.025 1 - 1.03 [facility] Urobilinogen, UA 0.2 0.2 - 12 mg/dL [facility] MLR HEMOGLOBIN A1Con 024 Glucose [Mass/Vol] 91 mg/dL [facility] HbA1c (Bld) [Mass fraction] 4.8 % 4.5 - 6.2 % [facility] Comment on above: ADA RECOMMENDED LIMI T 4.0 - 6.0 ADA THERAPEUTIC TARGET < 7.0 ACTION SUGGESTED > 7.0 [facility] No Panel Informationon 01-13 [facility] Rubella IGG immune statuson 01-14-2024 Rubella immune IgG immune [facility] Syphilis Total(Unknown Syphi lis Status)Ordered By: Aida Sauceda on 01-14-2024 Syphilis Non-Reactive [facility] TB DRUG SCREEN RAPID (URINE )on 01-14-2024 AMPHETAMINE SCREEN URINE Negative NEGATIVE [facility] BARBITURATES SCREEN URINE Negative NEGATIVE [facility] BENZODIAZEPINES SCREEN URINE Negative NEGATIVE [facility] BUPRENORPHINE SCREEN URINE Negative NEGATIVE [facility] Comment on above: DRUG CLASS TEST [...] 300 ng/mL CANNABINOID SCREEN URINE Negative NEGATIVE [facility] COCAINE SCREEN URINE Negative NEGATIVE [facility] METHADONE SCREEN URINE Negative NEGATIVE [facility] METHAMPHETAMINES SCREEN URINE Negative NEGATIVE [facility] OPIATE SCREEN URINE Negative NEGATIVE [facility] OXYCODONE SCREEN URINE Negative NEGATIVE [facility] PHENCYCLIDINE SCREEN URINE Negative NEGATIVE [facility] TRICYCLIC ANTIDEPRESSANT URINE Negative NEGATIVE [facility] HCG ( test) Ql (U)o n 12-31-2023 Interpretation and review of laboratory results Abnormal [facility] Preg Test, Ur Positive [facility] Urinalysis macro (dipstick) panel (U)on 12-31-2023 Bilirubin, UA Negative Negative - 4(70) +++ mg/dL [facility] Blood, UA Negative Negative - 50 Kvng/mcL [facility] Clarity, UA Clear [facility] Color, UA Yellow [facility] Glucose, UA Negative Negative - 2000(110) ++++ mg/dL [facility] Interpretation and review of laboratory results Normal [facility] Ketones, UA Negative Negative - 160(16) ++++ mg/dL [facility] Leukocytes, UA Negative Negative - 500+++ Sandra/mcL [facility] Nitrite, UA Negative Negative - Positive [facility] pH, UA 7.0 5 - 9 [facility] Protein, UA Positive Negative - 2000(20) ++++ mg/dL [facility] Spec Grav, UA 1.020 1 - 1.03 [facility] Urobilinogen, UA 1.0 0.2 - 12 mg/dL [facility] Vital Signs Date Time Vital Sign Value Performing Clinician Jc ware 06-22-2024 09:10-0400 Body weight 59.42 kg [employer] Work Phone: [facility] 06-22-2024 09:10-0400 Diastolic blood pressure 70 mm[Hg] [employer] Work Phone: [facility] 06-22-2024 09:10-0400 Systolic blood pressure 116 mm[Hg] [employer] Work Phone: [facility] 06-08-2024 11:44-0500 Body weight 58.06 kg Alma BRANHAM Work Phone: [facility] 06-08-2024 11:44-0500 Diastolic blood pressure 82 mm[Hg] Alma BRANHAM Work Phone: [facility] 06-08-2024 11:44-0500 Systolic blood pressure 128 mm[Hg] Alma BRANHAM Work Phone: [facility] 06-07-2024 11:32-0500 Diastolic blood pressure 71 mm[Hg] [address] 06-07-2024 11:32-0500 Heart rate 81 /min [address] 06-07-2024 11:32-0500 Systolic blood pressure 115 mm[Hg] [address] 06-07-2024 09:32-0500 Body height 157.5 cm Reji Tejeda MD Work Phone: [facility] 05-25-2024 11:54-0500 Body weight 56.43 kg Sandy Pravin DO Work Phone: [facility] 05-25-2024 11:54-0500 Diastolic blood pressure 72 mm[Hg] Sandy Pravin DO Work Phone: [facility] 05-25-2024 11:54-0500 Systolic blood pressure 116 mm[Hg] Sandy Pravin DO Work Phone: [facility] 05-10-2024 09:39-0500 Body weight 54.8 kg Alma BRANHAM Work Phone: [facility] 05-10-2024 09:39-0500 Diastolic blood pressure 70 mm[Hg] Alma BRANHAM Work Phone: [facility] 05-10-2024 09:39-0500 Systolic blood pressure 100 mm[Hg] Alma BRANHAM Work Phone: [facility] 04-20-2024 10:01-0500 Body weight 53.25 kg Sandy Pravin DO Work Phone: [facility] 04-20-2024 10:01-0500 Diastolic blood pressure 60 mm[Hg] Sandy Pravin DO Work Phone: [facility] 04-20-2024 10:01-0500 Systolic blood pressure 100 mm[Hg] Sandy Pravin DO Work Phone: [facility] 03-23-2024 12:42-0500 Body weight 51.26 kg Sandy Pravin DO Work Phone: [facility] 03-23-2024 12:42-0500 Diastolic blood pressure 62 mm[Hg] Sandy Pravin DO Work Phone: [facility] 03-23-2024 12:42-0500 Systolic blood pressure 102 mm[Hg] Sandy Pravin DO Work Phone: [facility] 02-23-2024 10:48-0500 Body weight 49.9 kg Alma BRANHAM Work Phone: [facility] 02-23-2024 10:48-0500 Diastolic blood pressure 64 mm[Hg] Alma BRANHAM Work Phone: [facility] 02-23-2024 10:48-0500 Systolic blood pressure 102 mm[Hg] Alma BRANHAM Work Phone: [facility] 01-25-2024 10:45-0400 Body weight 47.68 kg Sandy Pravin DO Work Phone: [facility] 01-25-2024 10:45-0400 Diastolic blood pressure 64 mm[Hg] Sandy Pravin DO Work Phone: [facility] 01-25-2024 10:45-0400 Systolic blood pressure 100 mm[Hg] Sandy Pravin DO Work Phone: [facility] 12-02-2023 08:47-0400 Body height 157.48 cm [facility] 12-02-2023 08:47-0400 Body mass index (BMI) [Ratio] 19.5 kg/m2 [facility] 12-02-2023 08:47-0400 Body weight 48.53 kg [facility] 12-02-2023 08:47-0400 Diastolic blood pressure 80 mm[Hg] [facility] 12-02-2023 08:47-0400 Systolic blood pressure 122 mm[Hg] [facility] Encounters Encounter Date Encounter Type Care Provider Facility Start: 06-22-2024 End: 06-22-2024 Bamboo flowsheet Sandy Pravin DO Work Phone: [facility] Start: 06-22-2024 End: 06-22-2024 Bamboo flowsheet Sandy Pravin DO Work Phone: [facility] Start: 06-22-2024 End: 06-22-2024 Periodic preventive med est patient 40-64yrs Sandy Pravin DO Work Phone: [facility] Comment on above: Third trimester preg danielle; 34 weeks gestation of Start: 06-21-2024 End: 06-21-2024 Orders Only Anya Waters RN [facility] Comment on above: growth restric tion antepartum (Primary Dx) Start: 06-14-2024 End: 06-14-[address] 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 Start: 06-05-2024 End: 06-05-2024 Orders Only Not In System Ref Prov [facility] Start: 06-01-2024 End: 06-01-2024 Clinisync Result [...] 03-21-2024 End: 03-21-2024 ambulatory SANDY R PRAVIN [facility] Start: 03-07-2024 End: 03-07-2024 Chart abstracting Omayra Boyce [facility] Work Phone: [facility] Start: 02-23-2024 End: 02-23-2024 Bamboo flowsheet Alma BRANHAM Work Phone: [facility] Start: 02-23-2024 End: 03-06-2024 Bamboo flowsheet Alma BRANHAM Work Phone: [facility] Start: 02-23-2024 End: 03-06-2024 Clinisync Result Encounter Alma BRANHAM Work Phone: [facility] Unsolicited Start: 02-23-2024 End: 02-24-2024 External Result Encounter Alma Vargas CARROL Work Phone: [facility] Unsolicited Start: 02-23-2024 End: 02-23-2024 Patient encounter procedure Alma Vargas CARROL Work Phone: [facility] Start: 02-23-2024 End: 02-23-2024 flow sheet Alma Vargas CARROL Work Phone: [facility] Comment on above: Well woman exam with routine gynecological exam; Second trimester ; 17 weeks gestation of ; Need for maternal serum alpha-protein (MSAFP) screening; Screening, , for anatomic survey; Screen for STD (sexually transmitted disease) Start: 02-23-2024 End: 02-23-2024 ambulatory ALMA ALICIA Not Available Start: 01-25-2024 End: 01-25-2024 Bamboo [...] Not Available Start: 12-02-2023 Patient encounter status [facility] Start: 12-02-2023 End: 12-02-2023 ambulatory [facility] Work Phone: Start: 12-02-2023 End: 12-02-2023 Encounter for general adult medical examination without abnormal findings [facility] Start: 12-02-2023 End: 12-02-2023 Patient encounter procedure [facility] Physician [facility] Work Phone: Procedures Date Procedure Procedure Detail Performing Clinician Start: 06-22-2024 Urnls dip stick/tabl et rgnt non-auto w/o micrscp Alma BRANHAM Work Phone: Start: 06-08-2024 Urnls dip stick/tabl et rgnt non-auto w/o micrscp Alma BRANHAM Work Phone: Start: 06-07-2024 nonstress test Ir daniel Tejeda MD Work Phone: Start: 06-01-2024 US [...] malign ant neoplasm of cervix Pap Smear [facility] Start: 06-21-2025 End: 06-21-2025 US MFM with or without consult US MFM with or without consult Imaging Routine growth restriction antepartum Expected: 06/21/2025 (Approximate), Expires: 06/21/2025 [facility] Work Phone: Comment on above: Expected: 06/21/2025 (Approximate), Expires: 06/21/2025 Start: 06-07-2025 Adult BMI Screening Adult BMI Screen ing [facility] Start: 06-07-2025 Tobacco Screening Tobacco Screening [facility] Start: 06-07-2025 End: 06-07-2025 US MFM with or without consult US MFM with or without consult Imaging Routine growth restriction antepartum 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 [address] [place] [phone] [facility] Start: 06-28-2024 End: 06-28-2024 Patient encounter procedure 06/28/2024 8:45 AM EDT Appointment [facility] [address] [place] [phone] [facility] Start: 06-22-2024 End: 06-22-2025 CULTURE, GROUP B STREP WITH SUSCEPTIBLITY CULTURE, GROUP B STREP WITH SUSCEPTIBLITY Lab Routine Third trimester Expected: 06/22/2024, Expires: 06/22/2025 [facility] Work Phone: Comment on above: Expected: 06/22/2024 , Expires: 06/22/2025 Start: 06-22-2024 End: 06-22-2024 Patient encounter procedure [facility] Comment on above: Arrived Start: 06-21-2024 End: 06-21-2024 Patient encounter procedure 06/21/2024 9:00 AM EDT Appointment [facility] [address] [place] [phone] [facility] Start: 06-14-2024 End: 06-14-2024 Patient encounter procedure 06/14/2024 8:00 AM EDT Appointment [facility] [address] [place] [address] [facility] Start: 06-08-2024 End: 06-08-2024 Patient encounter procedure [facility] Comment on above: Arrived Start: 06-07-2024 End: 06-07-2025 nonstress test - Maternal Medicine nonstress test - Maternal Medicine OB Routine growth restriction antepartum Expected: 06/07/2024 (Approximate), Expires: 06/07/2025 [facility] Work Phone: Comment on above: Expected: 06/07/2024 (Approximate), Expires: 06/07/2025 Start: 06-07-2024 End: 06-07-2024 Patient encounter procedure [facility] Start: 06-01-2024 End: 06-01-2024 Professional / ancillary services management 06/01/2024 9:30 AM EST Ancillary Procedure [facility] [address] [place] [phone] [facility] Start: 05-25-2024 End: 05-25-2024 [...] (MSAFP) screening Expected: 03/24/2024 (Approximate), Expires: 03/24/2024 [facility] Comment on above: Expected: 03/24/2024 (Approximate), Expires: 03/24/2024 Start: 03-23-2024 End: 03-23-2024 Patient encounter procedure 03/23/2024 11:40 AM EST Routine [facility] [address] [place] [phone] Sandy Costello, [address] [place] [address] [facility] Start: 03-23-2024 End: 03-23-2024 Professional / ancillary services management 03/23/2024 10:30 AM EST Ancillary Procedure [facility] [address] [place] [address] [facility] Start: 03-21-2024 End: 03-21-2024 Telemedicine consultation with patient 03/21/2024 9:00 AM EST Telemedicine Maternal- Medicine at [place] [address] [place] [address] Omayra Boyce P, [facility] [address] [place] [address] [facility] Start: 02-23-2024 End: 02-22-2025 US for [...] first trimester Expected: 12/31/2023 (Approximate), Expires: 12/30/2024 [facility] Comment on above: Expected: 12/31/2023 (Approximate), Expires: 12/30/2024 Start: 12-31-2023 End: 09-27-2025 US Pelvis transvaginal US OB transvaginal Imaging Routine Missed menses Expected: 12/31/2023 (Approximate), Expires: 12/30/2024 [facility] Comment on above: Expected: 12/31/2023 (Approximate), Expires: 12/30/2024 Start: 12-05-2023 Influenza vaccination Influenza Vacc ine [facility] Start: 11-06-2019 DTaP,Tdap and Td Vaccines (7 - Td or Tdap) DTaP,Tdap and Td Vaccines (7 - Td or Tdap) [facility] Start: 2018 Screening for malign ant neoplasm of cervix Pap Smear [facility] Start: 09-29-2015 Adult BMI Screening Adult BMI Screen ing [facility] Start: 2009 Depression Screening Depression Scre ening [facility] Start: 2009 Tobacco Screening Tobacco Screening [facility] Bacteria identified in Urine by Culture Urine culture Microbiology Routine Missed menses Ordered: 12/31/2023 [facility] Comment on above: Ordered: 12/31/2023 CBC W Auto Different ial panel - Blood CBC and differential Lab Routine Missed menses , unspecified gestational age Ordered: 12/31/2023 [facility] Comment on above: Ordered: 12/31/2023 CHLAMYDIA TRACHOMATI S (GENITO/STI) CHLAMYDIA TRACHOMATIS (GENITO/STI) Lab Routine Screen for STD (sexually transmitted disease) Ordered: 02/23/2024 [facility] Comment on above: Ordered: 02/23/2024 Cytology Cervical or vaginal smear or scraping study Pap Smear Pathology and Cytology Routine Well woman exam with routine gynecological exam Ordered: 02/23/2024 [facility] Comment on above: Ordered: 02/23/2024 Hemoglobin A1c/Hemoglobin.total in Blood Hemoglobin A1c Lab Routine Missed menses , unspecified gestational age Ordered: 12/31/2023 [facility] Comment on above: Ordered: 12/31/2023 Hepatitis B virus surface Ag [Presence] in Serum or Plasma by Immunoassay Hepatitis B surface antigen Lab Routine Missed menses , unspecified gestational age Ordered: 12/31/2023 [facility] Comment on above: Ordered: 12/31/2023 Hepatitis C virus Ab [Presence] in Serum or Plasma by Immunoassay Hepatitis C antibody Lab Routine Missed menses , unspecified gestational age Ordered: 12/31/2023 [facility] Comment on above: Ordered: 12/31/2023 HIV-1/HIV-2 antigen/antibody combination immunoassay HIV-1 and HIV-2 antibodies Lab Routine Missed menses , unspecified gestational age Ordered: 12/31/2023 [facility] Comment on above: Ordered: 12/31/2023 Neisseria gonorrhoea e DNA [Presence] in Unspecified specimen by RUBEN with probe detection Neisseria gonorrhea DNA probe, direct Lab Routine Screen for STD (sexually transmitted disease) Ordered: 02/23/2024 [facility] Comment on above: Ordered: 02/23/2024 Reagin Ab [Presence] in Serum by RPR RPR Lab Routine Missed menses , unspecified gestational age Ordered: 12/31/2023 [facility] Comment on above: Ordered: 12/31/2023 Rubella antibody, IgG Rubella an tibody, IgG Lab Routine Missed menses , unspecified gestational age Ordered: 12/31/2023 [facility] Comment on above: Ordered: 12/31/2023 SURESWAB(R) ADVANCED VAGINITIS PLUS, TMA SURESWAB(R) ADVANCED VAGINITIS PLUS, TMA Pathology and Cytology Routine Screen for STD (sexually transmitted disease) Ordered: 02/23/2024 [facility] Work Phone: Comment on above: Ordered: 02/23/2024 Immunizations Immunization Date Immunization Notes Care Provider Kedar chahal 11-13-2015 hepatitis A vaccine, pediatric/adolescent dosage, 2 dose schedule [facility] Work Phone: [facility] 11-13-2015 meningococcal polysaccharide (groups A, C, Y and W-135) diphtheria toxoid conjugate vaccine (MCV4P) [facility] Work Phone: [facility] 04-24-2015 influenza, injectabl e, quadrivalent, preservative free [facility] Work Phone: [facility] 04-24-2015 influenza virus vaccine, unspecified formulation [facility] Work Phone: [facility] 11-05-2009 tetanus toxoid, redu dilip diphtheria toxoid, and acellular pertussis vaccine, adsorbed [facility] Work Phone: [facility] 11-05-2009 varicella virus vaccine Made line [facility] Work Phone: [facility] 03-14-2009 influenza, seasonal, injectable, preservative free Omayra Aust[facility] Work Phone: [facility] 01-24-2003 hepatitis B vaccine, adult dosage Omayra Austen LC Work Phone: [facility] 11-28-2002 diphtheria, tetanus toxoids and acellular pertussis vaccine, 5 pertussis antigens Omayra Austen [facility] Work Phone: [facility] 11-28-2002 measles, mumps and rubella virus vaccine Oamyra Austen [facility] Work Phone: [facility] 11-28-2002 poliovirus vaccine, inactivated Omayra Austen [facility] Work Phone: [facility] 07-18-2001 varicella virus vaccine Made line Austen [facility] Work Phone: [facility] 04-09-1999 diphtheria, tetanus toxoids and acellular pertussis vaccine, 5 pertussis antigens Omayra Austen [facility] Work Phone: [facility] 04-09-1999 measles, mumps and rubella virus vaccine Omayra [facility] Work Phone: [facility] 03-25-1998 diphtheria, tetanus toxoids and acellular pertussis vaccine, 5 pertussis antigens Omayra Austen [facility] Work Phone: [facility] 03-25-1998 hepatitis B vaccine, adult dosage Omayra Aust[facility] Work Phone: [facility] 03-25-1998 poliovirus vaccine, inactivated Omayra Austen [facility] Work Phone: [facility] 02-13-1998 diphtheria, tetanus toxoids and acellular pertussis vaccine, 5 pertussis antigens Omayra Austen [facility] Work Phone: [facility] 02-13-1998 poliovirus vaccine, inactivated Omayra Austen [facility] Work Phone: [facility] 1997 diphtheria, tetanus toxoids and acellular pertussis vaccine, 5 pertussis antigens [facility] Work Phone: [facility] 1997 haemophilus influenz ae type b vaccine, PRP-OMP conjugate [facility] Work Phone: [facility] 1997 poliovirus vaccine, inactivated [facility] Work Phone: [facility] 1997 hepatitis B vaccine, adult dosage [facility] Work Phone: [facility] 1997 hepatitis B vaccine, adult dosage [facility] Work Phone: [facility] NEGATED: Highlighted row has not occurred!11-13-2015 human papilloma virus vaccine, quadrivalent [facility] Work Phone: [facility] Comment on above: Deferred: Other - parent declined Payers Date Payer Category Payer Blue Cross Blue Shield [id number] 2022 Blue Cross Blue Shie ld Managed Care - Other [id number] 2022 Unknown BCBS BCBS [id number] 2022-Present [phone] [address] [place] [address] [id number] 2022 Unknown [id number] 2020 Blue Cross Blue Shie ld Managed Care - PPO SARINA [id number] 1997 Unknown [id number] [id number]. 2.1258 1997 Unknown [id number] [id number]. 2.1258 1997 Unknown [id number] 2.16840.1.206059.3.579. 2.1258 1997 Unknown [id number] 2.16840.1.869147.3.579. 2.1258 1997 Unknown [id number] 2.16840.1.768044.3.579. 2.1258 1997 Unknown [id number] 2.16840.1.401493.3.579. 2.1258 1997 Unknown [id number] 2.16840.1.935145.3.579. 2.1258 1997 Unknown [id number] 2.16840.1.064026.3.579. 2.1258 1997 Unknown [id number] [id number]. 2.1258 1997 Unknown [id number] 2.16840.1.256815.3.579. 2.1285 1997 Unknown [id number] 2.16840.1.919473.3.579. 2.1285 1997 Unknown [id number] [id number]. 2.1285 1997 Unknown [id number] 2.16840.1.592652.3.579. 2.1286 1997 Unknown [id number] [id number]. 2.1286 1997 Unknown [id number] [id number]. 2.1286 Social History Date Type Detail Facility Tobacco smoking stat [facility] Unknown if ever smoked [facility] Work Phone: Start: 1997 Sex Assigned At Female F [facility] Tobacco smoking stat [facility] Tobacco smoking consumption unknown [facility] Start: 11-10-2023 [facility] Start: 1997 Sex assigned at Not on file [facility] Start: 05-16-2020 End: 03-07-2024 Gender identity Not on file [facility] Start: 02-13-2021 End: 06-07-2024 Tobacco smoking status NHIS Never smoked tobacco [facility] Start: 02-13-2021 End: 06-07-2024 Tobacco use and exposure Smokeless tobacco non-user [facility] Start: 03-07-2024 Alcoholic beverage intake Current non-drinker of alcohol (finding) [facility] Start: 05-16-2020 End: 03-07-2024 Alcoholic beverage intake [facility] Childcare Unknown [facility] Start: 11-06-2014 Sex Female (finding) [facility] Start: 06-05-2024 End: 06-07-2024 Alcoholic beverage intake Ex-drinker (finding) [facility] Clinical Notes 12-31-2023 to 06-22-2024 CARROL Harmon - 06/22/2024 9:10 AM CARROL Coello - 06/08/2024 11:30 AM Ayaka Noyola RN - 06/07/2024 11:15 AM Johann Tejeda MD - 06/07/2024 11:00 AM EST Note Date & Type Note Facility 06-22-2024 History of Present illness Narrative Reason for [...] Negative. Respiratory: Negative. Cardiovascular: Negative. Gastrointestinal: Negative. Musculoskeletal: Negative. Skin: Negative. Neurological: Negative. Psychiatric/Behavioral: Negative. All other systems reviewed and are negative. Hematological: Negative. Endocrine: Negative. OBJECTIVE Objective: Physical Exam Constitutional: Appearance: [...] weight on file to calculate BMI. BP: 116/70 Patient's last menstrual period was 10/27/2023. ASSESSMENT & PLAN ICD-10-CM 1. Third trimester Z34.93 POCT urinalysis dipstick manually resulted CULTURE, GROUP B STREP WITH SUSCEPTIBLITY 2. 34 weeks gestation of Z3A.34 Patient is doing well but has complaints of being tired and having maternal discomfort due to . Patient verbalized frequent movement and was instructed to perform kick counts three times per day. labor precautions were given, LARC consent was signed/declined, and GBS was obtained. Orders Placed This Encounter Procedures CULTURE, GROUP B STREP WITH SUSCEPTIBLITY POCT urinalysis dipstick manually resulted Follow Up: Patient is to return to office in 1 week for routine OB appointment Documented by CARROL Harmon on behalf of: Sandy Costello DO documented in this encounter [facility] 06-08-2024 History of Present illness Narrative Reason [...] of: CARROL Harmon documented in this encounter [facility] 06-07-2024 History of Present illness Narrative [...] all scheduled appointments documented in this encounter [facility] 06-07-2024 History of Present illness Narrative REASON FOR CONSULTATION: FGR HISTORY OF PRESENT ILLNESS: Sejal Nowak is a pleasant 28 y.o. at 32w0d due on Estimated Date of Delivery: 4/30/25. complicated by: Severe FGR with EFW 1% [...] TESTS AND ULTRASOUND REPORTS: Referral records and [facility] chart were reviewed Pertinent Ultrasound findings are [...] Based on ultrasound findings today recommend delivery [facility] recommendations summary FGR is defined as [...] later - absent end-diastolic flow umbilical artery: [id number] or at time of diagnosis if diagnosed later. - reversed end-diastolic flow umbilical artery: [id number] or at time of diagnosis if diagnosed [...] 34 weeks gestation. Delivery method preferred vaginal. Taylor C/S for usual obstetrical indications Recommend steroids if delivery before 34 weeks. Consider steroids if delivery after 34 weeks and before 37 weeks. DISPOSITION: At this point the patient is in complete care of her video arcade manager. Patient does have ultrasound scheduled with us. Thank you for allowing me to participate in the care of Sejal Nowak. If there any questions please do not hesitate to contact us. Reji Tejeda MD [place] [address] [facility], the CDC, and other organizations representing maternal and public health professionals recommend that , , and lactating people and those considering receive the COVID-19 vaccination. Vaccination is the best method to reduce maternal and complications of SARS-CoV-2 infection. This document was created with [employer] technology. Though I make every effort to review the dictation as it is transcribed, on occasion the spoken word can be misinterpreted by the technology leading to inappropriate words, phrases, or sentences. This note is addressed to the requesting provider as a consultation for clinical guidance. Specific medical abbreviations are occasionally used and those are generally approved by the [place]?Board of?Obstetrics and?Gynecology?as well as?Jocelyn villasenor abbreviations. The above plan of care was based solely on the diagnoses for which a consultation was requested. ?More frequent testing may be indicated based on her other medical/obstetrical conditions. The management of other or medical conditions is beyond the scope of requested consultation and will continue to be followed by the primary video arcade manager or primary care provider. Note to patient: [...] office? Have you been seen here at [facility] in a previous ? Recent ER visits or hospitalizations? Bring blood sugar log or meter with you today? (Please bring them with you for every visit at [facility]) Flu vaccine (Feb-June)? Any concerns that you would like me to mention to the provider today? documented in this encounter [facility] 05-25-2024 History of Present illness Narrative [...] nursing note reviewed. Exam conducted with a pourer metal present. Vitals: There is no height or [...] Sandy Costello DO documented in this encounter [facility] 05-10-2024 History of Present illness Narrative [...] of: CARROL Harmon documented in this encounter [facility] 04-20-2024 History of Present illness Narrative [...] nursing note reviewed. Exam conducted with a pourer metal present. Vitals: There is no height or [...] Sandy Costello DO documented in this encounter [facility] 03-23-2024 History of Present illness Narrative [...] Sandy Costello DO documented in this encounter [facility] 02-23-2024 History of Present illness Narrative [...] of: CARROL Harmon documented in this encounter [facility] 01-25-2024 History of Present illness Narrative [...] nursing note reviewed. Exam conducted with a pourer metal present. Vitals: There is no height or [...] meat, and stay away from formerly [facility]. Patient has been consulted regarding any further do's and don'ts of . Patient voiced understanding and all questions and concerns were answered. Orders Placed This Encounter Procedures POCT urinalysis dipstick manually resulted Follow Up: Patient is to return in 4 weeks for routine OB appointment. Documented by Anita Oswald LPN on behalf of: Sandy Costello DO documented in this encounter [facility] 12-31-2023 History of Present illness Narrative [...] or undercooked meat, and stay away from susor. 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, antepartum [facility] Diagnosis growth restriction antepartum- Primary documented [facility]* Diagnosis Third trimester state, incidental 32 weeks gestation of documented in this encounter [facility] HealthcareEvaluation [facility]* Diagnosis growth restriction antepartum- Primary documented in this encounter [facility]* Diagnosis Third trimester state, incidental 34 weeks gestation of documented in this encounter [facility] HealthcareInstructionsNot on filedocumented in this encounter[facility] SystemInstructionsNot on filedocumented in this encounterPro[facility] SystemInstructionsNot on filedocumented in this encounterPro[facility] SystemInstructionsNot on filedocumented in this encounterPro[facility] System InstructionsNot on filedocumented in this encounterWay[facility] Chief Complaint and Reason for [...] Member Role Status Dates Tran Rice APRN STUDIO MODEL-C Primary Care Provider Active Team Status: Inactive Member Role Status Dates Tran Rice APRN STUDIO MODEL-C Primary Care Provider, Attending Provider Active Start: December 02, 2023 End: December 02, 2023 Tablet Making Machine Operator Helper Relationship Specialty Start Date End Date Tran Rice NP [address] [place] [address] PCP - General Family Medicine 12/31/23 Tablet Making Machine Operator Helper Relationship Specialty Start Date End Date Tran Rice NP [address] [place] [address] PCP - General Family Medicine 12/31/23 Tablet Making Machine Operator Helper Relationship Specialty Start Date End Date Tran Rice NP [address] [facility] [place] [address] PCP - General Family Medicine 12/31/23 Tablet Making Machine Operator Helper Relationship Specialty Start Date End Date Tran Rice NP [address] [facility] [place] [address] PCP - General Family Medicine 12/31/23 Tablet Making Machine Operator Helper Relationship Specialty [place] [address] [place] [address] [place] [address] PCP - General Family Medicine 12/31/23 Tablet Making Machine Operator Helper Relationship Specialty Start Date End Date Tran Rice NP [address] [facility] [place] [address] PCP - General Family Medicine 12/31/23 Tablet Making Machine Operator Helper Relationship Specialty Start Date End Date Tran Rice NP [address] [facility] [place] [address] PCP - General Family Medicine 12/31/23 Tablet Making Machine Operator Helper Relationship Specialty Start Date End Date Tran Rice NP [address] [place] [address] [place] [address] PCP - General Family Medicine 12/31/23 Tablet Making Machine Operator Helper Relationship Specialty Start Date End Date Tran Rice NP [address] [place] [address] [place] [address] PCP - General Family Medicine 12/31/23 Tablet Making Machine Operator Helper Relationship Specialty Start Date End Date Tran Rice NP [address] [place] [address] PCP - General Family Medicine 12/31/23 Tablet Making Machine Operator Helper Relationship Specialty Start Date End Date Tran Rice NP [address] [place] [id number] PCP - General Family Medicine 12/31/23 Tablet Making Machine Operator Helper Relationship Specialty Start Date End Date Arthur Kan MD PCP - General 08/09/14 Tablet Making Machine Operator Helper Relationship Specialty Start Date End Date Tran Rice NP [address] [place] [address] PCP - General Family Medicine 12/31/23 Tablet Making Machine Operator Helper Relationship Specialty Start Date End Date Arthur Kan MD PCP - General 08/09/14 Tablet Making Machine Operator Helper Relationship Specialty Start Date End Date Arthur Kan MD PCP - General 08/09/14 Tablet Making Machine Operator Helper Relationship Specialty Start Date End Date Arthur Kan MD PCP - General 08/09/14 Tablet Making Machine Operator Helper Relationship Specialty Start Date End Date Arthur Kan MD PCP - General 08/09/14 Tablet Making Machine Operator Helper Relationship Specialty Start Date End Date Arthur Kan MD PCP - General 08/09/14 Tablet Making Machine Operator Helper Relationship Specialty Start Date End Date Arthur Kan MD PCP - General 08/09/14 Tablet Making Machine Operator Helper Relationship Specialty Start Date End Date Arthur Kan MD PCP - General 08/09/14 Tablet Making Machine Operator Helper Relationship Specialty Start Date End Date Tran Rice NP [address] [place] [address] PCP - General Family Medicine 12/31/23 Goals [...] section and content) DATE CREATED AUTHOR 06/10/2024 [facility] DATE CREATED AUTHOR AUTHOR'S ORGANIZ ATION 06/16/2024 [facility] FOR RECORDS PERTAINING TO PATIENTS WHO ARE [...] BE BASED ON THE PRIMARY CLINICAL RECORDS. [employer] [facility]. provides no warranty or guarantee of the accuracy or completeness of information in this document.
== END 2024-06-22 12:15 | disposition home or self-care (01) ==
LOC: LAB 12:14
PROVIDERS: PCP Nurse Practitioner Family; Visit Provider Physician Assistant
DX: Z34.93 Encounter for supervision of normal pregnancy, unspecified, third trimester (principal)
CPT/HCPCS: 36415; 87081

== ENCOUNTER 2024-06-26 17:53 | Outpatient (OUT) | payer BC, SELFPAY ==
--- OUTSIDE RECORDS SUMMARY | 2024-06-26 18:00 | XMS_ITS | CCD ---
Author Organization [facility] Care Team Providers Care Rn Endocrinology Name Role Phone Dwayne LAND USE PLANNER, Tran Carbone Primary Care Provider Keith OSORIO, Arthur Thompson Primary Care Provider [phone] PRAVIN, SANDY R Referring Unavailable KEITH, ARTHUR Thompson Primary Care Unavailable PRAVIN, SANDY R Referring Unavailable KEITH, ARTHUR Thompson Primary Care Unavailable REJI TEJEDA Attending Unavailable PRAVIN, SANDY R Referring Unavailable KEITH, ARTHUR Thompson Primary Care Unavailable PRAVIN, SANDY R Referring Unavailable KEITH, ARTHUR Thompson Primary Care Unavailable RIKY STEARSN Admitting Unavailable RIKY STEARNS Attending Unavailable KEITH, ARTHUR Thompson Primary Care Unavailable PRAVIN, SANDY R Referring Unavailable KEITH, ARTHUR Thompson Primary Care Unavailable PRAVIN, SANDY R Referring Unavailable KEITH, ARTHUR Thompson Primary Care Unavailable ALICIA, ALMA Attending Unavailable PRAVIN, SANDY Attending Unavailable ALICIA, ALMA Referring Unavailable ALICIA, ALMA Attending Unavailable PRAVIN, SANDY Attending Unavailable PRAVIN, SANDY Attending Unavailable ALICIA, ALMA Attending Unavailable PRAVIN, SANDY Attending Unavailable PRAVIN, SANDY Attending Unavailable Allergies Allergy Classification Reported Allergen(s) Allergy Type Date of Onset Reaction(s) Facility (20 sources) Other Propensity to adverse reactions 4 [facility] Work Phone: (17 sources) Cat Hair Extract Propensity to adverse reactions 4 [facility] (9 sources) Cat Dander; Translations: [CAT DANDER] Propensity to adverse reactions to drug 4 [facility] Medications Current Medications Medication Drug [...] applicable or unspecified] Onset: 06-07-2024 Episodic Other and delivery including normal (16 [...] [34 weeks gestation of ] 06-22-2024 Episodic Residual codes; unclassified (1 source) Cystic fibrosis carrier; 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 fibrosis carrier] Onset: 06-14-2024 Episodic Residual codes; unclassified (1 source) 32 weeks gestation of ; Translations: [32 weeks gestation of ] Onset: 06-07-2024 Episodic Unclassified (1 source) Contractions Onset: 03-05-2025 Unclassified (1 source) borderline FGR Onset: 06-07-2024 Past or Other Problems Problem Classification Problem Date Documented Da te Episodic/Chronic Other complications of (1 source) Abnormal chromosomal and genetic finding on screening of mother; Translations: [Abnormal chromosomal and genetic finding on screening of mother] Onset: 03-21-2024 Episodic Other connective tissue disease (8 sources) Rotator [...] UA Negative Negative - 4(70) +++ mg/dL [facility] Blood, UA Negative Negative - 50 Kvng/mcL [facility] Clarity, UA Clear [facility] Color, UA Yellow [facility] Glucose, UA Positive Negative - 1999(110) ++++ mg/dL [facility] Comment on above: 100mg/dL Interpretation and review of laboratory results Abnormal [facility] Ketones, UA Negative Negative - 160(16) ++++ mg/dL [facility] Leukocytes, UA Negative Negative - 500+++ Sandra/mcL [facility] Nitrite, UA Negative Negative - Positive [facility] pH, UA 6.5 5 - 9 [facility] Protein, UA Negative Negative - 2000(20) ++++ mg/dL [facility] Spec Grav, UA 1.025 1 - 1.03 [facility] Urobilinogen, UA 0.2 0.2 - 12 mg/dL [facility] Urinalysis macro (dipstick) panel (U)on 06-08-2024 Bilirubin, UA Negative Negative - 4(70) +++ mg/dL [facility] Blood, UA Positive Negative - 50 Kvng/mcL [facility] Comment on above: trace-intact Clarity, UA Clear [facility] Color, UA Yellow [facility] Glucose, UA Negative Negative - 2000(110) ++++ mg/dL [facility] Interpretation and review of laboratory results Abnormal [facility] Ketones, UA Negative Negative - 160(16) ++++ mg/dL [facility] Leukocytes, UA Positive Negative - 500+++ Sandra/mcL [facility] Comment on above: small Nitrite, UA Negative Negative - Positive [facility] pH, UA 7 5 - 9 [facility] Protein, UA Negative Negative - 2000(20) ++++ mg/dL [facility] Spec Grav, UA 1.01 1 - 1.03 [facility] Urobilinogen, UA 0.2 0.2 - 12 mg/dL [facility] nonstress test - Mater nal Medicineon 06-07-2024 Patient Name: Sejal Livingston Patient : 1995 NST Objective Findings: Variability: Moderate Decelerations: Variable Accelerations: Yes Acoustic Stimulator: No Baseline: 120 BPM Uterine Irritability: Yes Contractions: Irregular Comments: Variables and contractions/irritabi lity noted on EFM. Tracing reviewed with Dr Tejeda.[facility] instructions given, labor precautions reviewed. To JAGDISH for extended monitoring and evaluation. NST Interpretation: Nonstress Test Interpretation: Reactive (Reji Tejeda MD) Comments: Recurrent variable decelerations. Pt reporting abdominal tightening correlating with tocometer contractions. To OB ED for prolonged evaluation, at least 2 hours. Sign-out given to OB ED team. (Reji Tejeda MD) NST performed by: Thania Noyola RN 06/07/2024 12:11 PM [facility] Ultrasound - OfficeOrdered B y: Aida Sauceda on 06-05-2024 Radiology Study observation (narrative) [facility] Ultrasound - Officeon 2024 Radiology Study observation (narrative) [facility] Radiology Study observation (narrative) [facility] US OB BPP W NON-STRESS on 06-01-2024 [place] [address] Ultrasound Report Signed Patient: SEJAL LIVINGSTON MR#: [id number] : 1995 Acct:[id number] Age/Sex: 28 / F ADM Date: Loc: [facility] 252-[address]: Sandy Costello D.O. Ordering Physician: Sandy Costello D.O. Date of Service: 06/01/24 Procedure(s): US OB BPP w non-stress Accession Number(s): [id number] cc: Sandy Costello D.O.; TRAN RICE [address] [address] Patient Name: SEJAL LIVINGSTON MRN: [facility]:[id number] date: 1995 Sex: F Assigned Patient Location: [facility] Current Patient Location: [facility] Accession/Order Number: [id number] Exam Date: 06/01/2024 11:20 Report Date: 06/01/2024 11:22 At the request of: SANDY COSTELLO DO Procedure: US OB BPP w non-stress BIOPHYSICAL PROFILE: CLINICAL INFORMATION: iugr, low monique COMPARISON: 03/23/2024 anatomy survey There is a single live intrauterine gestation in cephalic presentation. The reported gestational age is 31 weeks 1 day. The heart rate [id number] beats per minute. FINDINGS: TONE: 1 or [...] Anita Jaimes M.D.06/01/2024 11:22 AM Dictation Location: [place] [address] Electronically authenticated by: [id number] Y Date: 06/01/2024 11:22 Dictated By: Anita Jaimes M.D. Signed By: 06/01/24 1125 DD/ 112 TD/TT: Insurance Account Representative: [facility] Radiology, Radiologist, - 06/01/2024 The [place] [id number] Ultrasound Report Signed Patient: SEJAL LIVINGSTON MR#: [id number] : 1995 Acct:[id number] Age/Sex: 28 / F ADM Date: Loc: [facility] 252-[address]: Sandy Costello D.O. Ordering Physician: Sandy Costello D.O. Date of Service: 06/01/24 Procedure(s): US OB BPP w non-stress Accession Number(s): [id number] cc: Sandy Costello D.O.; TRAN RICE [place] [address] Patient Name: SEJAL LIVINGSTON MRN: [id number] date: 1995 Sex: F Assigned Patient Location: [facility] Current Patient Location: [facility] Accession/Order Number: [id number] Exam Date: 06/01/2024 11:20 Report Date: 06/01/2024 11:22 At the request of: SANDY COSTELLO DO Procedure: US OB BPP w non-stress BIOPHYSICAL PROFILE: CLINICAL INFORMATION: iugr, low monique COMPARISON: 03/23/2024 anatomy survey There is a single live intrauterine gestation in cephalic presentation. The reported gestational age is 31 weeks 1 day. The heart rate [id number] beats per minute. FINDINGS: TONE: 1 or [...] Anita Jaimes M.D.06/01/2024 11:22 AM Dictation Location: [place] Electronically authenticated by: [id number] Y Date: 06/01/2024 11:22 Dictated By: Anita Jaimes M.D. Signed By: 06/01/241124 DD/ 21 TD/TT: Insurance Account Representative: [facility] Radiology Study observation (narrative) [facility] US OB BPP W NON-STRESS Ordered By: Radiologist Radiology on 06-01-2024 [facility] Work Phone: US OB FOLLOW UP TRANSABDOMIN [...] 1344 gm / 2 lbs, 15 oz (2474-3785 gm) [place] Normal: 1780 gm (3945-4429 gm) [place] Wt%: <3% for 31.1 wks [...] report is generated using voice recognition reporting ([employer]). On occasion PowerScribe erroneously drops words from the report or [...] of 05/10/2024: 28w0d Ultrasound - Officeon 2024 [facility] Urinalysis macro (dipstick) panel (U)on 05-25-2024 Bilirubin, UA Negative Negative - 4(70) +++ mg/dL [facility] Blood, UA Negative Negative - 50 Kvng/mcL [facility] Clarity, UA Clear [facility] Color, UA Yellow [facility] Glucose, UA Negative Negative - 1999(110) ++++ mg/dL [facility] Interpretation and review of laboratory results Normal [facility] Ketones, UA Negative Negative - 160(16) ++++ mg/dL [facility] Leukocytes, UA Negative Negative - 500+++ Sandra/mcL [facility] Nitrite, UA Negative Negative - Positive [facility] pH, UA 7 5 - 9 [facility] Protein, UA Negative Negative - 1999(20) ++++ mg/dL [facility] Spec Grav, UA 1.02 1 - 1.03 [facility] Urobilinogen, UA 0.2 0.2 - 12 mg/dL [facility] Urinalysis macro (dipstick) panel (U)on 05-10-2024 Bilirubin, UA Negative Negative - 4(70) +++ mg/dL [facility] Blood, UA Negative Negative - 50 Kvng/mcL [facility] Clarity, UA Clear [facility] Color, UA Yellow [facility] Glucose, UA Negative Negative - 1999(110) ++++ mg/dL [facility] Interpretation and review of laboratory results Normal [facility] Ketones, UA Negative Negative - 160(16) ++++ mg/dL [facility] Leukocytes, UA Negative Negative - 500+++ Sandra/mcL [facility] Nitrite, UA Negative Negative - Positive [facility] pH, UA 7 5 - 9 [facility] Protein, UA Negative Negative - 1999(20) ++++ mg/dL [facility] Spec Grav, UA 1.02 1 - 1.03 [facility] Urobilinogen, UA 0.2 0.2 - 12 mg/dL [facility] ALL CBC WITH AUTO DIFFon BASOPHILS ABSOLUTE AUTO 0 [facility] Basophils/100 WBC (Bld) 0.4 % 0.2 - 2.0 % [facility] Eosinophils/100 WBC (Bld) 1.1 % 0.9 - 7.0 % [facility] Erythrocyte distribution width (RBC) [Ratio] 13.1 % 11.0 - 15.0 % [facility] Hematocrit (Bld) [Volume fraction] 34.4 % Low 36.0 - 48.0 % [facility] Hemoglobin (Bld) [Mass/Vol] 11.7 g/dL Low 12.0 - 16.0 g/dL [facility] IMMATURE GRANULOCYTES ABS AUTO 0.04 High [facility] Immature granulocytes/100 WBC (Bld) 0.4 % 0.0 - 0.5 % [facility] Interpretation and review of laboratory results Abnormal [facility] LYMPHOCYTES ABSOLUTE AUTO 1.2 [facility] Lymphocytes/100 WBC (Bld) 11.3 % Low 20.5 - 60.0 % [facility] MCH (RBC) [Entitic mass] 30.5 pg 26.7 - 34.0 pg [facility] MCHC (RBC) [Mass/Vol] 34 g/dL 29.9 - 35.2 g/dL [facility] MCV (RBC) [Entitic vol] 89.6 fL 81.0 - 99.0 fL [facility] MONOCYTES ABSOLUTE AUTO 0.7 [facility] Monocytes/100 WBC (Bld) 6.4 % 1.7 - 12.0 % [facility] NEUTROPHILS ABSOLUTE AUTO 8.3 High [facility] Neutrophils/100 WBC (Bld) 80.4 % High 43.0 - 75.0 % [facility] Platelet mean volume (Bld) [Entitic vol] 9.7 fL 9.5 - 13.5 fL [facility] TBH EO # 0.1 [facility] [address] [facility] RBC 3.84 Low [facility] WBC 10.3 [facility] Urinalysis macro (dipstick) panel (U)on 05-03-2024 Bilirubin, UA Negative Negative - 4(70) +++ mg/dL [facility] Blood, UA Negative Negative - 50 Kvng/mcL [facility] Clarity, UA Clear [facility] Color, UA Yellow [facility] Glucose, UA Negative Negative - 2000(110) ++++ mg/dL [facility] Interpretation and review of laboratory results Normal [facility] Ketones, UA Negative Negative - 160(16) ++++ mg/dL [facility] Leukocytes, UA Negative Negative - 500+++ Sandra/mcL [facility] Nitrite, UA Negative Negative - Positive [facility] pH, UA 6.5 5 - 9 [facility] Protein, UA Negative Negative - 1999(20) ++++ mg/dL [facility] Spec Grav, UA 1.025 1 - 1.03 [facility] Urobilinogen, UA 1.0 0.2 - 12 mg/dL [facility] Ultrasound - Officeon 2023 [facility] Ultrasound - OfficeOrdered B y: Aida Sauceda on 03-23-2024 [facility] Urinalysis macro (dipstick) panel (U)on 03-23-2024 Bilirubin, UA Negative Negative - 4(70) +++ mg/dL [facility] Blood, UA Negative Negative - 50 Kvng/mcL [facility] Clarity, UA Clear [facility] Color, UA Yellow [facility] Glucose, UA Negative Negative - 1999(110) ++++ mg/dL [facility] Interpretation and review of laboratory results Normal [facility] Ketones, UA Negative Negative - 160(16) ++++ mg/dL [facility] Leukocytes, UA Negative Negative - 500+++ Sandra/mcL [facility] Nitrite, UA Negative Negative - Positive [facility] pH, UA 6.5 5 - 9 [facility] Protein, UA Negative Negative - 1999(20) ++++ mg/dL [facility] Spec Grav, UA 1.025 1 - 1.03 [facility] Urobilinogen, UA 0.2 0.2 - 12 mg/dL [facility] IGP,APTIMA HPV,AGE GDLNon AGE GDLN ACOG TESTING Note . [facility] Comment on above: TESTS RESULT FLAG UN ITS REF RANGE LAB Clinician Provided Cytology Information Source.............Cervix Other.............. No. of containers..01 ThinPrep Vial Age Algo ACOG Letha... 21-29 01 FLAG LEGEND: L-Low Normal,H-High Normal,LL-Alert Low,HH-Alert High <-Panic Low,>-Panic High,A-Abnormal,AA-Critical Abnormal Performed at: 01 =G [facility] [address] Autumn Mckoy MD, IGP, RFX APTIMA HPV ASCU Note . [facility] Comment on above: TESTS RESULT FLAG UN ITS REF RANGE LAB DIAGNOSIS: 02 NEGATIVE FOR INTRAEPITHELIAL LESION OR MALIGNANCY. Specimen adequacy: 02 Satisfactory for evaluation. No endocervical component is identified. Performed by: Meaghan Curry, Laundry Operator Wash Room ([facility]) . 02 Note: Note 03 The [...] Low,>-Panic High,A-Abnormal,AA-Critical Abnormal Performed at: 02 [facility] [address] [address] [place] [address] Hao Blackman MD, [address] [address] Autumn Mckoy MD, Performed at: =G - [facility] [id number] Cellular Phone Repairer: Autumn Mckoy MD, Phone: [phone] Performed at: CYT - [facility] [address] [address] [place], [place] [id number] Cellular Phone Repairer: Hao Blackman MD, Phone: [phone] SPATULA-ALONE CERVIX [facility] RECURRENT VAGINITIS (HTRX)on 02-24-2024 ATOPOBIUM VAGINAE 0 [facility] ATOPOBIUM VAGINAE Not detected [facility] BVAB 2,3 (BACTERIAL VAGINOSIS ASSOCIATED BACTERIA 2, 3); MOBILUNCUS SPP 0 [facility] BVAB 2,3 (BACTERIAL VAGINOSIS ASSOCIATED BACTERIA 2, 3); MOBILUNCUS SPP Not detected [facility] NICKY ALBICANS, PARAPSILOSIS, TROPICALIS 0 [facility] [...] S Healthcare MYCOPLASMA GENITALIUM Not detected N [facility] NEISSERIA GONORRHOEAE 0 [facility] NEISSERIA GONORRHOEAE Not detected N [facility] TRICHOMONAS VAGINALIS 0 [facility] TRICHOMONAS VAGINALIS Not detected N [facility] Urinalysis macro (dipstick) panel (U)on 02-23-2024 Bilirubin, UA Negative Negative - 4(70) +++ mg/dL [facility] Blood, UA Negative Negative - 50 Kvng/mcL [facility] Clarity, UA Clear [facility] Color, UA Yellow [facility] Glucose, UA Negative Negative - 1999(110) ++++ mg/dL [facility] Interpretation and review of laboratory results Normal [facility] Ketones, UA Negative Negative - 160(16) ++++ mg/dL [facility] Leukocytes, UA Negative Negative - 500+++ Sandra/mcL [facility] Nitrite, UA Negative Negative - Positive [facility] pH, UA 7 5 - 9 [facility] Protein, UA Negative Negative - 1999(20) ++++ mg/dL [facility] Spec Grav, UA 1.025 1 - 1.03 [facility] Urobilinogen, UA 0.2 0.2 - 12 mg/dL [facility] Urinalysis macro (dipstick) panel (U)on 01-25-2024 Bilirubin, UA Positive Negative - 4(70) +++ mg/dL [facility] Comment on above: small Blood, UA Negative Negative - 50 Kvng/mcL [facility] Clarity, UA Clear [facility] Color, UA Yellow [facility] Glucose, UA Negative Negative - 1999(110) ++++ mg/dL [facility] Interpretation and review of laboratory results Abnormal [facility] Ketones, UA Positive Negative - 160(16) ++++ mg/dL [facility] Comment on above: moderate Leukocytes, UA Negative Negative - 500+++ Sandra/mcL [facility] Nitrite, UA Negative Negative - Positive [facility] pH, UA 6.5 5 - 9 [facility] Protein, UA Trace Negative - 1999(20) ++++ mg/dL [facility] Spec Grav, UA 1.025 1 - 1.03 [facility] Urobilinogen, UA 0.2 0.2 - 12 mg/dL [facility] MLR HEMOGLOBIN A1Con 024 Glucose [Mass/Vol] 91 mg/dL [facility] HbA1c (Bld) [Mass fraction] 4.8 % 4.5 - 6.2 % [facility] Comment on above: ADA RECOMMENDED LIMI T 4.0 - 6.0 ADA THERAPEUTIC TARGET < 7.0 ACTION SUGGESTED > 7.0 [facility] No Panel Informationon 01-13 [facility] Rubella IGG immune statuson 01-14-2024 Rubella immune IgG immune [facility] Syphilis Total(Unknown Syphi lis Status)Ordered By: Aida Sauceda on 01-14-2024 Syphilis Non-Reactive [facility] DRUG SCREEN RAPID (URINE )on 01-14-2024 AMPHETAMINE SCREEN URINE Negative NEGATIVE [facility] BARBITURATES SCREEN URINE Negative NEGATIVE [facility] BENZODIAZEPINES SCREEN URINE Negative NEGATIVE [facility] BUPRENORPHINE SCREEN URINE Negative NEGATIVE [facility] Comment on above: DRUG CLASS TEST [...] 300 ng/mL CANNABINOID SCREEN URINE Negative NEGATIVE [facility] COCAINE SCREEN URINE Negative NEGATIVE [facility] METHADONE SCREEN URINE Negative NEGATIVE [facility] METHAMPHETAMINES SCREEN URINE Negative NEGATIVE [facility] OPIATE SCREEN URINE Negative NEGATIVE [facility] OXYCODONE SCREEN URINE Negative NEGATIVE [facility] PHENCYCLIDINE SCREEN URINE Negative NEGATIVE [facility] TRICYCLIC ANTIDEPRESSANT URINE Negative NEGATIVE [facility] HCG ( test) Ql (U)o n 12-31-2023 Interpretation and review of laboratory results Abnormal [facility] Preg Test, Ur Positive [facility] Urinalysis macro (dipstick) panel (U)on 12-31-2023 Bilirubin, UA Negative Negative - 4(70) +++ mg/dL [facility] Blood, UA Negative Negative - 50 Kvng/mcL [facility] Clarity, UA Clear [facility] Color, UA Yellow [facility] Glucose, UA Negative Negative - 1999(110) ++++ mg/dL [facility] Interpretation and review of laboratory results Normal [facility] Ketones, UA Negative Negative - 160(16) ++++ mg/dL [facility] Leukocytes, UA Negative Negative - 500+++ Sandra/mcL [facility] Nitrite, UA Negative Negative - Positive [facility] pH, UA 7.0 5 - 9 [facility] Protein, UA Positive Negative - 1999(20) ++++ mg/dL [facility] Spec Grav, UA 1.020 1 - 1.03 [facility] Urobilinogen, UA 1.0 0.2 - 12 mg/dL [facility] Vital Signs Date Time Vital Sign Value Performing Clinician Jc ware 06-22-2024 09:10-0400 Body weight 59.42 kg [employer] Work Phone: [facility] 06-22-2024 09:10-0400 Diastolic blood pressure 70 mm[Hg] Media [employer] Work Phone: [facility] 06-22-2024 09:10-0400 Systolic blood pressure 116 mm[Hg] [employer] Work Phone: [facility] 06-08-2024 11:44-0500 Body weight 58.06 kg Alma BRANHAM Work Phone: [facility] 06-08-2024 11:44-0500 Diastolic blood pressure 82 mm[Hg] Alma BRANHAM Work Phone: [facility] 06-08-2024 11:44-0500 Systolic blood pressure 128 mm[Hg] Alma BRANHAM Work Phone: [facility] 06-07-2024 11:32-0500 Diastolic blood pressure 71 mm[Hg] [address] 06-07-2024 11:32-0500 Heart rate 81 /min [address] 06-07-2024 11:32-0500 Systolic blood pressure 115 mm[Hg] [address] 06-07-2024 09:32-0500 Body height 157.5 cm Reji Tejeda MD Work Phone: [facility] 05-25-2024 11:54-0500 Body weight 56.43 kg Sandy Pravin DO Work Phone: [facility] 05-25-2024 11:54-0500 Diastolic blood pressure 72 mm[Hg] Sandy Pravin DO Work Phone: [facility] 05-25-2024 11:54-0500 Systolic blood pressure 116 mm[Hg] Sandy Pravin DO Work Phone: [facility] 05-10-2024 09:39-0500 Body weight 54.8 kg Alma BRANHAM Work Phone: [facility] 05-10-2024 09:39-0500 Diastolic blood pressure 70 mm[Hg] Alma BRANHAM Work Phone: [facility] 05-10-2024 09:39-0500 Systolic blood pressure 100 mm[Hg] Alma BRANHAM Work Phone: [facility] 04-20-2024 10:01-0500 Body weight 53.25 kg Sandy Pravin DO Work Phone: [facility] 04-20-2024 10:01-0500 Diastolic blood pressure 60 mm[Hg] Sandy Pravin DO Work Phone: [facility] 04-20-2024 10:01-0500 Systolic blood pressure 100 mm[Hg] Sandy Pravin DO Work Phone: [facility] 03-23-2024 12:42-0500 Body weight 51.26 kg Sandy Pravin DO Work Phone: [facility] 03-23-2024 12:42-0500 Diastolic blood pressure 62 mm[Hg] Sandy Pravin DO Work Phone: [facility] 03-23-2024 12:42-0500 Systolic blood pressure 102 mm[Hg] Sandy Pravin DO Work Phone: [facility] 02-23-2024 10:48-0500 Body weight 49.9 kg Alma BRANHAM Work Phone: [facility] 02-23-2024 10:48-0500 Diastolic blood pressure 64 mm[Hg] Alma BRANHAM Work Phone: [facility] 02-23-2024 10:48-0500 Systolic blood pressure 102 mm[Hg] Alma BRANHAM Work Phone: [facility] 01-25-2024 10:45-0400 Body weight 47.68 kg Sandy Pravin DO Work Phone: [facility] 01-25-2024 10:45-0400 Diastolic blood pressure 64 mm[Hg] Sandy Pravin DO Work Phone: [facility] 01-25-2024 10:45-0400 Systolic blood pressure 100 mm[Hg] Sandy Pravin DO Work Phone: [facility] 12-02-2023 08:47-0400 Body height 157.48 cm [facility] 12-02-2023 08:47-0400 Body mass index (BMI) [Ratio] 19.5 kg/m2 [facility] 12-02-2023 08:47-0400 Body weight 48.53 kg [facility] 12-02-2023 08:47-0400 Diastolic blood pressure 80 mm[Hg] [facility] 12-02-2023 08:47-0400 Systolic blood pressure 122 mm[Hg] [facility] Encounters Encounter Date Encounter Type Care Provider Facility Start: 06-22-2024 End: 06-22-2024 Bamboo flowsheet Sandy Pravin DO Work Phone: [facility] Start: 06-22-2024 End: 06-22-2024 Bamboo flowsheet Sandy Pravin DO Work Phone: [facility] Start: 06-22-2024 End: 06-22-2024 Periodic preventive med est patient 40-64yrs Sandy Pravin DO Work Phone: [facility] Comment on above: Third trimester preg danielle; 34 weeks gestation of Start: 06-22-2024 End: 06-22-2024 ambulatory SANDY COSTELLO Not Available Start: 06-21-2024 End: 06-21-2024 Orders Only Anya Waters RN [facility] Comment on above: growth restric tion antepartum (Primary Dx) Start: 06-14-2024 End: 06-14-2024 ambulatory SANDY Carole [facility] Start: 06-08-2024 End: 06-08-2024 Bamboo flowsheet Alma BRANHAM Work Phone: [facility] Start: 06-08-2024 End: 06-08-2024 Bamboo flowsheet Alma BRANHAM Work Phone: [facility] Start: 06-08-2024 End: 06-08-2024 flow sheet Alma BRANAHM Work Phone: [facility] Comment on above: Third trimester preg danielle; 32 weeks gestation of Start: 06-08-2024 End: 06-08-2024 ambulatory ALMA VARGAS Not Available Start: 06-07-2024 End: 06-07-2024 Emergency department patient visit RIKY STEARNS [facility] Start: 06-07-2024 End: 06-07-2024 ambulatory [facility] Nst1 [facility] Comment on above: growth restric tion antepartum (Primary Dx) growth restric tion antepartum (Primary Dx); 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, antepartum Start: 06-07-2024 End: 06-07-2024 Office consultation new/estab patient 60 min Reji Tejeda MD Work Phone: [facility] Comment on above: growth restric tion antepartum (Primary Dx); 32 weeks gestation of Start: 06-07-2024 End: 06-07-2024 ambulatory [facility] Car[facility] Start: 06-05-2024 End: 06-05-2024 Orders Only Not In System Ref Prov [facility] Start: 06-01-2024 End: 06-01-2024 Clinisync Result [...] Result Encounter Sandy Pravin DO Work Phone: [facility] External Department Unsolicited Start: 04-20-2024 End: 04-20-2024 [...] 03-21-2024 End: 03-21-2024 ambulatory SANDY R PRAVIN [facility] Start: 03-07-2024 End: 03-07-2024 Chart abstracting Omayra GALICIA Work Phone: [facility] Start: 02-23-2024 End: 02-23-2024 Bamboo flowsheet Alma BRANHAM Work Phone: [facility] Start: 02-23-2024 End: 03-06-2024 Bamboo flowsheet Alma BRANHAM Work Phone: [facility] Start: 02-23-2024 End: 03-06-2024 Clinisync Result Encounter Alma BRANHAM Work Phone: [facility] External Department Unsolicited Start: 02-23-2024 End: 02-24-2024 External Result Encounter Alma BRANHAM Work Phone: [facility] External Department Unsolicited Start: 02-23-2024 End: 02-23-2024 Patient encounter procedure Alma BRANHAM Work Phone: [facility] Start: 02-23-2024 End: 02-23-2024 flow sheet Alma BRANHAM Work Phone: [facility] Comment on above: Well woman [...] Bamboo flowsheet Sandy Pravin DO Work Phone: [facility] Start: 01-25-2024 End: 01-25-2024 flow sheet Sandy Pravin DO Work Phone: [facility] Comment on above: 12 weeks gestation o f ; First trimester ; Nonintractable headache, unspecified chronicity pattern, unspecified headache type Start: 01-25-2024 End: 01-25-2024 ambulatory SANDY PRAVIN Not Available Start: 01-14-2024 End: 01-14-2024 Clinisync Result Encounter Sandy Pravin DO Work Phone: [facility] External Department Unsolicited Start: 01-14-2024 End: 01-14-2024 Clinisync Result Encounter Sandy Pravin DO Work Phone: [facility] Unsolicited Start: 12-31-2023 End: 12-31-2023 Office outpatient visit 5 minutes [facility] Pravin Nurse [facility] Comment on above: GA: 9w2d Start: 12-31-2023 End: 12-31-2023 ambulatory ALMA VARGAS Not Available Start: 12-02-2023 Patient encounter status [facility] Start: 12-02-2023 End: 12-02-2023 ambulatory [facility] Work Phone: Start: 12-02-2023 End: 12-02-2023 Encounter for general adult medical examination without abnormal findings [facility] Start: 12-02-2023 End: 12-02-2023 Patient encounter procedure [facility] Physician [facility] Work Phone: Procedures Date Procedure Procedure [...] 01-14-2024 [facility] DRUG SCREEN RAPI D (URINE) Snady Pravin DO Work Phone: Start: 12-31-2023 End: 12-31-2023 Urnls dip stick/tablet rgnt non-auto w/o micrscp Sandy Pravin DO Work Phone: Plan of Treatment Date Care Activity Detail Author Start: 02-22-2027 Screening for malign ant neoplasm of cervix Pap Smear [facility] Start: 06-21-2025 End: 06-21-2025 US MFM with or without consult US MFM with or without consult Imaging Routine growth restriction antepartum Expected: 06/21/2025 (Approximate), Expires: 06/21/2025 [facility] Work Phone: Comment on above: Expected: 06/21/2025 (Approximate), Expires: 06/21/2025 Start: 06-07-2025 Adult BMI Screening Adult BMI Screen ing [facility] Start: 06-07-2025 Tobacco Screening Tobacco Screening [facility] Start: 06-07-2025 End: 06-07-2025 US MFM with or without consult US MFM with or without consult Imaging Routine growth restriction antepartum 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, antepartum Expected: 06/07/2025 (Approximate), Expires: 06/07/2025 [facility] Work Phone: Comment on above: Expected: 06/07/2025 (Approximate), Expires: 06/07/2025 Start: 07-05-2024 End: 07-05-2024 Patient encounter procedure 07/05/2024 8:45 AM EDT Appointment [facility] [address] [place] [address] [facility] Start: 06-28-2024 End: 06-28-2024 Patient encounter procedure 06/28/2024 8:45 AM EDT Appointment [facility] [address] [place] [address] [facility] Start: 06-22-2024 End: 06-22-2025 [...] encounter procedure 06/21/2024 9:00 AM EDT Appointment [facility] [address] [place] [address] [facility] Start: 06-14-2024 End: 06-14-2024 Patient encounter procedure 06/14/2024 8:00 AM EDT Appointment [facility] [address] [place] [address] [facility] Start: 06-08-2024 End: 06-08-2024 Patient encounter procedure [facility] Comment on above: Arrived Start: 06-07-2024 End: 06-07-2025 nonstress test - Maternal Medicine nonstress test - Maternal Medicine OB Routine growth restriction antepartum Expected: 06/07/2024 (Approximate), Expires: 06/07/2025 [facility] Work Phone: Comment on above: Expected: 06/07/2024 (Approximate), Expires: 06/07/2025 Start: 06-07-2024 End: 06-07-2024 Patient encounter procedure [facility] Start: 06-01-2024 End: 06-01-2024 Professional / ancillary services management 06/01/2024 9:30 AM EST Ancillary Procedure [facility] [address] [place] [address] [place] [id number] [facility] Start: 05-25-2024 End: 05-25-2024 [...] mellitus screening Expected: 04/20/2024 (Approximate), Expires: 04/20/2025 [facility] Comment on above: Expected: 04/20/2024 (Approximate), Expires: 04/20/2025 Start: 04-20-2024 End: 04-20-2024 Patient encounter procedure [facility] Comment on above: Arrived Start: 03-24-2024 End: 03-24-2024 Alpha fetoprotein, maternal Alpha fetoprotein, maternal Lab Routine Need for maternal serum alpha-protein (MSAFP) screening Expected: 03/24/2024 (Approximate), Expires: 03/24/2024 [facility] Comment on above: Expected: 03/24/2024 (Approximate), Expires: 03/24/2024 Start: 03-23-2024 End: 03-23-2024 Patient encounter procedure 03/23/2024 11:40 AM EST Routine [facility] [address] [place] [phone] Sandy Costello, [address] [place] [address] [facility] Start: 03-23-2024 End: 03-23-2024 Professional / ancillary services management 03/23/2024 10:30 AM EST Ancillary Procedure [facility] [address] [place] [phone] [facility] Start: 03-21-2024 End: 03-21-2024 Telemedicine consultation with patient 03/21/2024 9:00 AM EST Telemedicine [facility] [address] [place] [phone] [facility] [address] [facility] [address] [facility] Start: 02-23-2024 End: 02-22-2025 US for [...] first trimester Expected: 12/31/2023 (Approximate), Expires: 12/30/2024 [facility] Comment on above: Expected: 12/31/2023 (Approximate), Expires: 12/30/2024 Start: 12-31-2023 End: 12-30-2024 US Pelvis transvaginal US OB transvaginal Imaging Routine Missed menses Expected: 12/31/2023 (Approximate), Expires: 12/30/2024 [facility] Comment on above: Expected: 12/31/2023 (Approximate), Expires: 12/30/2024 Start: 12-05-2023 Influenza vaccination Influenza Vacc ine [facility] Start: 11-06-2019 DTaP,Tdap and Td Vaccines (7 - Td or Tdap) DTaP,Tdap and Td Vaccines (7 - Td or Tdap) [facility] Start: 2018 Screening for malign ant neoplasm of cervix Pap Smear [facility] Start: 09-29-2015 Adult BMI Screening Adult BMI Screen ing [facility] Start: 2009 Depression Screening Depression Scre ening [facility] Start: 2009 Tobacco Screening Tobacco Screening [facility] Bacteria identified in Urine by Culture Urine culture Microbiology Routine Missed menses Ordered: 12/31/2023 [facility] Comment on above: Ordered: 12/31/2023 CBC W Auto Different ial panel - Blood CBC and differential Lab Routine Missed menses , unspecified gestational age Ordered: 12/31/2023 [facility] Comment on above: Ordered: 12/31/2023 CHLAMYDIA TRACHOMATI S (GENITO/STI) CHLAMYDIA TRACHOMATIS (GENITO/STI) Lab Routine Screen for STD (sexually transmitted disease) Ordered: 02/23/2024 [facility] Comment on above: Ordered: 02/23/2024 Cytology Cervical or vaginal smear or scraping study Pap Smear Pathology and Cytology Routine Well woman exam with routine gynecological exam Ordered: 02/23/2024 [facility] Comment on above: Ordered: 02/23/2024 Hemoglobin A1c/Hemoglobin.total in Blood Hemoglobin A1c Lab Routine Missed menses , unspecified gestational age Ordered: 12/31/2023 [facility] Comment on above: Ordered: 12/31/2023 Hepatitis B virus surface Ag [Presence] in Serum or Plasma by Immunoassay Hepatitis B surface antigen Lab Routine Missed menses , unspecified gestational age Ordered: 12/31/2023 [facility] Comment on above: Ordered: 12/31/2023 Hepatitis C virus Ab [Presence] in Serum or Plasma by Immunoassay Hepatitis C antibody Lab Routine Missed menses , unspecified gestational age Ordered: 12/31/2023 [facility] Comment on above: Ordered: 12/31/2023 HIV-1/HIV-2 antigen/antibody combination immunoassay HIV-1 and HIV-2 antibodies Lab Routine Missed menses , unspecified gestational age Ordered: 12/31/2023 [facility] Comment on above: Ordered: 12/31/2023 Neisseria gonorrhoea e DNA [Presence] in Unspecified specimen by RUBEN with probe detection Neisseria gonorrhea DNA probe, direct Lab Routine Screen for STD (sexually transmitted disease) Ordered: 02/23/2024 [facility] Comment on above: Ordered: 02/23/2024 Reagin Ab [Presence] in Serum by RPR RPR Lab Routine Missed menses , unspecified gestational age Ordered: 12/31/2023 [facility] Comment on above: Ordered: 12/31/2023 Rubella antibody, IgG Rubella an tibody, IgG Lab Routine Missed menses , unspecified gestational age Ordered: 12/31/2023 [facility] Comment on above: Ordered: 12/31/2023 SURESWAB(R) ADVANCED VAGINITIS PLUS, TMA SURESWAB(R) ADVANCED VAGINITIS PLUS, TMA Pathology and Cytology Routine Screen for STD (sexually transmitted disease) Ordered: 02/23/2024 [facility] Work Phone: Comment on above: Ordered: 02/23/2024 Immunizations Immunization Date Immunization Notes Care Provider Kedar chahal 11-13-2015 hepatitis A vaccine, pediatric/adolescent dosage, 2 dose schedule [facility] Work Phone: [facility] 11-13-2015 meningococcal polysaccharide (groups A, C, Y and W-135) diphtheria toxoid conjugate vaccine (MCV4P) [facility] Work Phone: [facility] 04-24-2015 influenza, injectabl e, quadrivalent, preservative free [facility] Work Phone: [facility] 04-24-2015 influenza virus vaccine, unspecified formulation Omayra Boyce [facility] Work Phone: [facility] 11-05-2009 tetanus toxoid, redu dilip diphtheria toxoid, and acellular pertussis vaccine, adsorbed Omayra Austen [facility] Work Phone: [facility] 11-05-2009 varicella virus vaccine Made larry Boyce [facility] Work Phone: [facility] 03-14-2009 influenza, seasonal, injectable, preservative free Omayra Austen [facility] Work Phone: [facility] 01-24-2003 hepatitis B vaccine, adult dosage [facility] Work Phone: [facility] 11-28-2002 diphtheria, tetanus toxoids and acellular pertussis vaccine, 5 pertussis antigens Omayra Austen [facility] Work Phone: [facility] 11-28-2002 measles, mumps and rubella virus vaccine [facility] Work Phone: [facility] 11-28-2002 poliovirus vaccine, inactivated [facility] Work Phone: [facility] 07-18-2001 varicella virus vaccine Made larry Boyce [facility] Work Phone: [facility] 04-09-1999 diphtheria, tetanus toxoids and acellular pertussis vaccine, 5 pertussis antigens Omayra Austen [facility] Work Phone: [facility] 04-09-1999 measles, mumps and rubella virus vaccine [facility] Work Phone: [facility] 03-25-1998 diphtheria, tetanus toxoids and acellular pertussis vaccine, 5 pertussis antigens [facility] Work Phone: [facility] 03-25-1998 hepatitis B vaccine, adult dosage Omayra Austen [facility] Work Phone: [facility] 03-25-1998 poliovirus vaccine, inactivated [facility] Work Phone: [facility] 02-13-1998 diphtheria, tetanus toxoids and acellular pertussis vaccine, 5 pertussis antigens [facility] Work Phone: [facility] 02-13-1998 poliovirus vaccine, inactivated [facility] Work Phone: [facility] 1997 diphtheria, tetanus toxoids and acellular pertussis vaccine, 5 pertussis antigens [facility] Work Phone: [facility] 1997 haemophilus influenz ae type b vaccine, PRP-OMP conjugate [facility] Work Phone: [facility] 1997 poliovirus vaccine, inactivated [facility] Work Phone: [facility] 1997 hepatitis B vaccine, adult dosage [facility] Work Phone: [facility] 1997 hepatitis B vaccine, adult dosage [facility] Work Phone: [facility] NEGATED: Highlighted row has not occurred!11-13-2015 human papilloma virus vaccine, quadrivalent [facility] Work Phone: [facility] Comment on above: Deferred: Other - parent declined Payers Date Payer Category Payer [facility] [id number] 2022 [employer] [place] [employer] [facility] Managed Care - Other [id number] 2022 Unknown BCBS BCBS [id number] [id number] 2022-Present [phone] [address] [place] [address] [id number] 2022 Unknown [id number] 2020 [employer] [place] Managed Care - [place] ANTHEM [id number] 1997 Unknown [id number]. 2.1285 1997 Unknown [id number] 2.16.840.1.132307.3.579. 2.1285 1997 Unknown [id number] 2.16840.1.679548.3.579. 2.1285 1997 Unknown [id number] 2.16.840.1.477474.3.579. 2.1285 1997 Unknown [id number] 2.16.840.1.055500.3.579. 2.1285 1997 Unknown [id number] 2.16.840.1.228770.3.579. 2.1285 1997 Unknown [id number] 2.16.840.1.966011.3.579. 2.1285 1997 Unknown [id number] 2.16.840.1.426002.3.579. 2.1258 1997 Unknown [id number] 2.16.840.1.639200.3.579. 2.1258 1997 Unknown [id number] 2.16.840.1.528894.3.579. 2.1258 1997 Unknown [id number] 2.16.840.1.621671.3.579. 2.1259 1997 Unknown [id number] 2.16.840.1.999119.3.579. 2.1259 1997 Unknown [id number] 2.16.840.1.853082.3.579. 2.9 1997 Unknown [id number] 2.16.840.1.629069.3.579. 2.9 1997 Unknown [id number] 2.16.840.1.495800.3.579. 2.9 1997 Unknown [id number] 2.16.840.1.616596.3.579. 2.9 1997 Unknown [id number] 2.16.840.1.113602.3.579. 2.1259 Social History Date Type Detail Facility Tobacco smoking stat [facility] Unknown if ever smoked [facility] Work Phone: Start: 1997 Sex Assigned At Female F [facility] Tobacco smoking stat [facility] Tobacco smoking consumption unknown [facility] Start: [facility]-10-2023 [facility] Start: 1997 Sex assigned at Not on file [facility] Start: 05-16-2020 End: 03-07-2024 Gender identity Not on file [facility] Start: 02-13-2021 End: 06-07-2024 Tobacco smoking status NHIS Never smoked tobacco [facility] Start: 02-13-2021 End: 06-07-2024 Tobacco use and exposure Smokeless tobacco non-user [facility] Start: 03-07-2024 Alcoholic beverage intake Current non-drinker of alcohol (finding) [facility] Start: 05-16-2020 End: 03-07-2024 Alcoholic beverage intake [facility]care Unknown [facility] Start: 11-06-2014 Sex Female (finding) [facility] Start: 06-05-2024 End: 06-07-2024 Alcoholic beverage intake Ex-drinker (finding) [facility] Clinical Notes 12-31-2023 to 06-22-2024 CARROL Harmon [...] Sandy Costello DO documented in this encounter [facility] 06-08-2024 History of Present illness Narrative Reason [...] of: CARROL Harmon documented in this encounter [facility] 06-07-2024 History of Present illness Narrative Denies [...] all scheduled appointments documented in this encounter [facility] 06-07-2024 History of Present illness Narrative REASON [...] free DNA Carrier screening: Baby Boy: Dwight Toño have reviewed the pertinent available patient records [...] TESTS AND ULTRASOUND REPORTS: Referral records and [facility] chart were reviewed Pertinent Ultrasound findings [...] Based on ultrasound findings today recommend delivery [facility] recommendations summary FGR is defined as [...] later - absent end-diastolic flow umbilical artery: [id number] or at time of diagnosis if diagnosed later. - reversed end-diastolic flow umbilical artery: [id number] or at time of diagnosis if diagnosed [...] 34 weeks gestation. Delivery method preferred vaginal. Hudson C/S for usual obstetrical indications Recommend steroids if delivery before 34 weeks. Consider steroids if delivery after 34 weeks and before 37 weeks. DISPOSITION: At this point the patient is in complete care of her mass communications professor. Patient does have ultrasound scheduled with us. Thank you for allowing me to participate in the care of Sejal Livingston. If there any questions please do not hesitate to contact us. Reji Tejeda MD Maternal- Medicine [facility] [address] [place] [address] [facility], the CDC, and other organizations representing maternal and public health professionals recommend that , , and lactating people and those considering receive the COVID-19 vaccination. Vaccination is the best method to reduce maternal and complications of SARS-CoV-2 infection. This document was created with Handle technology. Though I make every effort to review the dictation as it is transcribed, on occasion the spoken word can be misinterpreted by the technology leading to inappropriate words, phrases, or sentences. This note is addressed to the requesting provider as a consultation for clinical guidance. Specific medical abbreviations are occasionally used and those are generally approved by the [place]?Board of?Obstetrics and?Gynecology?as well as?Jocelyn s abbreviations. The above plan of care was based solely on the diagnoses for which a consultation was requested. ?More frequent testing may be indicated based on her other medical/obstetrical conditions. The management of other or medical conditions is beyond the scope of requested consultation and will continue to be followed by the primary mass communications professor or primary care provider. Note to patient: [...] office? Have you been seen here at [facility] in a previous ? Recent ER visits or hospitalizations? Bring blood sugar log or meter with you today? (Please bring them with you for every visit at [facility]) Flu vaccine (Feb-June)? Any concerns that you would like me to mention to the provider today? documented in this encounter [facility] 05-25-2024 History of Present illness Narrative Reason [...] nursing note reviewed. Exam conducted with a power lineman present. Vitals: There is no height or [...] Sandy Costello DO documented in this encounter [facility] 05-10-2024 History of Present illness Narrative [...] of: CARROL Harmon documented in this encounter [facility] 04-20-2024 History of Present illness Narrative [...] nursing note reviewed. Exam conducted with a power lineman present. Vitals: There is no height or [...] Sandy Costello DO documented in this encounter [facility] 03-23-2024 History of Present illness Narrative [...] Sandy Costello DO documented in this encounter [facility] 02-23-2024 History of Present illness Narrative [...] of: CARROL Harmon documented in this encounter [facility] 01-25-2024 History of Present illness Narrative [...] nursing note reviewed. Exam conducted with a power lineman present. Vitals: There is no height or [...] or undercooked meat, and stay away from [facility]. Patient has been consulted regarding any further do's and don'ts of . Patient voiced understanding and all questions and concerns were answered. Orders Placed This Encounter Procedures POCT urinalysis dipstick manually resulted Follow Up: Patient is to return in 4 weeks for routine OB appointment. Documented by Anita Oswald LPN on behalf of: Sandy Costello DO documented in this encounter [facility] 12-31-2023 History of Present illness Narrative [...] or undercooked meat, and stay away from [facility]. 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, antepartum [facility] Diagnosis growth restriction antepartum- Primary [facility]* Diagnosis Third trimester state, incidental 32 weeks gestation of documented in this encounter [facility] HealthcareEvaluation note* Diagnosis growth restriction antepartum- Primary documented in this encounter [facility]Evaluation note* Diagnosis Third trimester state, incidental 34 weeks gestation of documented in this encounter [facility] HealthcareInstructionsNot on filedocumented in [facility] SystemInstructionsNot on filedocumented in this [facility] SystemInstructionsNot on filedocumented in this [facility] SystemInstructionsNot on filedocumented in this encounter[facility] InstructionsNot on filedocumented in this [facility] Chief Complaint and Reason for Visit [...] Team Status: Active Member Role Status Dates [facility] Primary Care Provider Active Team Status: Inactive Member Role Status Dates [facility] Primary Care Provider, Attending Provider Active Start: December 02, 2023 End: December 02, 2023 Rn Endocrinology Relationship Specialty Start Date End Date Tran Rice NP [address] [facility] [place] [address] PCP - General Family Medicine 12/31/23 Rn Endocrinology Relationship Specialty Start Date End Date Tran Rice NP [address] [place] [address] [place] [address] PCP - General Family Medicine 12/31/23 Rn Endocrinology Relationship Specialty Start Date End Date Tran Rice NP [address] [place] [address] [place] [address] PCP - General Family Medicine 12/31/23 Rn Endocrinology Relationship Specialty Start Date End Date Tran Rice NP [address] [place] [address] [place] [address] PCP - General Family Medicine 12/31/23 Rn Endocrinology Relationship Specialty Start Date End Date Tran Rice NP [address] [place] [address] [place] [address] PCP - General Family Medicine 12/31/23 Rn Endocrinology Relationship Specialty Start Date End Date Tran Rice NP [address] [place] [address] [place] [address] PCP - General Family Medicine 12/31/23 Rn Endocrinology Relationship Specialty Start Date End Date Tran Rice NP [address] [place] [address] [place] [address] PCP - General Family Medicine 12/31/23 Rn Endocrinology Relationship Specialty Start Date End Date Tran Rice NP [address] [facility] [place] [address] PCP - General Family Medicine 12/31/23 Rn Endocrinology Relationship Specialty Start Date End Date Tran Rice NP [address] [facility] [place] [address] PCP - General Family Medicine 12/31/23 Rn Endocrinology Relationship Specialty Start Date End Date Tran Rice NP [address] [facility] [place] [address] PCP - General Family Medicine 12/31/23 Rn Endocrinology Relationship Specialty Start Date End Date Tran Rice NP [address] [facility] [place] [address] PCP - General Family Medicine 12/31/23 Rn Endocrinology Relationship Specialty Start Date End Date Arthur Kan MD PCP - General 08/09/14 Rn Endocrinology Relationship Specialty Start Date End Date Tran Rice NP [address] [facility] [place] [address] PCP - General Family Medicine 12/31/23 Rn Endocrinology Relationship Specialty Start Date End Date Arthur Kan MD PCP - General 08/09/14 Rn Endocrinology Relationship Specialty Start Date End Date Arthur Kan MD PCP - General 08/09/14 Rn Endocrinology Relationship Specialty Start Date End Date Arthur Kan MD PCP - General 08/09/14 Rn Endocrinology Relationship Specialty Start Date End Date Arthur Kan MD PCP - General 08/09/14 Rn Endocrinology Relationship Specialty Start Date End Date Arthur Kan MD PCP - General 08/09/14 Rn Endocrinology Relationship Specialty Start Date End Date KeithArthur lynn MD PCP - General 08/09/14 Rn Endocrinology Relationship Specialty Start Date End Date Arthur Kan MD PCP - General 08/09/14 Rn Endocrinology Relationship Specialty Start Date End Date Tran Rice NP [address] [place] [address] PCP - General Family Medicine 12/31/23 Goals [...] ized section and content) DATE CREATED AUTHOR 06/23/2024 [facility] DATE CREATED AUTHOR AUTHOR'S ORGANIZ ATION 06/24/2024 [facility] EPIC FOR RECORDS PERTAINING TO PATIENTS [...] BE BASED ON THE PRIMARY CLINICAL RECORDS. [facility], [facility]. provides no warranty or guarantee of the accuracy or completeness of information in this document.
[2024-06-26 18:01] VITALS: BP 125/75; PULSE 88
== END 2024-06-26 18:40 | disposition home or self-care (01) ==
LOC: FBCO 17:54 → FBC 17:56
PROVIDERS: PCP Nurse Practitioner Family; Visit Provider Obstetrics & Gynecology
DX: O36.5990 Maternal care for other known or suspected poor fetal growth, unspecified trimester, not applicable or unspecified (principal)
CPT/HCPCS: 59025

== ENCOUNTER 2024-06-29 06:55 | Outpatient (OUT) | payer BC, SELFPAY ==
--- OUTSIDE RECORDS SUMMARY | 2024-06-29 06:58 | XMS_ITS | CCD ---
Author Organization [facility] Care Team Providers Care Electrolysist Name Role Phone Dwayne HUNTLEY, Tran Carbone Primary Care Provider Keith OSORIO, Arthur Thompson Primary Care Provider PRAVIN, SANDY R Referring Unavailable KEITH, ARTHUR [...] sources) Other Propensity to adverse reactions 4 [facility] Work Phone: (17 sources) Cat Hair Extract Propensity to adverse reactions 4 [facility] (9 sources) Cat Dander; Translations: [...] UA Negative Negative - 4(70) +++ mg/dL [facility] Blood, UA Negative Negative - 50 Kvng/mcL [facility] Clarity, UA Clear [facility] Color, UA Yellow [facility] Glucose, UA Positive Negative - 1999(110) ++++ mg/dL [facility] Comment on above: 100mg/dL Interpretation and review of laboratory results Abnormal [facility] Ketones, UA Negative Negative - 160(16) ++++ mg/dL [facility] Leukocytes, UA Negative Negative - 500+++ Sandra/mcL [facility] Nitrite, UA Negative Negative - Positive [facility] pH, UA 6.5 5 - 9 [facility] Protein, UA Negative Negative - 1999(20) ++++ mg/dL [facility] Spec Grav, UA 1.025 1 - 1.03 [facility] Urobilinogen, UA 0.2 0.2 - 12 mg/dL [facility] Urinalysis macro (dipstick) panel (U)on 06-08-2024 Bilirubin, UA Negative Negative - 4(70) +++ mg/dL [facility] Blood, UA Positive Negative - 50 Vkng/mcL [facility] Comment on above: trace-intact Clarity, UA Clear [facility] Color, UA Yellow [facility] Glucose, UA Negative Negative - 2000(110) ++++ mg/dL [facility] Interpretation and review of laboratory results Abnormal [facility] Ketones, UA Negative Negative - 160(16) ++++ mg/dL [facility] Leukocytes, UA Positive Negative - 500+++ Sandra/mcL [facility] Comment on above: small Nitrite, UA Negative Negative - Positive [facility] pH, UA 7 5 - 9 [facility] Protein, UA Negative Negative - 2000(20) ++++ mg/dL [facility] Spec Grav, UA 1.01 1 - 1.03 [facility] Urobilinogen, UA 0.2 0.2 - 12 mg/dL [facility] nonstress test - Mater nal Medicineon 06-07-2024 Patient Name: Sejal Nowak Patient : 1995 NST Objective Findings: Variability: Moderate Decelerations: Variable Accelerations: Yes Acoustic Stimulator: No Baseline: 120 BPM Uterine Irritability: Yes Contractions: Irregular Comments: Variables and contractions/irritabi lity noted on EFM. Tracing reviewed with Dr Tejeda.[facility] instructions given, labor precautions reviewed. To JAGDISH for extended monitoring and evaluation. NST Interpretation: Nonstress Test Interpretation: Reactive (Reji Tejeda MD) Comments: Recurrent variable decelerations. Pt reporting abdominal tightening correlating with tocometer contractions. To OB ED for prolonged evaluation, at least 2 hours. Sign-out given to OB ED team. (Reji Tejeda MD) NST performed by: Thania Noyola RN 06/07/2024 12:11 PM [facility] Ultrasound - OfficeOrdered B y: Aida Sauceda on 06-05-2024 Radiology Study observation (narrative) [facility] Ultrasound - Officeon 2024 Radiology Study observation (narrative) [facility] Radiology Study observation (narrative) [facility] US OB BPP W NON-STRESS on 06-01-2024 [place] [address] Ultrasound Report Signed Patient: SEJAL NOWAK MR#: [id number] : 1995 Acct:[id number] Age/Sex: 28 / F ADM Date: Loc: [facility] 252-[address]: Sandy Costello D.O. Ordering Physician: Sandy Costello D.O. Date of Service: 06/01/24 Procedure(s): US OB BPP w non-stress Accession Number(s): [id number] cc: Sandy Costello D.O.; TRAN RICE [place] [id number] Patient Name: SEJAL NOWAK MRN: [facility]:[id number] date: 1995 Sex: F Assigned Patient Location: [facility] Current Patient Location: [facility] Accession/Order Number: [id number] Exam Date: 06/01/2024 11:20 Report Date: 06/01/2024 [...] Anita Jaimes M.D.06/01/2024 11:22 AM Dictation Location: [place] [address] Electronically authenticated by: [id number] Y Date: 06/01/2024 11:22 Dictated By: Anita Jaimes M.D. Signed By: 06/01/24 1125 DD/ 1122 TD/TT: Digital Business Analyst: [facility] Radiology, Radiologist, - 06/01/2024 [place] [address] Ultrasound Report Signed Patient: SEJAL NOWAK MR#: [id number] : 1995 Acct:[id number] Age/Sex: 28 / F ADM Date: Loc: [facility] 252-[address]: Sandy Costello D.O. Ordering Physician: Sandy Costello D.O. Date of Service: 06/01/24 Procedure(s): US OB BPP w non-stress Accession Number(s): [id number] cc: Sandy Costello D.O.; TRAN RICE [place] [address] Patient Name: SEJAL NOWAK MRN: [id number] date: 1995 Sex: F Assigned Patient Location: [facility] Current Patient Location: [facility] Accession/Order Number: [id number] Exam Date: 06/01/2024 11:20 Report Date: 06/01/2024 11:22 At the request of: SANDY COSTELLO DO Procedure: US OB BPP w non-stress BIOPHYSICAL PROFILE: CLINICAL INFORMATION: iugr, low monique COMPARISON: 03/23/2024 anatomy survey There is a single live intrauterine gestation in cephalic presentation. The reported gestational age is 31 weeks 1 day. The heart rate [id number] beats per minute. FINDINGS: TONE: 1 or [...] Anita Jaimes M.D.06/01/2024 11:22 AM [facility]ictation [facility] Electron[facility] authenticated by: [id number] Y Date: 06/01/2024 11:22 Dictated By: Anita Jaimes M.D. Signed By: 06/01/241124 DD/ 21 TD/TT: Digital Business Analyst: [facility] Radiology Study observation (narrative) [facility] US OB BPP W NON-STRESS Ordered By: Radiologist Radiology on 06-01-2024 [facility] Work Phone: US OB FOLLOW [...] 1344 gm / 2 lbs, 15 oz (5408-3014 gm) [place] Normal: 1780 gm (3814-4161 gm) [place] Wt%: <3% for 31.1 wks [...] report is generated using voice recognition reporting (O[employer]P Pro). On occasion [employer] erroneously drops words from the report or replaces the spoken word with similar sounding words. Please call with any questions/concerns regarding this report.* Dictated and transcribed 06/01/24/dpd This report has been electronically signed and approved by the interpreting radiologist. Normal Not Available Comment on above: Order Comment: US OB SCAN FOR GROWTH Estimated Date of Delivery: 4/30/25 Gestational Age as of 05/10/2024: 28w0d Ultrasound - Officeon 2024 [facility] Urinalysis macro (dipstick) panel (U)on 05-25-2024 Bilirubin, UA Negative Negative - 4(70) +++ mg/dL [facility] Blood, UA Negative Negative - 50 Kvng/mcL [facility] Clarity, UA Clear [facility] Color, UA Yellow [facility] Glucose, UA Negative Negative - 1999(110) ++++ mg/dL [facility] Interpretation and review of laboratory results Normal [facility] Ketones, UA Negative Negative - 160(16) ++++ mg/dL [facility] Leukocytes, UA Negative Negative - 500+++ Sandra/mcL [facility] Nitrite, UA Negative Negative - Positive [facility] pH, UA 7 5 - 9 [facility] Protein, UA Negative Negative - 1999(20) ++++ mg/dL [facility] Spec Grav, UA 1.02 1 - 1.03 [facility] Urobilinogen, UA 0.2 0.2 - 12 mg/dL [facility] Urinalysis macro (dipstick) panel (U)on 05-10-2024 Bilirubin, UA Negative Negative - 4(70) +++ mg/dL [facility] Blood, UA Negative Negative - 50 Kvng/mcL [facility] Clarity, UA Clear [facility] Color, UA Yellow [facility] Glucose, UA Negative Negative - 1999(110) ++++ mg/dL [facility] Interpretation and review of laboratory results Normal [facility] Ketones, UA Negative Negative - 160(16) ++++ mg/dL [facility] Leukocytes, UA Negative Negative - 500+++ Sandra/mcL [facility] Nitrite, UA Negative Negative - Positive [facility] pH, UA 7 5 - 9 [facility] Protein, UA Negative Negative - 1999(20) ++++ mg/dL [facility] Spec Grav, UA 1.02 1 - 1.03 [facility] Urobilinogen, UA 0.2 0.2 - 12 mg/dL [facility] ALL CBC WITH AUTO DIFFon BASOPHILS ABSOLUTE AUTO 0 [facility] Basophils/100 WBC (Bld) 0.4 % 0.2 - 2.0 % [facility] Eosinophils/100 WBC (Bld) 1.1 % 0.9 - 7.0 % [facility] Erythrocyte distribution width (RBC) [Ratio] 13.1 % 11.0 - 15.0 % [facility] Hematocrit (Bld) [Volume fraction] 34.4 % Low 36.0 - 48.0 % [facility] Hemoglobin (Bld) [Mass/Vol] 11.7 g/dL Low 12.0 - 16.0 g/dL [facility] IMMATURE GRANULOCYTES ABS AUTO 0.04 High [facility] Immature granulocytes/100 WBC (Bld) 0.4 % 0.0 - 0.5 % [facility] Interpretation and review of laboratory results Abnormal [facility] LYMPHOCYTES ABSOLUTE AUTO 1.2 [facility] Lymphocytes/100 WBC (Bld) 11.3 % Low 20.5 - 60.0 % [facility] MCH (RBC) [Entitic mass] 30.5 pg 26.7 - 34.0 pg [facility] MCHC (RBC) [Mass/Vol] 34 g/dL 29.9 - 35.2 g/dL [facility] MCV (RBC) [Entitic vol] 89.6 fL 81.0 - 99.0 fL [facility] MONOCYTES ABSOLUTE AUTO 0.7 [facility] Monocytes/100 WBC (Bld) 6.4 % 1.7 - 12.0 % [facility] NEUTROPHILS ABSOLUTE AUTO 8.3 High [facility] Neutrophils/100 WBC (Bld) 80.4 % High 43.0 - 75.0 % [facility] Platelet mean volume (Bld) [Entitic vol] 9.7 fL 9.5 - 13.5 fL [facility] RBC 3.84 Low [facility] WBC 10.3 [facility] Urinalysis macro (dipstick) panel (U)on 05-03-2024 Bilirubin, UA Negative Negative - 4(70) +++ mg/dL [facility] Blood, UA Negative Negative - 50 Kvng/mcL [facility] Clarity, UA Clear [facility] Color, UA Yellow [facility] Glucose, UA Negative Negative - 2000(110) ++++ mg/dL [facility] Interpretation and review of laboratory results Normal [facility] Ketones, UA Negative Negative - 160(16) ++++ mg/dL [facility] Leukocytes, UA Negative Negative - 500+++ Sandra/mcL [facility] Nitrite, UA Negative Negative - Positive [facility] pH, UA 6.5 5 - 9 [facility] Protein, UA Negative Negative - 1999(20) ++++ mg/dL [facility] Spec Grav, UA 1.025 1 - 1.03 [facility] Urobilinogen, UA 1.0 0.2 - 12 mg/dL [facility] Ultrasound - Officeon 2023 [facility] Ultrasound - OfficeOrdered B y: Aida Sauceda on 03-23-2024 [facility] Urinalysis macro (dipstick) panel (U)on 03-23-2024 Bilirubin, UA Negative Negative - 4(70) +++ mg/dL [facility] Blood, UA Negative Negative - 50 Kvng/mcL [facility] Clarity, UA Clear [facility] Color, UA Yellow [facility] Glucose, UA Negative Negative - 1999(110) ++++ mg/dL [facility] Interpretation and review of laboratory results Normal [facility] Ketones, UA Negative Negative - 160(16) ++++ mg/dL [facility] Leukocytes, UA Negative Negative - 500+++ Sandra/mcL [facility] Nitrite, UA Negative Negative - Positive [facility] pH, UA 6.5 5 - 9 [facility] Protein, UA Negative Negative - 1999(20) ++++ mg/dL [facility] Spec Grav, UA 1.025 1 - 1.03 [facility] Urobilinogen, UA 0.2 0.2 - 12 mg/dL [facility] IGP,APTIMA HPV,AGE GDLNon AGE GDLN ACOG TESTING Note . [facility] Comment on above: TESTS RESULT FLAG UN ITS REF RANGE LAB Clinician Provided Cytology Information Source.............Cervix Other.............. No. of containers..01 ThinPrep Vial Age Stefania Monae... FLAG LEGEND: L-Low Normal,H-High Normal,LL-Alert Low,HH-Alert High <-Panic Low,>-Panic High,A-Abnormal,AA-Critical Abnormal Performed at: 01 =G [facility] [address] [address] Autumn Mckoy MD, IGP, RFX APTIMA HPV ASCU Note . [facility] Comment on above: TESTS RESULT FLAG UN ITS REF RANGE LAB DIAGNOSIS: 02 NEGATIVE FOR INTRAEPITHELIAL LESION OR MALIGNANCY. Specimen adequacy: 02 Satisfactory for evaluation. No endocervical component is identified. Performed by: 02 Alma Curry, Self Pay Collector ([facility]) . 02 Note: Note 03 The Pap [...] <-Panic Low,>-Panic High,A-Abnormal,AA-Critical Abnormal Performed at: 02 [facility] [address] [address] [place] [address] Hao Blackman MD, [address] [address] Autumn Mckoy MD, Performed at: = - [facility] [id number] Title Closer: Autumn Mckoy MD, Phone: [phone] Performed at: [facility] [address] [address] [place], [place] [id number] Title Closer: Hao Blackman MD, Phone: [phone] SPATULA-ALONE CERVIX [facility] RECURRENT VAGINITIS (HTRX)on 02-24-2024 ATOPOBIUM VAGINAE 0 [facility] ATOPOBIUM VAGINAE Not detected [facility] BVAB 2,3 (BACTERIAL VAGINOSIS ASSOCIATED BACTERIA 2, 3); MOBILUNCUS SPP 0 [facility] BVAB 2,3 (BACTERIAL VAGINOSIS ASSOCIATED BACTERIA 2, 3); MOBILUNCUS SPP Not detected [facility] NICKY ALBICANS, PARAPSILOSIS, TROPICALIS 0 [facility] NICKY ALBICANS, PARAPSILOSIS, TROPICALIS Not detected [facility] NICKY GLABRATA 0 [facility] NICKY GLABRATA Not detected [facility] NICKY KRUSEI 0 [facility] NICKY KRUSEI Not detected [facility] CHLAMYDIA TRACHOMATIS 0 [facility] CHLAMYDIA TRACHOMATIS Not detected [facility] GARDNERELLA VAGINALIS 0 [facility] GARDNERELLA VAGINALIS Not detected [facility] MEGASPHAERA (TYPES 1, 2) 0 [facility] MEGASPHAERA (TYPES 1, 2) Not detected [facility] MYCOPLASMA GENITALIUM 0 [facility] MYCOPLASMA GENITALIUM Not detected N [facility] NEISSERIA GONORRHOEAE 0 [facility] NEISSERIA GONORRHOEAE Not detected N [facility] TRICHOMONAS VAGINALIS 0 [facility] TRICHOMONAS VAGINALIS Not detected N [facility] Urinalysis macro (dipstick) panel (U)on 02-23-2024 Bilirubin, UA Negative Negative - 4(70) +++ mg/dL [facility] Blood, UA Negative Negative - 50 Kvng/mcL [facility] Clarity, UA Clear [facility] Color, UA Yellow [facility] Glucose, UA Negative Negative - 1999(110) ++++ mg/dL [facility] Interpretation and review of laboratory results Normal [facility] Ketones, UA Negative Negative - 160(16) ++++ mg/dL [facility] Leukocytes, UA Negative Negative - 500+++ Sandra/mcL [facility] Nitrite, UA Negative Negative - Positive [facility] pH, UA 7 5 - 9 [facility] Protein, UA Negative Negative - 1999(20) ++++ mg/dL [facility] Spec Grav, UA 1.025 1 - 1.03 [facility] Urobilinogen, UA 0.2 0.2 - 12 mg/dL [facility] Urinalysis macro (dipstick) panel (U)on 01-25-2024 Bilirubin, UA Positive Negative - 4(70) +++ mg/dL [facility] Comment on above: small Blood, UA Negative Negative - 50 Kvng/mcL [facility] Clarity, UA Clear [facility] Color, UA Yellow [facility] Glucose, UA Negative Negative - 1999(110) ++++ mg/dL [facility] Interpretation and review of laboratory results Abnormal [facility] Ketones, UA Positive Negative - 160(16) ++++ mg/dL [facility] Comment on above: moderate Leukocytes, UA Negative Negative - 500+++ Sandra/mcL [facility] Nitrite, UA Negative Negative - Positive [facility] pH, UA 6.5 5 - 9 [facility] Protein, UA Trace Negative - 1999(20) ++++ mg/dL [facility] Spec Grav, UA 1.025 1 - 1.03 [facility] Urobilinogen, UA 0.2 0.2 - 12 mg/dL [facility]LR HEMOGLOBIN A1Con 024 Glucose [Mass/Vol] 91 mg/dL [facility] HbA1c (Bld) [Mass fraction] 4.8 % 4.5 - 6.2 % [facility] Comment on above: ADA RECOMMENDED LIMI T 4.0 - 6.0 ADA THERAPEUTIC TARGET < 7.0 ACTION SUGGESTED > 7.0 [facility]IN[facility] No Panel Informationon 01-13 [facility] Rubella IGG immune statuson 01-14-2024 Rubella immune IgG immune [facility] Syphilis Total(Unknown Syphi lis Status)Ordered By: Aida Sauceda on 01-14-2024 Syphilis Non-Reactive [facility] DRUG SCREEN RAPID (URINE )on 01-14-2024 AMPHETAMINE SCREEN URINE Negative NEGATIVE [facility] BARBITURATES SCREEN URINE Negative NEGATIVE [facility] BENZODIAZEPINES SCREEN URINE Negative NEGATIVE [facility] BUPRENORPHINE SCREEN URINE Negative NEGATIVE [facility] Comment on above: DRUG CLASS [...] 300 ng/mL CANNABINOID SCREEN URINE Negative NEGATIVE [facility] COCAINE SCREEN URINE Negative NEGATIVE [facility] METHADONE SCREEN URINE Negative NEGATIVE [facility] METHAMPHETAMINES SCREEN URINE Negative NEGATIVE [facility] OPIATE SCREEN URINE Negative NEGATIVE [facility] OXYCODONE SCREEN URINE Negative NEGATIVE [facility] PHENCYCLIDINE SCREEN URINE Negative NEGATIVE [facility] TRICYCLIC ANTIDEPRESSANT URINE Negative NEGATIVE [facility] HCG ( test) Ql (U)o n 12-31-2023 Interpretation and review of laboratory results Abnormal [facility] Preg Test, Ur Positive [facility] Urinalysis macro (dipstick) panel (U)on 12-31-2023 Bilirubin, UA Negative Negative - 4(70) +++ mg/dL [facility] Blood, UA Negative Negative - 50 Kvng/mcL [facility] Clarity, UA Clear [facility] Color, UA Yellow [facility] Glucose, UA Negative Negative - 1999(110) ++++ mg/dL [facility] Interpretation and review of laboratory results Normal [facility] Ketones, UA Negative Negative - 160(16) ++++ mg/dL [facility] Leukocytes, UA Negative Negative - 500+++ Sandra/mcL [facility] Nitrite, UA Negative Negative - Positive [facility] pH, UA 7.0 5 - 9 [facility] Protein, UA Positive Negative - 1999(20) ++++ mg/dL [facility] Spec Grav, UA 1.020 1 - 1.03 [facility] Urobilinogen, UA 1.0 0.2 - 12 mg/dL [facility] Vital Signs Date Time Vital Sign Value Performing Clinician Jc ware 06-22-2024 09:10-0400 Body weight 59.42 kg Ubidyne Work Phone: [facility] 06-22-2024 09:10-0400 Diastolic blood pressure 70 mm[Hg] Sandy Pravin Pulselocker Work Phone: [facility] 06-22-2024 09:10-0400 Systolic blood pressure 116 mm[Hg] Sandy Pravin DO Work Phone: [facility] 06-08-2024 11:44-0500 Body weight 58.06 kg Alma BRANHAM Work Phone: [facility] 06-08-2024 11:44-0500 Diastolic blood pressure 82 mm[Hg] Alma BRANHAM Work Phone: [facility] 06-08-2024 11:44-0500 Systolic blood pressure 128 mm[Hg] Alma BRANHAM Work Phone: [facility] 06-07-2024 11:32-0500 Diastolic blood pressure 71 mm[Hg] [address] 06-07-2024 11:32-0500 Heart rate 81 /min [address] 06-07-2024 11:32-0500 Systolic blood pressure 115 mm[Hg] [address] 06-07-2024 09:32-0500 Body height 157.5 cm Reji Tejeda MD Work Phone: [facility] 05-25-2024 11:54-0500 Body weight 56.43 kg Sandy Pravin DO Work Phone: [facility] 05-25-2024 11:54-0500 Diastolic blood pressure 72 mm[Hg] Sandy Pravin DO Work Phone: [facility] 05-25-2024 11:54-0500 Systolic blood pressure 116 mm[Hg] Sandy Pravin DO Work Phone: [facility] 05-10-2024 09:39-0500 Body weight 54.8 kg Alma BRANHAM Work Phone: [facility] 05-10-2024 09:39-0500 Diastolic blood pressure 70 mm[Hg] Alma BRANHAM Work Phone: [facility] 05-10-2024 09:39-0500 Systolic blood pressure 100 mm[Hg] Alma BRANHAM Work Phone: [facility] 04-20-2024 10:01-0500 Body weight 53.25 kg Sandy Pravin DO Work Phone: [facility] 04-20-2024 10:01-0500 Diastolic blood pressure 60 mm[Hg] Sandy Pravin DO Work Phone: [facility] 04-20-2024 10:01-0500 Systolic blood pressure 100 mm[Hg] Sandy Pravin DO Work Phone: [facility] 03-23-2024 12:42-0500 Body weight 51.26 kg Sandy Pravin DO Work Phone: [facility] 03-23-2024 12:42-0500 Diastolic blood pressure 62 mm[Hg] Sandy Pravin DO Work Phone: [facility] 03-23-2024 12:42-0500 Systolic blood pressure 102 mm[Hg] Sandy Pravin DO Work Phone: [facility] 02-23-2024 10:48-0500 Body weight 49.9 kg Alma BRANHAM Work Phone: [facility] 02-23-2024 10:48-0500 Diastolic blood pressure 64 mm[Hg] Alma BRANHAM Work Phone: [facility] 02-23-2024 10:48-0500 Systolic blood pressure 102 mm[Hg] Alma BRANHAM Work Phone: [facility] 01-25-2024 10:45-0400 Body weight 47.68 kg Sandy Pravin DO Work Phone: [facility] 01-25-2024 10:45-0400 Diastolic blood pressure 64 mm[Hg] Sandy Pravin DO Work Phone: [facility] 01-25-2024 10:45-0400 Systolic blood pressure 100 mm[Hg] Sandy Pravin DO Work Phone: [facility] 12-02-2023 08:47-0400 Body height 157.48 cm [facility] 12-02-2023 08:47-0400 Body mass index (BMI) [Ratio] 19.5 kg/m2 [facility] 12-02-2023 08:47-0400 Body weight 48.53 kg [facility] 12-02-2023 08:47-0400 Diastolic blood pressure 80 mm[Hg] [facility] 12-02-2023 08:47-0400 Systolic blood pressure 122 mm[Hg] [facility] Encounters Encounter Date Encounter Type Care Provider Facility Start: 06-27-2024 End: 06-27-2024 ambulatory SANDY PRAVIN Not Available Start: 06-22-2024 End: 06-22-2024 Bamboo flowsheet Sandy Pravin DO Work Phone: [facility] Start: 06-22-2024 End: 06-22-2024 Bamboo flowsheet Sandy Pravin DO Work Phone: [facility] Start: 06-22-2024 End: 06-22-2024 Periodic preventive med est patient 40-64yrs Sandy Pravin DO Work Phone: [facility] Comment on above: Third trimester preg danielle; 34 weeks gestation of Start: 06-22-2024 End: 06-22-2024 ambulatory SANDY COSTELLO Not Available Start: 06-21-2024 End: 06-21-2024 Orders Only Anya Waters RN Maternal- Medicine at [facility] Comment on above: growth restric tion antepartum (Primary Dx) Start: 06-14-2024 End: 06-14-2024 ambulatory [facility] Start: 06-08-2024 End: 06-08-2024 Bamboo [...] 06-07-2024 Emergency department patient visit RIKY STEARNS [facility] Start: 06-07-2024 End: 06-07-2024 ambulatory [facility] Nst1 Maternal- Medicine at [facility] Comment on above: growth restric tion antepartum (Primary Dx) growth restric tion antepartum (Primary Dx); 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, antepartum Start: 06-07-2024 End: 06-07-2024 Office consultation new/estab patient 60 min Reji Tejeda MD Work Phone: Maternal- Medicine at [facility] Comment on above: growth restric tion antepartum (Primary Dx); 32 weeks gestation of Start: 06-07-2024 End: 06-07-2024 ambulatory [facility] Start: 06-05-2024 End: 06-05-2024 Orders Only Not In System Ref Prov Maternal- Medicine at [facility] Start: 06-01-2024 End: 06-01-2024 Clinisync Result [...] Start: 05-10-2024 End: 05-10-2024 Bamboo flowsheet Alma BRAHNAM Work Phone: [facility] Start: 05-10-2024 [...] Start: 03-23-2024 End: 03-23-2024 Bamboo flowsheet Sandy Pravni DO Work Phone: [facility] Start: 03-23-2024 End: 03-23-2024 ambulatory SANDY PRAVIN Not Available Start: 03-23-2024 End: 03-23-2024 flow sheet Sandy Pravin DO Work Phone: [facility] Comment on above: Second trimester pre gnancy; 21 weeks gestation of Start: 03-21-2024 End: 03-21-2024 ambulatory SANDY R PRAVIN [facility] Start: 03-07-2024 End: 03-07-2024 Chart abstracting Omayra Boyce [facility] Work Phone: Maternal- Medicine at [facility] Start: 02-23-2024 End: 02-23-2024 Bamboo flowsheet Alma BRANHAM Work Phone: [facility] Start: 02-23-2024 End: 03-06-2024 Bamboo flowsheet Alma BRANHAM Work Phone: [facility] Start: 02-23-2024 End: 03-06-2024 Clinisync Result Encounter Alma BRANHAM Work Phone: [facility] External Department Unsolicited Start: 02-23-2024 End: 02-24-2024 External Result Encounter Alma BRANHAM Work Phone: [facility] Department Unsolicited Start: 02-23-2024 End: 02-23-2024 Patient encounter procedure Alma BRANHAM Work Phone: [facility] Start: 02-23-2024 End: 02-23-2024 flow sheet Alma BRANHAM Work Phone: [facility] Comment on above: Well [...] Not Available Start: 12-02-2023 Patient encounter status [facility] Start: 12-02-2023 End: 12-02-2023 ambulatory [facility] Work Phone: Start: 12-02-2023 End: 12-02-2023 Encounter for general adult medical examination without abnormal findings [facility] Start: 12-02-2023 End: 12-02-2023 Patient encounter procedure [facility] Physician [facility] Work Phone: Procedures Date Procedure Procedure [...] malign ant neoplasm of cervix Pap Smear [facility] Start: 06-21-2025 End: 06-21-2025 US MFM with or without consult US MFM with or without consult Imaging Routine growth restriction antepartum Expected: 06/21/2025 (Approximate), Expires: 06/21/2025 [facility] Work Phone: Comment on above: Expected: 06/21/2025 (Approximate), Expires: 06/21/2025 Start: 06-07-2025 Adult BMI Screening Adult BMI Screen ing [facility] Start: 06-07-2025 Tobacco Screening Tobacco Screening [facility] Start: 06-07-2025 End: 06-07-2025 US MFM with or without consult US MFM with or without consult Imaging Routine growth restriction antepartum 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, antepartum Expected: 06/07/2025 (Approximate), Expires: 06/07/2025 [facility] Work Phone: Comment on above: Expected: 06/07/2025 (Approximate), Expires: 06/07/2025 Start: 07-05-2024 End: 07-05-2024 Patient encounter procedure 07/05/2024 8:45 AM EDT Appointment [facility] [address] [place] [phone] [facility] Start: 06-28-2024 End: 06-28-2024 Patient encounter procedure 06/28/2024 8:45 AM EDT Appointment [facility] [address] [place] [phone] [facility] Start: 06-22-2024 End: 06-22-2025 CULTURE, GROUP B STREP WITH SUSCEPTIBLITY CULTURE, GROUP B STREP WITH SUSCEPTIBLITY Lab Routine Third trimester Expected: 06/22/2024, Expires: 06/22/2025 [facility] [employer] Work Phone: Comment on above: Expected: 06/22/2024 , Expires: 06/22/2025 Start: 06-22-2024 End: 06-22-2024 Patient encounter procedure [facility] Comment on above: Arrived Start: 06-21-2024 End: 06-21-2024 Patient encounter procedure 06/21/2024 9:00 AM EDT Appointment [facility] [address] [place] [address] [facility] Start: 06-14-2024 End: 06-14-2024 Patient encounter procedure 06/14/2024 8:00 AM EDT Appointment [facility] [address] [place] [address] [facility] Start: 06-08-2024 End: 06-08-2024 Patient encounter procedure [facility] Comment on above: Arrived Start: 06-07-2024 End: 06-07-2025 nonstress test - Maternal Medicine nonstress test - Maternal Medicine OB Routine growth restriction antepartum Expected: 06/07/2024 (Approximate), Expires: 06/07/2025 [facility] Work Phone: Comment on above: Expected: 06/07/2024 (Approximate), Expires: 06/07/2025 Start: 06-07-2024 End: 06-07-2024 Patient encounter procedure [facility] Start: 06-01-2024 End: 06-01-2024 Professional / ancillary services management 06/01/2024 9:30 AM EST Ancillary Procedure [facility] [address] [place] [address] [place] [address] [facility] Start: 05-25-2024 End: [...] AM EST Routine [facility] [address] [place] [phone] Sandy Costello DO [address] [place] [address] [facility] Start: 03-23-2024 End: 03-23-2024 Professional / ancillary services management 03/23/2024 10:30 AM EST Ancillary Procedure [facility] [address] [place] [address] [facility] Start: 03-21-2024 End: 03-21-2024 Telemedicine consultation with patient 03/21/2024 9:00 AM EST Telemedicine Maternal- Medicine at [facility] [address] [place] [phone] Omayra Boyce, [facility] [address] [place] [address] Maternal- Medicine at [facility] Start: 02-23-2024 End: 02-22-2025 US for US OB ANATOMY SINGLE W US OB CERVICAL LENGTH Imaging Routine Screening, , for anatomic survey Expected: 02/23/2024 (Approximate), Expires: 02/22/2025 [facility] Comment on above: Expected: 02/23/2024 (Approximate), Expires: 02/22/2025 Start: 02-23-2024 End: 02-23-2024 Patient encounter procedure [facility] Comment on above: Arrived Start: 01-25-2024 End: 01-25-2024 Patient encounter procedure [facility] Comment on above: Arrived Start: 12-31-2023 End: 12-30-2024 ABO/Rh ABO/Rh Lab Routine Missed menses , unspecified gestational age Expected: 12/31/2023 (Approximate), Expires: 12/30/2024 [facility] Comment on above: Expected: 12/31/2023 (Approximate), Expires: 12/30/2024 Start: 12-31-2023 End: 12-30-2024 Blood type and Indirect antibody screen panel - Blood Type and screen Lab Routine Missed menses , unspecified gestational age Expected: 12/31/2023 (Approximate), Expires: 12/30/2024 [facility] Work Phone: Comment on above: Expected: 12/31/2023 (Approximate), Expires: 12/30/2024 Start: 12-31-2023 End: 12-30-2024 Drugs of abuse panel - Urine by Screen method Rapid drug screen, urine Lab Routine , unspecified gestational age Encounter for supervision of normal first in first trimester Expected: 12/31/2023 (Approximate), Expires: 12/30/2024 [facility] Comment on above: Expected: 12/31/2023 (Approximate), Expires: 12/30/2024 Start: 12-31-2023 End: 12-30-2024 US Pelvis transvaginal US OB transvaginal Imaging Routine Missed menses Expected: 12/31/2023 (Approximate), Expires: 12/30/2024 [facility] Comment on above: Expected: 12/31/2023 (Approximate), Expires: 12/30/2024 Start: 12-05-2023 Influenza vaccination Influenza Vacc ine [facility] Start: 11-06-2019 DTaP,Tdap and Td Vaccines (7 - Td or Tdap) DTaP,Tdap and Td Vaccines (7 - Td or Tdap) [facility] Start: 2018 Screening for malign ant neoplasm of cervix Pap Smear [facility] Start: 09-29-2015 Adult BMI Screening Adult BMI Screen ing [facility] Start: 2009 Depression Screening Depression Scre ening [facility] Start: 2009 Tobacco Screening Tobacco Screening [facility] Bacteria identified in Urine by Culture Urine culture Microbiology Routine Missed menses Ordered: 12/31/2023 [facility] Comment on above: Ordered: 12/31/2023 CBC W Auto Different ial panel - Blood CBC and differential Lab Routine Missed menses , unspecified gestational age Ordered: 12/31/2023 [facility] Comment on above: Ordered: 12/31/2023 CHLAMYDIA TRACHOMATI S (GENITO/STI) CHLAMYDIA TRACHOMATIS (GENITO/STI) Lab Routine Screen for STD (sexually transmitted disease) Ordered: 02/23/2024 [facility] Comment on above: Ordered: 02/23/2024 Cytology Cervical or vaginal smear or scraping study Pap Smear Pathology and Cytology Routine Well woman exam with routine gynecological exam Ordered: 02/23/2024 [facility] Comment on above: Ordered: 02/23/2024 Hemoglobin A1c/Hemoglobin.total in Blood Hemoglobin A1c Lab Routine Missed menses , unspecified gestational age Ordered: 12/31/2023 [facility] Comment on above: Ordered: 12/31/2023 Hepatitis B virus surface Ag [Presence] in Serum or Plasma by Immunoassay Hepatitis B surface antigen Lab Routine Missed menses , unspecified gestational age Ordered: 12/31/2023 [facility] Comment on above: Ordered: 12/31/2023 Hepatitis C virus Ab [Presence] in Serum or Plasma by Immunoassay Hepatitis C antibody Lab Routine Missed menses , unspecified gestational age Ordered: 12/31/2023 [facility] Comment on above: Ordered: 12/31/2023 HIV-1/HIV-2 antigen/antibody combination immunoassay HIV-1 and HIV-2 antibodies Lab Routine Missed menses , unspecified gestational age Ordered: 12/31/2023 [facility] Comment on above: Ordered: 12/31/2023 Neisseria gonorrhoea e DNA [Presence] in Unspecified specimen by RUBEN with probe detection Neisseria gonorrhea DNA probe, direct Lab Routine Screen for STD (sexually transmitted disease) Ordered: 02/23/2024 [facility] Comment on above: Ordered: 02/23/2024 Reagin Ab [Presence] in Serum by RPR RPR Lab Routine Missed menses , unspecified gestational age Ordered: 12/31/2023 [facility] Comment on above: Ordered: 12/31/2023 Rubella antibody, IgG Rubella an tibody, IgG Lab Routine Missed menses , unspecified gestational age Ordered: 12/31/2023 [facility] Comment on above: Ordered: 12/31/2023 SURESWAB(R) ADVANCED VAGINITIS PLUS, TMA SURESWAB(R) ADVANCED VAGINITIS PLUS, TMA Pathology and Cytology Routine Screen for STD (sexually transmitted disease) Ordered: 02/23/2024 [facility] Work Phone: Comment on above: Ordered: 02/23/2024 Immunizations Immunization Date Immunization Notes Care Provider Fa cilijames 11-13-2015 hepatitis A vaccine, pediatric/adolescent dosage, 2 dose schedule Omayra Boyce [facility] Work Phone: [facility] 11-13-2015 meningococcal polysaccharide (groups A, C, Y and W-135) diphtheria toxoid conjugate vaccine (MCV4P) Omayra Boyce [facility] Work Phone: [facility] 04-24-2015 influenza, injectabl e, quadrivalent, preservative free Omayra Austen [facility] Work Phone: [facility] 04-24-2015 influenza virus vaccine, unspecified formulation Omayra Austen [facility] Work Phone: [facility] 11-05-2009 tetanus toxoid, redu dilip diphtheria toxoid, and acellular pertussis vaccine, adsorbed Omayra Austen [facility] Work Phone: [facility] 11-05-2009 varicella virus vaccine Made larry Boyce [facility] Work Phone: [facility] 03-14-2009 influenza, seasonal, injectable, preservative free Omayra Austen [facility] Work Phone: [facility] 01-24-2003 hepatitis B vaccine, adult dosage [facility] Work Phone: [facility] 11-28-2002 diphtheria, tetanus toxoids and acellular pertussis vaccine, 5 pertussis antigens [facility] Work Phone: [facility] 11-28-2002 measles, mumps and rubella virus vaccine [facility] Work Phone: [facility] 11-28-2002 poliovirus vaccine, inactivated Omayra Austen [facility] Work Phone: [facility] 07-18-2001 varicella virus vaccine Made larry Boyce [facility] Work Phone: [facility] 04-09-1999 diphtheria, tetanus toxoids and acellular pertussis vaccine, 5 pertussis antigens [facility] Work Phone: [facility] 04-09-1999 measles, mumps and rubella virus vaccine [facility] Work Phone: [facility] 03-25-1998 diphtheria, tetanus toxoids and acellular pertussis vaccine, 5 pertussis antigens [facility] Work Phone: [facility] 03-25-1998 hepatitis B vaccine, adult dosage [facility] Work Phone: [facility] 03-25-1998 [facility], [facility] 02-13-1998 diphtheria, tetanus toxoids and acellular pertussis vaccine, 5 pertussis antigens [facility] Work Phone: [facility] 02-13-1998 [facility]iovirus [facility], [facility] 1997 diphtheria, tetanus toxoids and acellular pertussis vaccine, 5 pertussis antigens [facility] Work Phone: [facility] 1997 haemophilus influenz ae type b vaccine, PRP-OMP conjugate [facility] Work Phone: [facility] 1997 poliovirus vaccine, inactivated [facility] Work Phone: [facility] 1997 hepatitis B vaccine, adult dosage [facility] Work Phone: [facility] 1997 hepatitis B vaccine, adult dosage [facility] Work Phone: [facility] NEGATED: Highlighted row has not occurred!11-13-2015 human papilloma virus vaccine, quadrivalent [facility] Work Phone: [facility] Comment on above: Deferred: Other - parent declined Payers Date Payer Category Payer Blue Cross Blue Shield [id number] 2022 Blue Cross Blue Shie Managed Care - Other [id number] 2022 Unknown BCBS BCBS [id number] [id number] 2022-Present [phone] [address] [place] [address] [id number] 2022 Unknown [id number] 2020 Blue Cross Blue Db Managed Care - O ANTHEM [id number] 1997 Unknown [id number] [id number]. 2.1285 1997 Unknown [id number] 2.16840.1.417500.3.579. 2.1285 1997 Unknown [id number] 2.16840.1.875310.3.579. 2.1285 1997 Unknown [id number] 2.16840.1.268906.3.579. 2.1285 1997 Unknown [id number] 2.16840.1.816896.3.579. 2.1285 1997 Unknown [id number] 2.16.840.1.890861.3.579. 2.128 1997 Unknown [id number] 2.16840.1.418893.3.579. 2.1285 1997 Unknown [id number] 2.16840.1.474504.3.579. 2.9 1997 Unknown [id number] 2.16.840.1.451777.3.579. 2.9 1997 Unknown [id number] 2.16840.1.650205.3.579. 2.9 1997 Unknown [id number] 2.16.840.1.467192.3.579. 2.1258 1997 Unknown [id number] 2.16.840.1.418705.3.579. 2.9 1997 Unknown [id number] 2.16.840.1.576706.3.579. 2.1258 1997 Unknown [id number] 2.16.840.1.543713.3.579. 2.1258 1997 Unknown [id number] 2.16.840.1.915420.3.579. 2.1258 1997 Unknown [id number] 2.16.840.1.224043.3.579. 2.9 1997 Unknown [id number] 2.16.840.1.595857.3.579. 2.1258 1997 Unknown [id number] 2.16.840.1.190524.3.579. 2.1259 Social History Date Type Detail Facility Tobacco smoking stat [facility] Unknown if ever smoked [facility] Work Phone: Start: 1997 Sex Assigned At Female [facility] Tobacco smoking stat [facility] Tobacco smoking consumption unknown [facility] Start[facility] Start: 1997 Sex assigned at Not on file [facility] Start: 05-16-2020 End: 03-07-2024 Gender identity Not on file [facility] Start: 02-13-2021 End: 06-07-2024 Tobacco smoking status NHIS Never smoked tobacco [facility] Start: 02-13-2021 End: 06-07-2024 Tobacco use and exposure Smokeless tobacco non-user [facility] Start: 03-07-2024 Alcoholic beverage intake Current non-drinker of alcohol (finding) [facility] Start: 05-16-2020 End: 03-07-2024 Alcoholic beverage intake [facility] Childcare Unknown [facility] Start: 11-06-2014 Sex Female (finding) [facility] Start: 06-05-2024 End: 06-07-2024 Alcoholic beverage intake Ex-drinker (finding) [facility] Clinical Notes 12-31-2023 to 06-22-2024 [...] Sandy Costello DO documented in this encounter [facility] 06-08-2024 History of Present illness [...] of: CARROL Harmon documented in this encounter [facility] 06-07-2024 History of Present illness [...] all scheduled appointments documented in this encounter [facility] 06-07-2024 History of Present illness [...] TESTS AND ULTRASOUND REPORTS: Referral records and [facility] chart were reviewed Pertinent Ultrasound [...] Based on ultrasound findings today recommend delivery [facility] recommendations summary FGR is defined as [...] later - absent end-diastolic flow umbilical artery: [id number] or at time of diagnosis if diagnosed later. - reversed end-diastolic flow umbilical artery: [id number] or at time of diagnosis if diagnosed [...] 34 weeks gestation. Delivery method preferred vaginal. Kennett C/S for usual obstetrical indications Recommend steroids if delivery before 34 weeks. Consider steroids if delivery after 34 weeks and before 37 weeks. DISPOSITION: At this point the patient is in complete care of her ad terminal makeup operator. Patient does have ultrasound scheduled with us. Thank you for allowing me to participate in the care of Sejal Nowak. If there any questions please do not hesitate to contact us. Reji Tejeda MD Maternal- Medicine [facility] [address] [place] [address] [facility], the CDC, and other organizations representing maternal and public health professionals recommend that , , and lactating people and those considering receive the COVID-19 vaccination. Vaccination is the best method to reduce maternal and complications of SARS-CoV-2 infection. This document was created with [employer] technology. Though I make every effort to review the dictation as it is transcribed, on occasion the spoken word can be misinterpreted by the technology leading to inappropriate words, phrases, or sentences. This note is addressed to the requesting provider as a consultation for clinical guidance. Specific medical abbreviations are occasionally used and those are generally approved by the [place]?Board of?Obstetrics and?Gynecology?as well as?Jocelyn villasenor abbreviations. The above plan of care was based solely on the diagnoses for which a consultation was requested. ?More frequent testing may be indicated based on her other medical/obstetrical conditions. The management of other or medical conditions is beyond the scope of requested consultation and will continue to be followed by the primary ad terminal makeup operator or primary care provider. Note to [...] office? Have you been seen here at [facility] in a previous ? Recent ER visits or hospitalizations? Bring blood sugar log or meter with you today? (Please bring them with you for every visit at [facility]) Flu vaccine (Feb-June)? Any concerns that you would like me to mention to the provider today? documented in this encounter [facility] 05-25-2024 History of Present illness Narrative Reason [...] nursing note reviewed. Exam conducted with a nougat cutter machine present. Vitals: There is no height or [...] Sandy Costello DO documented in this encounter [facility] 05-10-2024 History of Present illness [...] of: CARROL Harmon documented in this encounter [facility] 04-20-2024 History of Present illness [...] nursing note reviewed. Exam conducted with a nougat cutter machine present. Vitals: There is no height or [...] Sandy Costello DO documented in this encounter [facility] 03-23-2024 History of Present illness [...] Sandy Costello DO documented in this encounter [facility] 02-23-2024 History of Present illness [...] of: CARROL Harmon documented in this encounter [facility] 01-25-2024 History of Present illness [...] nursing note reviewed. Exam conducted with a nougat cutter machine present. Vitals: There is no height or [...] or undercooked meat, and stay away from [facility]. Patient has been consulted regarding any further do's and don'ts of . Patient voiced understanding and all questions and concerns were answered. Orders Placed This Encounter Procedures POCT urinalysis dipstick manually resulted Follow Up: Patient is to return in 4 weeks for routine OB appointment. Documented by Anita Oswald LPN on behalf of: Sandy Costello DO documented in this encounter [facility] 12-31-2023 History of Present illness [...] or undercooked meat, and stay away from [facility]. Patient has also been advised to [...] Regina Birch LPN documented in this encounter [facility] Evaluation note Diagnosis Onset Date Wellness examination [facility] Work Phone: Evaluation note* Diagnosis 12 weeks [...] episode of care documented in this encounter [facility] HealthcareEvaluation note* Diagnosis Second trimester state, incidental 21 weeks gestation of documented in this encounter [facility] note* Diagnosis Second trimester state, incidental 25 weeks gestation of Diabetes mellitus screening Screening for diabetes mellitus documented in this encounter [facility] HealthcareEvaluation note* Diagnosis Third trimester state, incidental 28 weeks gestation of size inconsistent with dates Nonintractable headache, unspecified chronicity pattern, unspecified headache type documented in this encounter [facility] Healthcare[facility] note* Diagnosis 30 weeks gestation of Third trimester state, incidental documented in this encounter [facility] HealthcareEvaluation note* Diagnosis growth restriction antepartum- Primary 32 weeks gestation of [facility] Diagnosis growth restriction antepartum- Primary [facility] Diagnosis growth restriction antepartum- Primary 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, antepartum [facility] Diagnosis growth restriction antepartum- Primary [facility]* Diagnosis Third trimester state, incidental 32 weeks gestation of documented in this encounter [facility]* Diagnosis growth restriction antepartum- Primary [facility] Diagnosis Third trimester state, incidental 34 weeks gestation of documented in this encounter [facility] HealthcareInstructionsNot on filedocumented in this encounterProGro[facility] SystemInstructionsNot on filedocumented in this encounterProOhiohealth [facility] HospitalRe[facility] Surgical SystemInstructionsNot on filedocumented in this encounterProOhiohealth Berger HospitalReach Surgical SystemInstructionsNot on filedocumented in this encounterProOhiohealth [facility] HospitalRe[facility] Surgical System InstructionsNot on filedocumented in this encounterProJoint [facility] Chief Complaint and Reason [...] Member Role Status Dates Tran Rice APRN [employer]C Primary Care Provider Active Team Status: Inactive Member Role Status Dates Tran Rice APRN [employer]C Primary Care Provider, Attending Provider Active Start: December 02, 2023 End: December 02, 2023 Electrolysist Relationship Specialty Start Date End Date Tran Rice NP [address] [place] [address], [place] [address] PCP - General Family Medicine 12/31/23 Electrolysist Relationship Specialty Start Date End Date Tran Rice NP [address] [place] [address], [place] [address] PCP - General Family Medicine 12/31/23 Electrolysist Relationship Specialty Start Date End Date Tran Rice NP [address] [place] [address], [place] [address] PCP - General Family Medicine 12/31/23 Electrolysist Relationship Specialty Start Date End Date Tran Rice NP [address] [place] [address], [place] [address] PCP - General Family Medicine 12/31/23 Electrolysist Relationship Specialty Start Date End Date Tran Rice NP [address] [place], [place] [address], [place] [address] PCP - General Family Medicine 12/31/23 Electrolysist Relationship Specialty Start Date End Date Tran Rice NP [address] [place] [address], [place] [address] PCP - General Family Medicine 12/31/23 Electrolysist Relationship Specialty Start Date End Date Tran Rice NP [address] [place] [address] PCP - General Family Medicine 12/31/23 Electrolysist Relationship Specialty [place] [address] [place] [address] [place] [address] PCP - General Family Medicine 12/31/23 Electrolysist Relationship Specialty [place] [address] [place] [address] [place] [address] PCP - General Family Medicine 12/31/23 Electrolysist Relationship Specialty [place] [address] [place] [address] [place] [address] PCP - General Family Medicine 12/31/23 Electrolysist Relationship Specialty Start Date End Date Tran Rice NP [address] [place] [address] [place] [address] PCP - General Family Medicine 12/31/23 Electrolysist Relationship Specialty Start Date End Date Arthur Kan MD PCP - General 08/09/14 Electrolysist Relationship Specialty [place] [address] [place] [address] [place] [address] PCP - General Family Medicine 12/31/23 Electrolysist Relationship Specialty Start Date End Date Arthur Kan MD PCP - General 08/09/14 Electrolysist Relationship Specialty Start Date End Date Arthur Kan MD PCP - General 08/09/14 Electrolysist Relationship Specialty Start Date End Date Arthur Kan MD PCP - General 08/09/14 Electrolysist Relationship Specialty Start Date End Date KeithArthur lynn MD PCP - General 08/09/14 Electrolysist Relationship Specialty Start Date End Date Arthur Kan MD PCP - General 08/09/14 Electrolysist Relationship Specialty Start Date End Date KeithArthur lynn MD PCP - General 08/09/14 Electrolysist Relationship Specialty Start Date End Date KeithArthur lynn MD PCP - General 08/09/14 Electrolysist Relationship Specialty Start Date End Date Tran Rice NP [address] [place] [address] PCP - General Family Medicine 12/31/23 Goals [...] section and content) DATE CREATED AUTHOR 06/23/2024 [facility] DATE CREATED AUTHOR AUTHOR'S HERIBERTO DU 06/28/2024 [facility] EPIC FOR RECORDS PERTAINING TO PATIENTS [...] BE BASED ON THE PRIMARY CLINICAL RECORDS. [employer] provides no warranty or guarantee of the accuracy or completeness of information in this document.
--- NOTE | 2024-06-29 06:59 | US_ITS ---
[address] [address] Patient Name: SEJAL NOWAK MRN: [id number] date: 1995 Sex: F Assigned Patient Location: [facility] Current Patient Location: Accession/Order Number: [id number] Exam Date: 06/29/2024 16:04 Report Date: 06/29/2024 16:05 At the request of: SANDY PRATT DO Procedure: US OB BPP w non-stress Biophysical profile. Reason for exam: Intrauterine growth restriction and oligohydramnios. COMPARISON: BPP 06/22/2024 TECHNIQUE: Transabdominal imaging of the gravid uterus was obtained. FINDINGS: Merchandiser reports a BPP of 8 out of 8. MONIQUE 3.5 cm. heart rate 134 bpm. US/US OB BPP w non-stress IMPRESSION: BPP 8 out of 8. Oligohydramnios. Impression dictated by: Eric Andersen Jr., D.O.06/29/2024 4:05 PM Dictation Location: [employer] Electronically authenticated by: [id number] Y Date: 06/29/2024 16:05
[2024-06-29 07:31] VITALS: BP 122/77; PULSE 103
[2024-06-29] MEDS: BETAMETHASONE ACE/BETAMETHASONE SOD PHOS 30 MG/5 ML 12 MG IM (08:38)
== END 2024-06-29 08:45 | disposition home or self-care (01) ==
LOC: US 06:55 → FBC 06:56
PROVIDERS: PCP Nurse Practitioner Family; Visit Provider Obstetrics & Gynecology
DX: O36.5930 Maternal care for other known or suspected poor fetal growth, third trimester, not applicable or unspecified (principal); O41.03X0 Oligohydramnios, third trimester, not applicable or unspecified; Z3A.35 35 weeks gestation of pregnancy
CPT/HCPCS: 76818; 96372; J0702

== ENCOUNTER 2024-06-30 09:23 | Outpatient (RCR) | payer BC, SELFPAY ==
--- NOTE | 2024-06-30 09:35 | PC.NURSE ---
To room for celestone second dose, bp 121/76-113 pulse, celestone administered and pt awaits 10 minutes and vss 118/76 96, no side effects noted, pt discharge
[2024-06-30] MEDS: BETAMETHASONE ACE/BETAMETHASONE SOD PHOS 30 MG/5 ML 12 MG INJ (10:05)
== END 2024-06-30 10:09 | disposition home or self-care (01) ==
LOC: INF 09:23
PROVIDERS: PCP Nurse Practitioner Family; Visit Provider Obstetrics & Gynecology
DX: O41.00X0 Oligohydramnios, unspecified trimester, not applicable or unspecified (principal); Z3A.00 Weeks of gestation of pregnancy not specified
CPT/HCPCS: 96372; J0702

== ENCOUNTER 2024-07-03 08:01 | Outpatient (OUT) | payer BC, SELFPAY ==
[2024-07-03 08:09] VITALS: BP 114/57; PULSE 88
--- OUTSIDE RECORDS SUMMARY | 2024-07-03 08:10 | XMS_ITS | CCD ---
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 Name Role Phone Dwayne HUNTLEY, Tran Carbone Primary Care Provider Keith OSORIO, Arthur Thompson Primary Care Provider [phone] ALICIA, ALMA Attending Unavailable PRAVIN, SANDY Attending Unavailable ALICIA, ALMA Referring Unavailable ALICIA, ALMA Attending Unavailable PRAVIN, SANDY Attending Unavailable PRAVIN, SANDY Attending Unavailable PRAVIN, SANDY Attending Unavailable ALICIA, ALMA Attending Unavailable PRAVIN, SANDY Attending Unavailable PRAVIN, SANDY Attending Unavailable PRAVIN, SANDY R Referring Unavailable KEITHARTHUR Primary Care Unavailable PRAVIN, SANDY R Referring Unavailable KEITHARTHUR Primary Care Unavailable REJI DAY Attending Unavailable PRAVIN, SANDY R Referring Unavailable KEITHARTHUR Primary Care Unavailable PRAVIN, SANDY R Referring Unavailable KEITH, ARTHUR Thompson Primary Care Unavailable RIKY STEARNS Admitting Unavailable RIKY STEARNS Attending Unavailable KEITHARTHUR PACK Primary Care Unavailable PRAVIN, SANDY R Referring Unavailable KEITHARTHUR Primary Care Unavailable PRAVIN, SANDY R Referring Unavailable KEITHARTHUR Primary Care Unavailable PRAVIN, SANDY R Referring Unavailable KEITHARTHUR Primary Care Unavailable Allergies Allergy Classification Reported Allergen(s) Allergy Type Date of Onset Reaction(s) Facility (20 sources) Other Propensity to adverse reactions 4 [facility] Work Phone: (20 sources) Cat Hair Extract Propensity to adverse reactions 4 [facility] Healthcare (9 sources) Cat Dander; Translations: [CAT [...] 06-07-2024 Episodic Other and delivery including normal (18 sources) First trimester ; Translations: [Encounter for supervision of normal , unspecified, first trimester] 01-25-2024 Episodic Other screening for suspected conditions (not mental disorders or infectious disease) (3 sources) Alpha-fetoprotein blood test status; Translations: [Encounter for screening for raised alphafetoprotein level] Onset: 06-07-2024 02-23-2024 Episodic Polyhydramnios and other problems of amniotic cavity (2 sources) Oligohydramnios; Translations: [Oligohydramnios, unspecified trimester, not applicable or unspecified] 06-27-2024 Episodic Residual codes; unclassified (2 sources) Gestation [...] of ] 06-07-2024 Episodic Residual codes; unclassified (3 sources) Gestation period, 34 weeks; Translations: [34 weeks [...] Test Name Value Interpretation Reference Range Facility US OB BPP W NON-STRESS on 06-29-2024 [place] [address] Ultrasound Report Signed Patient: SEJAL NOWAK MR#: [id number] : 1995 Acct:[id number] Age/Sex: 28 / F ADM Date: 06/29/24 Loc: US Attending Dr: Sandy Costello D.O. Ordering Physician: Sandy Costello D.O. Date of Service: 06/29/24 Procedure(s): US OB BPP w non-stress Accession Number(s): [id number] cc: Sandy Costello D.O.; TRAN RICE [address] [address] Patient Name: SEJAL NOWAK MRN: [id number] date: 1995 Sex: F Assigned Patient Location: [facility] Current Patient Location: US Accession/Order Number: [id number] Exam Date: 06/29/2024 16:04 Report Date: 06/29/2024 16:05 At the request of: SANDY COSTELLO DO Procedure: US OB BPP w non-stress Biophysical profile. Reason for exam: Intrauterine growth restriction and oligohydramnios. COMPARISON: BPP 06/22/2024 TECHNIQUE: Transabdominal imaging of the gravid uterus was obtained. FINDINGS: Licensed Chemical Spray Technician reports a BPP of 8 out of 8. MONIQUE 3.5 cm. heart rate 134 bpm. US/US OB BPP w non-stress IMPRESSION: BPP 8 out of 8. Oligohydramnios. Impression dictated by: Eric Andersen Jr., D.O.06/29/2024 4:05 PM Dictation Location: [place] [address] Electronically authenticated by: [id number] Y Date: 06/29/2024 16:05 Dictated By: Eric Andersen M.D. Signed By: 06/29/241607 DD/ 04 TD/TT: Computer System Technician: [facility] Radiology, Radiologist, MD - 06/29/2024 [place] [address] Ultrasound Report Signed Patient: SEJAL NOWAK MR#: [id number] : 1995 Acct:[id number] Age/Sex: 28 / F ADM Date: 06/29/24 Loc: US Attending Dr: Sandy Costello D.O. Ordering Physician: Sandy Costello D.O. Date of Service: 06/29/24 Procedure(s): US OB BPP w non-stress Accession Number(s): [id number] cc: Sandy Costello D.O.; TRAN RICE The [address] [address] Patient Name: SEJAL NOWAK MRN: [facility]:[id number] date: 1995 Sex: F Assigned Patient Location: [facility] Current Patient Location: US Accession/Order Number: [id number] Exam Date: 06/29/2024 16:04 Report Date: 06/29/2024 16:05 At the request of: SANDY COSTELLO DO Procedure: US OB BPP w non-stress Biophysical profile. Reason for exam: Intrauterine growth restriction and oligohydramnios. COMPARISON: BPP 06/22/2024 TECHNIQUE: Transabdominal imaging of the gravid uterus was obtained. FINDINGS: Licensed Chemical Spray Technician reports a BPP of 8 out of 8. MONIQUE 3.5 cm. heart rate 134 bpm. US/US OB BPP w non-stress IMPRESSION: BPP 8 out of 8. Oligohydramnios. Impression dictated by: Eric Andersen Jr., D.O.06/29/2024 4:05 PM Dictation Location: [facility] Electronically authenticated by: [id number] Y Date: 06/29/2024 16:05 Dictated By: Eric Andersen M.D. Signed By: 06/29/241607 DD/ 04 TD/TT: Computer System Technician: [facility] Radiology Study observation (narrative) [facility] US OB BPP W NON-STRESS Ordered By: Radiologist Radiology on 06-29-2024 [facility] Work Phone: Urinalysis macro (dipstick) panel (U)on 06-27-2024 Bilirubin, UA Negative Negative - 4(70) +++ mg/dL [facility] Blood, UA Negative Negative - 50 Kvng/mcL [facility] Clarity, UA Clear [facility] Color, UA Yellow [facility] Glucose, UA Negative Negative - 2000(110) ++++ mg/dL [facility] Interpretation and review of laboratory results Normal [facility] Ketones, UA Negative Negative - 160(16) ++++ mg/dL [facility] Leukocytes, UA Negative Negative - 500+++ Sandra/mcL [facility] Nitrite, UA Negative Negative - Positive [facility] pH, UA 7 5 - 9 [facility] Protein, UA Negative Negative - 2000(20) ++++ mg/dL [facility] Spec Grav, UA 1.02 1 - 1.03 [facility] Urobilinogen, UA 0.2 0.2 - 12 mg/dL [facility] Urinalysis macro (dipstick) panel (U)on 06-22-2024 Bilirubin, UA Negative Negative - 4(70) +++ mg/dL [facility] Blood, UA Negative Negative - 50 Kvng/mcL [facility] Clarity, UA Clear [facility] Color, UA Yellow [facility] Glucose, UA Positive Negative - 1999(110) ++++ mg/dL [facility] Comment on above: 100mg/dL Interpretation and review of laboratory results Abnormal [facility] Ketones, UA Negative Negative - 160(16) ++++ mg/dL [facility] Leukocytes, UA Negative Negative - 500+++ Sandra/mcL [facility] Nitrite, UA Negative Negative - Positive [facility] pH, UA 6.5 5 - 9 [facility] Protein, UA Negative Negative - 1999(20) ++++ mg/dL [facility] Spec Grav, UA 1.025 1 - 1.03 [facility] Urobilinogen, UA 0.2 0.2 - 12 mg/dL [facility] Urinalysis macro (dipstick) panel (U)on 06-08-2024 Bilirubin, UA Negative Negative - 4(70) +++ mg/dL [facility] Blood, UA Positive Negative - 50 Kvng/mcL [facility] Comment on above: trace-intact Clarity, UA Clear [facility] Color, UA Yellow [facility] Glucose, UA Negative Negative - 1999(110) ++++ mg/dL [facility] Interpretation and review of laboratory results Abnormal [facility] Ketones, UA Negative Negative - 160(16) ++++ mg/dL [facility] Leukocytes, UA Positive Negative - 500+++ Sandra/mcL [facility] Comment on above: small Nitrite, UA Negative Negative - Positive [facility] pH, UA 7 5 - 9 [facility] Protein, UA Negative Negative - 1999(20) ++++ mg/dL [facility] Spec Grav, UA 1.01 1 - 1.03 [facility] Urobilinogen, UA 0.2 0.2 - 12 mg/dL [facility] nonstress test - Mater nal Medicineon 06-07-2024 Patient Name: Sejal Nowak Patient : 1995 NST Objective Findings: Variability: Moderate Decelerations: Variable Accelerations: Yes Acoustic Stimulator: No Baseline: 120 BPM Uterine Irritability: Yes Contractions: Irregular Comments: Variables and contractions/irritabi lity noted on EFM. Tracing reviewed with Dr Day.C instructions given, labor precautions reviewed. To JAGDISH for extended monitoring and evaluation. NST Interpretation: Nonstress Test Interpretation: Reactive (Reji Day MD) Comments: Recurrent variable decelerations. Pt reporting abdominal tightening correlating with tocometer contractions. To OB ED for prolonged evaluation, at least 2 hours. Sign-out given to OB ED team. (Reji Day MD) NST performed by: Thania Noyoal RN 06/07/2024 12:11 PM ASOBGYN [facility] Ultrasound - OfficeOrdered B y: Aida Osbornes on 06-05-2024 Radiology Study observation (narrative) [facility] Ultrasound - Officeon 2024 Radiology Study observation (narrative) [facility] Radiology Study observation (narrative) [facility] US OB BPP W NON-STRESS on 06-01-2024 [place] [address] Ultrasound Report Signed Patient: SEJAL NOWAK MR#: [id number] : 1995 Acct:[id number] Age/Sex: 28 / F ADM Date: Loc: [facility] [address]: Sandy Costello D.O. Ordering Physician: Sandy Costello D.O. Date of Service: 06/01/24 Procedure(s): US OB BPP w non-stress Accession Number(s): [id number] cc: Sandy Costello D.O.; TRAN RICE [place] [address] Patient Name: SEJAL NOWAK MRN: [id number] date: 1995 Sex: F Assigned Patient Location: [facility] Current Patient Location: [facility] Accession/Order Number: [id number] Exam Date: 06/01/2024 11:20 Report Date: 06/01/2024 [...] 5th percentile is 7.9 cm Total score: 88 US/US OB BPP w non-stress IMPRESSION: NORMAL BIOPHYSICAL PROFILE. BORDERLINE OLIGOHYDRAMNIOS . Impression dictated by: Anita Jaimes M.D.06/01/2024 11:22 AM Dictation Location[facility] Electronically authenticated by: [id number] Y Date: 06/01/2024 11:22 Dictated By: Anita Jaimes M.D. Signed By: 06/01/24 1125 DD/ 1122 TD/TT: Computer System Technician: [facility] Radiology, Radiologist, - 06/01/2024 [place] [address] Ultrasound Report Signed Patient: SEJAL NOWAK MR#: [id number] : 1995 Acct:[id number] Age/Sex: 28 / F ADM Date: Loc: [facility] Attending Dr: Sandy Costello D.O. Ordering Physician: Sandy Costello D.O. Date of Service: 06/01/24 Procedure(s): US OB BPP w non-stress Accession Number(s): [id number] cc: Sandy Costello D.O.; TRAN RICE The [place] [id number] Patient Name: SEJAL NOWAK MRN: [facility]:[id number] date: 1995 Sex: F Assigned Patient Location: [facility] Current Patient Location: [facility] Accession/Order Number: [id number] Exam Date: 06/01/2024 11:20 Report Date: 06/01/2024 11:22 At the request of: SANDY COSTELLO DO Procedure: US OB BPP w non-stress BIOPHYSICAL PROFILE: CLINICAL INFORMATION: iugr, low monique COMPARISON: 03/23/2024 anatomy survey There is a single live intrauterine gestation in cephalic presentation. The reported gestational age is 31 weeks 1 day. The heart rate [id number] beats per minute. FINDINGS: TONE: 1 or [...] Anita Jaimes M.D.06/01/2024 11:22 AM Dictation Location: [place] [address] Electronically authenticated by: [id number] Y Date: 06/01/2024 11:22 Dictated By: Anita Jaimes M.D. Signed By: 06/01/24 1125 DD/ 1122 TD/TT: Computer System Technician: [facility] [employer] Radiology Study observation (narrative) [facility] US OB BPP W NON-STRESS Ordered By: Radiologist Radiology on 06-01-2024 [facility] [employer] Work Phone: US OB FOLLOW UP TRANSABDOMIN [...] 1344 gm / 2 lbs, 15 oz (3085-0609 gm) [place] Normal: 1780 gm (8208-7728 gm) [place] Wt%: <3% for 31.1 wks [...] report is generated using voice recognition reporting ([employer]). On occasion [employer] erroneously drops words from the report or [...] of 05/10/2024: 28w0d Ultrasound - Officeon 2024 [facility] Urinalysis macro (dipstick) panel (U)on 05-25-2024 Bilirubin, UA Negative Negative - 4(70) +++ mg/dL [facility] Blood, UA Negative Negative - 50 Kvng/mcL [facility] Clarity, UA Clear [facility] Color, UA Yellow [facility] Glucose, UA Negative Negative - 2000(110) ++++ mg/dL [facility] Interpretation and review of laboratory results Normal [facility] Ketones, UA Negative Negative - 160(16) ++++ mg/dL [facility] Leukocytes, UA Negative Negative - 500+++ Sandra/mcL [facility] Nitrite, UA Negative Negative - Positive [facility] pH, UA 7 5 - 9 [facility] Protein, UA Negative Negative - 2000(20) ++++ mg/dL [facility] Spec Grav, UA 1.02 1 - 1.03 [facility] Urobilinogen, UA 0.2 0.2 - 12 mg/dL [facility] Urinalysis macro (dipstick) panel (U)on 05-10-2024 Bilirubin, UA Negative Negative - 4(70) +++ mg/dL [facility] Blood, UA Negative Negative - 50 Kvng/mcL [facility] Clarity, UA Clear [facility] Color, UA Yellow [facility] Glucose, UA Negative Negative - 1999(110) ++++ mg/dL [facility] Interpretation and review of laboratory results Normal [facility] Ketones, UA Negative Negative - 160(16) ++++ mg/dL [facility] Leukocytes, UA Negative Negative - 500+++ Sandra/mcL [facility] Nitrite, UA Negative Negative - Positive [facility] pH, UA 7 5 - 9 [facility] Protein, UA Negative Negative - 1999(20) ++++ mg/dL [facility] Spec Grav, UA 1.02 1 - 1.03 [facility] Urobilinogen, UA 0.2 0.2 - 12 mg/dL [facility] ALL CBC WITH AUTO DIFFon BASOPHILS ABSOLUTE AUTO 0 [facility] Basophils/100 WBC (Bld) 0.4 % 0.2 - 2.0 % [facility] Eosinophils/100 WBC (Bld) 1.1 % 0.9 - 7.0 % [facility] Erythrocyte distribution width (RBC) [Ratio] 13.1 % 11.0 - 15.0 % [facility] Hematocrit (Bld) [Volume fraction] 34.4 % Low 36.0 - 48.0 % [facility] Hemoglobin (Bld) [Mass/Vol] 11.7 g/dL Low 12.0 - 16.0 g/dL [facility] IMMATURE GRANULOCYTES ABS AUTO 0.04 High [facility] Immature granulocytes/100 WBC (Bld) 0.4 % 0.0 - 0.5 % [facility] Interpretation and review of laboratory results Abnormal [facility] LYMPHOCYTES ABSOLUTE AUTO 1.2 [facility] Lymphocytes/100 WBC (Bld) 11.3 % Low 20.5 - 60.0 % [facility] MCH (RBC) [Entitic mass] 30.5 pg 26.7 - 34.0 pg [facility] MCHC (RBC) [Mass/Vol] 34 g/dL 29.9 - 35.2 g/dL [facility] MCV (RBC) [Entitic vol] 89.6 fL 81.0 - 99.0 fL [facility] MONOCYTES ABSOLUTE AUTO 0.7 [facility] Monocytes/100 WBC (Bld) 6.4 % 1.7 - 12.0 % [facility] NEUTROPHILS ABSOLUTE AUTO 8.3 High [facility] Neutrophils/100 WBC (Bld) 80.4 % High 43.0 - 75.0 % [facility] Platelet mean volume (Bld) [Entitic vol] 9.7 fL 9.5 - 13.5 fL [facility] TBH EO # 0.1 [facility] PLT [facility] RBC 3.84 Low [facility] WBC 10.3 [facility] Urinalysis macro (dipstick) panel (U)on 05-03-2024 Bilirubin, UA Negative Negative - 4(70) +++ mg/dL [facility] Blood, UA Negative Negative - 50 Kvng/mcL [facility] Clarity, UA Clear [facility] Color, UA Yellow [facility] Glucose, UA Negative Negative - 1999(110) ++++ mg/dL [facility] Interpretation and review of laboratory results Normal [facility] Ketones, UA Negative Negative - 160(16) ++++ mg/dL [facility] Leukocytes, UA Negative Negative - 500+++ Sandra/mcL [facility] Nitrite, UA Negative Negative - Positive [facility] pH, UA 6.5 5 - 9 [facility] Protein, UA Negative Negative - 2000(20) ++++ mg/dL [facility] Spec Grav, UA 1.025 1 - 1.03 [facility] Urobilinogen, UA 1.0 0.2 - 12 mg/dL [facility] Ultrasound - Officeon 2023 [facility] Ultrasound - OfficeOrdered B y: Aida Sauceda on 03-23-2024 [facility] Urinalysis macro (dipstick) panel (U)on 03-23-2024 Bilirubin, UA Negative Negative - 4(70) +++ mg/dL [facility] Blood, UA Negative Negative - 50 Kvng/mcL [facility] Clarity, UA Clear [facility] Color, UA Yellow [facility] Glucose, UA Negative Negative - 1999(110) ++++ mg/dL [facility] Interpretation and review of laboratory results Normal [facility] Ketones, UA Negative Negative - 160(16) ++++ mg/dL [facility] Leukocytes, UA Negative Negative - 500+++ Sandra/mcL [facility] Nitrite, UA Negative Negative - Positive [facility] pH, UA 6.5 5 - 9 [facility] Protein, UA Negative Negative - 1999(20) ++++ mg/dL [facility] Spec Grav, UA 1.025 1 - 1.03 [facility] Urobilinogen, UA 0.2 0.2 - 12 mg/dL [facility] IGP,APTIMA HPV,AGE GDLNon AGE GDLN ACOG TESTING Note . [facility] Comment on above: TESTS RESULT FLAG UN ITS REF RANGE LAB Clinician Provided Cytology Information Source.............Cervix Other.............. No. of containers..01 ThinPrep Vial Age Algo ACOG Letha... - 01 FLAG LEGEND: L-Low Normal,H-High Normal,LL-Alert Low,HH-Alert High <-Panic Low,>-Panic High,A-Abnormal,AA-Critical Abnormal Performed at: 01 =G [facility] [address] [address] Autumn Mckoy MD, IGP, RFX APTIMA HPV ASCU Note . [facility] Comment on above: TESTS RESULT FLAG UN ITS REF RANGE LAB DIAGNOSIS: 02 NEGATIVE FOR INTRAEPITHELIAL LESION OR MALIGNANCY. Specimen adequacy: 02 Satisfactory for evaluation. No endocervical component is identified. Performed by: 02 Alma Curry, Nutrition Specialist ([facility]) . 02 Note: Note 03 The Pap [...] High,A-Abnormal,AA-Critical Abnormal Performed at: 02 KWCYT [facility] [place] [address] [address] [place] [address] Hao Blackman MD, 03 WB [facility] [address] [place] [address] Autumn Mckoy MD, Performed at: =G - [facility] [address] [id number] Pourer Buggy Ladle: Autumn Mckoy MD, Phone: [phone] Performed at: [facility] [address] [address] [address] [place], [place] [id number] Pourer Buggy Ladle: Hao Blackman MD, Phone: [phone] SPATULA-ALONE CERVIX [facility] RECURRENT VAGINITIS (HTRX)on 02-24-2024 ATOPOBIUM VAGINAE 0 [facility] ATOPOBIUM VAGINAE Not detected [facility] BVAB 2,3 (BACTERIAL VAGINOSIS ASSOCIATED BACTERIA 2, 3); MOBILUNCUS SPP 0 [facility] BVAB 2,3 (BACTERIAL VAGINOSIS ASSOCIATED BACTERIA 2, 3); MOBILUNCUS SPP Not detected [facility] NICKY ALBICANS, PARAPSILOSIS, TROPICALIS 0 [facility] NICKY ALBICANS, PARAPSILOSIS, TROPICALIS Not [facility] GLABRATA 0 [facility] NICKY GLABRATA Not detected [facility] NICKY KRUSEI 0 [facility] NICKY KRUSEI Not detected [facility] CHLAMYDIA TRACHOMATIS 0 [facility] S [facility] CHLAMYDIA TRACHOMATIS Not detected N S [facility] GARDNERELLA VAGINALIS 0 [facility] S [facility] GARDNERELLA VAGINALIS Not detected N [facility] MEGASPHAERA (TYPES 1, 2) 0 [facility] MEGASPHAERA (TYPES 1, 2) Not detected [facility] MYCOPLASMA GENITALIUM 0 NOM S [facility] MYCOPLASMA GENITALIUM Not detected N [facility] NEISSERIA GONORRHOEAE 0 [facility] S [facility] NEISSERIA GONORRHOEAE Not detected N [facility] TRICHOMONAS VAGINALIS 0 [facility] S [facility] TRICHOMONAS VAGINALIS Not detected N [facility] Urinalysis macro (dipstick) panel (U)on 02-23-2024 Bilirubin, UA Negative Negative - 4(70) +++ mg/dL [facility] Blood, UA Negative Negative - 50 Kvng/mcL [facility] Clarity, UA Clear [facility] Color, UA Yellow [facility] Glucose, UA Negative Negative - 2000(110) ++++ mg/dL [facility] Interpretation and review of laboratory results Normal [facility] Ketones, UA Negative Negative - 160(16) ++++ mg/dL [facility] Leukocytes, UA Negative Negative - 500+++ Sandra/mcL [facility] Nitrite, UA Negative Negative - Positive [facility] pH, UA 7 5 - 9 [facility] Protein, UA Negative Negative - 1999(20) ++++ mg/dL [facility] Spec Grav, UA 1.025 1 - 1.03 [facility] Urobilinogen, UA 0.2 0.2 - 12 mg/dL [facility] Urinalysis macro (dipstick) panel (U)on 01-25-2024 Bilirubin, UA Positive Negative - 4(70) +++ mg/dL [facility] Comment on above: small Blood, UA Negative Negative - 50 Kvng/mcL [facility] Clarity, UA Clear [facility] Color, UA Yellow [facility] Glucose, UA Negative Negative - 1999(110) ++++ mg/dL [facility] Interpretation and review of laboratory results Abnormal [facility] Ketones, UA Positive Negative - 160(16) ++++ mg/dL [facility] Comment on above: moderate Leukocytes, UA Negative Negative - 500+++ Sandra/mcL [facility] Nitrite, UA Negative Negative - Positive [facility] pH, UA 6.5 5 - 9 [facility] Protein, UA Trace Negative - 1999(20) ++++ mg/dL [facility] Spec Grav, UA 1.025 1 - 1.03 [facility] Urobilinogen, UA 0.2 0.2 - 12 mg/dL [facility] MLR HEMOGLOBIN A1Con 024 Glucose [Mass/Vol] 91 mg/dL [facility] HbA1c (Bld) [Mass fraction] 4.8 % 4.5 - 6.2 % [facility] Comment on above: ADA RECOMMENDED LIMI T 4.0 - 6.0 ADA THERAPEUTIC TARGET < 7.0 ACTION SUGGESTED > 7.0 [facility] No Panel Informationon 01-13 [facility] Rubella IGG immune statuson 01-14-2024 Rubella immune IgG immune [facility] Syphilis Total(Unknown Syphi lis Status)Ordered By: Aida Sauceda on 01-14-2024 Syphilis Non-Reactive [facility] DRUG SCREEN RAPID (URINE )on 01-14-2024 AMPHETAMINE SCREEN URINE Negative NEGATIVE [facility] BARBITURATES SCREEN URINE Negative NEGATIVE [facility] BENZODIAZEPINES SCREEN URINE Negative NEGATIVE [facility] BUPRENORPHINE SCREEN URINE Negative NEGATIVE [facility] Comment on above: DRUG CLASS TEST [...] 300 ng/mL CANNABINOID SCREEN URINE Negative NEGATIVE [facility] COCAINE SCREEN URINE Negative NEGATIVE [facility] METHADONE SCREEN URINE Negative NEGATIVE [facility] METHAMPHETAMINES SCREEN URINE Negative NEGATIVE [facility] OPIATE SCREEN URINE Negative NEGATIVE [facility] OXYCODONE SCREEN URINE Negative NEGATIVE [facility] PHENCYCLIDINE SCREEN URINE Negative NEGATIVE [facility] TRICYCLIC ANTIDEPRESSANT URINE Negative NEGATIVE [facility] CLINISYNC [facility] HCG ( test) Ql (U)o n 12-31-2023 Interpretation and review of laboratory results Abnormal [facility] Preg Test, Ur Positive [facility] Urinalysis macro (dipstick) panel (U)on 12-31-2023 Bilirubin, UA Negative Negative - 4(70) +++ mg/dL [facility] Blood, UA Negative Negative - 50 Kvng/mcL [facility] Clarity, UA Clear [facility] Color, UA Yellow [facility] Glucose, UA Negative Negative - 1999(110) ++++ mg/dL [facility] Interpretation and review of laboratory results Normal [facility] Ketones, UA Negative Negative - 160(16) ++++ mg/dL [facility] Leukocytes, UA Negative Negative - 500+++ Sandra/mcL [facility] Nitrite, UA Negative Negative - Positive [facility] pH, UA 7.0 5 - 9 [facility] Protein, UA Positive Negative - 1999(20) ++++ mg/dL [facility] Spec Grav, UA 1.020 1 - 1.03 [facility] Urobilinogen, UA 1.0 0.2 - 12 mg/dL [facility] Vital Signs Date Time Vital Sign Value Performing Clinician Faci lity 06-27-2024 09:01-0400 Body weight 58.7 kg Sandy Pravin DO Work Phone: [facility] 06-27-2024 09:01-0400 Diastolic blood pressure 72 mm[Hg] Sandy Pravin DO Work Phone: [facility] 06-27-2024 09:01-0400 Systolic blood pressure 110 mm[Hg] Sandy Pravin DO Work Phone: [facility] 06-22-2024 09:10-0400 Body weight 59.42 kg Sandy Pravin DO Work Phone: [facility] 06-22-2024 09:10-0400 Diastolic blood pressure 70 mm[Hg] Sandy Pravin DO Work Phone: [facility] 06-22-2024 09:10-0400 Systolic blood pressure 116 mm[Hg] Sandy Pravin DO Work Phone: [facility] 06-08-2024 11:44-0500 Body weight 58.06 kg Alma BRANHAM Work Phone: [facility] 06-08-2024 11:44-0500 Diastolic blood pressure 82 mm[Hg] Alma BRANHAM Work Phone: [facility] 06-08-2024 11:44-0500 Systolic blood pressure 128 mm[Hg] Alma BRANHAM Work Phone: [facility] 06-07-2024 11:32-0500 Diastolic blood pressure 71 mm[Hg] [address] 06-07-2024 11:32-0500 Heart rate 81 /min [address] 06-07-2024 11:32-0500 Systolic blood pressure 115 mm[Hg] [address] 06-07-2024 09:32-0500 Body height 157.5 cm Reji Day MD Work Phone: [facility] 05-25-2024 11:54-0500 Body weight 56.43 kg Sandy Pravin DO Work Phone: [facility] 05-25-2024 11:54-0500 Diastolic blood pressure 72 mm[Hg] Sandy Pravin DO Work Phone: [facility] 05-25-2024 11:54-0500 Systolic blood pressure 116 mm[Hg] Sandy Pravin DO Work Phone: [facility] 05-10-2024 09:39-0500 Body weight 54.8 kg Alma BRANHAM Work Phone: [facility] 05-10-2024 09:39-0500 Diastolic blood pressure 70 mm[Hg] Alma BRANHAM Work Phone: [facility] 05-10-2024 09:39-0500 Systolic blood pressure 100 mm[Hg] Alma BRANHAM Work Phone: [facility] 04-20-2024 10:01-0500 Body weight 53.25 kg Sandy Pravin DO Work Phone: [facility] 04-20-2024 10:01-0500 Diastolic blood pressure 60 mm[Hg] Sandy Pravin DO Work Phone: [facility] 04-20-2024 10:01-0500 Systolic blood pressure 100 mm[Hg] Sandy Pravin DO Work Phone: [facility] 03-23-2024 12:42-0500 Body weight 51.26 kg Sandy Pravin DO Work Phone: [facility] 03-23-2024 12:42-0500 Diastolic blood pressure 62 mm[Hg] Sandy Pravin DO Work Phone: [facility] 03-23-2024 12:42-0500 Systolic blood pressure 102 mm[Hg] Sandy Pravin DO Work Phone: [facility] 02-23-2024 10:48-0500 Body weight 49.9 kg Alma BRANHAM Work Phone: [facility] 02-23-2024 10:48-0500 Diastolic blood pressure 64 mm[Hg] Alma BRANHAM Work Phone: [facility] 02-23-2024 10:48-0500 Systolic blood pressure 102 mm[Hg] Alma Vargas PA Work Phone: [facility] 01-25-2024 10:45-0400 Body weight 47.68 kg Sandy Pravin DO Work Phone: [facility] 01-25-2024 10:45-0400 Diastolic blood pressure 64 mm[Hg] Sandy Pravin DO Work Phone: [facility] 01-25-2024 10:45-0400 Systolic blood pressure 100 mm[Hg] Sandy Pravin DO Work Phone: [facility] 12-02-2023 08:47-0400 Body height 157.48 cm [facility] 12-02-2023 08:47-0400 Body mass index (BMI) [Ratio] 19.5 kg/m2 [facility] 12-02-2023 08:47-0400 Body weight 48.53 kg [facility] 12-02-2023 08:47-0400 Diastolic blood pressure 80 mm[Hg] [facility] 12-02-2023 08:47-0400 Systolic blood pressure 122 mm[Hg] [facility] Encounters Encounter Date Encounter Type Care Provider Facility Start: 06-29-2024 End: 06-29-2024 Clinisync Result Encounter Sandy Pravin DO Work Phone: [facility] External Department Unsolicited Start: 06-29-2024 End: 06-29-2024 Clinisync Result Encounter Sandy Pravin DO Work Phone: [facility] External Department Unsolicited Start: 06-28-2024 End: 06-28-2024 ambulatory SANDY R PRAVIN [facility] Start: 06-27-2024 End: 06-27-2024 ambulatory SANDY PRAVIN Not Available Start: 06-27-2024 End: 06-27-2024 flow sheet Sandy Pravin DO Work Phone: [facility] Comment on above: Third trimester preg danielle; 34 weeks gestation of ; Oligohydramnios, antepartum, single or unspecified fetus Start: 06-22-2024 End: 06-22-2024 Bamboo flowsheet Sandy Pravin DO Work Phone: [facility] Start: 06-22-2024 End: 06-22-2024 Bamboo flowsheet Sandy Pravin DO Work Phone: [facility] Start: 06-22-2024 End: 06-22-2024 Periodic [...] (Primary Dx) Start: 06-14-2024 End: 06-14-2024 ambulatory [facility] Carole [facility] Start: 06-08-2024 End: 06-08-2024 Bamboo flowsheet [facility] Start: 06-07-2024 End: 06-07-2024 ambulatory [facility] Mfm Nst1 [facility] Comment on above: growth restric tion antepartum (Primary Dx) growth restric tion antepartum (Primary Dx); 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, antepartum Start: 06-07-2024 End: 06-07-2024 Office consultation new/estab patient 60 min Reji Day MD Work Phone: [facility] Comment on above: growth restric tion antepartum (Primary Dx); 32 weeks gestation of Start: 06-07-2024 End: 06-07-2024 ambulatory SANDY R PRAVIN [facility] Start: 06-05-2024 End: 06-05-2024 Orders Only [...] Result Encounter Sandy Pravin DO Work Phone: [facility] External Department Unsolicited Start: 04-20-2024 End: 04-20-2024 Bamboo flowsheet Sandy Pravin DO Work Phone: [facility] Start: 04-20-2024 End: 04-20-2024 Bamboo [...] of Start: 03-21-2024 End: 03-21-2024 ambulatory SANDY Carole [facility] Start: 03-07-2024 End: 03-07-2024 Chart abstracting Omayra Boyce [facility] Work Phone: [facility] Start: 02-23-2024 End: 02-23-2024 Bamboo flowsheet Alma BRANHAM Work Phone: [facility] Start: 02-23-2024 End: 03-06-2024 Bamboo flowsheet Alma BRANHAM Work Phone: [facility] Start: 02-23-2024 End: 03-06-2024 Clinisync Result Encounter Alma BRANHAM Work Phone: [facility] External Department Unsolicited Start: 02-23-2024 End: 02-24-2024 External Result Encounter Alma BRANHAM Work Phone: [facility] External Department Unsolicited Start: 02-23-2024 End: 02-23-2024 Patient encounter procedure Alam BRANHAM Work Phone: [facility] Healthcare Start: 02-23-2024 End: 02-23-2024 flow [...] Start: 01-25-2024 End: 01-25-2024 Bamboo flowsheet Sandy Costello DO Work Phone: [facility] Start: [...] Not Available Start: 12-02-2023 Patient encounter status [facility] Start: 12-02-2023 End: 12-02-2023 ambulatory [facility] Work Phone: Start: 12-02-2023 End: 12-02-2023 Encounter for general adult medical examination without abnormal findings [facility] Start: 12-02-2023 End: 12-02-2023 Patient encounter procedure [facility] Work Phone: Procedures Date Procedure Procedure Detail Performing Clinician Start: 06-29-2024 US OB BPP W NON-STRESS Sandy Pravin DO Work Phone: Start: 06-27-2024 Urnls dip stick/tabl et rgnt non-auto w/o micrscp Sandy Pravin DO Work Phone: Start: 06-22-2024 Urnls dip stick/tabl et rgnt [...] malign ant neoplasm of cervix Pap Smear [facility] Start: 06-21-2025 End: 06-21-2025 US MFM with or without consult US MFM with or without consult Imaging Routine growth restriction antepartum Expected: 06/21/2025 (Approximate), Expires: 06/21/2025 [facility] Work Phone: Comment on above: Expected: 06/21/2025 (Approximate), Expires: 06/21/2025 Start: 06-07-2025 Adult BMI Screening Adult BMI Screen ing [facility] Start: 06-07-2025 Tobacco Screening Tobacco Screening [facility] Start: 06-07-2025 End: 06-07-2025 US MFM with or without consult US MFM with or without consult Imaging Routine growth restriction antepartum 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, antepartum Expected: 06/07/2025 (Approximate), Expires: 06/07/2025 [facility] Work Phone: Comment on above: Expected: 06/07/2025 (Approximate), Expires: 06/07/2025 Start: 07-05-2024 End: 07-05-2024 Patient encounter procedure 07/05/2024 8:45 AM EDT Appointment [facility] - MFM US Imaging [address] [place] [address] [facility] Start: 07-03-2024 End: 07-03-2024 Patient encounter procedure 07/03/2024 9:00 AM EDT Routine [facility] [address] [place] [address] Sandy Costello DO [address] [place] [address] [facility] Start: 06-28-2024 End: 06-28-2024 Patient encounter procedure 06/28/2024 8:45 AM EDT Appointment [facility] [address] [place] [id number] [facility] Start: 06-22-2024 End: 06-22-2025 [...] encounter procedure 06/21/2024 9:00 AM EDT Appointment [facility] [address] [place] [address] [facility] Start: 06-14-2024 End: 06-14-2024 Patient encounter procedure 06/14/2024 8:00 AM EDT Appointment [facility] [address] [place] [address] [facility] Start: 06-08-2024 End: 06-08-2024 Patient encounter procedure [facility] Comment on above: Arrived Start: 06-07-2024 End: 06-07-2025 nonstress test - Maternal Medicine nonstress test - Maternal Medicine OB Routine growth restriction antepartum Expected: 06/07/2024 (Approximate), Expires: 06/07/2025 [facility] Work Phone: Comment on above: Expected: 06/07/2024 (Approximate), Expires: 06/07/2025 Start: 06-07-2024 End: 06-07-2024 Patient encounter procedure [facility] Start: 06-01-2024 End: 06-01-2024 Professional / ancillary services management 06/01/2024 9:30 AM EST Ancillary Procedure [facility] [address] [place] [address] [facility] Start: 05-25-2024 End: [...] Routine [facility] [address] [place] [id number] Sandy Costello, [address] [place] [address] [facility] Start: 03-23-2024 End: 03-23-2024 Professional / ancillary services management 03/23/2024 10:30 AM EST Ancillary Procedure [facility] [address] [place] [id number] [facility] Start: 03-21-2024 End: 03-21-2024 Telemedicine consultation with patient 03/21/2024 9:00 AM EST Telemedicine [facility] at [facility] [address] [place] [address] Omayra Boyce, [facility] [address] [place] [address] [facility] Start: 02-23-2024 End: 02-22-2025 US for US OB ANATOMY SINGLE W US OB CERVICAL LENGTH Imaging Routine Screening, , for anatomic survey Expected: 02/23/2024 (Approximate), Expires: 02/22/2025 [facility] Healthcare Comment on above: Expected: 02/23/2024 (Approximate), Expires: 02/22/2025 Start: 02-23-2024 End: 02-23-2024 Patient encounter procedure [facility] Comment on above: Arrived Start: 01-25-2024 End: 01-25-2024 Patient encounter procedure [facility] Comment on above: Arrived Start: 12-31-2023 End: 12-30-2024 ABO/Rh ABO/Rh Lab Routine Missed menses , unspecified gestational age Expected: 12/31/2023 (Approximate), Expires: 12/30/2024 [facility] Healthcare Comment on above: Expected: 12/31/2023 (Approximate), Expires: 12/30/2024 Start: 12-31-2023 End: 12-30-2024 Blood type and Indirect antibody screen panel - Blood Type and screen Lab Routine Missed menses , unspecified gestational age Expected: 12/31/2023 (Approximate), Expires: 12/30/2024 [facility] Work Phone: Comment on above: Expected: 12/31/2023 (Approximate), Expires: 12/30/2024 Start: 12-31-2023 End: 12-30-2024 Drugs of abuse panel - Urine by Screen method Rapid drug screen, urine Lab Routine , unspecified gestational age Encounter for supervision of normal first in first trimester Expected: 12/31/2023 (Approximate), Expires: 12/30/2024 [facility] Healthcare Comment on above: Expected: 12/31/2023 (Approximate), Expires: 12/30/2024 Start: 12-31-2023 End: 12-30-2024 US Pelvis transvaginal US OB transvaginal Imaging Routine Missed menses Expected: 12/31/2023 (Approximate), Expires: 12/30/2024 [facility] Healthcare Comment on above: Expected: 12/31/2023 (Approximate), Expires: 12/30/2024 Start: 12-05-2023 Influenza vaccination Influenza Vacc ine [facility] Start: 11-06-2019 DTaP,Tdap and Td Vaccines (7 - Td or Tdap) DTaP,Tdap and Td Vaccines (7 - Td or Tdap) [facility] Start: 2018 Screening for malign ant neoplasm of cervix Pap Smear [facility] Start: 09-29-2015 Adult BMI Screening Adult BMI Screen ing [facility] Start: 2009 Depression Screening Depression Scre ening [facility] Start: 2009 Tobacco Screening Tobacco Screening [facility] Bacteria identified in Urine by Culture Urine culture Microbiology Routine Missed menses Ordered: 12/31/2023 [facility] Comment on above: Ordered: 12/31/2023 CBC W Auto Different ial panel - Blood CBC and differential Lab Routine Missed menses , unspecified gestational age Ordered: 12/31/2023 [facility] Comment on above: Ordered: 12/31/2023 CHLAMYDIA TRACHOMATI S (GENITO/STI) CHLAMYDIA TRACHOMATIS (GENITO/STI) Lab Routine Screen for STD (sexually transmitted disease) Ordered: 02/23/2024 [facility] Comment on above: Ordered: 02/23/2024 Cytology Cervical or vaginal smear or scraping study Pap Smear Pathology and Cytology Routine Well woman exam with routine gynecological exam Ordered: 02/23/2024 [facility] Comment on above: Ordered: 02/23/2024 Hemoglobin A1c/Hemoglobin.total in Blood Hemoglobin A1c Lab Routine Missed menses , unspecified gestational age Ordered: 12/31/2023 [facility] Comment on above: Ordered: 12/31/2023 Hepatitis B virus surface Ag [Presence] in Serum or Plasma by Immunoassay Hepatitis B surface antigen Lab Routine Missed menses , unspecified gestational age Ordered: 12/31/2023 [facility] Comment on above: Ordered: 12/31/2023 Hepatitis C virus Ab [Presence] in Serum or Plasma by Immunoassay Hepatitis C antibody Lab Routine Missed menses , unspecified gestational age Ordered: 12/31/2023 [facility] Comment on above: Ordered: 12/31/2023 HIV-1/HIV-2 antigen/antibody combination immunoassay HIV-1 and HIV-2 antibodies Lab Routine Missed menses , unspecified gestational age Ordered: 12/31/2023 [facility] Comment on above: Ordered: 12/31/2023 Neisseria gonorrhoea e DNA [Presence] in Unspecified specimen by RUBEN with probe detection Neisseria gonorrhea DNA probe, direct Lab Routine Screen for STD (sexually transmitted disease) Ordered: 02/23/2024 [facility] Comment on above: Ordered: 02/23/2024 Reagin Ab [Presence] in Serum by RPR RPR Lab Routine Missed menses , unspecified gestational age Ordered: 12/31/2023 [facility] Comment on above: Ordered: 12/31/2023 Rubella antibody, IgG Rubella an tibody, IgG Lab Routine Missed menses , unspecified gestational age Ordered: 12/31/2023 [facility] Comment on above: Ordered: 12/31/2023 SURESWAB(R) ADVANCED VAGINITIS PLUS, TMA SURESWAB(R) ADVANCED VAGINITIS PLUS, TMA Pathology and Cytology Routine Screen for STD (sexually transmitted disease) Ordered: 02/23/2024 [facility] Work Phone: Comment on above: Ordered: 02/23/2024 Immunizations Immunization Date Immunization Notes Care Provider [facility] 11-13-2015 hepatitis A vaccine, pediatric/adolescent dosage, 2 dose schedule Omayra [facility] Work Phone: [facility] 11-13-2015 meningococcal polysaccharide (groups A, C, Y and W-135) diphtheria toxoid conjugate vaccine (MCV4P) Omayra Anew Oncology Work Phone: [facility] 04-24-2015 influenza, injectabl e, quadrivalent, preservative free Omayra Anew Oncology Work Phone: [facility] 04-24-2015 influenza virus vaccine, unspecified formulation Omayra Anew Oncology Work Phone: [facility] 11-05-2009 tetanus toxoid, redu dilip diphtheria toxoid, and acellular pertussis vaccine, adsorbed Omayra Anew Oncology Work Phone: [facility] 11-05-2009 varicella virus vaccine Cardio control [facility] Work Phone: [facility] 03-14-2009 influenza, seasonal, injectable, preservative free Omayra Anew [facility] Work Phone: [facility] 01-24-2003 hepatitis B vaccine, adult dosage Omayra Anew [facility] Work Phone: [facility] 11-28-2002 diphtheria, tetanus toxoids and acellular pertussis vaccine, 5 pertussis antigens Omayra Austen [facility] Work Phone: [facility] 11-28-2002 measles, mumps and rubella virus vaccine Omayra Austen [facility] Work Phone: [facility] 11-28-2002 poliovirus vaccine, inactivated [facility] Work [facility]: [facility] 07-18-2001 varicella virus vaccine Made larry Boyce [facility] Work Phone: [facility] 04-09-1999 diphtheria, tetanus toxoids and acellular pertussis vaccine, 5 pertussis antigens [facility] Work Phone: [facility] 04-09-1999 measles, mumps and rubella virus vaccine Omayra Austen [facility] Work Phone: [facility] 03-25-1998 diphtheria, tetanus toxoids and acellular pertussis vaccine, 5 pertussis antigens [facility] Work Phone: [facility] 03-25-1998 hepatitis B vaccine, adult dosage [facility] Work Phone: [facility] 03-25-1998 poliovirus vaccine, inactivated [facility] Work Phone: [facility] 02-13-1998 diphtheria, tetanus toxoids and acellular pertussis vaccine, 5 pertussis antigens [facility] Work Phone: [facility] 02-13-1998 poliovirus vaccine, inactivated [facility] Work Phone: [facility] 1997 diphtheria, tetanus toxoids and acellular pertussis vaccine, 5 pertussis antigens [facility] Work Phone: [facility] 1997 haemophilus influenz ae type b vaccine, PRP-OMP conjugate [facility] Work Phone: [facility] 1997 poliovirus vaccine, inactivated [facility] Work Phone: [facility] 1997 hepatitis B vaccine, adult dosage Omayra GALICIA Work Phone: [employer] 1997 hepatitis B vaccine, adult dosage Omayra Boyce [facility] Work Phone: [facility] NEGATED: Highlighted row has not occurred!11-13-2015 human papilloma virus vaccine, quadrivalent Omayra Boyce [facility] Phone: [facility] Comment on above: Deferred: Other - parent declined Payers Date Payer Category Payer Blue Cross Blue Shield [id number] 2022 Blue Cross Blue Shie ld Managed Care - Other [id number] 2022 Unknown BCBS BCBS xxxxxx [id number] 2022-Present [phone] [address] [place] [address] [id number] 2022 Unknown [id number] 2020 Blue Cross Blue Shie ld Managed Care - PPO SARINA [id number] 1997 Unknown [id number] 2.16.840.1.240025.3.579. 2.9 1997 Unknown [id number] 2.16.840.1.917903.3.579. 2.1258 1997 Unknown [id number] 2.16.840.1.357461.3.579. 2.1258 1997 Unknown [id number] 2.16.840.1.646592.3.579. 2.1258 1997 Unknown [id number] 2.16.840.1.707207.3.579. 2.1258 1997 Unknown [id number] 2.16.840.1.709290.3.579. 2.1258 1997 Unknown [id number] 2.16.840.1.344483.3.579. 2.1258 1997 Unknown [id number] 2.16840.1.718252.3.579. 2.1258 1997 Unknown [id number] 2.16840.1.995259.3.579. 2.1258 1997 Unknown [id number] 2.16840.1.248059.3.579. 2.1258 1997 Unknown [id number] 2.16.840.1.479620.3.579. 2.1258 1997 Unknown [id number] 2.16840.1.232829.3.579. 2.1285 1997 Unknown [id number] 2.16840.1.051313.3.579. 2.1285 1997 Unknown [id number] 2.16.840.1.908603.3.579. 2.1285 1997 Unknown [id number] 2.16.840.1.163273.3.579. 2.1285 1997 Unknown [id number] 2.16.840.1.965783.3.579. 2.1285 1997 Unknown [id number] 2.16.840.1.741664.3.579. 2.1286 1997 Unknown [id number] 2.16.840.1.553655.3.579. 2.1286 1997 Unknown [id number] 2.16.840.1.239868.3.579. 2.1286 Social History Date Type Detail Facility [facility] Work Phone: Start: 1997 Sex Assigned At Female F [facility] Tobacco smoking stat [facility] Tobacco smoking consumption unknown [facility] Healthcare Start: 11-10-2023 [facility] Start: 1997 Sex assigned at Not on file [facility] Start: 05-16-2020 End: 03-07-2024 Gender identity Not on file [facility] Healthcare Start: 02-13-2021 End: 06-07-2024 Tobacco smoking status NHIS Never smoked tobacco [facility] Start: 02-13-2021 End: 06-07-2024 Tobacco use and exposure Smokeless tobacco non-user [facility] Start: 03-07-2024 Alcoholic beverage intake Current non-drinker of alcohol (finding) [facility] Start: 05-16-2020 End: 03-07-2024 Alcoholic beverage intake [facility] Childcare Unknown [facility] Start: 11-06-2014 Sex Female (finding) [facility] Start: 06-05-2024 End: 06-07-2024 Alcoholic beverage intake Ex-drinker (finding) [facility] Clinical Notes 12-31-2023 to 06-27-2024 Anita Oswald LPN - 06/27/2024 8:50 AM CARROL Coello - 06/22/2024 9:10 AM CARROL Coello - 06/08/2024 11:30 AM Ayaka Noyola RN - 06/07/2024 11:15 AM CARROL Gonzalez - 05/10/2024 9:40 AM EST Note Date & Type Note Facility 06-27-2024 History of Present illness Narrative Reason for [...] nursing note reviewed. Exam conducted with a circulation sales representative present. Vitals: There is no height or weight on file to calculate BMI. BP: 110/72 Patient's last menstrual period was 10/27/2023. ASSESSMENT & PLAN ICD-10-CM 1. Third trimester Z34.93 POCT urinalysis dipstick manually resulted 2. 34 weeks gestation of Z3A.34 3. Oligohydramnios, antepartum, single or unspecified fetus O41.00X0 Return OB: Patient presents today for a routine obstetrics appointment. Patient is currently 34w6d . Patient states she is doing well but has complaints of being tired due to current . Patient has verbalizes frequent movement. labor precautions was discussed/given and patient was instructed to perform kick counts three times a day. Pt is oligohydramnios will be delivered on 07/05/24. Pt to return on Wednesday for cervical check and consents signed- [facility] on and Wednesday. Orders Placed This Encounter Procedures POCT urinalysis dipstick manually resulted Follow Up: Patient is to return to office in 1 week for routine OB appointment. Documented by Anita Oswald LPN on behalf of: Sandy Costello DO documented in this encounter [facility] 06-22-2024 History of Present illness Narrative Reason [...] Sandy Costello DO documented in this encounter [facility] 06-08-2024 History of Present illness Narrative [...] of: CARROL Harmon documented in this encounter [facility] 06-07-2024 History of Present illness Narrative [...] all scheduled appointments documented in this encounter [facility] 06-07-2024 History of Present illness Narrative REASON [...] TESTS AND ULTRASOUND REPORTS: Referral records and [facility] chart were reviewed Pertinent Ultrasound findings are [...] Based on ultrasound findings today recommend delivery [facility] recommendations summary FGR is defined as EFW [...] later - absent end-diastolic flow umbilical artery: [id number] or at time of diagnosis if diagnosed later. - reversed end-diastolic flow umbilical artery: [id number] or at time of diagnosis if diagnosed [...] 34 weeks gestation. Delivery method preferred vaginal. [place] C/S for usual obstetrical indications Recommend steroids if delivery before 34 weeks. Consider steroids if delivery after 34 weeks and before 37 weeks. DISPOSITION: At this point the patient is in complete care of her tie inspector. Patient does have ultrasound scheduled with us. Thank you for allowing me to participate in the care of Sejal Nowak. If there any questions please do not hesitate to contact us. Reji Day MD Maternal- Medicine [facility] [address] [place] [address] [facility], the CDC, and other organizations representing maternal and public health professionals recommend that , , and lactating people and those considering receive the COVID-19 vaccination. Vaccination is the best method to reduce maternal and complications of SARS-CoV-2 infection. This document was created with testhub technology. Though I make every effort to review the dictation as it is transcribed, on occasion the spoken word can be misinterpreted by the technology leading to inappropriate words, phrases, or sentences. This note is addressed to the requesting provider as a consultation for clinical guidance. Specific medical abbreviations are occasionally used and those are generally approved by the [place]?Board of?Obstetrics and?Gynecology?as well as?Jocelyn villasenor abbreviations. The above plan of care was based solely on the diagnoses for which a consultation was requested. ?More frequent testing may be indicated based on her other medical/obstetrical conditions. The management of other or medical conditions is beyond the scope of requested consultation and will continue to be followed by the primary tie inspector or primary care provider. Note to patient: [...] office? Have you been seen here at [facility] in a previous ? Recent ER visits or hospitalizations? Bring blood sugar log or meter with you today? (Please bring them with you for every visit at [facility]) Flu vaccine (Feb-June)? Any concerns that you would like me to mention to the provider today? documented in this encounter [facility] 05-25-2024 History of Present illness Narrative Reason [...] nursing note reviewed. Exam conducted with a circulation sales representative present. Vitals: There is no height or [...] Sandy Costello DO documented in this encounter [facility] 05-10-2024 History of Present illness Narrative [...] of: CARROL Harmon documented in this encounter [facility] 04-20-2024 History of Present illness Narrative [...] nursing note reviewed. Exam conducted with a circulation sales representative present. Vitals: There is no height or [...] Sandy Costello DO documented in this encounter [facility] 03-23-2024 History of Present illness Narrative [...] Sandy Costello DO documented in this encounter [facility] 02-23-2024 History of Present illness Narrative [...] of: CARROL Harmon documented in this encounter [facility] 01-25-2024 History of Present illness Narrative [...] nursing note reviewed. Exam conducted with a circulation sales representative present. Vitals: There is no height or [...] or undercooked meat, and stay away from [facility]. Patient has been consulted regarding any further do's and don'ts of . Patient voiced understanding and all questions and concerns were answered. Orders Placed This Encounter Procedures POCT urinalysis dipstick manually resulted Follow Up: Patient is to return in 4 weeks for routine OB appointment. Documented by Anita Oswald LPN on behalf of: Sandy Costello DO documented in this encounter [facility] 12-31-2023 History of Present illness Narrative [...] or undercooked meat, and stay away from [facility]. Patient has also been advised to not [...] Evaluation note Diagnosis Onset Date Wellness examination [facility] Work Phone: Evaluation note* Diagnosis 12 [...] Primary [facility] Diagnosis Third trimester state, incidental 32 weeks gestation of [facility] Diagnosis growth restriction antepartum- Primary [facility] Diagnosis Third trimester state, incidental 34 weeks gestation of [facility] Diagnosis Third trimester state, incidental 34 weeks gestation of Oligohydramnios, antepartum, single or unspecified fetus documented in [facility]ructionsNot on filedocumented in this encounterPro[facility]ructionsNot on filedocumented in this encounterPro[facility]ica [facility] SystemInstructionsNot on filedocumented in this encounterPro[facility]ica [facility] SystemInstructionsNot on filedocumented in [facility] InstructionsNot on filedocumented in this [facility] Chief Complaint and Reason for [...] Member Role Status Dates Tran Rice APRN SLOTS MANAGER-C Primary Care Provider Active Team Status: Inactive Member Role Status Dates Tran Rice APRN SLOTS MANAGER-C Primary Care Provider, Attending Provider Active Start: December 02, 2023 End: December 02, 2023 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 Specialty Start Date End Date Tran Rice NP [address] [id number] PCP - General Family Medicine 12/31/23 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 Specialty Start Date End Date Tran Rice NP [address] [place] [address] PCP - General Family Medicine 12/31/23 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 Specialty Start Date End Date Tran Rice NP [address] [id number] PCP - General Family Medicine 12/31/23 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 Specialty Start Date End Date Tran Rice NP [address] [id number] PCP - General Family Medicine 12/31/23 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 Specialty Start Date End Date Tran Rice NP [address] [place], [place] [id number] PCP - General Family Medicine 12/31/23 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 Specialty [place] [address] [place] [address] [place] [address] PCP - General Family Medicine 12/31/23 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 Specialty Start Date End Date Tran Rice NP [address] [place] [address] [place] [address] PCP - General Family Medicine 12/31/23 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 Specialty Start Date End Date Tran Rice NP [address] [place] [address] [place] [address] PCP - General Family Medicine 12/31/23 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 Specialty Start Date End Date Tran Rice NP [address] [place] [address] [place] [address] PCP - General Family Medicine 12/31/23 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 Specialty Start Date End Date Tran Rice NP [address] [place] [address] [place] [address] PCP - General Family Medicine 12/31/23 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 Specialty Start Date End Date Tran Rice NP [address] [place] [address] [place] [address] PCP - General Family Medicine 12/31/23 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 Specialty Start Date End Date Arthur Kan MD PCP - General 08/09/14 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 Specialty Start Date End Date Tran Rice NP [address] [place] [address] PCP - General Family Medicine 12/31/23 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 Specialty Start Date End Date Arthur Kan MD PCP - General 08/09/14 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 Specialty Start Date End Date Arthur Kan MD PCP - General 08/09/14 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 Specialty Start Date End Date Arthur Kan MD PCP - General 08/09/14 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 Specialty Start Date End Date Arthur Kan MD PCP - General 08/09/14 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 Specialty Start Date End Date Arthur Kan MD PCP - General 08/09/14 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 Specialty Start Date End Date Arthur Kan MD PCP - General 08/09/14 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 Specialty Start Date End Date Arthur Kan MD PCP - General 08/09/14 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 Specialty Start Date End Date Tran Rice NP [facility] [place] [address] PCP - General Family Medicine 12/31/23 Goals [...] ized section and content) DATE CREATED AUTHOR 06/28/2024 [facility] DATE CREATED AUTHOR AUTHOR'S ORGANIZ ATION 06/29/2024 [facility] FOR RECORDS PERTAINING TO PATIENTS WHO [...] BE BASED ON THE PRIMARY CLINICAL RECORDS. [employer] provides no warranty or guarantee of the accuracy or completeness of information in this document.
== END 2024-07-03 08:42 | disposition home or self-care (01) ==
LOC: FBCO 08:01 → FBC 08:03
PROVIDERS: PCP Nurse Practitioner Family; Visit Provider Obstetrics & Gynecology
DX: O41.00X0 Oligohydramnios, unspecified trimester, not applicable or unspecified (principal)
CPT/HCPCS: 59025

== ENCOUNTER 2024-07-05 05:01 | Inpatient (IN) | payer BC, SELFPAY ==
[2024-07-05] VITALS (46 sets, daily range): BP systolic 94–141; BP diastolic 56–84; PULSE 84–116; TEMP 35.8–37.2
--- OUTSIDE RECORDS SUMMARY | 2024-07-05 05:05 | XMS_ITS | CCD ---
Author Organization [facility] Care Team Providers Care Putty Remover Name Role Phone Dwayne DRUM CARRIER, Tran Carbone Primary Care Provider Keith OSORIO, [...] sources) Other Propensity to adverse reactions 4 [facility] Healthcare Work Phone: (20 sources) Cat Hair Extract Propensity to adverse reactions 4 [facility] Healthcare (9 sources) Cat Dander; Translations: [CAT DANDER] Propensity to adverse reactions to drug 4 [facility] Medic[facility] Current Medications Medication Drug [...] 06-07-2024 Episodic Other and delivery including normal (20 sources) First trimester ; Translations: [Encounter for [...] ] Onset: 06-07-2024 Episodic Residual codes; unclassified (2 sources) Gestation period, 35 weeks; Translations: [35 weeks gestation of ] 07-03-2024 Episodic Unclassified (1 source) Contractions Onset: 06-07-2024 [...] Range Facility Urinalysis macro (dipstick) panel (U)on 07-03-2024 Bilirubin, UA Negative Negative - 4(70) +++ mg/dL [facility] Blood, UA Negative Negative - 50 Kvng/mcL [facility] Clarity, UA Clear [facility] Color, UA Yellow [facility] Glucose, UA Negative Negative - 1999(110) ++++ mg/dL [facility] Interpretation and review of laboratory results Normal [facility] Ketones, UA Negative Negative - 160(16) ++++ mg/dL [facility] Leukocytes, UA Negative Negative - 500+++ Sandra/mcL [facility] Nitrite, UA Negative Negative - Positive [facility] pH, UA 6.5 5 - 9 [facility] Protein, UA Negative Negative - 1999(20) ++++ mg/dL [facility] Spec Grav, UA 1.02 1 - 1.03 [facility] Urobilinogen, UA 0.2 0.2 - 12 mg/dL [facility] US OB BPP W NON-STRESS on 06-29-2024 [place] [address] Ultrasound Report Signed Patient: SEJAL NOWAK MR#: [id number] : 1995 Acct:[id number] Age/Sex: 28 / F ADM Date: 06/29/24 Loc: US Attending Dr: Sandy Costello D.O. Ordering Physician: Sandy Costello D.O. Date of Service: 06/29/24 Procedure(s): US OB BPP w non-stress Accession Number(s): [id number] cc: Sandy Costello D.O.; TRAN RICE [place] [address] Patient Name: SEJAL NOWAK MRN: [facility]:[id number] date: 1995 Sex: F Assigned Patient Location: [facility] Current Patient Location: US Accession/Order Number: [id number] Exam Date: 06/29/2024 16:04 Report Date: 06/29/2024 16:05 At the request of: SANDY COSTELLO DO Procedure: US OB BPP w non-stress Biophysical profile. Reason for exam: Intrauterine growth restriction and oligohydramnios. COMPARISON: BPP 06/22/2024 TECHNIQUE: Transabdominal imaging of the gravid uterus was obtained. 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 MONIQUE 3.5 cm. heart rate 134 bpm. US/US OB BPP w non-stress IMPRESSION: BPP 8 out of 8. Oligohydramnios. Impression dictated by: Eric Andersen Jr., D.O.06/29/2024 4:05 PM Dictation Location: [place] [address] Electronically authenticated by: [id number] Y Date: 06/29/2024 16:05 Dictated By: Eric Andersen M.D. Signed By: 06/29/24 1608 DD/ 04 TD/TT: Brake Specialist: [facility] Radiology, Radiologist, - 06/29/2024 [place] [address] Ultrasound Report Signed Patient: SEJAL NOWAK MR#: [id number] : 1995 Acct:[id number] Age/Sex: 28 / F ADM Date: 06/29/24 Loc: US Attending Dr: Sandy Costello D.O. Ordering Physician: Sandy Costello D.O. Date of Service: 06/29/24 Procedure(s): US OB BPP w non-stress Accession Number(s): [id number] cc: Sandy Costello D.O.; TRAN [place] [address] Patient Name: SEJAL NOWAK MRN: [id number] date: 1995 Sex: F Assigned Patient Location: [facility] Current Patient Location: US Accession/Order Number: [id number] Exam Date: 06/29/2024 16:04 Report Date: 06/29/2024 16:05 At the request of: SANDY COSTELLO DO Procedure: US OB BPP w non-stress Biophysical profile. Reason for exam: Intrauterine growth restriction and oligohydramnios. COMPARISON: BPP 06/22/2024 TECHNIQUE: Transabdominal imaging of the gravid uterus was obtained. 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 MONIQUE 3.5 cm. heart rate 134 bpm. US/US OB BPP w non-stress IMPRESSION: BPP 8 out of 8. Oligohydramnios. Impression dictated by: Eric Andersen Jr., D.O.06/29/2024 4:05 PM Dictation Location: [place] [address] Electronically authenticated by: [id number] Y Date: 06/29/2024 16:05 Dictated By: Eric Andersen M.D. Signed By: 06/29/24 1608 DD/ 04 TD/TT: Brake Specialist: [facility] Radiology Study observation (narrative) [facility] US OB BPP W NON-STRESS Ordered By: Radiologist Radiology on 06-29-2024 [facility] Work Phone: Urinalysis macro (dipstick) panel (U)on 06-27-2024 Bilirubin, UA Negative Negative - 4(70) +++ mg/dL [facility] Blood, UA Negative Negative - 50 Kvng/mcL [facility] Clarity, UA Clear [facility] Color, UA Yellow [facility] Glucose, UA Negative Negative - 1999(110) ++++ mg/dL [facility] Interpretation and review of laboratory results Normal [facility] Ketones, UA Negative Negative - 160(16) ++++ mg/dL [facility] Leukocytes, UA Negative Negative - 500+++ Sanrda/mcL [facility] Nitrite, UA Negative Negative - Positive [facility] pH, UA 7 5 - 9 [facility] Protein, UA Negative Negative - 1999(20) ++++ mg/dL [facility] Spec Grav, UA 1.02 1 - 1.03 [facility] Urobilinogen, UA 0.2 0.2 - 12 mg/dL [facility] Urinalysis macro (dipstick) panel (U)on 06-22-2024 Bilirubin, UA Negative Negative - 4(70) +++ mg/dL [facility] Blood, UA Negative Negative - 50 Kvng/mcL [facility] Clarity, UA Clear [facility] Color, UA Yellow [facility] Glucose, UA Positive Negative - 1999(110) ++++ mg/dL [facility] Comment on above: 100mg/dL Interpretation and review of laboratory results Abnormal [facility] Ketones, UA Negative Negative - 160(16) ++++ mg/dL [facility] Leukocytes, UA Negative Negative - 500+++ Sandra/mcL [facility] Nitrite, UA Negative Negative - Positive [facility] pH, UA 6.5 5 - 9 [facility] Protein, UA Negative Negative - 1999(20) ++++ mg/dL [facility] Spec Grav, UA 1.025 1 - 1.03 [facility] Urobilinogen, UA 0.2 0.2 - 12 mg/dL [facility] Urinalysis macro (dipstick) panel (U)on 06-08-2024 Bilirubin, UA Negative Negative - 4(70) +++ mg/dL [facility] Blood, UA Positive Negative - 50 Kvng/mcL [facility] Comment on above: trace-intact Clarity, UA Clear [facility] Color, UA Yellow [facility] Glucose, UA Negative Negative - 1999(110) ++++ mg/dL [facility] Interpretation and review of laboratory results Abnormal [facility] Ketones, UA Negative Negative - 160(16) ++++ mg/dL [facility] Leukocytes, UA Positive Negative - 500+++ Sandra/mcL [facility] Comment on above: small Nitrite, UA Negative Negative - Positive [facility] pH, UA 7 5 - 9 [facility] Protein, UA Negative Negative - 1999(20) ++++ mg/dL [facility] Spec Grav, UA 1.01 1 - 1.03 [facility] Urobilinogen, UA 0.2 0.2 - 12 mg/dL [facility] nonstress test - Mater nal Medicineon 06-07-2024 Patient Name: Sejal Nowak Patient : 1995 NST Objective Findings: Variability: Moderate Decelerations: Variable Accelerations: Yes Acoustic Stimulator: No Baseline: 120 BPM Uterine Irritability: Yes Contractions: Irregular Comments: Variables and contractions/irritabi lity noted on EFM. Tracing [facility] Day[facility] instructions given, labor precautions reviewed. To JAGDISH for extended monitoring and evaluation. NST Interpretation: Nonstress Test Interpretation: Reactive (Reji Day MD) Comments: Recurrent variable decelerations. Pt reporting abdominal tightening correlating with tocometer contractions. To OB ED for prolonged evaluation, at least 2 hours. Sign-out given to OB ED team. (Reji Day MD) NST performed by: Thania Noyola RN 06/07/2024 12:11 PM ASOEUN [facility] Ultrasound - OfficeOrdered B y: Aida Sauceda on 06-05-2024 Radiology Study observation (narrative) [facility] Ultrasound - Officeon 2024 Radiology Study observation (narrative) [facility] Radiology Study observation (narrative) [facility] US OB BPP W NON-STRESS on 06-01-2024 [place] [address] Ultrasound Report Signed Patient: SEJAL NOWAK MR#: [id number] : 1995 Acct:[id number] Age/Sex: 28 / F ADM Date: Loc: [facility] 252-[address]: Sandy Costello D.O. Ordering Physician: Sandy Costello D.O. Date of Service: 06/01/24 Procedure(s): US OB BPP w non-stress Accession Number(s): [id number] cc: Sandy Costello D.O.; TRAN [place] [address] Patient Name: SEJAL NOWAK MRN: [id number] date: 1995 Sex: F Assigned Patient Location: [facility] Current Patient Location: [facility] Accession/Order Number: [id number] Exam Date: 06/01/2024 11:20 Report Date: 06/01/2024 11:22 At the request of: SANDY COSTELLO DO Procedure: US OB BPP w non-stress BIOPHYSICAL PROFILE: CLINICAL INFORMATION: iugr, low monique COMPARISON: 03/23/2024 anatomy survey There is a single live intrauterine gestation in cephalic presentation. The reported gestational age is 31 weeks 1 day. The heart rate [id number] beats per minute. FINDINGS: TONE: 1 or [...] Anita Jaimes M.D.06/01/2024 11:22 AM Dictation Location: [place] [address] Electronically authenticated by: [id number] Y Date: 06/01/2024 11:22 Dictated By: Anita Jaimes M.D. Signed By: 06/01/24 1125 DD/ 1122 TD/TT: Brake Specialist: [facility] Radiology, Radiologist, - 06/01/2024 [place] [address] Ultrasound Report Signed Patient: SEJAL NOWAK MR#: [id number] : 1995 Acct:[id number] Age/Sex: 28 / F ADM Date: Loc: [facility] 252-[address]: Sandy Costello D.O. Ordering Physician: Sandy Costello D.O. Date of Service: 06/01/24 Procedure(s): US OB BPP w non-stress Accession Number(s): [id number] cc: Sandy Costello D.O.; TRAN RICE [place] [id number] Patient Name: SEJAL NOWAK MRN: [facility]:[id number] date: 1995 Sex: F Assigned Patient Location: [facility] Current Patient Location: [facility] Accession/Order Number: [id number] Exam Date: 06/01/2024 11:20 Report Date: 06/01/2024 11:22 At the request of: SANDY COSTELLO DO Procedure: US OB BPP w non-stress BIOPHYSICAL PROFILE: CLINICAL INFORMATION: iugr, low monique COMPARISON: 03/23/2024 anatomy survey There is a single live intrauterine gestation in cephalic presentation. The reported gestational age is 31 weeks 1 day. The heart rate [id number] beats per minute. FINDINGS: TONE: 1 or [...] Anita Jaimes M.D.06/01/2024 11:22 AM Dictation Location: [place] [address] Electronically authenticated by: [id number] Y Date: 06/01/2024 11:22 Dictated By: Anita Jaimes M.D. Signed By: 06/01/24 112 DD/ 112 TD/TT: Brake Specialist: [facility] Radiology Study observation (narrative) [facility] US OB BPP W NON-STRESS Ordered By: Radiologist Radiology on 06-01-2024 [facility] [employer] Work Phone: US OB FOLLOW UP TRANSABDOMIN [...] 1344 gm / 2 lbs, 15 oz (7542-5992 gm) [place] Normal: 1780 gm (1697-6614 gm) [place] Wt%: <3% for 31.1 wks [...] report is generated using voice recognition reporting ([employer]). On occasion Zhaop[employer] erroneously drops words from the report or [...] of 05/10/2024: 28w0d Ultrasound - Officeon 2024 [facility] Urinalysis macro (dipstick) panel (U)on 05-25-2024 Bilirubin, UA Negative Negative - 4(70) +++ mg/dL [facility] Blood, UA Negative Negative - 50 Kvng/mcL [facility] Clarity, UA Clear [facility] Color, UA Yellow [facility] Glucose, UA Negative Negative - 1999(110) ++++ mg/dL [facility] Interpretation and review of laboratory results Normal [facility] Ketones, UA Negative Negative - 160(16) ++++ mg/dL [facility] Leukocytes, UA Negative Negative - 500+++ Sandra/mcL [facility] Nitrite, UA Negative Negative - Positive [facility] pH, UA 7 5 - 9 [facility] Protein, UA Negative Negative - 1999(20) ++++ mg/dL [facility] Spec Grav, UA 1.02 1 - 1.03 [facility] Urobilinogen, UA 0.2 0.2 - 12 mg/dL [facility] Urinalysis macro (dipstick) panel (U)on 05-10-2024 Bilirubin, UA Negative Negative - 4(70) +++ mg/dL [facility] Blood, UA Negative Negative - 50 Kvng/mcL [facility] Clarity, UA Clear [facility] Color, UA Yellow [facility] Glucose, UA Negative Negative - 1999(110) ++++ mg/dL [facility] Interpretation and review of laboratory results Normal [facility] Ketones, UA Negative Negative - 160(16) ++++ mg/dL [facility] Leukocytes, UA Negative Negative - 500+++ Sandra/mcL [facility] Nitrite, UA Negative Negative - Positive [facility] pH, UA 7 5 - 9 [facility] Protein, UA Negative Negative - 1999(20) ++++ mg/dL [facility] Spec Grav, UA 1.02 1 - 1.03 [facility] Urobilinogen, UA 0.2 0.2 - 12 mg/dL [facility] ALL CBC WITH AUTO DIFFon BASOPHILS ABSOLUTE AUTO 0 [facility] Basophils/100 WBC (Bld) 0.4 % 0.2 - 2.0 % [facility] Eosinophils/100 WBC (Bld) 1.1 % 0.9 - 7.0 % [facility] Erythrocyte distribution width (RBC) [Ratio] 13.1 % 11.0 - 15.0 % [facility] Hematocrit (Bld) [Volume fraction] 34.4 % Low 36.0 - 48.0 % [facility] Hemoglobin (Bld) [Mass/Vol] 11.7 g/dL Low 12.0 - 16.0 g/dL [facility] IMMATURE GRANULOCYTES ABS AUTO 0.04 High [facility] Immature granulocytes/100 WBC (Bld) 0.4 % 0.0 - 0.5 % [facility] Interpretation and review of laboratory results Abnormal [facility] LYMPHOCYTES ABSOLUTE AUTO 1.2 [facility] Lymphocytes/100 WBC (Bld) 11.3 % Low 20.5 - 60.0 % [facility] MCH (RBC) [Entitic mass] 30.5 pg 26.7 - 34.0 pg [facility] MCHC (RBC) [Mass/Vol] 34 g/dL 29.9 - 35.2 g/dL [facility] MCV (RBC) [Entitic vol] 89.6 fL 81.0 - 99.0 fL [facility] MONOCYTES ABSOLUTE AUTO 0.7 [facility] Monocytes/100 WBC (Bld) 6.4 % 1.7 - 12.0 % [facility] NEUTROPHILS ABSOLUTE AUTO 8.3 High [facility] Neutrophils/100 WBC (Bld) 80.4 % High 43.0 - 75.0 % [facility] Platelet mean volume (Bld) [Entitic vol] 9.7 fL 9.5 - 13.5 fL [facility] TBH EO # 0.1 [facility] TBH PLT 243 [facility] TB RBC 3.84 Low [facility] TB WBC 10.3 [facility] Urinalysis macro (dipstick) panel (U)on 05-03-2024 Bilirubin, UA Negative Negative - 4(70) +++ mg/dL [facility] Blood, UA Negative Negative - 50 Kvng/mcL [facility] Clarity, UA Clear [facility] Color, UA Yellow [facility] Glucose, UA Negative Negative - 1999(110) ++++ mg/dL [facility] Interpretation and review of laboratory results Normal [facility] Ketones, UA Negative Negative - 160(16) ++++ mg/dL [facility] Leukocytes, UA Negative Negative - 500+++ Sandra/mcL [facility] Nitrite, UA Negative Negative - Positive [facility] pH, UA 6.5 5 - 9 [facility] Protein, UA Negative Negative - 1999(20) ++++ mg/dL [facility] Spec Grav, UA 1.025 1 - 1.03 [facility] Urobilinogen, UA 1.0 0.2 - 12 mg/dL [facility] Ultrasound - Officeon 2023 [facility] Ultrasound - OfficeOrdered B y: Aida Sauceda on 03-23-2024 [facility] Urinalysis macro (dipstick) panel (U)on 03-23-2024 Bilirubin, UA Negative Negative - 4(70) +++ mg/dL [facility] Blood, UA Negative Negative - 50 Kvng/mcL [facility] Clarity, UA Clear [facility] Color, UA Yellow [facility] Glucose, UA Negative Negative - 1999(110) ++++ mg/dL [facility] Interpretation and review of laboratory results Normal [facility] Ketones, UA Negative Negative - 160(16) ++++ mg/dL [facility] Leukocytes, UA Negative Negative - 500+++ Sandra/mcL [facility] Nitrite, UA Negative Negative - Positive [facility] pH, UA 6.5 5 - 9 [facility] Protein, UA Negative Negative - 1999(20) ++++ mg/dL [facility] Spec Grav, UA 1.025 1 - 1.03 [facility] Urobilinogen, UA 0.2 0.2 - 12 mg/dL [facility] IGP,APTIMA HPV,AGE GDLNon AGE GDLN ACOG TESTING Note . [facility] Comment on above: TESTS RESULT FLAG UN ITS REF RANGE LAB Clinician Provided Cytology Information Source.............Cervix Other.............. No. of containers..01 ThinPrep Vial Age Stefania Monae... FLAG LEGEND: L-Low Normal,H-High Normal,LL-Alert Low,HH-Alert High <-Panic Low,>-Panic High,A-Abnormal,AA-Critical Abnormal Performed at: 01 =G [facility] [address] Autumn Mckoy MD, IGP, RFX APTIMA HPV ASCU Note . [facility] Comment on above: TESTS RESULT FLAG UN ITS REF RANGE LAB DIAGNOSIS: 02 NEGATIVE FOR INTRAEPITHELIAL LESION OR MALIGNANCY. Specimen adequacy: 02 Satisfactory for evaluation. No endocervical component is identified. Performed by: 02 Alma Curry, Tractor Operator Helper ([facility]) . 02 Note: Note 03 [...] High,A-Abnormal,AA-Critical Abnormal Performed at: 02 [facility] [address] [place] [address] Hao Blackman MD, 03 WB [facility] [address] [address] Autumn Mckoy MD, Performed at: =G - [facility] [address] [id number] Tank Calibrator: Autumn Mckoy MD, Phone: [phone] Performed at: [facility] - [facility] [address] [address] [place], [place] [id number] Tank Calibrator: Hao Blackman MD, Phone: [phone] [facility] RECURRENT VAGINITIS (HTRX)on 02-24-2024 ATOPOBIUM VAGINAE 0 [facility] ATOPOBIUM VAGINAE Not detected [facility] BVAB 2,3 (BACTERIAL VAGINOSIS ASSOCIATED BACTERIA 2, 3); MOBILUNCUS SPP 0 [facility] BVAB 2,3 (BACTERIAL VAGINOSIS ASSOCIATED BACTERIA 2, 3); MOBILUNCUS SPP Not detected [facility] NICKY ALBICANS, PARAPSILOSIS, TROPICALIS 0 [facility] NICKY ALBICANS, PARAPSILOSIS, TROPICALIS Not detected [facility] NICKY GLABRATA 0 [facility] INCKY GLABRATA Not detected [facility] NICKY KRUSEI 0 [facility] NICKY KRUSEI Not detected [facility] CHLAMYDIA TRACHOMATIS 0 [facility] CHLAMYDIA TRACHOMATIS Not detected N [facility] GARDNERELLA VAGINALIS 0 [facility] GARDNERELLA VAGINALIS Not detected N [facility] MEGASPHAERA (TYPES 1, 2) 0 [facility] MEGASPHAERA (TYPES 1, 2) Not [facility] MYCOPLAS[facility] GENITALIUM 0 [facility] MYCOPLASMA GENITALIUM Not detected N [facility] NEISSERIA GONORRHOEAE 0 [facility] NEISSERIA GONORRHOEAE Not detected N [facility] TRICHOMONAS VAGINALIS 0 [facility] TRICHOMONAS VAGINALIS Not detected N [facility] Urinalysis macro (dipstick) panel (U)on 02-23-2024 Bilirubin, UA Negative Negative - 4(70) +++ mg/dL [facility] Blood, UA Negative Negative - 50 Kvng/mcL [facility] Clarity, UA Clear [facility] Color, UA Yellow [facility] Glucose, UA Negative Negative - 1999(110) ++++ mg/dL [facility] Interpretation and review of laboratory results Normal [facility] Ketones, UA Negative Negative - 160(16) ++++ mg/dL [facility] Leukocytes, UA Negative Negative - 500+++ Asndra/mcL [facility] Nitrite, UA Negative Negative - Positive [facility] pH, UA 7 5 - 9 [facility] Protein, UA Negative Negative - 1999(20) ++++ mg/dL [facility] Spec Grav, UA 1.025 1 - 1.03 [facility] Urobilinogen, UA 0.2 0.2 - 12 mg/dL [facility] Urinalysis macro (dipstick) panel (U)on 01-25-2024 Bilirubin, UA Positive Negative - 4(70) +++ mg/dL [facility] Comment on above: small Blood, UA Negative Negative - 50 Kvng/mcL [facility] Clarity, UA Clear [facility] Color, UA Yellow [facility] Glucose, UA Negative Negative - 1999(110) ++++ mg/dL [facility] Interpretation and review of laboratory results Abnormal [facility] Ketones, UA Positive Negative - 160(16) ++++ mg/dL [facility] Comment on above: moderate Leukocytes, UA Negative Negative - 500+++ Sandra/mcL [facility] Nitrite, UA Negative Negative - Positive [facility] pH, UA 6.5 5 - 9 [facility] Protein, UA Trace Negative - 1999(20) ++++ mg/dL [facility] Spec Grav, UA 1.025 1 - 1.03 [facility] Urobilinogen, UA 0.2 0.2 - 12 mg/dL [facility] MLR HEMOGLOBIN A1Con 024 Glucose [Mass/Vol] 91 mg/dL [facility] HbA1c (Bld) [Mass fraction] 4.8 % 4.5 - 6.2 % [facility] Comment on above: ADA RECOMMENDED LIMI T 4.0 - 6.0 ADA THERAPEUTIC TARGET < 7.0 ACTION SUGGESTED > 7.0 [facility] No Panel Informationon 01-13 [facility] Rubella IGG immune statuson 01-14-2024 Rubella immune IgG immune [facility] Syphilis Total(Unknown Syphi lis Status)Ordered By: Aida Sauceda on 01-14-2024 Syphilis Non-Reactive [facility] DRUG SCREEN RAPID (URINE )on 01-14-2024 AMPHETAMINE SCREEN URINE Negative NEGATIVE [facility] BARBITURATES SCREEN URINE Negative NEGATIVE [facility] BENZODIAZEPINES SCREEN URINE Negative NEGATIVE [facility] BUPRENORPHINE SCREEN URINE Negative NEGATIVE [facility] Comment on above: DRUG [...] 300 ng/mL CANNABINOID SCREEN URINE Negative NEGATIVE [facility] COCAINE SCREEN URINE Negative NEGATIVE [facility] METHADONE SCREEN URINE Negative NEGATIVE [facility] [facility] METHAMPHETAMINES SCREEN URINE Negative NEGATIVE [facility] OPIATE SCREEN URINE Negative NEGATIVE [facility] OXYCODONE SCREEN URINE Negative NEGATIVE [facility] PHENCYCLIDINE SCREEN URINE Negative NEGATIVE [facility] TRICYCLIC ANTIDEPRESSANT URINE Negative NEGATIVE [facility] CLINISYNC [facility] HCG ( test) Ql (U)o n 12-31-2023 Interpretation and review of laboratory results Abnormal [facility] Preg Test, Ur Positive [facility] Urinalysis macro (dipstick) panel (U)on 12-31-2023 Bilirubin, UA Negative Negative - 4(70) +++ mg/dL [facility] Blood, UA Negative Negative - 50 Kvng/mcL [facility] Clarity, UA Clear [facility] Color, UA Yellow [facility] Glucose, UA Negative Negative - 1999(110) ++++ mg/dL [facility] Interpretation and review of laboratory results Normal [facility] Ketones, UA Negative Negative - 160(16) ++++ mg/dL [facility] Leukocytes, UA Negative Negative - 500+++ Sandra/mcL [facility] Nitrite, UA Negative Negative - Positive [facility] pH, UA 7.0 5 - 9 [facility] Protein, UA Positive Negative - 1999(20) ++++ mg/dL [facility] Spec Grav, UA 1.020 1 - 1.03 [facility] Urobilinogen, UA 1.0 0.2 - 12 mg/dL [facility] Vital Signs Date Time Vital Sign Value Performing Clinician Faci lity 07-03-2024 08:52-0400 Body weight 59.33 kg Sandy Pravin DO Work Phone: [facility] 07-03-2024 08:52-0400 Diastolic blood pressure 70 mm[Hg] Sandy Pravin DO Work Phone: [facility] 07-03-2024 08:52-0400 Systolic blood pressure 120 mm[Hg] Sandy Pravin DO Work Phone: [facility] 06-27-2024 09:01-0400 Body weight 58.7 kg Sandy Pravin DO Work Phone: [facility] 06-27-2024 09:01-0400 Diastolic blood pressure 72 mm[Hg] Sandy Pravin DO Work Phone: [facility] 06-27-2024 09:01-0400 Systolic blood pressure 110 mm[Hg] Sandy Pravin DO Work Phone: [facility] 06-22-2024 09:10-0400 Body weight 59.42 kg Sandy Pravin DO Work Phone: [facility] 06-22-2024 09:10-0400 Diastolic blood pressure 70 mm[Hg] Sandy Pravin DO Work Phone: [facility] 06-22-2024 09:10-0400 Systolic blood pressure 116 mm[Hg] Sandy Pravin DO Work Phone: [facility] 06-08-2024 11:44-0500 Body weight 58.06 kg Alma BRANHAM Work Phone: [facility] 06-08-2024 11:44-0500 Diastolic blood pressure 82 mm[Hg] Alma BRANHAM Work Phone: [facility] 06-08-2024 11:44-0500 Systolic blood pressure 128 mm[Hg] Alma BRANHAM Work Phone: [facility] 06-07-2024 11:32-0500 Diastolic blood pressure 71 mm[Hg] [address] 06-07-2024 11:32-0500 Heart rate 81 /min [address] 06-07-2024 11:32-0500 Systolic blood pressure 115 mm[Hg] [address] 06-07-2024 09:32-0500 Body height 157.5 cm Reji Day MD Work Phone: [facility] 05-25-2024 11:54-0500 Body weight 56.43 kg Sandy Pravin DO Work Phone: [facility] 05-25-2024 11:54-0500 Diastolic blood pressure 72 mm[Hg] Sandy Pravin DO Work Phone: [facility] 05-25-2024 11:54-0500 Systolic blood pressure 116 mm[Hg] Sandy Pravin DO Work Phone: [facility] 05-10-2024 09:39-0500 Body weight 54.8 kg Alma BRANHAM Work Phone: [facility] 05-10-2024 09:39-0500 Diastolic blood pressure 70 mm[Hg] Alma BRANHAM Work Phone: [facility] 05-10-2024 09:39-0500 Systolic blood pressure 100 mm[Hg] Alma BRANHAM Work Phone: [facility] 04-20-2024 10:01-0500 Body weight 53.25 kg Sandy Pravin DO Work Phone: [facility] 04-20-2024 10:01-0500 Diastolic blood pressure 60 mm[Hg] Sandy Pravin DO Work Phone: [facility] 04-20-2024 10:01-0500 Systolic blood pressure 100 mm[Hg] Sandy Pravin DO Work Phone: [facility] 03-23-2024 12:42-0500 Body weight 51.26 kg Sandy Pravin DO Work Phone: [facility] 03-23-2024 12:42-0500 Diastolic blood pressure 62 mm[Hg] Sandy Pravin DO Work Phone: [facility] 03-23-2024 12:42-0500 Systolic blood pressure 102 mm[Hg] Sandy Pravin DO Work Phone: [facility] 02-23-2024 10:48-0500 Body weight 49.9 kg Alma BRANHAM Work Phone: [facility] 02-23-2024 10:48-0500 Diastolic blood pressure 64 mm[Hg] Alma BRANHAM Work Phone: [facility] 02-23-2024 10:48-0500 Systolic blood pressure 102 mm[Hg] Alma BRANHAM Work Phone: [facility] 01-25-2024 10:45-0400 Body weight 47.68 kg Sandy Pravin DO Work Phone: [facility] 01-25-2024 10:45-0400 Diastolic blood pressure 64 mm[Hg] Sandy Pravin DO Work Phone: [facility] 01-25-2024 10:45-0400 Systolic blood pressure 100 mm[Hg] Sandy Pravin DO Work Phone: [facility] 12-02-2023 08:47-0400 Body height 157.48 cm [facility] 12-02-2023 08:47-0400 Body mass index (BMI) [Ratio] 19.5 kg/m2 [facility] 12-02-2023 08:47-0400 Body weight 48.53 kg [facility] 12-02-2023 08:47-0400 Diastolic blood pressure 80 mm[Hg] [facility] 12-02-2023 08:47-0400 Systolic blood pressure 122 mm[Hg] [facility] Encounters Encounter Date Encounter Type Care Provider Facility Start: 07-03-2024 End: 07-03-2024 Bamboo flowsheet Sandy Pravin DO Work Phone: [facility] Start: 07-03-2024 End: 07-03-2024 Bamboo flowsheet Sandy Pravin DO Work Phone: [facility] Start: 07-03-2024 End: 07-03-2024 flow sheet Sandy Pravin DO Work Phone: [facility] Comment on above: 35 weeks gestation o f ; Third trimester Start: 07-03-2024 End: 07-03-2024 ambulatory SANDY PRAVIN Not Available Start: 06-29-2024 End: 06-29-2024 Clinisync Result Encounter Sandy Pravin DO Work Phone: [facility] External Department Unsolicited Start: 06-29-2024 End: 06-29-2024 Clinisync Result Encounter Sandy Pravin DO Work Phone: [facility] External Department Unsolicited Start: 06-28-2024 End: 06-28-2024 ambulatory SANDY R PRAVIN [facility] Start: 06-27-2024 End: 06-27-2024 ambulatory SANDY PRAVIN [...] of Start: 06-22-2024 End: 06-22-2024 ambulatory SANDY PRAVIN Not Available Start: 06-21-2024 End: 06-21-2024 Orders Only Anya Waters RN [facility] Comment on above: growth restric tion antepartum (Primary Dx) Start: 06-14-2024 End: 06-14-2024 ambulatory [facility] Start: 06-08-2024 End: 06-08-2024 Bamboo flowsheet Alma [...] End: 06-07-2024 Emergency department patient visit RIKY Persaud ERNESTO [facility] Start: 06-07-2024 End: 06-07-2024 ambulatory [facility] Nst1 [facility] at [facility] Comment on above: growth restric tion antepartum (Primary Dx) growth restric tion antepartum (Primary Dx); 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, antepartum Start: 06-07-2024 End: 06-07-2024 Office consultation new/estab patient 60 min Reji Day MD Work Phone: [facility] Comment on above: growth restric tion antepartum (Primary Dx); 32 weeks gestation of Start: 06-07-2024 End: 06-07-2024 ambulatory SANDY R PRAVIN [facility] Start: 06-05-2024 End: 06-05-2024 Orders Only Not In System Ref Prov [facility] at [facility] Start: 06-01-2024 End: 06-01-2024 Clinisync [...] 05-10-2024 Bamboo flowsheet Alma BRANHAM Work Phone: [facility] Start: 05-10-2024 End: 05-10-2024 flow sheet Alma BRANHAM Work Phone: [facility] Comment on above: Third trimester preg danielle; 28 weeks gestation of ; size inconsistent with dates; Nonintractable headache, unspecified chronicity pattern, unspecified headache type Start: 05-10-2024 End: 05-10-2024 ambulatory ALMA VARGAS Not Available Start: 05-05-2024 End: 05-05-2024 Clinisync Result Encounter Sandy Pravin DO Work Phone: [facility] External Department Unsolicited Start: 05-05-2024 End: 05-05-2024 Clinisync Result Encounter Sandy Pravin DO Work Phone: [facility] External Department Unsolicited Start: 04-20-2024 End: 04-20-2024 Bamboo flowsheet Sandy Pravin DO Work Phone: [facility] Start: 04-20-2024 End: 04-20-2024 Bamboo flowsheet Sandy Pravin DO Work Phone: [facility] Start: 04-20-2024 End: 04-20-2024 flow sheet Sandy Pravin DO Work Phone: [facility] Comment on above: Second trimester pre gnancy; 25 weeks gestation of ; Diabetes mellitus screening Start: 04-20-2024 End: 04-20-2024 ambulatory SANDY PRAVIN Not Available Start: 03-23-2024 End: 03-23-2024 Bamboo flowsheet Sandy Pravin DO Work Phone: [facility] Start: 03-23-2024 End: 03-23-2024 Bamboo flowsheet Sandy Pravin DO Work Phone: [facility] Start: 03-23-2024 End: 03-23-2024 ambulatory SANDY PRAVIN Not Available Start: 03-23-2024 End: 03-23-2024 flow sheet Sandy Costello DO Work Phone: [facility] Comment on above: Second trimester pre gnancy; 21 weeks gestation of Start: 03-21-2024 End: 03-21-20[address] [facility] Start: 03-07-2024 End: 03-07-2024 Chart abstracting Omayra Boyce [facility] Work Phone: [facility]- Medicine at [facility] Start: 02-23-2024 End: 02-23-2024 Bamboo flowsheet Alma BRANHAM Work Phone: [facility] Start: 02-23-2024 End: 03-06-2024 Bamboo flowsheet Alma BRANHAM Work Phone: [facility] Start: 02-23-2024 End: 03-06-2024 Clinisync Result Encounter Alma BRANHAM Work Phone: [facility] External Department Unsolicited Start: 02-23-2024 End: 02-24-2024 External Result Encounter Amla BRANHAM Work Phone: [facility] External Department Unsolicited Start: 02-23-2024 End: 02-23-2024 Patient encounter procedure Alma BRANHAM Work Phone: [facility] Start: 02-23-2024 End: 02-23-2024 flow sheet Alma BRANHAM Work Phone: [facility] Comment on above: [...] Not Available Start: 12-02-2023 Patient encounter status [facility] Start: 12-02-2023 End: 12-02-2023 ambulatory [facility] Work Phone: Start: 12-02-2023 End: 12-02-2023 Encounter for general adult medical examination without abnormal findings [facility] Start: 12-02-2023 End: 12-02-2023 Patient encounter procedure [facility] Work Phone: Procedures Date Procedure Procedure Detail Performing Clinician Start: 07-03-2024 Urnls dip stick/tabl et rgnt non-auto w/o micrscp Sandy Pravin DO Work Phone: Start: 06-29-2024 US OB BPP W NON-STRESS [...] malign ant neoplasm of cervix Pap Smear [employer] Start: 06-21-2025 End: 06-21-2025 US MFM with or without consult US MFM with or without consult Imaging Routine growth restriction antepartum Expected: 06/21/2025 (Approximate), Expires: 06/21/2025 [employer] Work Phone: Comment on above: Expected: 06/21/2025 (Approximate), Expires: 06/21/2025 Start: 06-07-2025 Adult BMI Screening Adult BMI Screen ing [employer] Start: 06-07-2025 Tobacco Screening Tobacco Screening [employer] Start: 06-07-2025 End: 06-07-2025 US MFM with or without consult US MFM with or without consult Imaging Routine growth restriction antepartum 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, antepartum Expected: 06/07/2025 (Approximate), Expires: 06/07/2025 [employer] Work Phone: Comment on above: Expected: 06/07/2025 (Approximate), Expires: 06/07/2025 Start: 07-05-2024 End: 07-05-2024 Patient encounter procedure 07/05/2024 8:45 AM EDT Appointment [facility] [address] [place] [address] [facility] Start: 07-03-2024 End: 07-03-2024 Patient encounter procedure [facility] Comment on above: Arrived Start: 06-28-2024 End: 06-28-2024 Patient encounter procedure 06/28/2024 8:45 AM EDT Appointment [facility] [address] [place] [address] [facility] Start: 06-22-2024 End: 06-22-2025 CULTURE, GROUP B STREP WITH SUSCEPTIBLITY CULTURE, GROUP B STREP WITH SUSCEPTIBLITY Lab Routine Third trimester Expected: 06/22/2024, Expires: 06/22/2025 [facility] Work Phone: Comment on above: Expected: 06/22/2024 , Expires: 06/22/2025 Start: 06-22-2024 End: 06-22-2024 Patient encounter procedure [facility] Comment on above: Arrived Start: 06-21-2024 End: 06-21-2024 Patient encounter procedure 06/21/2024 9:00 AM EDT Appointment [facility] [address] [place] [address] [facility] Start: 06-14-2024 End: 06-14-2024 Patient encounter procedure 06/14/2024 8:00 AM EDT Appointment [facility] [address] [place] [address] [facility] Start: 06-08-2024 End: 06-08-2024 Patient encounter procedure [facility] Comment on above: Arrived Start: 06-07-2024 End: 06-07-2025 nonstress test - Maternal Medicine nonstress test - Maternal Medicine OB Routine growth restriction antepartum Expected: 06/07/2024 (Approximate), Expires: 06/07/2025 [employer] Work Phone: Comment on above: Expected: 06/07/2024 (Approximate), Expires: 06/07/2025 Start: 06-07-2024 End: 06-07-2024 Patient encounter procedure [facility] Start: 06-01-2024 End: 06-01-2024 Professional / ancillary services management 06/01/2024 9:30 AM EST Ancillary Procedure [facility] [address] [place] [phone] [facility] Start: 05-25-2024 End: 05-25-2024 [...] Routine [facility] [address] [place] [phone] Sandy Costello DO [address] [place] [address] [facility] Start: 03-23-2024 End: 03-23-2024 Professional / ancillary services management 03/23/2024 10:30 AM EST Ancillary Procedure [facility] [address] [place] [phone] [facility] Start: 03-21-2024 End: 03-21-2024 Telemedicine consultation with patient 03/21/2024 9:00 AM EST Telemedicine Maternal- Medicine at [facility] [address] [place] [address] Omayra Boyce, [facility] [address] [place] [address] Maternal- Medicine at [facility] Start: 02-23-2024 End: 02-22-2025 US for US OB ANATOMY SINGLE W US OB CERVICAL LENGTH Imaging Routine Screening, , for anatomic survey Expected: 02/23/2024 (Approximate), Expires: 02/22/2025 [facility] Comment on above: Expected: 02/23/2024 (Approximate), Expires: 02/22/2025 Start: 02-23-2024 End: 02-23-2024 Patient encounter procedure [facility] Comment on above: Arrived Start: 01-25-2024 End: 01-25-2024 Patient encounter procedure [facility] Comment on above: Arrived Start: 12-31-2023 End: 12-30-2024 ABO/Rh ABO/Rh Lab Routine Missed menses , unspecified gestational age Expected: 12/31/2023 (Approximate), Expires: 12/30/2024 [facility] Comment on above: Expected: 12/31/2023 (Approximate), Expires: 12/30/2024 Start: 12-31-2023 End: 12-30-2024 Blood type and Indirect antibody screen panel - Blood Type and screen Lab Routine Missed menses , unspecified gestational age Expected: 12/31/2023 (Approximate), Expires: 12/30/2024 [facility] Work Phone: Comment on above: Expected: 12/31/2023 (Approximate), Expires: 12/30/2024 Start: 12-31-2023 End: 12-30-2024 Drugs of abuse panel - Urine by Screen method Rapid drug screen, urine Lab Routine , unspecified gestational age Encounter for supervision of normal first in first trimester Expected: 12/31/2023 (Approximate), Expires: 12/30/2024 [facility] Comment on above: Expected: 12/31/2023 (Approximate), Expires: 12/30/2024 Start: 12-31-2023 End: 12-30-2024 US Pelvis transvaginal US OB transvaginal Imaging Routine Missed menses Expected: 12/31/2023 (Approximate), Expires: 12/30/2024 [facility] Comment on above: Expected: 12/31/2023 (Approximate), Expires: 12/30/2024 Start: 12-05-2023 Influenza vaccination Influenza Vacc ine [facility] Start: 11-06-2019 DTaP,Tdap and Td Vaccines (7 - Td or Tdap) DTaP,Tdap and Td Vaccines (7 - Td or Tdap) [facility] Start: 2018 Screening for malign ant neoplasm of cervix Pap Smear [facility] Start: 09-29-2015 Adult BMI Screening Adult BMI Screen ing [facility] Start: 2009 Depression Screening Depression Scre ening [facility] Start: 2009 Tobacco Screening Tobacco Screening [facility] Bacteria identified in Urine by Culture Urine culture Microbiology Routine Missed menses Ordered: 12/31/2023 [facility] Comment on above: Ordered: 12/31/2023 CBC W Auto Different ial panel - Blood CBC and differential Lab Routine Missed menses , unspecified gestational age Ordered: 12/31/2023 [facility] Comment on above: Ordered: 12/31/2023 CHLAMYDIA TRACHOMATI S (GENITO/STI) CHLAMYDIA TRACHOMATIS (GENITO/STI) Lab Routine Screen for STD (sexually transmitted disease) Ordered: 02/23/2024 [facility] Comment on above: Ordered: 02/23/2024 Cytology Cervical or vaginal smear or scraping study Pap Smear Pathology and Cytology Routine Well woman exam with routine gynecological exam Ordered: 02/23/2024 [facility] Comment on above: Ordered: 02/23/2024 Hemoglobin A1c/Hemoglobin.total in Blood Hemoglobin A1c Lab Routine Missed menses , unspecified gestational age Ordered: 12/31/2023 [facility] Comment on above: Ordered: 12/31/2023 Hepatitis B virus surface Ag [Presence] in Serum or Plasma by Immunoassay Hepatitis B surface antigen Lab Routine Missed menses , unspecified gestational age Ordered: 12/31/2023 [facility] Comment on above: Ordered: 12/31/2023 Hepatitis C virus Ab [Presence] in Serum or Plasma by Immunoassay Hepatitis C antibody Lab Routine Missed menses , unspecified gestational age Ordered: 12/31/2023 [facility] Comment on above: Ordered: 12/31/2023 HIV-1/HIV-2 antigen/antibody combination immunoassay HIV-1 and HIV-2 antibodies Lab Routine Missed menses , unspecified gestational age Ordered: 12/31/2023 [facility] Comment on above: Ordered: 12/31/2023 Neisseria gonorrhoea e DNA [Presence] in Unspecified specimen by RUBEN with probe detection Neisseria gonorrhea DNA probe, direct Lab Routine Screen for STD (sexually transmitted disease) Ordered: 02/23/2024 [facility] Comment on above: Ordered: 02/23/2024 Reagin Ab [Presence] in Serum by RPR RPR Lab Routine Missed menses , unspecified gestational age Ordered: 12/31/2023 [facility] Comment on above: Ordered: 12/31/2023 Rubella antibody, IgG Rubella an tibody, IgG Lab Routine Missed menses , unspecified gestational age Ordered: 12/31/2023 [facility] Comment on above: Ordered: 12/31/2023 SURESWAB(R) ADVANCED VAGINITIS PLUS, TMA SURESWAB(R) ADVANCED VAGINITIS PLUS, TMA Pathology and Cytology Routine Screen for STD (sexually transmitted disease) Ordered: 02/23/2024 [facility] Work Phone: Comment on above: Ordered: 02/23/2024 Immunizations Immunization Date Immunization Notes Care Provider Kedar augustin 11-13-2015 hepatitis A vaccine, pediatric/adolescent dosage, 2 dose schedule Omayra Hochy eto Work Phone: [facility] 11-13-2015 meningococcal polysaccharide (groups A, C, Y and W-135) diphtheria toxoid conjugate vaccine (MCV4P) Omayra Hochy eto Work Phone: [facility] 04-24-2015 influenza, injectabl e, quadrivalent, preservative free Omayra Hochy eto Work Phone: [facility] 04-24-2015 influenza virus vaccine, unspecified formulation Omayra Vigster Work Phone: [facility] 11-05-2009 tetanus toxoid, redu dilip diphtheria toxoid, and acellular pertussis vaccine, adsorbed Omayra Vigster Work Phone: [facility] 11-05-2009 varicella virus vaccine [facility] V[facility] Work Phone: [facility] 03-14-2009 influenza, seasonal, injectable, preservative free Omayra Hochy eto Work Phone: [facility] 01-24-2003 hepatitis B vaccine, adult dosage Omayra Vigster Work Phone: [facility] 11-28-2002 diphtheria, tetanus toxoids and acellular pertussis vaccine, 5 pertussis antigens Omayra Austen [facility] Work Phone: [facility] 11-28-2002 measles, mumps and rubella virus vaccine Omayra Austen [facility] Work Phone: [facility] 11-28-2002 [facility], [facility] 07-18-2001 varicella virus vaccine Made [facility] Work Phone: [facility] 04-09-1999 diphtheria, tetanus toxoids and acellular pertussis vaccine, 5 pertussis antigens [facility] Work Phone: [facility] 04-09-1999 measles, mumps and rubella virus vaccine Omayra Austen [facility] Work Phone: [facility] 03-25-1998 diphtheria, tetanus toxoids and acellular pertussis vaccine, 5 pertussis antigens [facility] Work Phone: [facility] 03-25-1998 hepatitis B vaccine, adult dosage [facility] Work Phone: [facility] 03-25-1998 poliovirus vaccine, inactivated [facility] Work Phone: [facility] 02-13-1998 diphtheria, tetanus toxoids and acellular pertussis vaccine, 5 pertussis antigens [facility] Work Phone: [facility] 02-13-1998 poliovirus vaccine, inactivated [facility] Work Phone: [facility] 1997 diphtheria, tetanus toxoids and acellular pertussis vaccine, 5 pertussis antigens [facility] Work Phone: [facility] 1997 haemophilus influenz ae type b vaccine, PRP-OMP conjugate [facility] Work Phone: [facility] 1997 poliovirus vaccine, inactivated [facility] Work Phone: [facility] 1997 hepatitis B vaccine, adult dosage Omayra Boyce LC Work Phone: [employer] 1997 hepatitis B vaccine, adult dosage Omayra Boyce [facility] Work Phone: [employer] NEGATED: Highlighted row has not occurred!11-13-2015 human papilloma virus vaccine, quadrivalent Omayra Boyce [facility] Work Phone: [employer] Comment on above: Deferred: Other - parent declined Payers Date Payer Category Payer Blue [employer] Blue Shield [id number] 2022 Blue Cross Blue Shie ld Managed Care - Other [id number] 2022 Unknown BCBS BCBS xxxxxx [id number] 2022-Present [phone] [address] [place] [address] [id number] 2022 Unknown [id number] 2020 Blue Cross Blue Shie ld Managed Care - PPO SARINA [id number] 1997 Unknown [id number] 1997 Unknown [id number] [id number] 1997 Unknown [id number] [id number] 1997 Unknown [id number] [id number] 1997 Unknown [id number] 2.1285 1997 Unknown [id number] 2.1285 1997 Unknown [id number] 2.1285 1997 Unknown [id number] 2.1285 1997 Unknown [id number]. 2.1258 1997 Unknown [id number] 2.16.840.1.048054.3.579. 2.1258 1997 Unknown [id number] 2.16.840.1.950957.3.579. 2.1258 1997 Unknown [id number] 2.16.840.1.706520.3.579. 2.1258 1997 Unknown [id number] 2.16.840.1.356866.3.579. 2.1258 1997 Unknown [id number] 2.16.840.1.220893.3.579. 2.1258 1997 Unknown [id number] 2.16.840.1.087546.3.579. 2.1258 1997 Unknown [id number] 2.16.840.1.674601.3.579. 2.1258 1997 Unknown [id number] 2.16.840.1.608217.3.579. 2.1259 1997 Unknown [id number] 2.16.840.1.494222.3.579. 2.1259 1997 Unknown [id number] 2.16.840.1.929058.3.579. 2.1259 1997 Unknown [id number] 2.16.840.1.053802.3.579. 2.1259 Social History Date Type Detail Facility [facility] Work Phone: Start: 1995 Sex Assigned At Female F [facility] Tobacco smoking stat [facility] Tobacco smoking consumption unknown [facility] Start: 11-10-2023 [facility] Start: 1997 Sex assigned at Not on file [facility] Start: 05-16-2020 End: 03-07-2024 Gender identity Not on file [facility] Start: 02-13-2021 End: 06-07-2024 Tobacco smoking status NHIS Never smoked tobacco [facility] Start: 02-13-2021 End: 06-07-2024 Tobacco use and exposure Smokeless tobacco non-user [facility] Start: 03-07-2024 Alcoholic beverage intake Current non-drinker of alcohol (finding) [facility] Start: 05-16-2020 End: 03-07-2024 Alcoholic beverage intake [facility] Childcare Unknown [facility] Start: 11-06-2014 Sex Female (finding) [facility] Start: 06-05-2024 End: 06-07-2024 Alcoholic beverage intake Ex-drinker (finding) [facility] Clinical Notes 12-31-2023 to 07-03-2024 Veronika Lowery NP - 07/03/2024 9:00 AM Antione Oswald LPN - 06/27/2024 8:50 AM CARROL Coello - 06/22/2024 9:10 AM CARROL Coello - 06/08/2024 11:30 AM CARROL Gonzalez - 05/10/2024 9:40 AM EST Note Date & Type Note Facility 07-03-2024 History of Present illness Narrative Reason for [...] nursing note reviewed. Exam conducted with a solar installation foreman present. Vitals: There is no height or weight on file to calculate BMI. BP: 120/70 Patient's last menstrual period was 10/27/2023. ASSESSMENT & PLAN ICD-10-CM 1. 35 weeks gestation of Z3A.35 POCT urinalysis dipstick manually resulted 2. Third trimester Z34.93 POCT urinalysis dipstick manually resulted Annual Exam: Patient presents today for an annual exam. Patient states she is doing well and has no complaints. Pap was obtained without difficulty. Orders Placed This Encounter Procedures POCT urinalysis dipstick manually resulted Follow Up: Return OB: Patient presents today for a routine obstetrics appointment. Patient is currently 35w5d . Patient states she is doing well but has complaints of being tired due to current . Patient has verbalizes frequent movement. labor precautions was discussed/given and patient was instructed to perform kick counts three times a day. Orders Placed This Encounter Procedures POCT urinalysis dipstick manually resulted Follow Up: Patient is scheduled for induction on 07/05/24 with pitocin for IUGR. Patients questions answered and RTC for routine care. Documented by Veronika Lowery NP on behalf of: Sandy Costello DO documented in this encounter [facility] 06-27-2024 History of Present illness Narrative Reason [...] nursing note reviewed. Exam conducted with a solar installation foreman present. Vitals: There is no height or [...] Sandy Costello DO documented in this encounter [facility] 06-22-2024 History of Present illness Narrative [...] Sandy Costello DO documented in this encounter [facility] 06-08-2024 History of Present [...] of: CARROL Harmon documented in this encounter [facility] 06-07-2024 History of Present [...] all scheduled appointments documented in this encounter [facility] 06-07-2024 History of Present illness Narrative [...] TESTS AND ULTRASOUND REPORTS: Referral records and [facility] chart were reviewed Pertinent Ultrasound findings are [...] Based on ultrasound findings today recommend delivery [facility] recommendations summary FGR is defined as EFW [...] later - absent end-diastolic flow umbilical artery: [id number] or at time of diagnosis if diagnosed later. - reversed end-diastolic flow umbilical artery: [id number] or at time of diagnosis if diagnosed [...] be getting weekly umbilical artery Dopplers through [facility] along with fluid assessment, twice weekly NSTs can be performed through primary OB. Recommend delivery at 37 weeks gestation. If absent or reversed end-diastolic flow, re-engage MFM prior to 34 weeks gestation. Delivery method preferred vaginal. [place] C/S for usual obstetrical indications Recommend steroids if delivery before 34 weeks. Consider steroids if delivery after 34 weeks and before 37 weeks. DISPOSITION: At this point the patient is in complete care of her supervisor statement clerks. Patient does have ultrasound scheduled with us. Thank you for allowing me to participate in the care of Sejal Tona Nowak. If there any questions please do not hesitate to contact us. Reji Day MD Maternal- Medicine [facility] [address] [place] [address] [facility], the CDC, and other organizations representing maternal and public health professionals recommend that , , and lactating people and those considering receive the COVID-19 vaccination. Vaccination is the best method to reduce maternal and complications of SARS-CoV-2 infection. This document was created with [employer] technology. Though I make every effort to review the dictation as it is transcribed, on occasion the spoken word can be misinterpreted by the technology leading to inappropriate words, phrases, or sentences. This note is addressed to the requesting provider as a consultation for clinical guidance. Specific medical abbreviations are occasionally used and those are generally approved by the [place]?Board of?Obstetrics and?Gynecology?as well as?Jocelyn s abbreviations. The above plan of care was based solely on the diagnoses for which a consultation was requested. ?More frequent testing may be indicated based on her other medical/obstetrical conditions. The management of other or medical conditions is beyond the scope of requested consultation and will continue to be followed by the primary supervisor statement clerks or primary care provider. Note to patient: The Cures Act makes medical notes like these [...] office? Have you been seen here at [facility] in a previous ? Recent ER visits or hospitalizations? Bring blood sugar log or meter with you today? (Please bring them with you for every visit at [facility]) Flu vaccine (Feb-June)? Any concerns that you would like me to mention to the provider today? documented in this encounter [facility] [employer] [facility] 05-25-2024 History of Present illness Narrative Reason [...] nursing note reviewed. Exam conducted with a solar installation foreman present. Vitals: There is no height or [...] Sandy Costello DO documented in this encounter [facility] 05-10-2024 History of Present [...] of: CARROL Harmon documented in this encounter [facility] 04-20-2024 History of Present [...] nursing note reviewed. Exam conducted with a solar installation foreman present. Vitals: There is no height or [...] Sandy Costello DO documented in this encounter [facility] 03-23-2024 History of Present [...] Sandy Costello DO documented in this encounter [facility] 02-23-2024 History of Present [...] for routine OB appointment. Documented by CARROL Hramon on behalf of: CARROL Harmon documented in this encounter [facility] 01-25-2024 History of Present [...] nursing note reviewed. Exam conducted with a solar installation foreman present. Vitals: There is no height or [...] or undercooked meat, and [facility] Patient has been consulted regarding any further do's and don'ts of . Patient voiced understanding and all questions and concerns were answered. Orders Placed This Encounter Procedures POCT urinalysis dipstick manually resulted Follow Up: Patient is to return in 4 weeks for routine OB appointment. Documented by Anita Oswald LPN on behalf of: Sandy Costello DO documented in this encounter [facility] 12-31-2023 History of Present [...] or undercooked meat, and [facility] away [facility]. 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, antepartum documented in this [facility]* Diagnosis growth restriction antepartum- Primary documented in this [facility]* Diagnosis Third trimester state, incidental 32 weeks gestation of documented in this encounter [facility]* Diagnosis growth restriction antepartum- Primary documented in this [facility]* Diagnosis Third trimester state, incidental 34 weeks gestation of documented in this encounter [facility]* Diagnosis Third trimester state, incidental 34 weeks gestation of Oligohydramnios, antepartum, single or unspecified fetus documented in this encounter [facility]* Diagnosis 35 weeks gestation of Third trimester state, incidental documented in this encounter [facility] HealthcareInstructionsNot on filedocumented in this [facility] SystemInstructionsNot on filedocumented in this encounterPro[facility] SystemInstructionsNot on filedocumented in this encounter[facility] SystemInstructionsNot on filedocumented in this encounterPro[facility] InstructionsNot on filedocumented in [facility] Chief Complaint and Reason [...] Member Role Status Dates Tran Rice APRN NP-Hugn Primary Care Provider Active Team Status: Inactive Member Role Status Dates [facility]epeda Primary Care Provider, Attending Provider Active Start: December 02, 2023 End: December 02, 2023 Putty Remover Relationship Specialty Start Date End Date Tran Rice NP [address] [facility] [place] [address] PCP - General Family Medicine 12/31/23 Putty Remover Relationship Specialty Start Date End Date Tran Rice NP [address] [place] [address] [address] PCP - General Family Medicine 12/31/23 Putty Remover Relationship Specialty Start Date End Date Tran Rice NP [address] [facility] [place] [address] PCP - General Family Medicine 12/31/23 Putty Remover Relationship Specialty Start Date End Date Tran Rice NP [address] [facility] [place] [address] PCP - General Family Medicine 12/31/23 Putty Remover Relationship Specialty Start Date End Date Tran Rice NP [address] [facility] [place] [address] PCP - General Family Medicine 12/31/23 Putty Remover Relationship Specialty Start Date End Date Tran Rice NP [address] [facility] [place] [address] PCP - General Family Medicine 12/31/23 Putty Remover Relationship Specialty Start Date End Date Tran Rice NP [address] [facility] [place] [address] PCP - General Family Medicine 12/31/23 Putty Remover Relationship Specialty Start Date End Date Tran Rice NP [address] [place] [address] [place] [address] PCP - General Family Medicine 12/31/23 Putty Remover Relationship Specialty Start Date End Date Tran Rice NP [address] [place] [address] [place] [address] PCP - General Family Medicine 12/31/23 Putty Remover Relationship Specialty Start Date End Date Tran Rice NP [address] [place] [address] [place] [address] PCP - General Family Medicine 12/31/23 Putty Remover Relationship Specialty Start Date End Date Tran Rice NP [address] [place] [address], [place] [address] PCP - General Family Medicine 12/31/23 Putty Remover Relationship Specialty Start Date End Date Arthur Kan MD PCP - General 08/09/14 Putty Remover Relationship Specialty Start Date End Date Tran Rice NP [address] [place] [address] [place] [address] PCP - General Family Medicine 12/31/23 Putty Remover Relationship Specialty Start Date End Date Arthur Kan MD PCP - General 08/09/14 Putty Remover Relationship Specialty Start Date End Date Arthur Kan MD PCP - General 08/09/14 Putty Remover Relationship Specialty Start Date End Date Arthur Kan MD PCP - General 08/09/14 Putty Remover Relationship Specialty Start Date End Date Arthur Kan MD PCP - General 08/09/14 Putty Remover Relationship Specialty Start Date End Date Arthur Kan MD PCP - General 08/09/14 Putty Remover Relationship Specialty Start Date End Date Arthur Kan MD PCP - General 08/09/14 Putty Remover Relationship Specialty Start Date End Date Arthur Kan MD PCP - General 08/09/14 Putty Remover Relationship Specialty Start Date End Date Tran Rice NP [address] [place] [address] PCP - General Family Medicine 12/31/23 Goals [...] ized section and content) DATE CREATED AUTHOR 06/29/2024 [facility] DATE CREATED AUTHOR AUTHOR'S ORGANIZ ATION 07/03/2024 [facility] EPIC FOR RECORDS PERTAINING TO PATIENTS [...] BE BASED ON THE PRIMARY CLINICAL RECORDS. [facility] [employer] [facility]. provides no warranty or guarantee of the accuracy or completeness of information in this document.
[2024-07-05] MEDS: 0.9 % SODIUM CHLORIDE 1,000 ML 125 ML IV ×2 (05:29→16:33)
[2024-07-05 05:37] LABS: Hematocrit 36.3 % (36.0-48.0); Hemoglobin 12.6 g/dL (12.0-16.0); Mean Corpuscular HGB Conc 34.7 g/dL (29.9-35.2); Mean Corpuscular Hemoglobin 30.2 pg (26.7-34.0); Mean Corpuscular Volume 87.1 fL (81.0-99.0); Mean Platelet Volume 10.1 fL (9.5-13.5); Platelet Count 309 10^3/uL (150-450); Red Blood Count 4.17 10^6/uL (4.20-5.40); White Blood Count 14.2 10^3/uL (4.0-11.0)
[2024-07-05] MEDS: OXYTOCIN/0.9 % SODIUM CHLORIDE 10 UNITS/500 ML PLAST..BAG 6 UNIT IV (06:02)
[2024-07-05 06:07] LABS: Amphetamine Screen Urine NEGATIVE (NEGATIVE); Barbiturates Screen Urine NEGATIVE (NEGATIVE); Benzodiazepines Screen Urine NEGATIVE (NEGATIVE); Buprenorphine Screen Urine NEGATIVE (NEGATIVE); Cannabinoid Screen Urine NEGATIVE (NEGATIVE); Cocaine Screen Urine NEGATIVE (NEGATIVE); Methadone Screen Urine NEGATIVE (NEGATIVE); Methamphetamines Screen Urine NEGATIVE (NEGATIVE); Opiate Screen Urine NEGATIVE (NEGATIVE); Oxycodone Screen Urine NEGATIVE (NEGATIVE); Phencyclidine Screen Urine NEGATIVE (NEGATIVE); Tricyclic Antidepressant Urine NEGATIVE (NEGATIVE)
--- NOTE | 2024-07-05 07:49 | W.PC.ACHO ---
Registration Status: ADM IN Primary Language: Kosovan Preferred Language: Kosovan Report given to Keri SMITH; care relinquished at 0710. Active Medications Generic Name Dose Route Start Last Admin Trade Name Michelle PRN Reason Stop Dose Admin Carboprost Tromethamine 250 mcg 07/05/24 05:06 Carboprost Tromethamine 250 Mcg/Ml 1 Ml Vial IM 07/07/24 05:06 Q15M PRN Bleeding Diphenhydramine HCl 25 mg 07/05/24 05:06 Diphenhydramine Hcl 50 Mg/Ml Vial IV 07/06/24 05:10 Q6H PRN Itching Ephedrine Sulfate 5 mg 07/05/24 05:06 Ephedrine Sulfate 50 Mg/Ml Vial IV 07/06/24 05:10 Q5M PRN Blood Pressure - Low Fentanyl Citrate 100 mcg 07/05/24 05:06 Fentanyl Citrate/Pf 100 Mcg/2 Ml Vial EPIDURAL ONCE PRN epidural Fentanyl Citrate 100 mcg 07/05/24 05:06 Fentanyl Citrate/Pf 100 Mcg/2 Ml Vial EPIDURAL ONCE PRN epidural Tranexamic Acid 1,000 mg/ 110 mls @ 440 mls/hr 07/05/24 05:06 Sodium Chloride IV 07/07/24 05:06 ONCE PRN Uterine Bleeding Sodium Chloride 1,000 mls @ 125 mls/hr 07/05/24 05:30 07/05/24 05:29 Sodium Chloride 0.9% 1,000 Ml IV 125 mls/hr .Q8H SABINO Administration Oxytocin/Sodium Chloride 10 units in 500 mls @ 6 mls/hr 07/05/24 05:15 07/05/24 06:30 Pitocin 10 Unit/500 Ml-Ns IV 4 milliunit/min TITR SABINO 12 mls/hr Infusion Protocol 2 MILLIUNIT/MIN Oxytocin/Sodium Chloride 20 units in 1,000 mls @ 125 mls/hr 07/05/24 05:06 Pitocin 20 Unit/1,000 Ml-Ns IV Q8H PRN POST DELIVERY Ropivacaine/Sodium Chloride 400 mg in 200 mls @ 6 mls/hr 07/05/24 05:15 Naropin 0.2% 400 Mg/200 Ml Bag EPIDURAL Q24H SABINO Lidocaine 5 ml 07/05/24 05:06 Lidocaine Viscous 2% 15 Ml Solution TOPICAL 07/07/24 05:07 ONCE PRN Pain Lidocaine 1 ml 04/02/25 05:06 Lidocaine Hcl 1% 200 Mg/20 Ml Mdv INJ 07/07/24 05:08 ONCE PRN Pain Lidocaine 5 ml 07/05/24 05:06 Lidocaine Hcl 2% Pf 100 Mg/5 Ml Vial INJ 07/06/24 05:10 Q1H PRN Pain Methylergonovine Maleate 0.2 mg 07/05/24 05:06 Methylergonovine Maleate 0.2 Mg/Ml Ampule IM 07/07/24 05:06 ONCE PRN Uterine Contractility/Contract Methylergonovine Maleate 0.2 mg 07/05/24 05:06 Methylergonovine Maleate 0.2 Mg Tablet PO 07/07/24 05:06 Q4H PRN Uterine Contractility/Contract Misoprostol 600 mcg 07/05/24 05:06 Misoprostol 100 Mcg Tablet PO 07/07/24 05:06 ONCE PRN Uterine Bleeding Misoprostol 800 mcg 07/05/24 05:06 Misoprostol 100 Mcg Tablet SL 07/07/24 05:06 ONCE PRN Uterine Bleeding Misoprostol 1,000 mcg 07/05/24 05:06 Misoprostol 100 Mcg Tablet KS 07/07/24 05:06 ONCE PRN Uterine Bleeding Nalbuphine HCl 10 mg 07/05/24 05:06 Nalbuphine Hcl 10 Mg/Ml Ampule IV Q3H PRN Pain Naloxone HCl 0.4 mg 07/05/24 05:06 Naloxone Hcl 0.4 Mg/Ml Vial IV 07/06/24 05:10 ONCE PRN drug reversal Ondansetron HCl 4 mg 07/05/24 05:06 Ondansetron Pf 4 Mg/2 Ml Vial IV Q6H PRN Nausea And Vomiting Ondansetron HCl 4 mg 07/05/24 05:06 Ondansetron 4 Mg Rapdis Tablet SL Q6H PRN Nausea And Vomiting Oxytocin 10 unit 07/05/24 05:06 Oxytocin 10 Unit/Ml Vial IM 07/07/24 05:06 ONCE PRN Bleeding IV Insertion/Site Date of IV Line Insertion [ 07/05/24 Short PIV (<1.75 in) 20g right Wrist] IV Insertion Time [Short PIV ( 05:15 <1.75 in) 20g right Wrist] Neurology Patient orientation (short person,place,time,situation list)
[2024-07-05] MEDS: 0.9 % SODIUM CHLORIDE 1,000 ML 1000 ML IV (13:30)
[2024-07-05] MEDS: NALBUPHINE HCL 10 MG/ML AMPULE IV (14:03)
[2024-07-05] MEDS: ROPIVACAINE HCL/PF 400 MG/200 ML PREMIX 10 MG EPIDURAL (16:33)
[2024-07-05] MEDS: OXYTOCIN/0.9 % SODIUM CHLORIDE 20 UNITS/1,000 ML PLAST..BAG 125 UNIT IV (19:00)
[2024-07-05] MEDS: ACETAMINOPHEN 325 MG TABLET 650 MG PO (20:38)
[2024-07-05] MEDS: BENZOCAINE/MENTHOL 85 GRAM SPRAY BOTTLE 1 APPLIC TOPICAL (23:00)
[2024-07-05] MEDS: GLYCERIN/WITCH HAZEL PADS 1 PAD TOPICAL (23:00)
[2024-07-05] MEDS: IBUPROFEN 600 MG TABLET PO (23:59)
[2024-07-06] VITALS: BP 118/77; PULSE 103; TEMP 36.9
[2024-07-06] MEDS: ACETAMINOPHEN 325 MG TABLET 650 MG PO (02:28)
[2024-07-06 07:11] LABS: Hematocrit 33.3 % (36.0-48.0); Hemoglobin 11.7 g/dL (12.0-16.0); Mean Corpuscular HGB Conc 35.1 g/dL (29.9-35.2); Mean Corpuscular Hemoglobin 30.5 pg (26.7-34.0); Mean Corpuscular Volume 86.9 fL (81.0-99.0); Mean Platelet Volume 9.9 fL (9.5-13.5); Platelet Count 274 10^3/uL (150-450); Red Blood Count 3.83 10^6/uL (4.20-5.40); White Blood Count 24.3 10^3/uL (4.0-11.0)
[2024-07-06 07:35] VITALS: TEMP 36.8
[2024-07-06 07:40] LABS: Band Neutrophils Absolute 0.2 10^3/uL (0.0-0.3); Lymphocytes Absolute Manual 2.18 10^3/uL (1.20-3.80); Monocytes Absolute Manual 1.94 10^3/uL (0.30-0.80); Segmented Neut Absolute Manual 19.92 10^3/uL (1.4-6.5)
[2024-07-06 07:43] LABS: Anisocytosis 1+
[2024-07-06 07:55] VITALS: BP 103/65; PULSE 88
--- NOTE | 2024-07-06 08:51 | PM.OBPN ---
OB - PN: Subj Subjective Patient comments: no complaints and pain well controlled [place] status: doing well Exam Constitutional Vital Signs, click to edit/add: Last Vital Signs Temp 98.5 F 07/06/24 00:00 Pulse 88 07/06/24 07:55 Resp 18 07/05/24 19:00 BP 103/65 07/06/24 07:55 O2 Del Method Room Air 07/06/24 00:00 Documenting provider has reviewed patient's vital signs: yes Common normals: no apparent distress Respiratory Common normals: normal respiratory effort and clear to auscultation bilaterally Cardio Common normals: regular rate and regular rhythm GI Common normals: Normal to inspection, nondistended, normoactive bowel sounds present Extremity Common normals: normal to inspection and no clubbing, cyanosis or edema Results Labs Labs: Short CBC 07/06/24 Range/Units 07:05 WBC 24.3 H (4.0-11.0) 10^3/uL Hgb 11.7 L (12.0-16.0) g/dL Hct 33.3 L (36.0-48.0) % Plt Count 274 (150-450) 10^3/uL OB - PN: A/P Plan - Vaginal Delivery day: 1 Plan: routine care Time Spent with Patient Time: Total time spent is greater than 50% in coordination of care (as documented) at patient's floor/unit and/or counseling patient: Total time spent with greater than 50% in coordination of care (as documented) at patient's floor/unit and/or counseling patient: less than 15 minutes
[2024-07-06] MEDS: DOCUSATE SODIUM 100 MG CAPSULE PO ×2 (10:48→21:47)
[2024-07-06 14:52] VITALS: BP 114/69; PULSE 101; TEMP 36.3
--- NOTE | 2024-07-06 15:11 | PC.NURSE ---
1300: Teaching completed on feeding premature and temperature stabilization. To offer breast for few minutes and then hand express or pump and give per syringe
--- NOTE | 2024-07-06 15:26 | PM.OBPRCVD ---
Procedure events: Labor Induction and Oligohydramnios Intrapartal events: None Induction method: per pitocin protocol Delivery augmentation: rupture of membranes and pitocin Delivery monitor: external FHT and external uterine Route of delivery: Episiotomy Description: none L&D Laceration Description: periurethral - 1st degree Delivery repair: Vicryl Estimated blood loss (mL): 200 Anesthesia type: Epidural Disposition: floor Delivery date: 07/05/24 Gender: male presentation: vertex Placental delivery description: Spontaneous cord description: 3 Vessels, Nuchal Cord and Reduced Labor State Duration Labor - Stage 3 Duration: 2 minutes
[2024-07-07 00:28] VITALS: BP 93/62; PULSE 69; TEMP 36.6
--- NOTE | 2024-07-07 02:23 | PM.OBPN ---
OB - PN: Subj Subjective Patient comments: no complaints and pain well controlled [place] status: doing well Exam Constitutional Vital Signs, click to edit/add: Last Vital Signs Temp 97.9 F 07/07/24 00:28 Pulse 69 07/07/24 00:28 Resp 18 07/06/24 15:08 BP 93/62 07/07/24 00:28 O2 Del Method Room Air 07/07/24 01:59 Documenting provider has reviewed patient's vital signs: yes Common normals: no apparent distress Respiratory Common normals: normal respiratory effort and clear to auscultation bilaterally Cardio Common normals: regular rate and regular rhythm GI Common normals: Normal to inspection, nondistended, normoactive bowel sounds present Extremity Common normals: no clubbing, cyanosis or edema and no calf tenderness Results Labs Labs: Short CBC 07/06/24 Range/Units 07:05 WBC 24.3 H (4.0-11.0) 10^3/uL Hgb 11.7 L (12.0-16.0) g/dL Hct 33.3 L (36.0-48.0) % Plt Count 274 (150-450) 10^3/uL OB - PN: A/P Plan - Vaginal Delivery day: 2 Plan: routine care, discharge home and follow up 6 weeks Time Spent with Patient Time: Total time spent is greater than 50% in coordination of care (as documented) at patient's floor/unit and/or counseling patient: Total time spent with greater than 50% in coordination of care (as documented) at patient's floor/unit and/or counseling patient: less than 15 minutes
[2024-07-07 08:40] VITALS: BP 110/65; PULSE 73
[2024-07-07 16:09] VITALS: BP 115/66; PULSE 87; TEMP 36.4
[2024-07-07] MEDS: MEASLES,MUMPS,RUBELLA VACC/PF 0.5 ML VIAL SQ (22:24)
[2024-07-07] MEDS: DOCUSATE SODIUM 100 MG CAPSULE PO (22:24)
[2024-07-07 22:29] VITALS: BP 112/66; PULSE 85
== END 2024-07-07 23:59 | disposition home or self-care (01) | DRG 806 ==
PROVIDERS: Admitting Provider Obstetrics & Gynecology; PCP Nurse Practitioner Family; Visit Provider Obstetrics & Gynecology
DX: O36.5930 Maternal care for other known or suspected poor fetal growth, third trimester, not applicable or unspecified (principal); O41.03X0 Oligohydramnios, third trimester, not applicable or unspecified; Z37.0 Single live birth; Z3A.36 36 weeks gestation of pregnancy; O69.81X0 Labor and delivery complicated by cord around neck, without compression, not applicable or unspecified; O70.0 First degree perineal laceration during delivery; Z14.1 Cystic fibrosis carrier
CPT/HCPCS: 36415; 59050; 59410; 80307; 85007; 85027; 86850; 86900; 86901; 88307; 90707; J2300; J2795

== ENCOUNTER 2024-07-19 09:10 | Outpatient (OUT) | payer BC, SELFPAY ==
--- OUTSIDE RECORDS SUMMARY | 2024-07-19 09:30 | XMS_ITS | CCD ---
Author Organization [facility] Care Team Providers Care Machine Wiper Name Role Phone Dwayne ELECTRICIAN MANAGER, Tran Carbone Primary Care Provider Arthur Kan MD Primary Care Provider [phone] PRAVIN, CORBY R Referring Unavailable KEITH, ARTHUR Thompson Primary Care Unavailable PRAVIN, CORBY R Referring Unavailable KEITH, ARTHUR Thompson Primary Care Unavailable REJI DAY Attending Unavailable PRAVIN, CORBY R Referring Unavailable KEITH, ARTHUR Thompson Primary Care Unavailable PRAVIN, CORBY R Referring Unavailable KEITH, ARTHUR Thompson Primary Care Unavailable RIKY STEARNS Admitting Unavailable RIKY STEARNS Attending Unavailable KEITH, ARTHUR Thompson Primary Care Unavailable PRAVIN, CORBY R Referring Unavailable KEITH, ARTHUR Thompson Primary Care Unavailable PRAVIN, CORBY R Referring Unavailable KEITH, ARTHUR Thompson Primary Care Unavailable PRAVIN, CORBY R Referring Unavailable KEITH, ARTHUR Thompson Primary Care Unavailable JUNITO, ALMA Attending Unavailable PRAVIN, CORBY Attending Unavailable JUNITO, ALMA Referring Unavailable JUNITO, ALMA Attending Unavailable PRAVIN, CORBY Attending Unavailable PRAVIN, CORBY Attending Unavailable PRAVIN, CORBY Attending Unavailable PRAVIN, CORBY Attending Unavailable JUNITO, ALMA Attending Unavailable PRAVIN, CORBY Attending Unavailable PRAVIN, CORBY Attending Unavailable Arthur Kan MD Primary Care Provider [phone] Corby Costello DO Attending Provider Corby Costello Attending Unavailable Corby Costello Admitting Unavailable Allergies Allergy Classification Reported Allergen(s) Allergy Type Date of Onset Reaction(s) Facility (20 sources) Other Propensity to adverse reactions 4 [facility] Healthcare Work Phone: (20 sources) Cat Hair Extract Propensity to adverse reactions 4 [facility] (10 sources) Cat Dander; Translations: [CAT DANDER] Propensity to adverse reactions to drug 4 [facility] Medications Current Medications Medication Drug Class(es) Dates Sig (Normalized) Sig (Original) loratadine 10 mg oral tablet (9 sources) Start: 01-05-2017 take 1 tablet by [...] 19/iron ps,heme/folic/dha ( MV & MIN ORAL) (9 sources) take 1 tablet by mouth once [...] predominantly sexual mode of transmission] 02-23-2024 Episodic Malaise and fatigue (1 source) Fatigue; Translations: [Other fatigue] 12-02-2023 Episodic Menstrual disorders (2 sources) Missed period; Translations: [Irregular menstruation, unspecified] 12-31-2023 [...] Onset: 03-21-2024 Episodic Other connective tissue disease (9 sources) Rotator cuff impingement syndrome; Translations: [Impingement syndrome of unspecified shoulder] Onset: 05-08-2016 05-08-2016 Episodic Sprains and strains (9 sources) Rupture of tendon of biceps; Translations: [Strain of muscle, fascia and tendon of other parts of biceps, unspecified arm, initial encounter] Onset: 06-03-2016 06-03-2016 Episodic Results Test Name Value Interpretation Reference Range Facility ALL CBC WITH AUTO DIFFon Erythrocyte distribution width (RBC) [Ratio] 13 % 11.0 - 15.0 % [facility] Hematocrit (Bld) [Volume fraction] 33.3 % Low 36.0 - 48.0 % [facility] Hemoglobin (Bld) [Mass/Vol] 11.7 g/dL Low 12.0 - 16.0 g/dL [facility] Interpretation and review of laboratory results Abnormal [facility] MCH (RBC) [Entitic mass] 30.5 pg 26.7 - 34.0 pg [facility] MCHC (RBC) [Mass/Vol] 35.1 g/dL 29.9 - 35.2 g/dL [facility] MCV (RBC) [Entitic vol] 86.9 fL 81.0 - 99.0 fL [facility] Platelet mean volume (Bld) [Entitic vol] 9.9 fL 9.5 - 13.5 fL [facility] TBH PLT 274 [facility] TBH RBC 3.83 Low [facility] TB WBC 24.3 High [facility] Anisocytosis LM Ql (Bld)on 0 07-06-2024 Anisocytosis Ql (Bld) Anisocytosis [Presence] in Blood by Light microscopy [facility] Basophils/100 WBC Manual cnt (Bld)on 07-06-2024 Basophils/100 WBC (Bld) Basophils/100 leukocytes in Blood by Manual count Low 0.2-2.0 [facility] Eosinophils/100 WBC Manual c nt (Bld)on 07-06-2024 Eosinophils/100 WBC (Bld) Eosinophils/100 leukocytes in Blood by Manual count Low 0.9-7.0 [facility] Laboratory - Hematology and Cell countson 07-06-2024 Band form neutrophils/100 WBC (Bld) 1.0 % 0-5 [facility] Lymphocytes/100 WBC (Bld) 9.0 % Low 20.5-60.0 [facility] Monocytes/100 WBC (Bld) 8.0 % 1.7-12.0 [facility] No Panel Informationon 07-06 Absolute Basophils (Manual) 0.00 10 3/uL 0.00-0.10 [facility] Band Neutrophils # (Manual) 0.2 10 3/uL 0.0-0.3 [facility] Eosinophils # (Manual) 0.00 10 3/uL 0.00-0.70 [facility] Lymphocytes # (Manual) 2.18 10 3/uL 1.20-3.80 [facility] Monocytes # (Manual) 1.94 10 3/uL High 0.30-0.80 [facility] Seg[facility] Neutrophils # (Manual) 19.92 10 3/uL High 1.4-6.5 [facility] Segmented neutrophils/100 WB C Manual cnt (Bld)on 07-06-2024 Segmented neutrophils/100 WBC (Bld) Manual blood segmented neutrophils/100 leukocytes High 43.0-75.0 [facility] Buprenorphine [Presence] in Urineon 07-05-2024 Buprenorphine Ql (U) Buprenorphine [Presence] in Urine NEGATIVE [facility] Comment on above: DRUG CLASS TEST SYST EM CUT-OFF CONCENTRATIONS ARE ASFOLLOWS:AMP (Amphetamine): 500 ng/mLBAR (Barbiturates): 200 ng/mLBZO (Benzodiazepines): 150 ng/mLBUP (Buprenorphine): 10 ng/mLCOC (Cocaine): 150 ng/mLmAMP (Methamphetamine): 500 ng/mLMTD (Methadone): 200 ng/mLOPI (Opiates): 100 ng/mLOXY (Oxycodone): 100 ng/mLPCP (Phencyclidine): 25 ng/mLTHC (Cannabinoids): 50 ng/mLTCA (Trycyclic Antidepressants): 300 ng/mL Erythrocyte distribution wid th Auto (RBC) [Ratio]on 07-05-2024 Erythrocyte distribution width (RBC) [Ratio] Erythrocyte distribution width [Ratio] by Automated count 11.0-15.0 [facility] CBC WITH PLATELET NO DI FFERENTIALon 07-05-2024 Erythrocyte distribution width (RBC) [Ratio] 13 % 11.0 - 15.0 % [facility] Hematocrit (Bld) [Volume fraction] 36.3 % 36.0 - 48.0 % [facility] Hemoglobin (Bld) [Mass/Vol] 12.6 g/dL 12.0 - 16.0 g/dL [facility] Interpretation and review of laboratory results Abnormal [facility] MCH (RBC) [Entitic mass] 30.2 pg 26.7 - 34.0 pg [facility] MCHC (RBC) [Mass/Vol] 34.7 g/dL 29.9 - 35.2 g/dL [facility] MCV (RBC) [Entitic vol] 87.1 fL 81.0 - 99.0 fL [facility] Platelet mean volume (Bld) [Entitic vol] 10.1 fL 9.5 - 13.5 fL [facility] TBH PLT 309 [facility] TBH RBC 4.17 Low [facility] TBH WBC 14.2 High [facility] Hematocrit Auto (Bld) [Volum e fraction]on 07-05-2024 Hematocrit (Bld) [Volume fraction] Hematocrit [Volume Fraction] of Blood by Automated count 36.0-48.0 [facility] Hemoglobin [Mass/volume] in Bloodon 07-05-2024 Hemoglobin (Bld) [Mass/Vol] Hemoglobin [Mass/volume] in Blood 12.0-16.0 [facility] Jose 07-05-2024 L -- ---- Specimen: [id number] Received: 07/06/24 Status: BRONSON Alanis Num: [id number] Spec Type: Surgical Subm Dr: Corby Costello Tissues: A Placenta - 3rd Trimester (Greater than 28 weeks) (PLACENTA) Procedures: NATY/Israel, David/Luis L5 ---- Age/ Patient Sex Location Account Attending Physician ---- Yesy Nowak / LABELL [id number] Corby Costello ---- SPEC NUM: [id number] RECD: 07/06/24 STATUS: BRONSON ALANIS NUM: [id number] JESSIE: 07/05/[address]: Corby Costello ENTERED: 07/06/[address] [facility] [address]: Keith,Lab SPEC TYPE: Surgical DEPT: MARTITA MARQUES ENTERED BY: [id number] RECV BY: [id number] ORDERED: HE/3, Gross/Micro L5 ORDERED: HE/3, Gross/Micro L5 Pathological Diagnosis Placenta removal, vaginal delivery: -Mature third trimester placenta with three-vessel cord, small for gestational age (259 g) -No evidence of acute chorioamnionitis, umbilical funisitis, or villitis -Incidental mild hyper rotation of the cord -Incidental focal mild nonspecific subchorionic fibrinoid degeneration at the surface and 1 disc edge -No other significant histopathological changes except occasional mild nonspecific lymphocytic infiltration in the deep decidual layer of basal plate Clinical Information Vaginal delivery at 36 weeks, : 1, parity: 0, Apgars 8 9, intrauterine growth restriction, oligohydramnios ---- Specimen: [id number] Received: 07/06/24 Status: BERTOStacey Alanis Num: [id number] Spec Type: Surgical Subm Dr: Corby Costello Tissues: A Placenta - 3rd Trimester (Greater than 28 weeks) (PLACENTA) Procedures: HE/3, Gross/Micro L5 ---- Patient: Yesy Nowak [id number] (Continued) ---- Specimen: [id number] Received: 07/06/24 (Continued) Signed (signature on file) Basil Alfredo MD 07/10/24 1244 ---- Specimen: [id number] Received: 07/06/24 Status: BRONSON Alanis Num: [id number] Spec Type: Surgical Subm Dr: Corby Costello Tissues: A Placenta - 3rd Trimester (Greater than 28 weeks) (PLACENTA) Procedures: NATY/Israel, Gross/Micro L5 ---- Patient: Yesy Nowak [id number] (Continued) ---- Specimen: [id number] Received: 07/06/24 (Continued) Gross Description Part A is received in formalin labeled with the patients name, date of , and placenta : Single MEMBRANES: Placenta Sac Rupture (cm from margin): Marginal Color: Blue-cline Other Characteristics: No Insertion Site: Marginal 100% CORD: Appearance: Unremarkable Site of Insertion: Eccentric, 5 cm from the margin Length Diameter (cm): 30 x 1.1 cm Number of revolutions: 12 True Knots: No Number of vessels: 3 GENERAL: Trimmed Weight (grams): 259 g Complete: Yes Size 1 x Size 2 x Size 3 (cm): 15 x 14 x 2.3 cm Accessory Lobe(s): No PLACENTAL DISK: Color of Surface: Blue-cline Sub-amniotic Cyst: No Amnion Nodosum: No Subchorionic Fibrin: Yes, up to 0.2 cm in thickness, less than 5% Appearance of Cut Surface: Unremarkable Maternal floor: Unremarkable Retroplacental hematoma: No Cassettes: A1 Rolled membrane, two sections of cord A2-A3 Broker sections of placenta (3, , [id number] A) BRIEN ---- Specimen: [id number] Received: 07/06/24 Status: BRONSON Alanis Num: [id number] Spec Type: Surgical Subm Dr: Corby Costello Tissues: A Placenta - 3rd Trimester (Greater than 28 weeks) (PLACENTA) Procedures: HE/3, Gross/Micro L5 ---- Patient: Yesy Nowak [id number] (Continued) ---- Specimen: [id number] Received: 07/06/24 (Continued) Signed (signature on file) Basil Alfredo MD 07/10/24 1244 ---- Specimen: [id number] Received: 07/06/24 Status: BRONSON Alanis Num: [id number] (more content not included)... Normal [facility] Laboratory - Drug toxicology on 07-05-2024 Amphetamines Ql (U) Negative NEGATIVE [facility] Benzodiazepines Ql (U) Negative NEGATIVE [facility] Cocaine Ql (U) Negative NEGATIVE [facility] Opiates Ql (U) Negative NEGATIVE [facility] Phencyclidine Ql (U) Negative NEGATIVE [facility] Leukocytes [#/volume] correc abdi for nucleated erythrocytes in Blood by Automated counon 07-05-2024 WBC corrected for nucl RBC Auto (Bld) [#/Vol] Leukocytes [#/volume] corrected for nucleated erythrocytes in Blood by Automated coun High 4.0-11.0 [facility] MCH Auto (RBC) [Entitic mass ]on 07-05-2024 MCH (RBC) [Entitic mass] MCH [Entitic mass] by Automated count 26.7-34.0 [facility] MCHC Auto (RBC) [Mass/Vol]on 07-05-2024 MCHC (RBC) [Mass/Vol] MCHC [Mass/volume] by Automated count 29.9-35.2 [facility] MCV Auto (RBC) [Entitic vol] on 07-05-2024 MCV (RBC) [Entitic vol] MCV [Entitic volume] by Automated count 81.0-99.0 [facility] Methadone [Presence] in Urin e by Screen methodon 07-05-2024 Methadone Screen Ql (U) Methadone [Presence] in Urine by Screen method NEGATIVE [facility] No Panel Informationon 07-05 Urine Barbiturates Screen Negative NEGATIVE [facility] Urine Marijuana (THC) Screen Negative NEGATIVE [facility] Urine Methamphetamines Screen Negative NEGATIVE [facility] Platelet mean volume Auto (B ld) [Entitic vol]on 07-05-2024 Platelet mean volume (Bld) [Entitic vol] Platelet mean volume [Entitic volume] in Blood by Automated count 9.5-13.5 [facility] Platelets Auto (Bld) [#/Vol] on 07-05-2024 Platelets (Bld) [#/Vol] Platelets [#/volume] in Blood by Automated count 150-450 [facility] RBC Auto (Bld) [#/Vol]on RBC (Bld) [#/Vol] Erythrocytes [#/volume] in Blood by Automated count Low 4.20-5.40 [facility] Urine tricyclic antidepressa nt measurementon 07-05-2024 Tricyclic antidepressants (U) [Mass/Vol] Urine tricyclic antidepressant measurement NEGATIVE [facility] oxyCODONE+oxyMORphone [Prese nce] in Urine by Screen methodon 07-05-2024 oxyCODONE+oxyMORphone Screen Ql (U) oxyCODONE+oxyMORphone [Presence] in Urine by Screen method NEGATIVE [facility] Urinalysis macro (dipstick) panel (U)on 07-03-2024 Bilirubin, UA Negative Negative - 4(70) +++ mg/dL [facility] Blood, UA Negative Negative - 50 Kvng/mcL [facility] Clarity, UA Clear [facility] Color, UA Yellow [facility] Glucose, UA Negative Negative - 1999(110) ++++ mg/dL [facility] Interpretation and review of laboratory results Normal [facility] Ketones, UA Negative Negative - 160(16) ++++ mg/dL [facility] Leukocytes, UA Negative Negative - 500+++ Sandra/mcL [facility] Nitrite, UA Negative Negative - Positive [facility] pH, UA 6.5 5 - 9 [facility] Protein, UA Negative Negative - 1999(20) ++++ mg/dL [facility] Spec Grav, UA 1.02 1 - 1.03 [facility] Urobilinogen, UA 0.2 0.2 - 12 mg/dL [facility] US OB BPP W NON-STRESS on 06-29-2024 [place] [address] Ultrasound Report Signed Patient: YESY NOWAK MR#: [id number] : 1995 Acct:[id number] Age/Sex: 28 / F ADM Date: 06/29/24 Loc: US Attending Dr: Corby Costello D.O. Ordering Physician: Corby Costello D.O. Date of Service: 06/29/24 Procedure(s): US OB BPP w non-stress Accession Number(s): [id number] cc: Corby Costello D.O.; TRAN RICE [place] [id number] Patient Name: YESY NOWAK MRN: [id number] date: 1995 Sex: F Assigned Patient Location: [facility] Current Patient Location: US Accession/Order Number: [id number] Exam Date: 06/29/2024 16:04 Report Date: 06/29/2024 16:05 At the request of: CORBY COSTELLO DO Procedure: US OB BPP w non-stress Biophysical profile. Reason for exam: Intrauterine growth restriction and oligohydramnios. COMPARISON: BPP 06/22/2024 TECHNIQUE: Transabdominal imaging of the gravid uterus was obtained. FINDINGS: Mortar Man reports a BPP of 8 out of 8. ELIUD 3.5 cm. heart rate 134 bpm. US/US OB BPP w non-stress IMPRESSION: BPP 8 out of 8. Oligohydramnios. Impression dictated by: Eric Andersen Jr., D.O.06/29/2024 4:05 PM Dictation Location: [place] [address] Electronically authenticated by: [id number] Y Date: 06/29/2024 16:05 Dictated By: Eric Andersen M.D. Signed By: 06/29/241607 DD/ 04 TD/TT: Hand Tube Bender: [facility] Radiology, Radiologist, MD - 06/29/2024 [place] [address] Ultrasound Report Signed Patient: YESY NOWAK MR#: [id number] : 1995 Acct:[id number] Age/Sex: 28 / F ADM Date: 06/29/24 Loc: US Attending Dr: Corby Costello D.O. Ordering Physician: Corby Costello D.O. Date of Service: 06/29/24 Procedure(s): US OB BPP w non-stress Accession Number(s): [id number] cc: Corby Costello D.O.; TRAN RICE [place] [id number] Patient Name: YESY NOWAK MRN: [facility]:[id number] date: 1995 Sex: F Assigned Patient Location: [facility] Current Patient Location: US Accession/Order Number: [id number] Exam Date: 06/29/2024 16:04 Report Date: 06/29/2024 16:05 At the request of: CORBY COSTELLO DO Procedure: US OB BPP w non-stress Biophysical profile. Reason for exam: Intrauterine growth restriction and oligohydramnios. COMPARISON: BPP 06/22/2024 TECHNIQUE: Transabdominal imaging of the gravid uterus was obtained. FINDINGS: Mortar Man reports a BPP of 8 out of 8. ELIUD 3.5 cm. heart rate 134 bpm. US/US OB BPP w non-stress IMPRESSION: BPP 8 out of 8. Oligohydramnios. Impression dictated by: Eric Andersen Jr., D.O.06/29/2024 4:05 PM Dictation Location: [employer] [place] Electronically authenticated by: [id number] Y Date: 06/29/2024 16:05 Dictated By: Eric Andersen M.D. Signed By: 06/29/241607 DD/ 04 TD/TT: Hand Tube Bender: [facility] Radiology Study observation (narrative) [facility] US OB BPP W NON-STRESS Ordered By: Radiologist Radiology on 06-29-2024 [facility] Work Phone: Urinalysis macro (dipstick) panel (U)on 06-27-2024 Bilirubin, UA Negative Negative - 4(70) +++ mg/dL [facility] Blood, UA Negative Negative - 50 Kvng/mcL [facility] Clarity, UA Clear [facility] Color, UA Yellow [facility] Glucose, UA Negative Negative - 2000(110) ++++ mg/dL [facility] Interpretation and review of laboratory results Normal [facility] Ketones, UA Negative Negative - 160(16) ++++ mg/dL [facility] Leukocytes, UA Negative Negative - 500+++ Sandra/mcL [facility] Nitrite, UA Negative Negative - Positive [facility] pH, UA 7 5 - 9 [facility] Protein, UA Negative Negative - 2000(20) ++++ mg/dL [facility] Spec Grav, UA 1.02 1 - 1.03 [facility] Urobilinogen, UA 0.2 0.2 - 12 mg/dL [facility] No Panel Informationon 06-22 Miscellaneous Test COMMENT . [facility] Comment on above: Test Ordered: [id number] Strep Gp B Culture+RflxStrep Gp B Culture+Rflx Negative CB Reference Range: NegativeCenters for Disease Control and Prevention (CDC) andAmerican Congress of Obstetricians and Gynecologists (ACOG)guidelines for prevention of group Bstreptococcal (GBS) disease specify co-collection of avaginal and rectal swab specimen to maximize sensitivity ofGBS detection. Per the CDC and ACOG, swabbing both thelower vagina and rectum substantially increases the yieldof detection compared with sampling the vagina alone.Penicillin G, ampicillin, or cefazolin are indicated forintrapartum prophylaxis of GBS colonization.Reflex susceptibility testing should be performed prior touse of clindamycin only on GBS isolates from penicillin-allergic women who are considered a high risk foranaphylaxis. Treatment with vancomycin without additionaltesting is warranted if resistance to clindamycin is noted.Performed at: - [facility] [id number] Director: Joye Pagan PhD, Phone: [phone] Urinalysis macro (dipstick) panel (U)on 06-22-2024 Bilirubin, UA Negative Negative - 4(70) +++ mg/dL [facility] Blood, UA Negative Negative - 50 Kvng/mcL [facility] Clarity, UA Clear [facility] Color, UA Yellow [facility] Glucose, UA Positive Negative - 1999(110) ++++ mg/dL [facility] Comment on above: 100mg/dL Interpretation and review of laboratory results Abnormal [facility] Ketones, UA Negative Negative - 160(16) ++++ mg/dL [facility] Leukocytes, UA Negative Negative - 500+++ Sandra/mcL [facility] Nitrite, UA Negative Negative - Positive [facility] pH, UA 6.5 5 - 9 [facility] Protein, UA Negative Negative - 2000(20) ++++ mg/dL [facility] Spec Grav, UA 1.025 1 - 1.03 [facility] Urobilinogen, UA 0.2 0.2 - 12 mg/dL [facility] Urinalysis macro (dipstick) panel (U)on 06-08-2024 Bilirubin, UA Negative Negative - 4(70) +++ mg/dL [facility] Blood, UA Positive Negative - 50 Kvng/mcL [facility] Comment on above: trace-intact Clarity, UA Clear [facility] Color, UA Yellow [facility] Glucose, UA Negative Negative - 1999(110) ++++ mg/dL [facility] Interpretation and review of laboratory results Abnormal [facility] Ketones, UA Negative Negative - 160(16) ++++ mg/dL [facility] Leukocytes, UA Positive Negative - 500+++ Sandra/mcL [facility] Comment on above: small Nitrite, UA Negative Negative - Positive [facility] pH, UA 7 5 - 9 [facility] Protein, UA Negative Negative - 1999(20) ++++ mg/dL [facility] Spec Grav, UA 1.01 1 - 1.03 [facility] Urobilinogen, UA 0.2 0.2 - 12 mg/dL [facility] nonstress test - Mater nal Medicineon 06-07-2024 Patient Name: Yesy Nowak Patient : 1995 NST Objective Findings: Variability: Moderate Decelerations: Variable Accelerations: Yes Acoustic Stimulator: No Baseline: 120 BPM Uterine Irritability: Yes Contractions: Irregular Comments: Variables and contractions/irritabil ity noted on EFM. Tracing reviewed with Dr Day.[facility] instructions given, labor precautions reviewed. To [facility]AGD[facility] for extended monitoring and evaluation. NST Interpretation: Nonstress Test Interpretation: Reactive (Reji Day MD) Comments: Recurrent variable decelerations. Pt reporting abdominal tightening correlating with tocometer contractions. To OB ED for prolonged evaluation, at least 2 hours. Sign-out given to OB ED team. (Reji Day MD) NST performed by: Thania Noyola RN 06/07/2024 12:11 PM RYAN [facility] Ultrasound - OfficeOrdered B y: Aida Sauceda on 06-05-2024 Radiology Study observation (narrative) [facility] Ultrasound - Officeon 2024 Radiology Study observation (narrative) [facility] Radiology Study observation (narrative) [facility] US OB BPP W NON-STRESS on 06-01-[address] [address] Ultrasound Report Signed Patient: YESY NOWAK MR#: [id number] : 1995 Acct:[id number] Age/Sex: 28 / F ADM Date: Loc: [facility] 252- Attending Dr: Corby Csotello D.O. Ordering Physician: Corby Costello D.O. Date of Service: 06/01/24 Procedure(s): US OB BPP w non-stress Accession Number(s): [id number] cc: Corby Costello D.O.; TRAN RICE [place] [address] Patient Name: YESY NOWAK MRN: [id number] date: 1995 Sex: F Assigned Patient Location: [facility] Current Patient Location: [facility] Accession/Order Number: [id number] Exam Date: 06/01/2024 11:20 Report Date: 06/01/2024 11:22 At the request of: CORBY COSTELLO DO Procedure: US OB BPP w non-stress BIOPHYSICAL PROFILE: CLINICAL INFORMATION: iugr, low eliud COMPARISON: 03/23/2024 anatomy survey There is a single live intrauterine gestation in cephalic presentation. The reported gestational age is 31 weeks 1 day. The heart rate [id number] beats per minute. FINDINGS: TONE: 1 or more episodes of activity extension and flexion of extremity or opening and closing of the hand [Y] 2/2 GROSS BODY MOVEMENTS: 3 or more discrete body or limb movements [Y] 2/2 BREATHING MOVEMENTS: 1 or more episodes of breathing lasting at least 30 seconds [Y] 2/2 ELIUD: A single deepest vertical pocket of amniotic fluid greater than 2 cm [Y] 2/2 ELIUD: 8.7 cm . The 5th percentile is 7.9 cm Total score: 8/8 US/US OB BPP w non-stress IMPRESSION: NORMAL BIOPHYSICAL PROFILE. BORDERLINE OLIGOHYDRAMNIOS . Impression dictated by: Anita Jaimes M.D.06/01/2024 11:22 AM Dictation Location: [place] [address] Electronically authenticated by: [id number] Y Date: 06/01/2024 11:22 Dictated By: Anita Jaimes M.D. Signed By: 06/01/24 1125 DD/ 112 TD/TT: Hand Tube Bender: [facility] Radiology, Radiologist, MD - 06/01/2024 [place] [address] Ultrasound Report Signed Patient: YESY NOWAK MR#: [id number] : 1995 Acct:[id number] Age/Sex: 28 / F ADM Date: Loc: [facility] 252-[address]: Corby Costello D.O. Ordering Physician: Corby Costello D.O. Date of Service: 06/01/24 Procedure(s): US OB BPP w non-stress Accession Number(s): [id number] cc: Corby Costello D.O.; TRAN RICE [place] [address] Patient Name: YESY NOWAK MRN: [facility]:[id number] date: 1995 Sex: F Assigned Patient Location: [facility] Current Patient Location: [facility] Accession/Order Number: [id number] Exam Date: 06/01/2024 11:20 Report Date: 06/01/2024 11:22 At the request of: CORBY COSTELLO DO Procedure: US OB BPP w non-stress BIOPHYSICAL PROFILE: CLINICAL INFORMATION: iugr, low eliud COMPARISON: 03/23/2024 anatomy survey There is a single live intrauterine gestation in cephalic presentation. The reported gestational age is 31 weeks 1 day. The heart rate [id number] beats per minute. FINDINGS: TONE: 1 or more episodes of activity extension and flexion of extremity or opening and closing of the hand [Y] 2/2 GROSS BODY MOVEMENTS: 3 or more discrete body or limb movements [Y] 2/2 BREATHING MOVEMENTS: 1 or more episodes of breathing lasting at least 30 seconds [Y] 2/2 ELIUD: A single deepest vertical pocket of amniotic fluid greater than 2 cm [Y] 2/2 ELIUD: 8.7 cm . The 5th percentile is 7.9 cm Total score: 8/8 US/US OB BPP w non-stress IMPRESSION: NORMAL BIOPHYSICAL PROFILE. BORDERLINE OLIGOHYDRAMNIOS . Impression dictated by: Anita Jaimes M.D.06/01/2024 11:22 AM Dictation Location: [place] [address] Electronically authenticated by: [id number] Y Date: 06/01/2024 11:22 Dictated By: Anita Jaimes M.D. Signed By: 06/01/24 1125 DD/ 1122 TD/TT: Hand Tube Bender: [facility] Radiology Study observation (narrative) [facility] US OB BPP W NON-STRESS Ordered By: Radiologist Radiology on 06-01-2024 [facility] Work Phone: US OB FOLLOW UP TRANSABDOMIN AL APPROACHon 06-01-2024 US OB FOLLOW UP TRANSABDOMINAL APPROACH TITLE OF EXAM: OB Ultrasound: REASON FOR EXAM: : Inconsistent size. COMPARISON: 12/17/2023 TECHNIQUE: Grayscale and M-mode Doppler imaging is performed. FINDINGS: heart rate: 139 bpm ELIUD: 5.8 cm (8.8-23.9) BPD: 7.3 cm HC: 27.1 cm AC: 24.6 cm FL: 5.6 cm GA for sonogram: 29.0 wk (27.2-30.8) SHIRA: 08/02/2024 Weight Estimate: Weight: 1344 gm / 2 lbs, 15 oz (2780-3927 gm) [place] Normal: 1780 gm (9977-7354 gm) [place] Wt%: <3% for 31.1 wks FINDINGS: There is a single living intrauterine gestation. Cephalic presentation. ELIUD 5.9 cm. Largest pocket 2.5 cm. cardiac activity 139 bpm. Somatic motion present. Growth: Less than 3rd percentile. Dr. Costello/Alma Vargas PA-C notified at the time of the scan of abnormal results per worksheet. IMPRESSION: 1. Single living intrauterine gestation. 2. Symmetric IUGR based on measurements. 3. Oligohydramnios. *This report is generated using voice recognition reporting ([employer]). On occasion iBid[employer]Save[employer] erroneously drops words from the report or [...] of 05/10/2024: 28w0d Ultrasound - Officeon 2024 [facility] Urinalysis macro (dipstick) panel (U)on 05-25-2024 Bilirubin, UA Negative Negative - 4(70) +++ mg/dL [facility] Blood, UA Negative Negative - 50 Kvng/mcL [facility] Healthcare Clarity, UA Clear [facility] Color, UA Yellow [facility] Glucose, UA Negative Negative - 1999(110) ++++ mg/dL [facility] Interpretation and review of laboratory results Normal [facility] Ketones, UA Negative Negative - 160(16) ++++ mg/dL [facility] Leukocytes, UA Negative Negative - 500+++ Sandra/mcL [facility] Nitrite, UA Negative Negative - Positive [facility] pH, UA 7 5 - 9 [facility] Healthcare Protein, UA Negative Negative - 1999(20) ++++ mg/dL [facility] Spec Grav, UA 1.02 1 - 1.03 [facility] Urobilinogen, UA 0.2 0.2 - 12 mg/dL [facility] Urinalysis macro (dipstick) panel (U)on 05-10-2024 Bilirubin, UA Negative Negative - 4(70) +++ mg/dL [facility] Blood, UA Negative Negative - 50 Kvng/mcL [facility] Healthcare Clarity, UA Clear [facility] Color, UA Yellow [facility] Glucose, UA Negative Negative - 1999(110) ++++ mg/dL [facility] Interpretation and review of laboratory results Normal [facility] Ketones, UA Negative Negative - 160(16) ++++ mg/dL [facility] Leukocytes, UA Negative Negative - 500+++ Sandra/mcL [facility] Nitrite, UA Negative Negative - Positive [facility] pH, UA 7 5 - 9 [facility] Healthcare Protein, UA Negative Negative - 1999(20) ++++ mg/dL [facility] Spec Grav, UA 1.02 1 - 1.03 [facility] Urobilinogen, UA 0.2 0.2 - 12 mg/dL [facility] ALL CBC WITH AUTO DIFFon BASOPHILS ABSOLUTE AUTO 0 [facility] Basophils/100 WBC (Bld) 0.4 % 0.2 - 2.0 % [facility] Eosinophils/100 WBC (Bld) 1.1 % 0.9 - 7.0 % [facility] Erythrocyte distribution width (RBC) [Ratio] 13.1 % 11.0 - 15.0 % [facility] Hematocrit (Bld) [Volume fraction] 34.4 % Low 36.0 - 48.0 % [facility] Hemoglobin (Bld) [Mass/Vol] 11.7 g/dL Low 12.0 - 16.0 g/dL [facility] IMMATURE GRANULOCYTES ABS AUTO 0.04 High [facility] Immature granulocytes/100 WBC (Bld) 0.4 % 0.0 - 0.5 % [facility] Interpretation and review of laboratory results Abnormal [facility] LYMPHOCYTES ABSOLUTE AUTO 1.2 [facility] Lymphocytes/100 WBC (Bld) 11.3 % Low 20.5 - 60.0 % [facility] MCH (RBC) [Entitic mass] 30.5 pg 26.7 - 34.0 pg [facility] MCHC (RBC) [Mass/Vol] 34 g/dL 29.9 - 35.2 g/dL [facility] MCV (RBC) [Entitic vol] 89.6 fL 81.0 - 99.0 fL [facility] MONOCYTES ABSOLUTE AUTO 0.7 [facility] Monocytes/100 WBC (Bld) 6.4 % 1.7 - 12.0 % [facility] NEUTROPHILS ABSOLUTE AUTO 8.3 High [facility] Neutrophils/100 WBC (Bld) 80.4 % High 43.0 - 75.0 % [facility] Platelet mean volume (Bld) [Entitic vol] 9.7 fL 9.5 - 13.5 fL [facility] TBH EO # 0.1 [facility] TBH PLT [address] [facility] RBC 3.84 Low [facility] TB WBC 10.3 [facility] Basophils Auto (Bld) [#/Vol] on 05-05-2024 Basophils (Bld) [#/Vol] Automated basophil count 0.0-0.1 [facility] Basophils/100 WBC Auto (Bld) on 05-05-2024 Basophils/100 WBC (Bld) Automated basophil % 0.2-2.0 [facility] Eosinophils/100 WBC Auto (Bl d)on 05-05-2024 Eosinophils/100 WBC (Bld) Automated eosinophil % 0.9-7.0 [facility] Erythrocyte distribution wid th Auto (RBC) [Ratio]on 05-05-2024 Erythrocyte distribution width (RBC) [Ratio] Erythrocyte distribution width [Ratio] by Automated count 11.0-15.0 [facility] Hematocrit Auto (Bld) [Volum e fraction]on 05-05-2024 Hematocrit (Bld) [Volume fraction] Hematocrit [Volume Fraction] of Blood by Automated count Low 36.0-48.0 [facility] Hemoglobin [Mass/volume] in Bloodon 05-05-2024 Hemoglobin (Bld) [Mass/Vol] Hemoglobin [Mass/volume] in Blood Low 12.0-16.0 [facility] Laboratory - Chemistry and C hemistry - challengeon 05-05-2024 Glucose [Mass/Vol] 83 mg/dL <130 [facility] Laboratory - Hematology and Cell countson 05-05-2024 Immature granulocytes/100 WBC (Bld) 0.4 % 0.0-0.5 [facility] Leukocytes [#/volume] correc abdi for nucleated erythrocytes in Blood by Automated counon 05-05-2024 WBC corrected for nucl RBC Auto (Bld) [#/Vol] Leukocytes [#/volume] corrected for nucleated erythrocytes in Blood by Automated coun 4.0-11.0 [facility] Lymphocytes Auto (Bld) [#/Vo l]on 05-05-2024 Lymphocytes (Bld) [#/Vol] Lymphocytes [#/volume] in Blood by Automated count 1.2-3.8 [facility] Lymphocytes/100 WBC Auto (Bl d)on 05-05-2024 Lymphocytes/100 WBC (Bld) Lymphocytes/100 leukocytes in Blood by Automated count Low 20.5-60.0 [facility] MCH Auto (RBC) [Entitic mass ]on 05-05-2024 MCH (RBC) [Entitic mass] MCH [Entitic mass] by Automated count 26.7-34.0 [facility] MCHC Auto (RBC) [Mass/Vol]on 05-05-2024 MCHC (RBC) [Mass/Vol] MCHC [Mass/volume] by Automated count 29.9-35.2 [facility] MCV Auto (RBC) [Entitic vol] on 05-05-2024 MCV (RBC) [Entitic vol] MCV [Entitic volume] by Automated count 81.0-99.0 [facility] Monocytes Auto (Bld) [#/Vol] on 05-05-2024 Monocytes (Bld) [#/Vol] Automated blood monocyte count 0.3-0.8 [facility] Monocytes/100 WBC Auto (Bld) on 05-05-2024 Monocytes/100 WBC (Bld) Automated monocyte % 1.7-12.0 [facility] Neutrophils Auto (Bld) [#/Vo l]on 05-05-2024 Neutrophils (Bld) [#/Vol] Neutrophils [#/volume] in Blood by Automated count High 1.4-6.5 [facility] Neutrophils/100 WBC Auto (Bl d)on 05-05-2024 Neutrophils/100 WBC (Bld) Automated neutrophil % High 43.0-75.0 [facility] No Panel Informationon 05-05 Eosinophils # (Auto) 0.1 10 3/uL 0.0-0.7 [facility] Immature Granulocyte # (Auto) 0.04 10 3/uL High 0.00-0.03 [facility] Platelet mean volume Auto (B ld) [Entitic vol]on 05-05-2024 Platelet mean volume (Bld) [Entitic vol] Platelet mean volume [Entitic volume] in Blood by Automated count 9.5-13.5 [facility] Platelets Auto (Bld) [#/Vol] on 05-05-2024 Platelets (Bld) [#/Vol] Platelets [#/volume] in Blood by Automated count 150-450 [facility] RBC Auto (Bld) [#/Vol]on RBC (Bld) [#/Vol] Erythrocytes [#/volume] in Blood by Automated count Low 4.20-5.40 [facility] Urinalysis macro (dipstick) panel (U)on 05-03-2024 Bilirubin, UA Negative Negative - 4(70) +++ mg/dL [facility] Blood, UA Negative Negative - 50 Kvng/mcL [facility] Clarity, UA Clear [facility] Color, UA Yellow [facility] Glucose, UA Negative Negative - 1999(110) ++++ mg/dL [facility] Interpretation and review of laboratory results Normal [facility] Ketones, UA Negative Negative - 160(16) ++++ mg/dL [facility] Leukocytes, UA Negative Negative - 500+++ Sandra/mcL [facility] Nitrite, UA Negative Negative - Positive [facility] pH, UA 6.5 5 - 9 [facility] Protein, UA Negative Negative - 1999(20) ++++ mg/dL [facility] Spec Grav, UA 1.025 1 - 1.03 [facility] Urobilinogen, UA 1.0 0.2 - 12 mg/dL [facility] Ultrasound - Officeon 2023 [facility] Ultrasound - OfficeOrdered B y: Aida Sauceda on 03-23-2024 [facility] Urinalysis macro (dipstick) panel (U)on 03-23-2024 Bilirubin, UA Negative Negative - 4(70) +++ mg/dL [facility] Blood, UA Negative Negative - 50 Kvng/mcL [facility] Clarity, UA Clear [facility] Color, UA Yellow [facility] Glucose, UA Negative Negative - 1999(110) ++++ mg/dL [facility] Interpretation and review of laboratory results Normal [facility] Ketones, UA Negative Negative - 160(16) ++++ mg/dL [facility] Leukocytes, UA Negative Negative - 500+++ Sandra/mcL [facility] Nitrite, UA Negative Negative - Positive [facility] pH, UA 6.5 5 - 9 [facility] Protein, UA Negative Negative - 1999(20) ++++ mg/dL [facility] Spec Grav, UA 1.025 1 - 1.03 [facility] Urobilinogen, UA 0.2 0.2 - 12 mg/dL [facility] IGP,APTIMA HPV,AGE GDLNon AGE GDLN ACOG TESTING Note . [facility] Comment on above: TESTS RESULT FLAG UN ITS REF RANGE LAB Clinician Provided Cytology Information Source.............Cervix Other.............. No. of containers..01 ThinPrep Vial Age Stefania Monae... FLAG LEGEND: L-Low Normal,H-High Normal,LL-Alert Low,HH-Alert High <-Panic Low,>-Panic High,A-Abnormal,AA-Critical Abnormal Performed at: 01 =[facility] [address] [place] [address] Autumn Mckoy MD, IGP, RFX APTIMA HPV ASCU Note . [facility] Comment on above: TESTS RESULT FLAG UN ITS REF RANGE LAB DIAGNOSIS: 02 NEGATIVE FOR INTRAEPITHELIAL LESION OR MALIGNANCY. Specimen adequacy: 02 Satisfactory for evaluation. No endocervical component is identified. Performed by: 02 Alma Curry, Bliss Press Operator ([facility]) . 02 Note: Note 03 [...] High,A-Abnormal,AA-Critical Abnormal Performed at: 02 [facility] [place] [facility] [address] [place] [address] Hao Blackman MD, 03 WB [facility] [address] [address] Autumn Mckoy MD, Performed at: =G - [facility] [address] [id number] Vehicle Trimmer: Autumn Mckoy MD, Phone: [phone] Performed at: [facility] - [facility] [place] [facility] [address] [place], [place] [id number] Vehicle Trimmer: Hao Blackman MD, Phone: [phone] SP[facility]ONE C[facility]IX [facility] RECURRENT VAGINITIS (HTRX)on 02-24-2024 ATOPOBIUM VAGINAE 0 [facility] ATOPOBIUM VAGINAE Not detected [facility] BVAB 2,3 (BACTERIAL VAGINOSIS ASSOCIATED BACTERIA 2, 3); MOBILUNCUS SPP 0 [facility] BVAB 2,3 (BACTERIAL VAGINOSIS ASSOCIATED BACTERIA 2, 3); MOBILUNCUS SPP Not detected [facility] NICKY ALBICANS, PARAPSILOSIS, TROPICALIS 0 [facility] NICKY ALBICANS, PARAPSILOSIS, TROPICALIS Not detected [facility] NICKY GLABRATA 0 [facility] NICKY GLABRATA Not detected [facility] NICKY KRUSEI 0 [facility] NICKY KRUSEI Not detected [facility] CHLAMYDIA TRACHOMATIS 0 [facility] CHLAMYDIA TRACHOMATIS Not detected N [facility] GARDNERELLA VAGINALIS 0 [facility] GARDNERELLA VAGINALIS Not detected N [facility] MEGASPHAERA (TYPES 1, 2) 0 [facility] MEGASPHAERA (TYPES 1, 2) Not detected [facility] MYCOPLASMA GENITALIUM 0 [facility] MYCOPLASMA GENITALIUM Not detected N [facility] NEISSERIA GONORRHOEAE 0 [facility] NEISSERIA GONORRHOEAE Not detected N [facility] TRICHOMONAS VAGINALIS 0 NOM [facility] TRICHOMONAS VAGINALIS Not detected N [facility] Urinalysis macro (dipstick) panel (U)on 02-23-2024 Bilirubin, UA Negative Negative - 4(70) +++ mg/dL [facility] Blood, UA Negative Negative - 50 Kvng/mcL [facility] Clarity, UA Clear [facility] Color, UA Yellow [facility] Glucose, UA Negative Negative - 1999(110) ++++ mg/dL [facility] Interpretation and review of laboratory results Normal [facility] Ketones, UA Negative Negative - 160(16) ++++ mg/dL [facility] Leukocytes, UA Negative Negative - 500+++ Sandra/mcL [facility] Nitrite, UA Negative Negative - Positive [facility] pH, UA 7 5 - 9 [facility] Protein, UA Negative Negative - 1999(20) ++++ mg/dL [facility] Spec Grav, UA 1.025 1 - 1.03 [facility] Urobilinogen, UA 0.2 0.2 - 12 mg/dL [facility] Urinalysis macro (dipstick) panel (U)on 01-25-2024 Bilirubin, UA Positive Negative - 4(70) +++ mg/dL [facility] Comment on above: small Blood, UA Negative Negative - 50 Kvng/mcL [facility] Clarity, UA Clear [facility] Color, UA Yellow [facility] Glucose, UA Negative Negative - 1999(110) ++++ mg/dL [facility] Interpretation and review of laboratory results Abnormal [facility] Ketones, UA Positive Negative - 160(16) ++++ mg/dL [facility] Comment on above: moderate Leukocytes, UA Negative Negative - 500+++ Sandra/mcL [facility] Nitrite, UA Negative Negative - Positive [facility] pH, UA 6.5 5 - 9 [facility] Protein, UA Trace Negative - 2000(20) ++++ mg/dL [facility] Spec Grav, UA 1.025 1 - 1.03 [facility] Urobilinogen, UA 0.2 0.2 - 12 mg/dL [facility] MLR HEMOGLOBIN A1Con 024 Glucose [Mass/Vol] 91 mg/dL [facility] HbA1c (Bld) [Mass fraction] 4.8 % 4.5 - 6.2 % [facility] Comment on above: ADA RECOMMENDED LIMI T 4.0 - 6.0 ADA THERAPEUTIC TARGET < 7.0 ACTION SUGGESTED > 7.0 [facility] No Panel Informationon 01-13 [facility] Rubella IGG immune statuson 01-14-2024 Rubella immune IgG immune [facility] Syphilis Total(Unknown Syphi lis Status)Ordered By: Aida Sauceda on 01-14-2024 Syphilis Non-Reactive [facility] DRUG SCREEN RAPID (URINE )on 01-14-2024 AMPHETAMINE SCREEN URINE Negative NEGATIVE [facility] BARBITURATES SCREEN URINE Negative NEGATIVE [facility] BENZODIAZEPINES SCREEN URINE Negative NEGATIVE [facility] BUPRENORPHINE SCREEN URINE Negative NEGATIVE [facility] Comment on above: DRUG CLASS TEST [...] 300 ng/mL CANNABINOID SCREEN URINE Negative NEGATIVE [facility] COCAINE SCREEN URINE Negative NEGATIVE [facility] METHADONE SCREEN URINE Negative NEGATIVE [facility] METHAMPHETAMINES SCREEN URINE Negative NEGATIVE [facility] OPIATE SCREEN URINE Negative NEGATIVE [facility] OXYCODONE SCREEN URINE Negative NEGATIVE [facility] PHENCYCLIDINE SCREEN URINE Negative NEGATIVE [facility] TRICYCLIC ANTIDEPRESSANT URINE Negative NEGATIVE [facility] HCG ( test) Ql (U)o n 12-31-2023 Interpretation and review of laboratory results Abnormal [facility] Preg Test, Ur Positive [facility] Urinalysis macro (dipstick) panel (U)on 12-31-2023 Bilirubin, UA Negative Negative - 4(70) +++ mg/dL [facility] Blood, UA Negative Negative - 50 Kvng/mcL [facility] Clarity, UA Clear [facility] Color, UA Yellow [facility] Glucose, UA Negative Negative - 2000(110) ++++ mg/dL [facility] Interpretation and review of laboratory results Normal [facility] Ketones, UA Negative Negative - 160(16) ++++ mg/dL [facility] Leukocytes, UA Negative Negative - 500+++ Sandra/mcL [facility] Nitrite, UA Negative Negative - Positive [facility] pH, UA 7.0 5 - 9 [facility] Protein, UA Positive Negative - 1999(20) ++++ mg/dL [facility] Spec Grav, UA 1.020 1 - 1.03 [facility] Urobilinogen, UA 1.0 0.2 - 12 mg/dL [facility] Vital Signs Date Time Vital Sign Value Performing Clinician Faci lity 07-03-2024 08:52-0400 Body weight 59.33 kg Corby Pravin DO Work Phone: [facility] 07-03-2024 08:52-0400 Diastolic blood pressure 70 mm[Hg] Corby Pravin DO Work Phone: [facility] 07-03-2024 08:52-0400 Systolic blood pressure 120 mm[Hg] Corby Pravin DO Work Phone: [facility] 06-27-2024 09:01-0400 Body weight 58.7 kg Corby Pravin DO Work Phone: [facility] 06-27-2024 09:01-0400 Diastolic blood pressure 72 mm[Hg] Corby Pravin DO Work Phone: [facility] 06-27-2024 09:01-0400 Systolic blood pressure 110 mm[Hg] Corby Pravin DO Work Phone: [facility] 06-22-2024 09:10-0400 Body weight 59.42 kg Corby Pravin DO Work Phone: [facility] 06-22-2024 09:10-0400 Diastolic blood pressure 70 mm[Hg] Corby Pravin DO Work Phone: [facility] 06-22-2024 09:10-0400 Systolic blood pressure 116 mm[Hg] Corby Pravin DO Work Phone: [facility] 06-08-2024 11:44-0500 Body weight 58.06 kg Alma BRANHAM Work Phone: [facility] 06-08-2024 11:44-0500 Diastolic blood pressure 82 mm[Hg] Alma BRANHAM Work Phone: [facility] 06-08-2024 11:44-0500 Systolic blood pressure 128 mm[Hg] Alma BRANHAM Work Phone: [facility] 06-07-2024 11:32-0500 Diastolic blood pressure 71 mm[Hg] [address] 06-07-2024 11:32-0500 Heart rate 81 /min [address] 06-07-2024 11:32-0500 Systolic blood pressure 115 mm[Hg] [address] 06-07-2024 09:32-0500 Body height 157.5 cm Reji Day MD Work Phone: [facility] 05-25-2024 11:54-0500 Body weight 56.43 kg Corby Pravin DO Work Phone: [facility] 05-25-2024 11:54-0500 Diastolic blood pressure 72 mm[Hg] Corby Pravin DO Work Phone: [facility] 05-25-2024 11:54-0500 Systolic blood pressure 116 mm[Hg] Corby Pravin DO Work Phone: [facility] 05-10-2024 09:39-0500 Body weight 54.8 kg Alma BRANHAM Work Phone: [facility] 05-10-2024 09:39-0500 Diastolic blood pressure 70 mm[Hg] Alma Vargas PA Work Phone: [facility] 05-10-2024 09:39-0500 Systolic blood pressure 100 mm[Hg] Alma Junito PA Work Phone: [facility] 04-20-2024 10:01-0500 Body weight 53.25 kg Corby Pravin DO Work Phone: [facility] 04-20-2024 10:01-0500 Diastolic blood pressure 60 mm[Hg] Corby Pravin DO Work Phone: [facility] 04-20-2024 10:01-0500 Systolic blood pressure 100 mm[Hg] Corby Pravin DO Work Phone: [facility] 03-23-2024 12:42-0500 Body weight 51.26 kg Corby Pravin DO Work Phone: [facility] 03-23-2024 12:42-0500 Diastolic blood pressure 62 mm[Hg] Corby Pravin DO Work Phone: [facility] 03-23-2024 12:42-0500 Systolic blood pressure 102 mm[Hg] Corby Pravin DO Work Phone: [facility] 02-23-2024 10:48-0500 Body weight 49.9 kg Alma BRANHAM Work Phone: [facility] 02-23-2024 10:48-0500 Diastolic blood pressure 64 mm[Hg] Alma Junito PA Work Phone: [facility] 02-23-2024 10:48-0500 Systolic blood pressure 102 mm[Hg] Alma Junito PA Work Phone: [facility] 01-25-2024 10:45-0400 Body weight 47.68 kg Corby Pravin DO Work Phone: [facility] 01-25-2024 10:45-0400 Diastolic blood pressure 64 mm[Hg] Corby Pravin DO Work Phone: [facility] 01-25-2024 10:45-0400 Systolic blood pressure 100 mm[Hg] Corby Pravin DO Work Phone: [facility] 12-02-2023 08:47-0400 Body height 157.48 cm [facility] 12-02-2023 08:47-0400 Body mass index (BMI) [Ratio] 19.5 kg/m2 [facility] 12-02-2023 08:47-0400 Body weight 48.53 kg [facility] 12-02-2023 08:47-0400 Diastolic blood pressure 80 mm[Hg] [facility] 12-02-2023 08:47-0400 Systolic blood pressure 122 mm[Hg] [facility] Encounters Encounter Date Encounter Type Care Provider Facility Start: 07-06-2024 End: 07-06-2024 Clinisync Result Encounter Corby Pravin DO Work Phone: [facility] External Department Unsolicited Start: 07-06-2024 End: 07-06-2024 Clinisync Result Encounter Corby Pravin DO Work Phone: [facility] External Department Unsolicited Start: 07-06-2024 Non-patient / Non-visit Corby Pravin DO Work Phone: [facility] Work Phone: Start: 07-05-2024 End: 07-05-2024 Clinisync Result Encounter Corby Pravin DO Work Phone: [facility] External Department Unsolicited Start: 07-05-2024 End: 07-05-2024 Clinisync Result Encounter Corby Pravin DO Work Phone: [facility] External Department Unsolicited Start: 07-05-2024 End: 07-05-2024 Telephone encounter Bernard Villalobos [facility] Imaging Start: 07-05-2024 Non-patient / Non-visit Corby Pravin DO Work Phone: [facility] Work Phone: Start: 07-05-2024 End: 07-05-2024 ambulatory Corby Pravin [facility] Work Phone: Start: 07-05-2024 End: 07-05-2024 Departed Referred Corby Pravin DO Work Phone: [facility] Start: 07-03-2024 End: 07-03-2024 Bamboo flowsheet Corby Pravin DO Work Phone: [facility] Start: 07-03-2024 End: 07-03-2024 Bamboo flowsheet Corby Pravin DO Work Phone: [facility] Start: 07-03-2024 End: 07-03-2024 flow sheet Corby Pravin DO Work Phone: [facility] Comment on above: 35 weeks gestation o f ; Third trimester Start: 07-03-2024 End: 07-03-2024 ambulatory CORBY PRAVIN Not Available Start: 06-29-2024 End: 06-29-2024 Clinisync Result Encounter Corby Pravin DO Work Phone: [facility] External Department Unsolicited Start: 06-29-2024 End: 06-29-2024 Clinisync Result Encounter Corby Pravin DO Work Phone: [facility] External Department Unsolicited Start: 06-28-2024 End: 06-28-[address] [facility] Start: 06-27-2024 End: 06-27-2024 ambulatory CORBY PRAVIN Not Available Start: 06-27-2024 End: 06-27-2024 flow sheet Corby Pravin DO Work Phone: [facility] Comment on above: Third trimester preg danielle; 34 weeks gestation of ; Oligohydramnios, antepartum, single or unspecified fetus Start: 06-22-2024 End: 06-22-2024 Bamboo flowsheet Corby Pravin DO Work Phone: [facility] Start: 06-22-2024 End: 06-22-2024 Bamboo flowsheet Corby Vickerszio DO Work Phone: [facility] Start: 06-22-2024 Non-patient / Non-visit Corby Zaldivaro DO Work Phone: [facility] Work Phone: Start: 06-22-2024 End: 06-22-2024 Periodic preventive med est patient 40-64yrs Corby Pravin DO Work Phone: [facility] Comment on above: Third trimester preg danielle; 34 weeks gestation of Start: 06-22-2024 End: 06-22-2024 ambulatory CORBY COSTELLO Not Available Start: 06-21-2024 End: 06-21-2024 Orders Only Anya Waters RN Maternal- Medic ine at [facility] Comment on above: growth restric tion antepartum (Primary Dx) Start: 06-14-2024 End: 06-14-2024 ambulatory [facility] Start: 06-08-2024 End: 06-08-2024 Bamboo flowsheet Alma [...] 06-07-2024 Emergency department patient visit RIKY STEARNS [facility] Start: 06-07-2024 End: 06-07-2024 ambulatory Tt Mfm Nst1 Maternal- Medic ine at 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 Comment on above: growth restric tion antepartum (Primary Dx); 32 weeks gestation of Start: 06-07-2024 End: 06-07-[address] [facility] Start: 06-05-2024 End: 06-05-2024 Orders Only Not In System Ref Prov Maternal- Medicine at [facility] Start: 06-01-2024 End: 06-01-2024 Clinisync Result Encounter Corby Pravin DO Work Phone: [facility] External [facility] Unsolicited Start: 06-01-2024 End: 06-01-2024 Clinisync Result Encounter Corby Pravin DO Work Phone: [facility] External Department Unsolicited Start: 06-01-2024 End: 06-01-2024 ambulatory ALMA VARGAS Not Available Start: 05-25-2024 End: 05-25-2024 Bamboo flowsheet Corby Pravin DO Work Phone: [facility] Start: 05-25-2024 End: 05-25-2024 Bamboo flowsheet Corby Pravin DO Work Phone: [facility] Start: 05-25-2024 End: 05-25-2024 flow sheet Corby Pravin DO Work Phone: [facility] Comment on above: 30 weeks gestation o f ; Third trimester Start: 05-25-2024 End: 05-25-2024 ambulatory CORBY PRAVIN Not Available Start: 05-10-2024 End: 05-10-2024 Bamboo flowsheet Alma BRANHAM Work Phone: [facility] Start: 05-10-2024 End: 05-10-2024 Bamboo flowsheet Alma BRANHAM Work Phone: [facility] Start: 05-10-2024 End: 05-10-2024 flow sheet Alma Vargas PA Work Phone: [facility] Comment on above: Third trimester preg danielle; 28 weeks gestation of ; size inconsistent with dates; Nonintractable headache, unspecified chronicity pattern, unspecified headache type Start: 05-10-2024 End: 05-10-2024 ambulatory ALMA VARGAS Not Available Start: 05-05-2024 End: 05-05-2024 Clinisync Result Encounter Corby Pravin DO Work Phone: [facility] External Department Unsolicited Start: 05-05-2024 End: 05-05-2024 Clinisync Result Encounter Corby Pravin DO Work Phone: [facility] External Department Unsolicited Start: 05-05-2024 Non-patient / Non-visit Corby Pravin DO Work Phone: [facility] Work Phone: Start: 04-20-2024 End: 04-20-2024 Bamboo flowsheet Corby Pravin DO Work Phone: [facility] Start: 04-20-2024 End: 04-20-2024 Bamboo flowsheet Corby Pravin DO Work Phone: [facility] Start: 04-20-2024 End: 04-20-2024 flow sheet Corby Pravin DO Work Phone: [facility] Comment on above: Second trimester pre gnancy; 25 weeks gestation of ; Diabetes mellitus screening Start: 04-20-2024 End: 04-20-2024 ambulatory CORBY PRAVIN Not Available Start: 03-23-2024 End: 03-23-2024 Bamboo flowsheet Corby Pravin DO Work Phone: [facility] Start: 03-23-2024 End: 03-23-2024 Bamboo flowsheet Corby Pravin DO Work Phone: [facility] Start: 03-23-2024 End: 03-23-2024 ambulatory CORBY PRAVIN Not Available Start: 03-23-2024 End: 03-23-2024 flow sheet Corby Pravin DO Work Phone: [facility] Comment on above: Second trimester pre gnancy; 21 weeks gestation of Start: 03-21-2024 End: 03-21-[address] [facility] Start: 03-07-2024 End: 03-07-2024 Chart abstracting Omayra Boyce [facility] Work Phone: Maternal- Medicine at [facility] Start: 02-23-2024 End: 02-23-2024 Bamboo flowsheet Alma BRANHAM Work Phone: [facility] Start: 02-23-2024 End: 03-06-2024 Bamboo flowsheet Alma BRANHAM Work Phone: [facility] Start: 02-23-2024 End: 03-06-2024 Clinisync Result Encounter Alma BRANHAM Work Phone: [facility] External Department Unsolicited Start: 02-23-2024 End: 02-24-2024 External Result Encounter Alma BRANHAM Work Phone: [facility] External Department Unsolicited Start: 02-23-2024 End: 02-23-2024 Patient encounter procedure Alma BRANHAM Work Phone: [facility] Healthcare Start: 02-23-2024 End: 02-23-2024 flow sheet Alma BRANHAM Work Phone: [facility] Comment on above: Well woman exam with routine gynecological exam; Second trimester ; 17 weeks gestation of ; Need for maternal serum alpha-protein (MSAFP) screening; Screening, , for anatomic survey; Screen for STD (sexually transmitted disease) Start: 02-23-2024 End: 02-23-2024 ambulatory ALMA VARGAS Not Available Start: 01-25-2024 End: 01-25-2024 Bamboo flowsheet Corby Pravin DO Work Phone: [facility] Start: 01-25-2024 End: 01-25-2024 Bamboo flowsheet Corby Pravin DO Work Phone: [facility] Start: 01-25-2024 End: 01-25-2024 flow sheet Corby Pravin DO Work Phone: [facility] Comment on above: 12 weeks gestation o f ; First trimester ; Nonintractable headache, unspecified chronicity pattern, unspecified headache type Start: 01-25-2024 End: 01-25-2024 ambulatory CORBY PRAVIN Not Available Start: 01-14-2024 End: 01-14-2024 Clinisync Result Encounter Corby Pravin DO Work Phone: [facility] External Department Unsolicited Start: 01-14-2024 End: 01-14-2024 Clinisync Result Encounter Corby Pravin DO Work Phone: [facility] External Department Unsolicited Start: 12-31-2023 End: 12-31-2023 Office outpatient visit 5 minutes [facility] Pravin Nurse [facility] Comment on above: GA: 9w2d Start: 12-31-2023 End: 12-31-2023 ambulatory ALMA VARGAS Not Available Start: 12-02-2023 Patient encounter status [facility] Start: 12-02-2023 End: 12-02-2023 ambulatory [facility] Work Phone: Start: 12-02-2023 End: 12-02-2023 Encounter for general adult medical examination without abnormal findings [facility] Start: 12-02-2023 End: 12-02-2023 Patient encounter procedure [facility] Work Phone: Procedures Date Procedure Procedure Detail Performing Clinician Start: 07-06-2024 ALL CBC WITH AUTO DIFF Corby Pravin DO Work Phone: Start: 07-05-2024 [facility] CBC WITH PLATEL ET NO DIFFERENTIAL Corby Pravin DO Work Phone: Start: 07-03-2024 Urnls dip stick/tabl et rgnt non-auto w/o micrscp Corby Pravin DO Work Phone: Start: 06-29-2024 US OB BPP W NON-STRESS Corby Pravin DO Work Phone: Start: 06-27-2024 Urnls dip stick/tabl et rgnt non-auto w/o micrscp Corby Pravin DO Work Phone: Start: 06-22-2024 Urnls dip stick/tabl et rgnt non-auto w/o micrscp Alma BRANHAM Work Phone: Start: 06-08-2024 Urnls dip stick/tabl et rgnt non-auto w/o micrscp Alma BRANHAM Work Phone: Start: 06-07-2024 nonstress test Rakel Day MD Work Phone: Start: 06-01-2024 US OB BPP W NON-STRESS Corby Pravin DO Work Phone: Start: 06-01-2024 ULTRASOUND OFFICE Not I n System Ref Prov Start: 05-25-2024 Urnls dip stick/tabl et rgnt non-auto w/o micrscp Corby Pravin DO Work Phone: Start: 05-10-2024 Urnls dip stick/tabl et rgnt non-auto w/o micrscp Alma BRANHAM Work Phone: Start: 05-05-2024 ALL CBC WITH AUTO DIFF Corby Pravin DO Work Phone: Start: 05-03-2024 Urnls dip stick/tabl et rgnt non-auto w/o micrscp Corby Pravin DO Work Phone: Start: 03-23-2024 Urnls dip stick/tabl et rgnt non-auto w/o micrscp Corby Pravin DO Work Phone: Start: 03-23-2024 End: [...] dip stick/tabl et rgnt non-auto w/o micrscp Corby Pravin DO Work Phone: Start: 01-14-2024 Syphilis test non-treponemal antibody qual Not In System Ref Prov Start: 01-14-2024 MLR HEMOGLOBIN A1C Core y Pravin DO Work Phone: Start: 01-14-2024 [facility] DRUG SCREEN RAPI D (URINE) Corby [employer] DO Work Phone: Start: 12-31-2023 End: 12-31-2023 Urnls dip stick/tablet rgnt non-auto w/o micrscp Corby Pravin DO Work Phone: Plan of Treatment Date Care Activity Detail Author Start: 02-22-2027 Screening for malign ant neoplasm of cervix [facility] Start: 06-21-2025 End: 06-21-2025 US MFM with or without consult US MFM with or without consult Imaging Routine growth restriction antepartum Expected: 06/21/2025 (Approximate), Expires: 06/21/2025 [employer] 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 Work Phone: Comment on above: Expected: 06/07/2025 (Approximate), Expires: 06/07/2025 Start: 12-04-2024 Influenza vaccination Influenza Vacc ine [facility] Start: 07-05-2024 End: 07-05-2024 Patient encounter procedure 07/05/2024 8:45 AM EDT Appointment [facility] [address] [place] [id number] [facility] Start: 07-03-2024 End: 07-03-2024 Patient encounter procedure [facility] Comment on above: Arrived Start: 06-28-2024 End: 06-28-2024 Patient encounter procedure 06/28/2024 8:45 AM EDT Appointment [facility] [address] [place] [phone] [facility] Start: 06-22-2024 End: 06-22-2025 CULTURE, GROUP B STREP WITH SUSCEPTIBLITY CULTURE, GROUP B STREP WITH SUSCEPTIBLITY Lab Routine Third trimester Expected: 06/22/2024, Expires: 06/22/2025 [facility] Healthcare Work Phone: Comment on above: Expected: 06/22/2024 , Expires: 06/22/2025 Start: 06-22-2024 End: 06-22-2024 Patient encounter procedure [facility] Comment on above: Arrived Start: 06-21-2024 End: 06-21-2024 Patient encounter procedure 06/21/2024 9:00 AM EDT Appointment [facility] [address] [place] [phone] [facility] Start: 06-14-2024 End: 06-14-2024 Patient encounter procedure 06/14/2024 8:00 AM EDT Appointment [facility] [address] [place] [phone] [facility] Start: 06-08-2024 End: 06-08-2024 Patient encounter procedure [facility] Comment on above: Arrived Start: 06-07-2024 End: 06-07-2025 nonstress test - Maternal Medicine nonstress test - Maternal Medicine OB Routine growth restriction antepartum Expected: 06/07/2024 (Approximate), Expires: 06/07/2025 [employer] Work Phone: Comment on above: Expected: 06/07/2024 (Approximate), Expires: 06/07/2025 Start: 06-07-2024 End: 06-07-2024 Patient encounter procedure [facility] Start: 06-01-2024 End: 06-01-2024 Professional / ancillary services management 06/01/2024 9:30 AM EST Ancillary Procedure [facility] [address] [place] [address] [facility] Start: 05-25-2024 End: [...] (MSAFP) screening Expected: 03/24/2024 (Approximate), Expires: 03/24/2024 [facility] Comment on above: Expected: 03/24/2024 (Approximate), Expires: 03/24/2024 Start: 03-23-2024 End: 03-23-2024 Patient encounter procedure 03/23/2024 11:40 AM EST Routine [facility] [address] [place] [address] Corby Costello, [address], [place] [id number] [facility] Start: 03-23-2024 End: 03-23-2024 Professional / ancillary services management 03/23/2024 10:30 AM EST Ancillary Procedure [facility] [address] [place] [phone] [facility] Start: 03-21-2024 End: 03-21-2024 Telemedicine consultation with patient 03/21/2024 9:00 AM EST Telemedicine Maternal- Medicine at [facility] [address] [facility] [facility] [place] [phone] Omayra Boyce, [facility] [address] [place] [address] Maternal- Medicine at [facility] Start: 02-23-2024 End: 02-22-2025 US [...] gestational age Expected: 12/31/2023 (Approximate), Expires: 12/30/2024 [facility] Healthcare Comment on above: Expected: 12/31/2023 (Approximate), [...] first trimester Expected: 12/31/2023 (Approximate), Expires: 12/30/2024 [facility] Healthcare Comment on above: Expected: 12/31/2023 (Approximate), Expires: 12/30/2024 Start: 12-31-2023 End: 12-30-2024 US Pelvis transvaginal US OB transvaginal Imaging Routine Missed menses Expected: 12/31/2023 (Approximate), Expires: 12/30/2024 [facility] Healthcare Comment on above: Expected: 12/31/2023 (Approximate), Expires: 12/30/2024 Start: 12-05-2023 Influenza vaccination Influenza Vacc ine [facility] Start: 11-06-2019 DTaP,Tdap and Td Vaccines (7 - Td or Tdap) DTaP,Tdap and Td Vaccines (7 - Td or Tdap) [facility] Start: 2018 Screening for malign ant neoplasm of cervix Pap Smear [facility] Start: 09-29-2015 Adult BMI Screening Adult BMI Screen ing [facility] Start: 2009 Depression Screening Depression Scre ening [facility] Start: 2009 Tobacco Screening Tobacco Screening [facility] Bacteria identified in Urine by Culture Urine culture Microbiology Routine Missed menses Ordered: 12/31/2023 [facility] Healthcare Comment on above: Ordered: 12/31/2023 CBC W Auto Different ial panel - Blood CBC and differential Lab Routine Missed menses , unspecified gestational age Ordered: 12/31/2023 [facility] Healthcare Comment on above: Ordered: 12/31/2023 CHLAMYDIA TRACHOMATI S (GENITO/STI) CHLAMYDIA TRACHOMATIS (GENITO/STI) Lab Routine Screen for STD (sexually transmitted disease) Ordered: 02/23/2024 [facility] Healthcare Comment on above: Ordered: 02/23/2024 Cytology Cervical or vaginal smear or scraping study Pap Smear Pathology and Cytology Routine Well woman exam with routine gynecological exam Ordered: 02/23/2024 [facility] Healthcare Comment on above: Ordered: 02/23/2024 Hemoglobin A1c/Hemoglobin.total in Blood Hemoglobin A1c Lab Routine Missed menses , unspecified gestational age Ordered: 12/31/2023 [facility] Healthcare Comment on above: Ordered: 12/31/2023 Hepatitis B virus surface Ag [Presence] in Serum or Plasma by Immunoassay Hepatitis B surface antigen Lab Routine Missed menses , unspecified gestational age Ordered: 12/31/2023 [facility] Healthcare Comment on above: Ordered: 12/31/2023 Hepatitis C virus Ab [Presence] in Serum or Plasma by Immunoassay Hepatitis C antibody Lab Routine Missed menses , unspecified gestational age Ordered: 12/31/2023 [facility] Comment on above: Ordered: 12/31/2023 HIV-1/HIV-2 antigen/antibody combination immunoassay HIV-1 and HIV-2 antibodies Lab Routine Missed menses , unspecified gestational age Ordered: 12/31/2023 [facility] Comment on above: Ordered: 12/31/2023 Neisseria gonorrhoea e DNA [Presence] in Unspecified specimen by RUBEN with probe detection Neisseria gonorrhea DNA probe, direct Lab Routine Screen for STD (sexually transmitted disease) Ordered: 02/23/2024 [facility] Comment on above: Ordered: 02/23/2024 Reagin Ab [Presence] in Serum by RPR RPR Lab Routine Missed menses , unspecified gestational age Ordered: 12/31/2023 [facility] Comment on above: Ordered: 12/31/2023 Rubella antibody, IgG Rubella an tibody, IgG Lab Routine Missed menses , unspecified gestational age Ordered: 12/31/2023 [facility] Comment on above: Ordered: 12/31/2023 SURESWAB(R) ADVANCED VAGINITIS PLUS, TMA SURESWAB(R) ADVANCED VAGINITIS PLUS, TMA Pathology and Cytology Routine Screen for STD (sexually transmitted disease) Ordered: 02/23/2024 [facility] Work Phone: Comment on above: Ordered: 02/23/2024 Immunizations Immunization Date Immunization Notes Care Provider Kedar chahal 11-13-2015 hepatitis A vaccine, pediatric/adolescent dosage, 2 dose schedule [facility] Work Phone: [facility] 11-13-2015 meningococcal polysaccharide (groups A, C, Y and W-135) diphtheria toxoid conjugate vaccine (MCV4P) [facility] Work Phone: [facility] 04-24-2015 influenza, injectabl e, quadrivalent, preservative free [facility] Work Phone: [facility] 04-24-2015 influenza virus vaccine, unspecified formulation [facility] Work Phone: [facility] 11-05-2009 tetanus toxoid, redu dilip diphtheria toxoid, and acellular pertussis vaccine, adsorbed [facility] Work Phone: [facility] 11-05-2009 varicella virus vaccine Made line Austen [facility] Work Phone: [facility] 03-14-2009 influenza, seasonal, injectable, preservative free Omayra Boyce [facility] Work Phone: [facility] 01-24-2003 hepatitis B vaccine, adult dosage Omayralarry Boyce [facility] Work Phone: [facility] 11-28-2002 diphtheria, tetanus toxoids and acellular pertussis vaccine, 5 pertussis antigens Omayra Boyce [facility] Work Phone: [facility] 11-28-2002 measles, mumps and rubella virus vaccine Omayra Austen [facility] Work Phone: [facility] 11-28-2002 poliovirus vaccine, inactivated Omayra Boyce [facility] Work Phone: [facility] 07-18-2001 varicella virus vaccine Made larry Boyce [facility] Work Phone: [facility] 04-09-1999 diphtheria, tetanus toxoids and acellular pertussis vaccine, 5 pertussis antigens Omayra Boyce [facility] Work Phone: [facility] 04-09-1999 measles, mumps and rubella virus vaccine Omayra Austen [facility] Work Phone: [facility] 03-25-1998 diphtheria, tetanus toxoids and acellular pertussis vaccine, 5 pertussis antigens Omayra Boyce [facility] Work Phone: [facility] 03-25-1998 hepatitis B vaccine, adult dosage Omayralarry Boyce [facility] Work Phone: [facility] 03-25-1998 poliovirus vaccine, inactivated Omayra Austen [facility] Work Phone: [facility] 02-13-1998 diphtheria, tetanus toxoids and acellular pertussis vaccine, 5 pertussis antigens Omayra Austen [facility] Work Phone: [facility] 02-13-1998 poliovirus vaccine, inactivated Omayra Austen [facility] Work Phone: [facility] 1997 diphtheria, tetanus toxoids and acellular pertussis vaccine, 5 pertussis antigens [facility] Work Phone: [facility] 1997 haemophilus influenz ae type b vaccine, PRP-OMP conjugate [facility] Work Phone: [facility] 1997 poliovirus vaccine, inactivated [facility] Work Phone: [facility] 1997 hepatitis B vaccine, adult dosage [facility] Work Phone: [facility] 1997 hepatitis B vaccine, adult dosage [facility] Work Phone: [facility] NEGATED: Highlighted row has not occurred!11-13-2015 human papilloma virus vaccine, quadrivalent [facility] Work Phone: [facility] Comment on above: Deferred: Other - parent declined Payers Date Payer Category Payer Self-pay 2022 Blue [employer] Blue [employer] [id number] 2022 [employer] Blue Shie ld Managed Care - Other [id number] 2022 Unknown BCBS BCBS xxxxxx [id number] 2022-Present [phone] [address] [place] [address] [id number] 2022 Unknown [id number] 2020 [employer] Blue Shie ld Managed Care - PPO SARINA [id number] 1997 Unknown [id number] [id number] 1997 Unknown [id number]. 2.1285 1997 Unknown [id number] [id number]. 2.1285 1997 Unknown [id number]. 2.1285 1997 Unknown [id number] [id number]. 2.1285 1997 Unknown [id number] [id number]. 2.1285 1997 Unknown [id number] [id number]. 2.1285 1997 Unknown [id number] [id number]. 2.1285 1997 Unknown [id number] [id number]. 2.9 1997 Unknown [id number] [id number]. 2.1258 1997 Unknown [id number] [id number]. 2.1258 1997 Unknown [id number]. 2.1258 1997 Unknown [id number] [id number]. 2.9 1997 Unknown [id number] 2.16.840.1.208037.3.579. 2.9 1997 Unknown [id number] 2.16.840.1.826450.3.579. 2.9 1997 Unknown [id number] 2.16.840.1.921217.3.579. 2.1258 1997 Unknown [id number] 2.16.840.1.425984.3.579. 2.9 1997 Unknown [id number] 2.16.840.1.305002.3.579. 2.1258 1997 Unknown [id number] 2.16.840.1.888558.3.579. 2.9 1997 Unknown [id number] 2.16.840.1.852988.3.579. 2.1258 Unknown [id number] 2.16.840.1.671766.3.579. 2.531 Social History Date Type Detail Facility Tobacco smoking stat [facility] Unknown if ever smoked [facility] Work Phone: Start: 1995 Sex Assigned At Female [facility] Tobacco smoking stat [facility] Tobacco smoking consumption unknown [facility] Start: 11-10-2023 [facility] Start: 1995 Sex assigned at Not on file [facility] Start: 05-16-2020 End: 03-07-2024 Gender identity Not on file [facility] Start: 02-13-2021 End: 06-07-2024 Tobacco smoking status NHIS Never smoked tobacco [facility] Start: 02-13-2021 End: 06-07-2024 Tobacco use and exposure Smokeless tobacco non-user [facility] Start: 03-07-2024 Alcoholic beverage intake Current non-drinker of alcohol (finding) [facility] Start: 05-16-2020 End: 03-07-2024 Alcoholic beverage intake [facility] Childcare Unknown [facility] Start: 11-06-2014 End: 07-07-2024 Sex Female (finding) [facility] Start: 06-05-2024 End: 06-07-2024 Alcoholic beverage intake Ex-drinker (finding) [facility] Clinical Notes 12-31-2023 to 07-05-2024 Telephone Encounter - Bernard Wilfredo - 07/05/2024 9:17 AM EDTTelephone Encounter - Bernard Villalobos - 07/05/2024 9:17 AM EDTVeronika Lowery NP - 07/03/2024 9:00 AM CARROL Coello - 06/22/2024 9:10 AM EDT Note Date & Type Note Facility 07-05-2024 Miscellaneous Notes Formattin g of this note might be different from the original. Called pt and left message in regards to rescheduling missed ultrasound appt today at 8:45am. Told pt to call scheduling department when able. jk documented in this encounter [facility] 07-05-2024 Telephone encount er Note Called pt and left message in regards to rescheduling missed ultrasound appt today at 8:45am. Told pt to call scheduling department when able. jk [facility] 07-03-2024 History of Presen t illness Narrative Reason for Appointment: Patient ID: Yesy Nowak is a 28 y.o. female who [...] nursing note reviewed. Exam conducted with a template reproduction technician present. Vitals: There is no height [...] by Veronika Lowery NP on behalf of: Corby Costello DO documented in this encounter [facility] 06-27-2024 History of Presen t illness Narrative Reason for Appointment: Patient ID: Yesy Nowak is a 28 y.o. female who [...] nursing note reviewed. Exam conducted with a template reproduction technician present. Vitals: There is no height [...] by Anita Oswald LPN on behalf of: Corby Costello DO documented in this encounter [facility] 06-22-2024 History of Presen t illness Narrative Reason for Appointment: Patient ID: Yesy Nowak is a 28 y.o. female who [...] Documented by CARROL Harmon on behalf of: Corby Costello DO documented in this encounter [facility] 06-08-2024 History of Presen t illness Narrative Reason for Appointment: Patient ID: Yesy Nowak is a 28 y.o. female who [...] of: CARROL Harmon documented in this encounter [facility] 06-07-2024 History of Presen t illness Narrative Denies current cramping or contractions. [...] all scheduled appointments documented in this encounter [facility] 06-07-2024 History of Presen t illness Narrative REASON FOR CONSULTATION: FGR HISTORY OF PRESENT ILLNESS: Yesy Nowak is a pleasant 28 y.o. at [...] TESTS AND ULTRASOUND REPORTS: Referral records and the medical center chart were reviewed Pertinent Ultrasound findings are see formal ultrasound report. PHYSICAL EXAMINATION: Ht 157.5 cm (5' 2 ) LMP 10/27/2023 BMI 18.47 kg/m Well-appearing in no distress. Respirations not labored, speaking comfortably in full sentences Gravid abdomen OVERALL ASSESSMENT -Yesy Nowak is a pleasant 28 y.o. at [...] Based on ultrasound findings today recommend delivery [facility] recommendations summary FGR is defined as [...] later - absent end-diastolic flow umbilical artery: [id number] or at time of diagnosis if diagnosed later. - reversed end-diastolic flow umbilical artery: [id number] or at time of diagnosis if diagnosed [...] twice weekly ANFS (twice weekly NST/ weekly ELIUD) through primary OB. As patient will be getting weekly umbilical artery Dopplers through [facility] along with fluid assessment, twice weekly NSTs can be performed through primary OB. Recommend delivery at 37 weeks gestation. If absent or reversed end-diastolic flow, re-engage MFM prior to 34 weeks gestation. Delivery method preferred vaginal. [place] [facility] for usual obstetrical indications Recommend steroids if delivery before 34 weeks. Consider steroids if delivery after 34 weeks and before 37 weeks. DISPOSITION: At this point the patient is in complete care of her revenue field auditor. Patient does have ultrasound scheduled with us. Thank you for allowing me to participate in the care of Yesy Nowak. If there any questions please do not hesitate to contact us. Reji Day MD Maternal- Medicine [facility] [address] [place] [address] [facility], the CDC, and other organizations representing maternal and public health professionals recommend that , , and lactating people and those considering receive the COVID-19 vaccination. Vaccination is the best method to reduce maternal and complications of SARS-CoV-2 infection. This document was created with [employer] technology. Though I make every effort to review the dictation as it is transcribed, on occasion the spoken word can be misinterpreted by the technology leading to inappropriate words, phrases, or sentences. This note is addressed to the requesting provider as a consultation for clinical guidance. Specific medical abbreviations are occasionally used and those are generally approved by the [place]?Board of?Obstetrics and?Gynecology?as well as?Jocelyn s abbreviations. The above plan of care was based solely on the diagnoses for which a consultation was requested. ?More frequent testing may be indicated based on her other medical/obstetrical conditions. The management of other or medical conditions is beyond the scope of requested consultation and will continue to be followed by the primary revenue field auditor or primary care provider. Note to patient: [...] office? Have you been seen here at [facility] in a previous ? Recent ER visits or hospitalizations? Bring blood sugar log or meter with you today? (Please bring them with you for every visit at [facility]) Flu vaccine (Feb-June)? Any concerns that you would like me to mention to the provider today? documented in this encounter [facility] 05-25-2024 History of Presen t illness Narrative Reason for Appointment: Patient ID: Yesy Nowak is a 28 y.o. female who [...] nursing note reviewed. Exam conducted with a template reproduction technician present. Vitals: There is no height [...] by Vanna Shetty LPN on behalf of: Corby Costello DO documented in this encounter [facility] 05-10-2024 History of Presen t illness Narrative Reason for Appointment: Patient ID: Yesy Nowak is a 28 y.o. female who [...] of: CARROL Harmon documented in this encounter [facility] 04-20-2024 History of Presen t illness Narrative Reason for Appointment: Patient ID: Yesy Nowak is a 28 y.o. female who [...] nursing note reviewed. Exam conducted with a template reproduction technician present. Vitals: There is no height [...] by Vanna Shetty LPN on behalf of: Corby Costello DO documented in this encounter [facility] 03-23-2024 History of Presen t illness Narrative Reason for Appointment: Patient ID: Yesy Nowak is a 28 y.o. female who [...] Documented by CARROL Harmon on behalf of: Corby Costello DO documented in this encounter [facility] 02-23-2024 History of Presen t illness Narrative Reason for Appointment: Patient ID: Yesy Nowak is a 28 y.o. female who [...] of: CARROL Harmon documented in this encounter [facility] 01-25-2024 History of Presen t illness Narrative Reason for Appointment: Patient ID: Yesy Nowak is a 28 y.o. female who [...] nursing note reviewed. Exam conducted with a template reproduction technician present. Vitals: There is no height [...] by Anita Oswald LPN on behalf of: Corby Costello DO documented in this encounter [facility] 12-31-2023 History of Presen t illness Narrative Reason for Appointment: Patient ID: Yesy Nowak is a 28 y.o. female who [...] Evaluation note Diagnosis Onset Date Wellness examination [facility] Work Phone: Evaluation note* Diagnosis 12 weeks [...] unspecified fetus [facility] Diagnosis 35 weeks gestation of Third trimester state, incidental [facility] noteNo assessment information [facility] Work Phone: InstructionsNot on filedocumented in this encounter [facility] filedocumented in this encounter [facility] filedocumented in this [facility] filedocumented in [facility] Chief Complaint and Reason for Visit Chief Complaint Wellness/Est Patient Reason for Visit Wellness examination Chief Complaint Admit Date Unknown July 05, 2024 5:01 am Advance Directives No Advanced Directives Records Found Advance Directive Response Recorded Date/ Time Advance Directives No November 29, 2023 3:55pm Summary Purpose Family History No Family History Records FoundNo Family History Records FoundNo Family History Records Found Additional Source Comments Care Teams (unrecognized sec tion and content) Team Status: Active Member Role Status Dates Tran Rice APRN ELECTRICIAN MANAGER-C Primary Care Provider Active Team Status: Inactive Member Role Status Dates Tran Rice APRN ELECTRICIAN MANAGER-C Primary Care Provider, Attending Provider Active Start: December 02, 2023 End: December 02, 2023 Machine Wiper Relationship Specialty Start Date End Date Tran Rice NP [facility] [place] [address] PCP - General Family Medicine 12/31/23 Machine Wiper Relationship Specialty Start Date End Date Tran Rice NP [facility] [place] [address] PCP - General Family Medicine 12/31/23 Machine Wiper Relationship Specialty Start Date End Date Tran Rice NP [address] [place] [address] PCP - General Family Medicine 12/31/23 Machine Wiper Relationship Specialty Start Date End Date Tran Rice NP [address] [place] [address] PCP - General Family Medicine 12/31/23 Machine Wiper Relationship Specialty Start Date End Date Tran Rice NP [address] [place] [address] PCP - General Family Medicine 12/31/23 Machine Wiper Relationship Specialty Start Date End Date Tran Rice NP [address] [facility] [place] [address] PCP - General Family Medicine 12/31/23 Machine Wiper Relationship Specialty Start Date End Date Tran Rice NP [address] [facility] [place] [address] PCP - General Family Medicine 12/31/23 Machine Wiper Relationship Specialty Start Date End Date Tran Rice NP [address] [facility] [place] [address] PCP - General Family Medicine 12/31/23 Machine Wiper Relationship Specialty Start Date End Date Tran Rice NP [address] [place] [address] PCP - General Family Medicine 12/31/23 Machine Wiper Relationship Specialty Start Date End Date Tran Rice NP [address] [place] [address] PCP - General Family Medicine 12/31/23 Machine Wiper Relationship Specialty Start Date End Date Tran Rice NP [address] [place] [address] PCP - General Family Medicine 12/31/23 Machine Wiper Relationship Specialty Start Date End Date Arthur Kan MD PCP - General 08/09/14 Machine Wiper Relationship Specialty Start Date End Date Tran Rice NP [address] [place] [address] PCP - General Family Medicine 12/31/23 Machine Wiper Relationship Specialty Start Date End Date Arthur Kan MD PCP - General 08/09/14 Machine Wiper Relationship Specialty Start Date End Date Arthur Kan MD PCP - General 08/09/14 Machine Wiper Relationship Specialty Start Date End Date Arthur Kan MD PCP - General 08/09/14 Machine Wiper Relationship Specialty Start Date End Date Arthur Kan MD PCP - General 08/09/14 Machine Wiper Relationship Specialty Start Date End Date Arthur Kan MD PCP - General 08/09/14 Machine Wiper Relationship Specialty Start Date End Date Arthur Kan MD PCP - General 08/09/14 Machine Wiper Relationship Specialty Start Date End Date Arthur Kan MD PCP - General 08/09/14 Machine Wiper Relationship Specialty Start Date End Date Tran Rice NP [address] [place] [address] PCP - General Family Medicine 12/31/23 Machine Wiper Relationship Specialty Start Date End Date Tran Rice NP [address] [place] [address] PCP - General Family Medicine 12/31/23 Machine Wiper Relationship Specialty Start Date End Date Arthur Kan MD PCP - General 08/09/14 Team Status: Active Member Role Status Dates Tran Rice APRN ELECTRICIAN MANAGER-C Primary Care Provider Active Start: April Corby Costello DO Attending Provider Active Start : May 05, 2024 Team Status: Active Member Role Status Dates Tran Rice APRN ELECTRICIAN MANAGER-C Primary Care Provider Active Start: June 22, 2024 Alma Vargas PA-C Attending Provider Active Start : June 22, 2024 Team Status: Inactive Member Role Status Dates Corby Costello DO Attending Provider Active Start : July 05, 2024 End: July 05, 2024 Team Status: Active Member Role Status Dates Tran Rice APRN ELECTRICIAN MANAGER-C Primary Care Provider Active Start: July 05, 2024 Corby Costello DO Attending Provider Active Start : July 05, 2024 Team Status: Active Member Role Status Dates Tran Rice APRN NP-C Primary Care Provider Active Start: July 06, 2024 Corby Pravin , DO Attending Provider Active Start : July 06, 2024 Goals (unrecognized section and content) Goals may [...] this encounterNot on filedocumented as of this encounterGoals may be documented in an alternate section Reason for Visit (unrecogniz ed section and content) Reason Comments Routine Visit Reason Comments Amenorrhea Reason Comments borderline 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 DATE CREATED AUTHOR AUTHOR'S ORGANIZ ATION 07/03/2024 [facility] DATE CREATED AUTHOR AUTHOR'S ORGANIZ ATION 07/11/2024 [facility] FOR RECORDS PERTAINING TO PATIENTS WHO ARE [...] BASED ON THE PRIMARY CLINICAL RECORDS. [facility] [employer] provides no warranty or guarantee of the accuracy or completeness of information in this document.
[2024-07-19 15:45] VITALS: PULSE 80; TEMP 36.6
== END 2024-07-19 15:45 | disposition home or self-care (01) ==
LOC: FBCO 09:11
PROVIDERS: PCP Nurse Practitioner Family; Visit Provider Obstetrics & Gynecology
DX: Z39.1 Encounter for care and examination of lactating mother (principal)